=== PATIENT | male | born 1935 | race Caucasian/White ===

== ENCOUNTER → 2016-02-27 | Outpatient (CLI) | payer OTHER, MEDICARE ==
[~2016-02-27] MED LIST: ANT25 PO; AZEL0.056; CETI10TA84 PO; CHOL1TAB12 PO; COEN1CAP17 PO; FLUT50SP22; LORA-741 PO; LVQ750 PO; OMEG-26 PO; PRD20 PO; SAWCAP2 PO; SCOP1DIS14 TD; SIMV10TA2 PO; TURM500C2 PO; VITACAP36 PO
--- NOTE | 2016-02-27 13:31 | DIAGNOSTIC IMAGING REPORT ---
CT SCAN OF THE PARANASAL SINUSES CLINICAL HISTORY: Chronic sinusitis. COMPARISON STUDY: CT of the brain dated 11/21/2014. TECHNIQUE: High-resolution CT scan of the paranasal sinuses is performed. Images are reviewed in the axial, sagittal, and coronal planes. IV contrast was not administered for this examination. The examination is performed utilizing the fusion protocol. CT DOSE: 727.62 mGy.cm FINDINGS: Maxillary antra: Mild mucosal thickening is present on the left. There is moderate mucosal thickening on the right with hyperdense secretions. Air-fluid levels are seen bilaterally. Anterior ethmoid sinuses: Moderate mucosal thickening on the right. Trace mucosal thickening on the left. Posterior ethmoid sinuses: Clear. Sphenoid sinuses: Trace mucosal thickening is seen bilaterally. Frontal sinuses: Trace mucosal thickening is seen on the right. Clear in the left. Ostiomeatal complexes: The ostomy complex is show significant bilateral narrowing secondary to mucosal thickening. Bilateral Jorgito cells are observed. Frontoethmoidal and sphenoethmoidal recesses: The sphenoethmoidal recesses are patent bilaterally noting significant narrowing secondary to mucosal thickening. The frontoethmoidal recesses are clear. Carotid arteries: The carotid arteries are protuberant but covered and without septal attachments. Ethmoid roofs: There is slightly asymmetric elevation of the left ethmoid roof as compared to the right. Nasal turbinates: Normal in appearance. Nasal septum: There is moderate rightward deviation of the bony nasal septum with a small spur. Optic nerves: Covered. Orbits: The bony orbits are intact. Orbital contents are normal in appearance noting bilateral ocular lens implants. Calvarium: The skeletal structures are osteopenic. The imaged calvarium is normal in appearance. Spondylosis is partially imaged in the upper cervical spine. Mastoid air cells: Well pneumatized. Brain parenchyma: Partially visualized brain parenchyma is within normal limits. IMPRESSION: Predominantly maxillary sinus disease as above. See discussion. Electronically signed by: Ron Jesus M.D. 02/27/2016 1:29 PM Dictated Date/Time: 02/27/2016 1:25 PM
== END | disposition home or self-care (01) ==
LOC: C.CTS 13:13
PROVIDERS: ATTEND Surgery
DX: J32.9 Chronic sinusitis, unspecified (principal)

== ENCOUNTER → 2016-04-07 | Outpatient (CLI) | payer OTHER, MEDICARE ==
[2016-04-07 10:32] LABS: CHOLESTEROL/HDL RATIO 2.4
== END | disposition home or self-care (01) ==
LOC: C.LAB1850 08:27
PROVIDERS: ATTEND Internal Medicine Cardiovascular Disease
DX: E78.00 Pure hypercholesterolemia, unspecified (principal); R73.9 Hyperglycemia, unspecified

== ENCOUNTER → 2016-05-21 | Outpatient (CLI) | payer OTHER, MEDICARE ==
[~2016-05-21] MED LIST changes: +SCOP1.5D2 TD; -SCOP1DIS14 TD
--- NOTE | 2016-05-21 12:24 | DIAGNOSTIC IMAGING REPORT ---
TWO VIEW CHEST CLINICAL HISTORY: Dyspnea on exertion. FINDINGS: PA and lateral chest radiographs are compared to study dated 08/22/2015 and correlated with chest CT dated 01/27/2016. The heart is mildly enlarged and there is atherosclerotic calcification of the thoracic aorta. The pulmonary vasculature is noncongested. Chronic interstitial thickening and mild emphysema are similar to previous. There is bibasilar atelectasis. No airspace consolidation or pleural effusion is identified. There is no pneumothorax. The skeletal structures are osteopenic. Degenerative change is noted throughout the thoracic spine. IMPRESSION: Cardiac enlargement and mild emphysema. No acute cardiopulmonary abnormality is seen.. Electronically signed by: Ron Jesus M.D. 05/21/2016 12:23 PM Dictated Date/Time: 05/21/2016 12:22 PM
[2016-05-21 13:11] LABS: BASO % 0.7 %; BASO ABS # 0.04 K/uL (0-0.2); COMPLETE YES; EOS % 5.4 %; HEMATOCRIT 32.1 % (42-52); IG% 0.2 %; LYMPH ABS # 1.33 K/uL (1.2-3.4); MEAN CELL VOLUME 88.4 fL (80-100); MEAN CORPUSCULAR HEMOGLOBIN 30.3 pg (25-34); MEAN CORPUSCULAR HGB CONC 34.3 g/dl (32-36); MONO % 10.2 %; NEUT % 60.5 %; PLATELET COUNT 188 K/uL (130-400); RED BLOOD COUNT 3.63 M/uL (4.7-6.1); WHITE BLOOD COUNT 5.79 K/uL (4.8-10.8)
[2016-05-21 13:22] LABS: ALT/SGPT 26 U/L (12-78); BLOOD UREA NITROGEN 24 mg/dl (7-18); BUN/CREATININE RATIO 30.8 (10-20); CALCIUM 8.9 mg/dl (8.5-10.1); CARBON DIOXIDE 25 mmol/L (21-32); CHLORIDE 104 mmol/L (98-107); CREATININE 0.78 mg/dl (0.60-1.40); GLUCOSE 105 mg/dl (70-99); POTASSIUM 4.1 mmol/L (3.5-5.1); SODIUM 137 mmol/L (136-145)
[2016-05-21 13:29] LABS: ESTIMATED AVERAGE GLUCOSE 117 mg/dl; HA1C FLAG Normal (Normal)
[2016-05-21 13:31] LABS: ALKALINE PHOSPHATASE 53 U/L (45-117); AST/SGOT 17 U/L (15-37); FERRITIN 50.9 ng/ml (8.0-388.0); TOTAL IRON BINDING CAPACITY 281 mcg/dl (250-450)
== END | disposition home or self-care (01) ==
LOC: C.LAB1850 11:35
PROVIDERS: ATTEND Internal Medicine
DX: R06.02 Shortness of breath (principal); D64.9 Anemia, unspecified; E55.9 Vitamin D deficiency, unspecified; R53.83 Other fatigue; R73.9 Hyperglycemia, unspecified; I51.7 Cardiomegaly

== ENCOUNTER 2016-05-30 10:39 | Emergency (ER) | payer OTHER, MEDICARE ==
[~2016-05-30] VITALS: Ht 182.9 cm; Wt 99.3 kg
[~2016-05-30 10:39] MED LIST changes: -ANT25 PO; -AZEL0.056; -CETI10TA84 PO; -CHOL1TAB12 PO; -COEN1CAP17 PO; -FLUT50SP22; -LORA-741 PO; -LVQ750 PO; -OMEG-26 PO; -PRD20 PO; -SAWCAP2 PO; -SCOP1.5D2 TD; -TURM500C2 PO; -VITACAP36 PO
[2016-05-30 10:45] VITALS: TEMP 37; Ht 182.9 cm; Wt 99.3 kg
[2016-05-30 11:12] VITALS: O2SAT 98
[2016-05-30] MEDS ORDERED: FLUT50SP22 (11:18)
[2016-05-30] MEDS ORDERED: PRD20 PO (11:18)
[2016-05-30] MEDS ORDERED: OMEG-26 PO (11:18)
[2016-05-30] MEDS ORDERED: TURM500C2 PO (11:18)
[2016-05-30] MEDS ORDERED: CHOL1TAB12 PO (11:18)
[2016-05-30] MEDS ORDERED: AZEL0.056 (11:18)
[2016-05-30] MEDS ORDERED: CETI10TA84 PO (11:18)
[2016-05-30] MEDS ORDERED: LORA-741 PO (11:18)
[2016-05-30] MEDS ORDERED: VITACAP36 PO (11:18)
[2016-05-30] MEDS ORDERED: COEN1CAP17 PO (11:18)
[2016-05-30] MEDS ORDERED: SCOP1.5D2 TD (11:18)
[2016-05-30] MEDS ORDERED: ANT25 PO (11:18)
[2016-05-30] MEDS ORDERED: SAWCAP2 PO (11:18)
[2016-05-30 11:52] LABS: BASO % 0.3 %; BASO ABS # 0.01 K/uL (0-0.2); COMPLETE YES; HEMATOCRIT 32.4 % (42-52); IG% 0.3 %; LYMPH % 15.8 %; MEAN CORPUSCULAR HGB CONC 35.2 g/dl (32-36); MEAN PLATELET VOLUME 10.8 fL (7.4-10.4); MONO % 7.4 %; NEUT % 76.2 %; PLATELET COUNT 199 K/uL (130-400); RED BLOOD COUNT 3.68 M/uL (4.7-6.1); WHITE BLOOD COUNT 3.79 K/uL (4.8-10.8)
[2016-05-30 11:59] LABS: BUN/CREATININE RATIO 21.8 (10-20); CALCIUM 8.8 mg/dl (8.5-10.1); CREATININE 0.9 mg/dl (0.60-1.40); POTASSIUM 4.3 mmol/L (3.5-5.1)
[2016-05-30 12:02] LABS: PROTHROMBIN TIME (PATIENT) 10.7 SECONDS (9.0-12.0)
--- NOTE | 2016-05-30 12:15 | DIAGNOSTIC IMAGING REPORT ---
CT OF THE HEAD WITHOUT CONTRAST CLINICAL HISTORY: Left arm numbness. COMPARISON STUDY: Head CT November 21, 2014. CT DOSE: 614.27 mGy.cm TECHNIQUE: Helical axial images of the head were obtained without IV contrast. Automated exposure control was utilized for the study. FINDINGS: No acute intracranial hemorrhage, midline shift or mass effect is present. Ventricular system is stable. Basilar cisterns are patent. There are no extra-axial collections. There are no findings to suggest acute dural sinus thrombosis or acute territorial infarct. A suspected mucous retention cyst within the right maxillary sinus is partially imaged on this exam. There are no significant calvarial abnormalities. IMPRESSION: No acute intracranial findings. Electronically signed by: Juan José Moreno M.D. 05/30/2016 12:13 PM Dictated Date/Time: 05/30/2016 12:07 PM
--- NOTE | 2016-05-30 12:16 | DIAGNOSTIC IMAGING REPORT ---
CHEST 2 VIEWS ROUTINE CLINICAL HISTORY: Shortness of breath. COMPARISON STUDY: Chest radiograph May 21, 2016. FINDINGS: There is no pneumothorax or pleural effusion. Cardiomediastinal silhouette is stable. There is no evidence of pulmonary edema. No consolidation is identified. Mild lower lung interstitial thickening, greater on the left, is unchanged. There is left basilar atelectasis. There is no consolidation to suggest pneumonia. The appearance of the chest is unchanged. Postsurgical findings within the right lung apex are noted. IMPRESSION: No acute cardiopulmonary findings. No change in appearance of the chest. Electronically signed by: Juan José Moreno M.D. 05/30/2016 12:14 PM Dictated Date/Time: 05/30/2016 12:13 PM
--- NOTE | 2016-05-30 13:43 | EMERGENCY ROOM VISIT NOTE ---
History First contact with patient: 11:19 Chief Complaint: CARDIAC ASSESSMENT Stated Complaint: ARM NUMBNESS, CHEST PAIN, HIGH BLOOD PRESSURE Nursing Triage Summary: HTN. NUMBNESS/TINGLING. History of Present Illness The patient is a 80 year old male who presents to the Emergency Room with complaints of left arm numbness. The patient states this morning he had some red patches on the palm of his left hand. He has a history of angioedema and is told to take prednisone if he has any allergic type reaction. The patient took 40 mg of prednisone. He states that the patches went away but then he got numbness in his hand which radiated up his entire left arm and then into the left side of his chest. The patient denies any chest pain but states he got very anxious and felt a little short of breath and therefore he took 0.5 mg of Ativan with relief. The patient also states that he took thousand milligrams of aspirin this morning. The patient denies any recent URI symptoms, any urinary symptoms. The patient denies any nausea or vomiting. The patient currently is only complaining of some slight numbness in his left arm. The patient states that he had similar symptoms in the left arm yesterday but they went away. The patient is currently under the care of Dr. Damon who referred him to Dr. Madrid for shortness of breath. The patient has sleep apnea but cannot tolerate the BiPAP. The patient also states that since the beginning of April the patient has had high blood pressure. He has been seen by Dr. Damon for the hypertension. He has not been placed on any medications. The patient states that he has been followed by Dr. Boston for the past 22 years. He is currently scheduled for a stress test June 21. He is under the assumption that Dr. Damon inform Dr. Boston of the patient's hypertension. The patient denies any other symptoms of headache, dizziness, visual changes or any weakness in his arms or legs. The patient does admit to high cholesterol. Past Medical/Surgical History Medical Problems: (1) AORTIC VALVE DISORDER (2) DIVERTICULOSIS COLON (W/O MENT OF HEMORRHAGE) (3) HYPERLIPIDEMIA NEC/NOS (4) Inguinal hernia Family History Heart disease Social History Smoking Status: Former Smoker Alcohol Use: occasionally Drug Use: none Marital Status: Housing Status: lives with family Occupation Status: retired Current/Historical Medications Scheduled Cetirizine (Zyrtec), 10 MG PO DAILY Cholecalciferol (Vitamin D3), 3,000 UNITS PO DAILY Coenzyme Q10 (Ubidecarenone) (Co Q 10), 100 MG PO DAILY Jay 3 Fatty Rlsje-Xodzoa-Bws ([facility]), 2,000 UNITS PO BID Saw Holland-Phytosterols (Prostate Sr), 1 TAB PO BID Simvastatin (Zocor), 10 MG PO QPM Turmeric (Curcuma Longa) (Curcumin 95), 500 MG PO DAILY Vitamin E (E-200), 200 UNITS PO DAILY Scheduled PRN Lorazepam (Ativan), 0.5 MG PO for . Meclizine HCl (Meclizine HCl), 25 MG PO for Dizziness or Vertigo Prednisone (Prednisone), 40 MG PO for ANGIOEDEMA Scopolamine (Transderm-Scop), 3 MG TD for . Miscellaneous Medications Azelastine HCl (Azelastine HCl) Fluticasone Propionate (Nasal) ([facility] Fluticasone Propriona) Allergies Coded Allergies: NO KNOWN DRUG ALLERGIES (Unverified Allergy, Unknown, NONE PER PT, 05/30/16) Unobtainable (Verified Allergy, Unknown, ANGIOEDEMA-HAS HAD 6 EPISODES THIS YR-TO BE DETERMINED, 05/30/16) Physical Exam Vital Signs Date Time Temp Pulse Resp B/P Pulse Ox O2 Delivery O2 Flow Rate FiO2 05/30/16 12:14 75 18 140/85 97 Room Air 05/30/16 11:13 80 05/30/16 11:12 98 Room Air 05/30/16 10:45 37.0 96 18 180/103 93 Room Air Physical Exam GENERAL: 80-year-old white male appears in no acute distress. MENTAL Status: Alert and oriented 3. EYES: PERRLA. EOMs intact. NECK: Supple, no lymphadenopathy noted. No carotid bruits noted. LUNGS: Clear auscultation without wheezes rales or rhonchi. CARDIAC: Regular rate and rhythm without murmur. Pulses is full and equal throughout. ABDOMEN: Positive bowel sounds all 4 quadrants. Soft, nontender to palpation without organomegaly or masses. NEURO:Cranial nerves two through 12 intact. Cerebellar function intact with [id number]. Fine motor intact with alternating finger motions. LOWER EXTREMITIES: Right lower extremity 1+ pitting edema. No erythema or edema noted. A trace of pitting edema on the left lower extremity. LEFT WRIST: No erythema or edema noted. Negative Tinel's negative Phalen's. Full range of motion. Chief Analytics Officer strength is 5 out of 5 as compared to the right. Medical Decision & Procedures ER Provider Diagnostic Interpretation: CHEST 2 VIEWS ROUTINE CLINICAL HISTORY: Shortness of breath. COMPARISON STUDY: Chest radiograph May 21, 2016. FINDINGS: There is no pneumothorax or pleural effusion. Cardiomediastinal silhouette is stable. There is no evidence of pulmonary edema. No consolidation is identified. Mild lower lung interstitial thickening, greater on the left, is unchanged. There is left basilar atelectasis. There is no consolidation to suggest pneumonia. The appearance of the chest is unchanged. Postsurgical findings within the right lung apex are noted. IMPRESSION: No acute cardiopulmonary findings. No change in appearance of the chest. Electronically signed by: Juan José Moreno M.D. 05/30/2016 12:14 PM Dictated Date/Time: 05/30/2016 12:[address] OF THE HEAD WITHOUT CONTRAST CLINICAL HISTORY: Left arm numbness. COMPARISON STUDY: Head CT November 21, 2014. CT DOSE: 614.27 mGy.cm TECHNIQUE: Helical axial images of the head were obtained without IV contrast. Automated exposure control was utilized for the study. FINDINGS: No acute intracranial hemorrhage, midline shift or mass effect is present. Ventricular system is stable. Basilar cisterns are patent. There are no extra-axial collections. There are no findings to suggest acute dural sinus thrombosis or acute territorial infarct. A suspected mucous retention cyst within the right maxillary sinus is partially imaged on this exam. There are no significant calvarial abnormalities. IMPRESSION: No acute intracranial findings. Electronically signed by: Juan José Moreno M.D. 05/30/2016 12:13 PM Laboratory Results 05/30/16 11:05 Red Blood Count 3.68, Mean Corpuscular Volume 88.0, Mean Corpuscular Hemoglobin 31.0, Mean Corpuscular Hemoglobin Concent 35.2, Mean Platelet Volume 10.8, Neutrophils (%) (Auto) 76.2, Lymphocytes (%) (Auto) 15.8, Monocytes (%) (Auto) 7.4, Eosinophils (%) (Auto) 0.0, Basophils (%) (Auto) 0.3, Neutrophils # (Auto) 2.89, Lymphocytes # (Auto) 0.60, Monocytes # (Auto) 0.28, Eosinophils # (Auto) 0.00, Basophils # (Auto) 0.01 05/30/16 11:05 Test 05/30/16 11:05 05/30/16 11:47 05/30/16 12:59 White Blood Count 3.79 K/uL (4.8-10.8) Red Blood Count 3.68 M/uL (4.7-6.1) Hemoglobin 11.4 g/dL (14.0-18.0) Hematocrit 32.4 % (42-52) Mean Corpuscular Volume 88.0 fL (80-100) Mean Corpuscular Hemoglobin 31.0 pg (25-34) Mean Corpuscular Hemoglobin Concent 35.2 g/dl (32-36) Platelet Count 199 K/uL (130-400) Mean Platelet Volume 10.8 fL (7.4-10.4) Neutrophils (%) (Auto) 76.2 % Lymphocytes (%) (Auto) 15.8 % Monocytes (%) (Auto) 7.4 % Eosinophils (%) (Auto) 0.0 % Basophils (%) (Auto) 0.3 % Neutrophils # (Auto) 2.89 K/uL (1.4-6.5) Lymphocytes # (Auto) 0.60 K/uL (1.2-3.4) Monocytes # (Auto) 0.28 K/uL (0.11-0.59) Eosinophils # (Auto) 0.00 K/uL (0-0.5) Basophils # (Auto) 0.01 K/uL (0-0.2) RDW Standard Deviation 42.0 fL (36.4-46.3) RDW Coefficient of Variation 12.8 % (11.5-14.5) Immature Granulocyte % (Auto) 0.3 % Immature Granulocyte # (Auto) 0.01 K/uL (0.00-0.02) Prothrombin Time 10.7 SECONDS (9.0-12.0) Prothromb Time International Ratio 1.0 (0.9-1.1) Activated Partial Thromboplast Time 25.6 SECONDS (21.0-31.0) Partial Thromboplastin Ratio 1.0 Anion Gap 10.0 mmol/L (3-11) Est Creatinine Clear Calc Drug Dose 82.6 ml/min Estimated GFR () 94.5 Estimated GFR (Non- 81.5 BUN/Creatinine Ratio 21.8 (10-20) Calcium Level 8.8 mg/dl (8.5-10.1) Total Bilirubin 0.3 mg/dl (0.2-1) Direct Bilirubin 0.1 mg/dl (0-0.2) Aspartate Amino Transf (AST/SGOT) 18 U/L (15-37) Alanine Aminotransferase (ALT/SGPT) 28 U/L (12-78) Alkaline Phosphatase 58 U/L (45-117) Total Creatine Kinase 103 U/L (39-308) Creatine Kinase MB 2.1 ng/ml (0.5-3.6) Creatine Kinase MB Ratio 2.0 (0-3.0) Total Protein 8.2 gm/dl (6.4-8.2) Albumin 3.8 gm/dl (3.4-5.0) Lipase 211 U/L (73-393) WJ-Ldb-Q-Type Natriuretic Peptide 223 pg/ml (0-1800) Bedside Troponin I 0.000 ng/ml (0-0.045) ECG Indication: other (arm numbness) Rhythm: sinus rhythm Findings: 1st degree AV block, RBBB, no acute ischemic change ED Course The patient was evaluated. The patient was placed in a monitor and continuous pulse ox. EKG was ordered and interpreted by myself without any acute changes. Chest x-ray was ordered and interpreted by the radiologist and myself as above with no change from prior x-ray of May 21.. IV access was obtained. CBC and differential, renal profile, LFTs and lipase levels were ordered. Coags were ordered. CK-MB, [id number] troponin and BNP was ordered. Head CT was ordered and interpreted by the radiologist as above any acute findings. The patient's labs are reviewed. White count was slightly low. Coags were normal. Metabolic profile was unremarkable. Troponin was 0. The patient was reevaluated. The patient's blood pressure on admission was elevated but on recheck was 140/85 .The patient was informed of all findings. A second troponin was ordered and was negative. The patient was informed of the findings. Dr. Josue independently evaluated the patient and agree with treatment plan. The patient was discharged home in stable condition. Medical Decision Differential diagnosis include carpal tunnel, stroke, TIA, acute IL, peripheral neuropathy Impression Primary Impression: Left arm numbness Additional Impressions: Shortness of breath Elevated blood pressure reading Departure Information Dispostion Home / Self-Care Condition GOOD Referrals Robert Damon M.D. (PCP) Forms IMPORTANT VISIT INFORMATION Patient Instructions My [facility] Master[employer] 3D Additional Instructions Follow-up with Dr. Damon in 2 days for reevaluation. Limit physical activity until rechecked in 2 days. If you have any severe chest pain, shortness of breath, extremity weakness return to ER immediately. Problem Qualifiers
[2016-05-30 13:52] VITALS: BP 168/100; PULSE 86; O2SAT 96
== END 2016-05-30 13:53 | disposition home or self-care (01) ==
LOC: C.EDB 10:41 → C.EDC 13:53
DX: R20.0 Anesthesia of skin (principal); R06.02 Shortness of breath; R03.0 Elevated blood-pressure reading, without diagnosis of hypertension; G47.30 Sleep apnea, unspecified; E78.5 Hyperlipidemia, unspecified; Z87.891 Personal history of nicotine dependence; Z79.899 Other long term (current) drug therapy

== ENCOUNTER 2016-09-05 13:00 | Observation (INO) | payer OTHER, MEDICARE ==
[~2016-09-05] VITALS: Ht 182.9 cm; Wt 95.0 kg
[~2016-09-05 13:00] MED LIST changes: +ANT25 PO; +AZEL0.056; +CETI10TA84 PO; +CHOL1TAB12 PO; +COEN1CAP17 PO; +FLUT50SP22; +LORA-741 PO; +OMEG-26 PO; +PRD20 PO; +SAWCAP2 PO; +SCOP1DIS14 TD; +TURM500C2 PO; +VITACAP36 PO
--- NOTE | 2016-09-05 13:31 | DIAGNOSTIC IMAGING REPORT ---
CHEST ONE VIEW PORTABLE CLINICAL HISTORY: 6 dyspnea COMPARISON STUDY: 05/30/2016 FINDINGS: Small right perihilar infiltrate. Minimal infiltrative change right base. Left lung is generally clear. Diaphragms are smooth. IMPRESSION: Small parenchymal infiltrate right midlung and right base. The above report was generated using voice recognition software. It may contain grammatical, syntax or spelling errors. Electronically signed by: Les Schmid M.D. 09/05/2016 1:30 PM Dictated Date/Time: 09/05/2016 1:29 PM
[2016-09-05 13:55] LABS: BASO % 0.3 %; BASO ABS # 0.02 K/uL (0-0.2); COMPLETE YES; EOS % 2.1 %; HEMATOCRIT 32.5 % (42-52); IG% 0.1 %; LYMPH ABS # 1.03 K/uL (1.2-3.4); MEAN CELL VOLUME 91.8 fL (80-100); MEAN CORPUSCULAR HEMOGLOBIN 31.1 pg (25-34); MEAN CORPUSCULAR HGB CONC 33.8 g/dl (32-36); MEAN PLATELET VOLUME 11.3 fL (7.4-10.4); NEUT % 71.5 %; PLATELET COUNT 167 K/uL (130-400); RED BLOOD COUNT 3.54 M/uL (4.7-6.1); WHITE BLOOD COUNT 7.93 K/uL (4.8-10.8)
[2016-09-05 14:13] LABS: BUN/CREATININE RATIO 19.9 (10-20); CALCIUM 8.5 mg/dl (8.5-10.1); CREATININE 1.1 mg/dl (0.60-1.40)
[2016-09-05] MEDS ORDERED: CEFTRIAXONE SOD INJ 1 GM ADDVIAL IV STA (14:15)
[2016-09-05 14:16] LABS: ALB/GLOB RATIO 0.7 (0.9-2)
[2016-09-05 15:09] LABS: LYME DISEASE AB IGG NEG (NEG); LYME DISEASE AB IGM NEG (NEG)
[2016-09-05] MEDS ORDERED: MAGNESIUM HYDROXIDE SUSP 30 ML UDC PO PRN (15:15)
[2016-09-05] MEDS ORDERED: MECLIZINE HCL 25 MG TAB PO PRN (15:15)
[2016-09-05] MEDS ORDERED: POLYETHYLENE (MIRALAX) 17 GM PACK PO PRN (15:15)
[2016-09-05] MEDS ORDERED: ALUMINUM/MAGNESIUM/SIMETH (MAALOX MAX) 30 ML UDC PO PRN (15:15)
[2016-09-05] MEDS ORDERED: ONDANSETRON INJ 2 MG/ML 2 ML VIAL IV PRN (15:15)
[2016-09-05] MEDS ORDERED: SODIUM CHLORIDE 0.9% 1000ML 1,000 ML IV SCH (15:15)
[2016-09-05] MEDS ORDERED: ALBUT/IPRATROP 3MG/0.5MG NEB 3 ML VIAL INH PRN (15:15)
[2016-09-05] MEDS ORDERED: LORAZEPAM 0.5 MG TAB PO PRN (15:15)
[2016-09-05 15:21] VITALS: O2SAT 95; Ht 182.9 cm; Wt 95.0 kg
[2016-09-05] MEDS ORDERED: IV FLUIDS COMPLETED PRN (15:30)
[2016-09-05] MEDS ORDERED: LEVAQUIN 750MG / 150ML D5W ONE (15:41)
--- NOTE | 2016-09-05 15:41 | History and Physical ---
History & Physical Date & Time of Service: Sep 05, 2016 at 15:23 Chief Complaint: Headaches For 5 Days,Fever,Body Aches Primary Care Physician: Robert Damon M.D. History of Present Illness Source: patient, family, clinic records, hospital records Patient is a pleasant 80 y/o male, with PMHx of hyperlipidemia, insomnia, and BPPV, who presented to the ED because of persistent fevers x7 days. Patient also admits to associated headaches, body aches, fatigue, and chills. He denies cough or SOB. He denies h/o pneumonia, recent hospitalization, or other recent illness. He denies any sick contact. Patient denies h/o TIA/CVA, DVT/PE. He denies recent long travels or pleuritic chest pain. Denies recent tick bite or rashes. He has been eating and drinking OK. Patient denies any sweats, lightheadedness, dizziness, vision changes, CP, palpitations, edema, SOB, wheezing, cough, abdominal pain, nausea, vomiting, diarrhea, urinary symptoms, melena, numbness/tingling, weakness, anxiety/depression, active bleeding, or new skin discoloration/changes. Past Medical/Surgical History Medical Problems: Aortic valve stenosis Hyperlipidemia Insomnia BPPV Family History Heart disease Social History Smoking Status: Former Smoker Drug Use: none Marital Status: Housing status: lives with family Occupational Status: retired Immunizations History of Tetanus Vaccine?: Yes History of Pneumococcal: RECEIVED UPON ADMISSION TO PCU History of Hepatitis B Vaccine: No Multi-Drug Resistant Organisms History of MDRO: No Allergies Coded Allergies: NO KNOWN DRUG ALLERGIES (Unverified Allergy, Unknown, NONE PER PT, 09/05/16 ) Unobtainable (Verified Allergy, Unknown, ANGIOEDEMA-HAS HAD 6 EPISODES THIS YR-TO BE DETERMINED, 09/05/16) Home Medications Scheduled Cetirizine (Zyrtec), 10 MG PO DAILY Cholecalciferol (Vitamin D3), 3,000 UNITS PO DAILY Coenzyme Q10 (Ubidecarenone) (Co Q 10), 100 MG PO DAILY Jansen 3 Fatty Eonkd-Vrdprp-Qvx ([facility]), 2,000 UNITS PO BID Saw [place]ight[place]-Phytosterols (Prostate Sr), 1 TAB PO BID Simvastatin (Zocor), 10 MG PO QPM Turmeric (Curcuma Longa) (Curcumin 95), 500 MG PO DAILY Vitamin E (E-200), 200 UNITS PO DAILY Scheduled PRN Lorazepam (Ativan), 0.5 MG PO for . Meclizine HCl (Meclizine HCl), 25 MG PO for Dizziness or Vertigo Prednisone (Prednisone), 40 MG PO for ANGIOEDEMA Scopolamine (Transderm-Scop), 3 MG TD for . Miscellaneous Medications Fluticasone Propionate (Nasal) ([facility] Fluticasone Propriona) Physical Exam Vital Signs Date Time Temp Pulse Resp B/P (MAP) Pulse Ox O2 Delivery O2 Flow Rate FiO2 09/05/16 14:45 87 20 140/78 95 Nasal Cannula 2.0 09/05/16 14:13 88 Room Air 09/05/16 13:37 98 09/05/16 13:15 93 Room Air 09/05/16 13:01 38.1 101 20 120/74 93 Room Air General Appearance: no apparent distress, + pertinent finding (O2 2L NC ) Head: normocephalic, atraumatic ENT: hearing grossly normal Neck: supple Respiratory/Chest: lungs clear, no respiratory distress, no accessory muscle use Cardiovascular: regular rate, rhythm Abdomen/GI: normal bowel sounds, non tender, soft Back: normal inspection Extremities/Musculoskelatal: no calf tenderness, no pedal edema Neurologic/Psych: alert, normal mood/affect, oriented x 3 Skin: normal color, warm/dry, no rash Diagnostics Laboratory Results Results Past 24 Hours Test 09/05/16 13:25 09/05/16 13:38 09/05/16 13:40 Range/Units White Blood Count 7.93 4.8-10.8 K/uL Red Blood Count 3.54 4.7-6.1 M/uL Hemoglobin 11.0 14.0-18.0 g/dL Hematocrit 32.5 42-52 % Mean Corpuscular Volume 91.8 80-100 fL Mean Corpuscular Hemoglobin 31.1 25-34 pg Mean Corpuscular Hemoglobin Concent 33.8 32-36 g/dl Platelet Count 167 130-400 K/uL Mean Platelet Volume 11.3 7.4-10.4 fL Neutrophils (%) (Auto) 71.5 % Lymphocytes (%) (Auto) 13.0 % Monocytes (%) (Auto) 13.0 % Eosinophils (%) (Auto) 2.1 % Basophils (%) (Auto) 0.3 % Neutrophils # (Auto) 5.67 1.4-6.5 K/uL Lymphocytes # (Auto) 1.03 1.2-3.4 K/uL Monocytes # (Auto) 1.03 0.11-0.59 K/uL Eosinophils # (Auto) 0.17 0-0.5 K/uL Basophils # (Auto) 0.02 0-0.2 K/uL RDW Standard Deviation 44.8 36.4-46.3 fL RDW Coefficient of Variation 13.2 11.5-14.5 % Immature Granulocyte % (Auto) 0.1 % Immature Granulocyte # (Auto) 0.01 0.00-0.02 K/uL Sodium Level 137 136-145 mmol/L Potassium Level 4.0 3.5-5.1 mmol/L Chloride Level 101 98-107 mmol/L Carbon Dioxide Level 28 21-32 mmol/L Anion Gap 8.0 3-11 mmol/L Blood Urea Nitrogen 22 7-18 mg/dl Creatinine 1.10 0.60-1.40 mg/dl Est Creatinine Clear Calc Drug Dose 66.2 ml/min Estimated GFR () 74.1 Estimated GFR (Non- 64.0 BUN/Creatinine Ratio 19.9 10-20 Random Glucose 98 70-99 mg/dl Calcium Level 8.5 8.5-10.1 mg/dl Total Bilirubin 0.4 0.2-1 mg/dl Aspartate Amino Transf (AST/SGOT) 17 15-37 U/L Alanine Aminotransferase (ALT/SGPT) 24 12-78 U/L Alkaline Phosphatase 56 45-117 U/L Total Protein 8.0 6.4-8.2 gm/dl Albumin 3.4 3.4-5.0 gm/dl Globulin 4.6 2.5-4.0 gm/dl Albumin/Globulin Ratio 0.7 0.9-2 Lyme Disease IgG Antibody NEG NEG Lyme Disease IgM Antibody NEG NEG Bedside Lactic Acid Venous 1.04 0.90-1.70 mmol/L Bedside Troponin I < 0.030 0-0.045 ng/ml Microbiology Results 09/05/16 Blood Culture, Received Pending 09/05/16 Blood Culture, Received Pending Diagnostic Radiology CHEST ONE VIEW PORTABLE CLINICAL HISTORY: 6 dyspnea COMPARISON STUDY: 05/30/2016 FINDINGS: Small right perihilar infiltrate. Minimal infiltrative change right base. Left lung is generally clear. Diaphragms are smooth. IMPRESSION: Small parenchymal infiltrate right midlung and right base. The above report was generated using voice recognition software. It may contain grammatical, syntax or spelling errors. Electronically signed by: Les Schmid M.D. 09/05/2016 1:30 PM Dictated Date/Time: 09/05/2016 1:29 PM The status of this report is Signed. Draft = Not yet reviewed or approved by Radiologist. Signed = Reviewed and approved by Radiologist. Impression Assessment and Plan Patient is a pleasant 80 y/o male, with PMHx of hyperlipidemia, insomnia, and BPPV, who presented to the ED because of persistent fevers x7 days. Patient also admits to associated headaches, body aches, fatigue, and chills. Pneumonia w/ infiltrates right midlung/base on CXR: - Admit to med/surg - O2 protocol, wean as tolerated- does NOT wear O2 supplement at home - IV Rocephin x1 dose in ED; start IV Levaquin at admission (09/05) - DuoNebs PRN - BCx and sputum cultures pending - Check UA - Lyme screen negative - Tylenol PRN fever/pain Chronic anemia, baseline hgb 11.0- STABLE Hyperlipidemia: Continue Zocor 10 mg HS BPPV: Continue Meclizine 25 mg TID PRN dizziness Insomnia: Ativan 0.5 mg HS PRN Aortic stenosis- follows w/ Dr. Boston GI Prophylaxis: Maalox PRN, IV Zofran PRN, Colace and/or Milk of Mag PRN DVT Prophylaxis: Lovenox, TEDs/SCDs Code Status: LEVEL I, FULL Dispo: From home, lives w/ - no discharge needs anticipated Resident Physician Supervision Note: I was present with Clara LAST during the history and exam. I discussed the case with the PA and agree with the findings and plan as documented in the note. Any exceptions or clarifications are listed here: Relatively healthy 80 y/o M Hx HPL - developed fever and weakness over past 2 days - denies cough/SOB, however, 02 sat was low on arrival and CXR is consistent with PNM OE AAO x 3 S1,2 R CTAB NT, ND No CCE P: Abx - PRN Duonebs Cont statin Tx Can likely be D/Cd if sat improves as he has few comorbidities and good functional status Documented By: Chintan March Level of Care Med/Surg Resuscitation Status FULL RESUSCITATION VTE Prophylaxis VTE Risk Assessment Done? Y/N: Yes Risk Level: Moderate Given or contraindicated: Enoxaparin (Lovenox)SQ, T.E.D. Stockings, SCD's
[2016-09-05] MEDS ORDERED: LEVOFLOXACIN CONSULT ACTIVE PRN (15:45)
[2016-09-05] MEDS ORDERED: LEVOFLOXACIN / D5W 750 MG in PREMIXED IN D5W 150 ML IV ONE (15:45)
[2016-09-05 16:45] VITALS: BP 136/84; PULSE 90; TEMP 37.7; O2SAT 93
[2016-09-05 17:06] LABS: PROTHROMBIN TIME (PATIENT) 10.9 SECONDS (9.0-12.0)
--- NOTE | 2016-09-05 17:14 | EMERGENCY ROOM VISIT NOTE ---
History Report prepared by Miguel: Lang Go Under the Supervision of: Dr. Tamir Constantino M.D. First contact with patient: 14:03 Chief Complaint: FEVER Stated Complaint: HEADACHES FOR 5 DAYS,FEVER,BODY ACHES History of Present Illness The patient is a 80 year old male who presents to the Emergency Room with complaints of a persistent fever for the past week. He currently rates his discomfort as a 7/10 in severity. The patient states that for the past week he has had a fever and then four days ago he developed body aches. He additionally associates chills and a headache. The patient denies any shortness of breath. He denies feeling short of breath prior to being put on supplemental nasal cannula oxygen in the emergency department. The patient denies any known tick bites but states that [place] areas, so there is a possibility. He denies any cough, chest pain, vomiting, or swelling or pain in his lower extremities. Source of History: patient Onset: past week Position: other (global) Symptom Intensity: 7/10 Quality: other (fever) Timing: other (persistent) Associated Symptoms: + headache, No neck pain, No chest pain, No SOB, No vomiting Note: Associated Symptoms: body aches Review of Systems See HPI for pertinent positives & negatives. A total of 10 systems reviewed and were otherwise negative. Past Medical & Surgical Medical Problems: (1) AORTIC VALVE DISORDER (2) DIVERTICULOSIS COLON (W/O MENT OF HEMORRHAGE) (3) HYPERLIPIDEMIA NEC/NOS (4) Inguinal hernia (5) Pneumonia Family History Heart disease Social History Smoking Status: Former Smoker Alcohol Use: occasionally Drug Use: none Marital Status: Housing Status: lives with family Occupation Status: retired Current/Historical Medications Scheduled Cetirizine (Zyrtec), 10 MG PO DAILY Cholecalciferol (Vitamin D3), 3,000 UNITS PO DAILY Coenzyme Q10 (Ubidecarenone) (Co Q 10), 100 MG PO DAILY [place] 3 Fatty Jihry-Medrra-Lqg ([facility]), 2,000 UNITS PO BID Saw Kelay[place]-Phytosterols (Prostate Sr), 1 TAB PO BID Simvastatin (Zocor), 10 MG PO QPM Turmeric (Curcuma Longa) (Curcumin 95), 500 MG PO DAILY Vitamin E (E-200), 200 UNITS PO DAILY Scheduled PRN Lorazepam (Ativan), 0.5 MG PO for . Meclizine HCl (Meclizine HCl), 25 MG PO for Dizziness or Vertigo Prednisone (Prednisone), 40 MG PO for ANGIOEDEMA Scopolamine (Transderm-Scop), 3 MG TD for . Miscellaneous Medications Fluticasone Propionate (Nasal) ([facility] Fluticasone Propriona) Allergies Coded Allergies: NO KNOWN DRUG ALLERGIES (Unverified Allergy, Unknown, NONE PER PT, 09/05/16 ) Unobtainable (Verified Allergy, Unknown, ANGIOEDEMA-HAS HAD 6 EPISODES THIS YR-TO BE DETERMINED, 09/05/16) Physical Exam Vital Signs Date Time Temp Pulse Resp B/P (MAP) Pulse Ox O2 Delivery O2 Flow Rate FiO2 09/05/16 15:21 95 Nasal Cannula 2.0 09/05/16 14:45 87 20 140/78 95 Nasal Cannula 2.0 09/05/16 14:13 88 Room Air 09/05/16 13:37 98 09/05/16 13:15 93 Room Air 09/05/16 13:01 38.1 101 20 120/74 93 Room Air Physical Exam Constitutional: Vital signs reviewed. Pulse ox 88 on room air. Eyes: Pupils are equal round reactive to light. Conjunctiva are noninjected. ENT: Pharynx is clear without erythema or exudate. Mucous membranes are moist. Neck supple without meningeal signs. Respiratory: Crackles at the right base. Breath sounds are equal bilaterally. Cardiovascular: Regular rate and rhythm. No rubs or gallops. GI: Soft, nondistended and nontender. Bowel sounds are present. Musculoskeletal: No peripheral edema. No lower extremity tenderness. Integumentary: No cyanosis. Neurological: The patient is awake and alert. No focal deficits. Psychiatric: Normal affect. Medical Decision & Procedures ER Provider Diagnostic Interpretation: X-ray results as stated below per interpretation by me and the radiologist: CHEST ONE VIEW PORTABLE CLINICAL HISTORY: 6 dyspnea COMPARISON STUDY: 05/30/2016 FINDINGS: Small right perihilar infiltrate. Minimal infiltrative change right base. Left lung is generally clear. Diaphragms are smooth. IMPRESSION: Small parenchymal infiltrate right midlung and right base. The above report was generated using voice recognition software. It may contain grammatical, syntax or spelling errors. Electronically signed by: Les Schmid M.D. 09/05/2016 1:30 PM Dictated Date/Time: 09/05/2016 1:29 PM Laboratory Results 09/05/16 13:25 Red Blood Count 3.54, Mean Corpuscular Volume 91.8, Mean Corpuscular Hemoglobin 31.1, Mean Corpuscular Hemoglobin Concent 33.8, Mean Platelet Volume 11.3, Neutrophils (%) (Auto) 71.5, Lymphocytes (%) (Auto) 13.0, Monocytes (%) (Auto) 13.0, Eosinophils (%) (Auto) 2.1, Basophils (%) (Auto) 0.3, Neutrophils # (Auto ) 5.67, Lymphocytes # (Auto) 1.03, Monocytes # (Auto) 1.03, Eosinophils # (Auto ) 0.17, Basophils # (Auto) 0.02 09/05/16 13:25 Test 09/05/16 13:25 09/05/16 13:38 09/05/16 13:40 White Blood Count 7.93 K/uL (4.8-10.8) Red Blood Count 3.54 M/uL (4.7-6.1) Hemoglobin 11.0 g/dL (14.0-18.0) Hematocrit 32.5 % (42-52) Mean Corpuscular Volume 91.8 fL (80-100) Mean Corpuscular Hemoglobin 31.1 pg (25-34) Mean Corpuscular Hemoglobin Concent 33.8 g/dl (32-36) Platelet Count 167 K/uL (130-400) Mean Platelet Volume 11.3 fL (7.4-10.4) Neutrophils (%) (Auto) 71.5 % Lymphocytes (%) (Auto) 13.0 % Monocytes (%) (Auto) 13.0 % Eosinophils (%) (Auto) 2.1 % Basophils (%) (Auto) 0.3 % Neutrophils # (Auto) 5.67 K/uL (1.4-6.5) Lymphocytes # (Auto) 1.03 K/uL (1.2-3.4) Monocytes # (Auto) 1.03 K/uL (0.11-0.59) Eosinophils # (Auto) 0.17 K/uL (0-0.5) Basophils # (Auto) 0.02 K/uL (0-0.2) RDW Standard Deviation 44.8 fL (36.4-46.3) RDW Coefficient of Variation 13.2 % (11.5-14.5) Immature Granulocyte % (Auto) 0.1 % Immature Granulocyte # (Auto) 0.01 K/uL (0.00-0.02) Prothrombin Time 10.9 SECONDS (9.0-12.0) Prothromb Time International Ratio 1.0 (0.9-1.1) Anion Gap 8.0 mmol/L (3-11) Est Creatinine Clear Calc Drug Dose 66.2 ml/min Estimated GFR () 74.1 Estimated GFR (Non- 64.0 BUN/Creatinine Ratio 19.9 (10-20) Calcium Level 8.5 mg/dl (8.5-10.1) Total Bilirubin 0.4 mg/dl (0.2-1) Aspartate Amino Transf (AST/SGOT) 17 U/L (15-37) Alanine Aminotransferase (ALT/SGPT) 24 U/L (12-78) Alkaline Phosphatase 56 U/L (45-117) Total Protein 8.0 gm/dl (6.4-8.2) Albumin 3.4 gm/dl (3.4-5.0) Globulin 4.6 gm/dl (2.5-4.0) Albumin/Globulin Ratio 0.7 (0.9-2) Lyme Disease IgG Antibody NEG (NEG) Lyme Disease IgM Antibody NEG (NEG) Bedside Lactic Acid Venous 1.04 mmol/L (0.90-1.70) Bedside Troponin I < 0.030 ng/ml (0-0.045) Laboratory results as reviewed by me. Medications Administered Medications (Trade) Dose Ordered Sig/Phyllis Route Start Time Stop Time Status Last Admin Dose Admin Ceftriaxone Sodium (Rocephin Inj) 1 gm NOW STAT IV 09/05/16 14:15 09/05/16 14:16 DC 09/05/16 14:31 1 GM ED Course 1405: The patient was evaluated in room B4B. A complete history and physical exam was performed. I discussed the exam findings with him and I discussed the treatment plan. He verbalized complete understanding and agreement. He is going to be evaluated for further treatment. 1415: Ordered Rocephin Inj 1 gm IV. 1449: I discussed the patients case with LYNDON Lopez. He is going to evaluate the patient for further treatment. Medical Decision This is a 80-year-old male who presents with fever. Differential diagnosis includes sepsis, SIRS, pneumonia, UTI, Lyme disease, viral illness. I did perform a limited focused review of portions of the patient's old chart on the electronic medical record. The patient has had no recent pertinent visits to this hospital. Medication Reconciliation: I attest that I have personally reviewed the patient' s current medication list. Blood Pressure Screening: Patient was found to have normal blood pressure on screening and does not require follow-up. I did evaluate the patient as noted above. IV access was established. I did personally review the patient's chest x-ray as described above. The patient has a right sided pneumonia. I did order and review the patient's blood work as noted in the electronic medical record. While the patient was in the emergency Department his O2 saturations dropped to the high 80s. He was placed on oxygen by the nurse. I did take him off the oxygen to see if he desaturated again. His O2 saturation went down to 88 on room air and so he is placed back on oxygen. Given his pneumonia and hypoxia he will require hospitalization. I did treat him with ceftriaxone IV. I did discuss case with the hospitalist and lining caser. Consults Time Called: [phone] Consulting Physician: LYNDON Lopez Returned Call: [phone] I discussed the patients case with LYNDON Lopez. He is going to evaluate the patient for further treatment. Impression Primary Impression: Pneumonia involving right lung Additional Impression: Hypoxia Scribe Attestation The scribe's documentation has been prepared under my direct and personally reviewed by me in its entirety. I confirm that the note above accurately reflects all work, treatment, procedures, and medical decision making performed by me. Departure Information Dispostion Being Evaluated By Hospitalist Referrals Robert Damon M.D. (PCP) Problem Qualifiers Primary Impression: Pneumonia involving right lung Pneumonia type: due to unspecified organism Lung location: unspecified part of lung Qualified Codes: J18.9 - Pneumonia, unspecified organism
[2016-09-05] MEDS: ACETAMINOPHEN 325 MG TAB PO PRN ×2 (18:01→22:05)
[2016-09-05 20:00] VITALS: O2SAT 92
[2016-09-05 20:48] LABS: URINE APPEARANCE CLEAR (CLEAR); URINE BILIRUBIN NEG (NEG); URINE COLOR YELLOW; URINE EPITHELIAL CELL AUTO 0-5 /lpf (0-5); URINE NITRITE NEG (NEG); URINE PH 6.5 (4.5-7.5); URINE SPECIFIC GRAVITY 1.013 (1.000-1.030); UROBILINOGEN NEG (NEG); ZZUR CULT IF INDIC CLEAN CATCH NO
[2016-09-05 20:49] LABS: MANUAL MICROSCOPIC REQUIRED? NO; REVIEW REQ? NO
[2016-09-05] MEDS ORDERED: ENOXAPARIN 40 MG/0.4 ML SYR SQ SCH (21:00)
[2016-09-05] MEDS ORDERED: SIMVASTATIN 10 MG TAB PO SCH (21:00)
[2016-09-05 23:43] VITALS: BP 136/84; PULSE 90; TEMP 37.7; O2SAT 93
[2016-09-06] VITALS: O2SAT 97
[2016-09-06 06:49] LABS: HEMATOCRIT 31.1 % (42-52); MEAN CELL VOLUME 90.4 fL (80-100); MEAN CORPUSCULAR HEMOGLOBIN 30.2 pg (25-34); MEAN CORPUSCULAR HGB CONC 33.4 g/dl (32-36); MEAN PLATELET VOLUME 10.5 fL (7.4-10.4); PLATELET COUNT 156 K/uL (130-400); RED BLOOD COUNT 3.44 M/uL (4.7-6.1); WHITE BLOOD COUNT 5.56 K/uL (4.8-10.8)
[2016-09-06 07:14] LABS: BUN/CREATININE RATIO 20.9 (10-20); CALCIUM 8.2 mg/dl (8.5-10.1); CREATININE 0.78 mg/dl (0.60-1.40); POTASSIUM 3.9 mmol/L (3.5-5.1)
[2016-09-06 07:41] VITALS: BP 135/69; PULSE 92; TEMP 36.9; O2SAT 100
[2016-09-06] MEDS ORDERED: FLUTICASONE PROPIONATE NA SPR 16 GM BTL SCH (09:00)
[2016-09-06] MEDS ORDERED: CETIRIZINE HCL 10 MG TAB PO SCH (09:00)
[2016-09-06] MEDS ORDERED: LVQ750 PO (12:42)
--- NOTE | 2016-09-06 12:43 | Discharge Instructions ---
Discharge Instructions Date of Service Sep 06, 2016. Admission Reason for Admission: Pneumonia Discharge Discharge Diagnosis / Problem: Pneumonia Discharge Goals Goal(s): Improve function Activity Recommendations Activity Limitations: resume your previous activity . Current Hospital Diet Patient's current hospital diet: AHA Diet (Heart Healthy) Discharge Diet Recommended Diet: Regular Diet Pending Studies Studies pending at discharge: no Medical Emergencies . Who to Call and When: Medical Emergencies: If at any time you feel your situation is an emergency, please call 911 immediately. . Non-Emergent Contact Non-Emergency issues call your: Primary Care Provider . . "Provider Documentation" section prepared by Bridger Carmichael. . VTE Core Measure Inpt VTE Proph given/why not?: Enoxaparin (Lovenox)Crescencio CARVALHO, SCD's
[2016-09-06 14:17] VITALS: BP 135/69; PULSE 92; TEMP 36.9; O2SAT 100
[2016-09-06] MEDS ORDERED: LEVOFLOXACIN / D5W 750 MG in PREMIXED IN D5W 150 ML IV SCH (16:00)
--- NOTE | 2016-09-23 00:59 | DISCHARGE SUMMARY ---
Please see dictated H and P for full details. The patient is a 81-year-old with history of hyperlipidemia and insomnia, who presented with persistent fevers for 7 days, associated headaches, body aches, fatigue and chills. He also has a history of aortic valve stenosis. He was discovered to have a normal white count of 7.9 and a small parenchymal infiltrate in the right mid lung and right base and was brought in for IV antibiotics, started on Rocephin. He received 1 dose in the Emergency Room and then was started on Levaquin. On hospital day #2, the patient's symptoms had improved and he was deemed stable for discharge. He was on Levaquin 750 daily for 6 days, Zyrtec 10 mg daily, vitamin D 3 3000 units daily, coenzyme 10 100 mg daily, fluticasone 50 mcg spray, Ativan 0.5 mg p.r.n., meclizine 25 mg p.r.n. for dizziness, omega-3 fatty acids 1 capsule 2000 units twice a day, prednisone 40 mg p.r.n. angioedema, saw palmetto 1 capsule b.i.d., scopolamine 3 mg transdermal p.r.n., simvastatin 10 mg q.p.m., turmeric 500 mg daily, vitamin E 200 mg daily. He was discharged home with self care. He was 97% on room air. Recommended to follow up with his regular doctor in 1 week.
== END 2016-09-06 14:30 | disposition home or self-care (01) ==
LOC: C.EDB 13:01 → C.MS2W 15:22 → ENRESERV 16:10
PROVIDERS: ADMIT Internal Medicine; ATTEND Internal Medicine
DX: J18.9 Pneumonia, unspecified organism (principal); E78.5 Hyperlipidemia, unspecified; G47.00 Insomnia, unspecified; H81.10 Benign paroxysmal vertigo, unspecified ear; Z82.49 Family history of ischemic heart disease and other diseases of the circulatory system; Z87.891 Personal history of nicotine dependence; I35.0 Nonrheumatic aortic (valve) stenosis; Z87.01 Personal history of pneumonia (recurrent)

== ENCOUNTER → 2016-09-28 | Outpatient (CLI) | payer OTHER, MEDICARE ==
[~2016-09-28] MED LIST changes: -AZEL0.056; +LVQ750 PO
[2016-09-28 10:04] LABS: BASO % 0.7 %; BASO ABS # 0.03 K/uL (0-0.2); COMPLETE YES; EOS % 7.9 %; HEMATOCRIT 32.8 % (42-52); LYMPH % 26.5 %; LYMPH ABS # 1.21 K/uL (1.2-3.4); MEAN CELL VOLUME 91.6 fL (80-100); MEAN CORPUSCULAR HEMOGLOBIN 30.2 pg (25-34); MEAN CORPUSCULAR HGB CONC 32.9 g/dl (32-36); MONO % 9.8 %; NEUT % 55.1 %; PLATELET COUNT 159 K/uL (130-400); RED BLOOD COUNT 3.58 M/uL (4.7-6.1); WHITE BLOOD COUNT 4.57 K/uL (4.8-10.8)
[2016-09-28 10:46] LABS: ALT/SGPT 31 U/L (12-78); AST/SGOT 24 U/L (15-37); BLOOD UREA NITROGEN 25 mg/dl (7-18); BUN/CREATININE RATIO 35.5 (10-20); CALCIUM 8.9 mg/dl (8.5-10.1); CARBON DIOXIDE 28 mmol/L (21-32); CHLORIDE 107 mmol/L (98-107); CREATININE 0.71 mg/dl (0.60-1.40); GLUCOSE 104 mg/dl (70-99); POTASSIUM 4.2 mmol/L (3.5-5.1); SODIUM 139 mmol/L (136-145)
[2016-09-28 11:00] LABS: CHOLESTEROL 159 mg/dl (0-200); CHOLESTEROL/HDL RATIO 2.6; HDL CHOLESTEROL 62 mg/dl; LDL CHOLESTEROL CALCULATED 79 mg/dl; TOTAL IRON BINDING CAPACITY 280 mcg/dl (250-450); TRIGLYCERIDES 92 mg/dl (0-150); VERY LOW DENSITY LIPOPROT CALC 18 mg/dl
== END | disposition home or self-care (01) ==
LOC: C.LAB1850 08:57
PROVIDERS: ATTEND Internal Medicine
DX: E78.00 Pure hypercholesterolemia, unspecified (principal); E55.9 Vitamin D deficiency, unspecified; D64.9 Anemia, unspecified; I10 Essential (primary) hypertension

== ENCOUNTER → 2016-11-02 | Outpatient (CLI) | payer OTHER, MEDICARE ==
[2016-11-02 09:37] LABS: BASO % 0.6 %; BASO ABS # 0.03 K/uL (0-0.2); COMPLETE YES; EOS % 8.2 %; IG% 0.2 %; LYMPH % 27.2 %; LYMPH ABS # 1.42 K/uL (1.2-3.4); MEAN CELL VOLUME 90.4 fL (80-100); MEAN CORPUSCULAR HEMOGLOBIN 30.2 pg (25-34); MEAN CORPUSCULAR HGB CONC 33.4 g/dl (32-36); MEAN PLATELET VOLUME 10.7 fL (7.4-10.4); MONO % 7.5 %; NEUT % 56.3 %; PLATELET COUNT 165 K/uL (130-400); RED BLOOD COUNT 3.54 M/uL (4.7-6.1); WHITE BLOOD COUNT 5.22 K/uL (4.8-10.8)
== END | disposition home or self-care (01) ==
LOC: C.LAB1850 08:21
PROVIDERS: ATTEND Internal Medicine
DX: D64.9 Anemia, unspecified (principal)

== ENCOUNTER → 2017-02-19 | Outpatient (CLI) | payer OTHER, MEDICARE ==
[~2017-02-19] MED LIST changes: +SCOP1.5D2 TD; -SCOP1DIS14 TD
[2017-03-03 10:14] LABS: FECAL OCCULT BLOOD #1 NEGATIVE (NEGATIVE); FECAL OCCULT BLOOD #2 NEGATIVE (NEGATIVE); FECAL OCCULT BLOOD #3 NEGATIVE (NEGATIVE)
== END | disposition home or self-care (01) ==
LOC: C.LABSPEC 09:54
PROVIDERS: ATTEND Internal Medicine
DX: D64.9 Anemia, unspecified (principal)

== ENCOUNTER → 2017-03-01 | Outpatient (CLI) | payer OTHER, MEDICARE ==
[2017-03-01 09:35] LABS: HEMATOCRIT 31.9 % (42-52); HEMOGLOBIN 11.1 g/dL (14.0-18.0); MEAN CELL VOLUME 90.6 fL (80-100); MEAN CORPUSCULAR HEMOGLOBIN 31.5 pg (25-34); MEAN CORPUSCULAR HGB CONC 34.8 g/dl (32-36); PLATELET COUNT 185 K/uL (130-400); RED CELL DISTRIBUTION WIDTH CV 13.5 % (11.5-14.5); RED CELL DISTRIBUTION WIDTH SD 44.3 fL (36.4-46.3); WHITE BLOOD COUNT 4.65 K/uL (4.8-10.8)
[2017-03-01 10:03] LABS: HEMOGLOBIN A1C 5.8 % (4.5-5.6)
[2017-03-01 10:15] LABS: BLOOD UREA NITROGEN 20 mg/dl (7-18); CALCIUM 8.7 mg/dl (8.5-10.1); CARBON DIOXIDE 29 mmol/L (21-32); CREATININE 0.78 mg/dl (0.60-1.40); GLUCOSE 94 mg/dl (70-99); POTASSIUM 3.7 mmol/L (3.5-5.1); SODIUM 136 mmol/L (136-145)
== END | disposition home or self-care (01) ==
LOC: C.LAB1850 08:27
PROVIDERS: ATTEND Internal Medicine
DX: D64.9 Anemia, unspecified (principal); R73.9 Hyperglycemia, unspecified

== ENCOUNTER → 2017-04-05 | Outpatient (CLI) | payer OTHER, MEDICARE ==
[2017-04-05 10:16] LABS: ALT/SGPT 27 U/L (12-78); AST/SGOT 21 U/L (15-37); BLOOD UREA NITROGEN 25 mg/dl (7-18); CALCIUM 8.3 mg/dl (8.5-10.1); CARBON DIOXIDE 30 mmol/L (21-32); CREATININE 0.84 mg/dl (0.60-1.40); GLUCOSE 96 mg/dl (70-99); POTASSIUM 3.8 mmol/L (3.5-5.1); SODIUM 139 mmol/L (136-145)
[2017-04-05 10:19] LABS: CHOLESTEROL 141 mg/dl (0-200); LDL CHOLESTEROL CALCULATED 65 mg/dl
== END | disposition home or self-care (01) ==
LOC: C.LAB1850 08:39
PROVIDERS: ATTEND Internal Medicine Cardiovascular Disease
DX: E78.00 Pure hypercholesterolemia, unspecified (principal)

== ENCOUNTER → 2017-10-11 | Outpatient (CLI) | payer OTHER, MEDICARE ==
[~2017-10-11] MED LIST changes: -LVQ750 PO; +MELO-83 PO
--- NOTE | 2017-10-14 09:39 | POLYSOMNOGRAPH REPORT ---
CLINICAL DATA: Iqljzl-worj-cjf male with a BMI of 28.86 referred for reevaluation of sleep apnea. He had a sleep study done in 2012, which showed severe sleep apnea with an AHI of 53.4. 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 He has returned for reevaluation of his sleep apnea. On the evening of 10/11/2017, a home sleep apnea test was performed using a Ashley type 3 monitor. RECORDING RESULTS: Total recording time was 10 hours. Patient's monitoring time and estimated sleep time was 7.5 hours. RESPIRATORY DATA: Severe sleep apnea was documented. The DULCE MARIA was 60.5. There were 273 obstructive, 13 mixed, and 2 central apneic episodes. There were 164 hypopneic episodes. The longest respiratory event was 77 seconds. OXIMETRY DATA: Severe hypoxemia was seen. Oxygen froilan was 64%. Mean saturation was 87%. Time below 89% was 283 minutes. HEART RATE DATA: Heart rates ranged from 70 to 55 beats per minute. SNORING DATA: Snoring was recorded throughout the night. IMPRESSION: Very severe sleep apnea/hypopnea with severe nocturnal hypoxemia. The patient has demonstrated that he has complex sleep apnea in the past. RECOMMENDATIONS: The patient may benefit from an ASV titration. BRIANNAD
== END | disposition home or self-care (01) ==
LOC: C.NEUR 11:57
PROVIDERS: ATTEND Internal Medicine Pulmonary Disease
DX: G47.39 Other sleep apnea (principal)

== ENCOUNTER 2018-12-06 11:26 | Inpatient (IN) ==
[2018-12-06] MEDS ORDERED: SODIUM CHLORIDE 0.9% 500 ML IV SCH (12:15)
[2018-12-06 12:24] LABS: Mean Corpuscular Hgb Conc 33.9 g/dL (32-36)
[2018-12-06] MEDS ORDERED: fentaNYL citrate 100 MCG/2 ML VIAL IV STA (12:25)
[2018-12-06 12:31] LABS: Alanine Aminotransferase 38 U/L (12-78); Albumin Level 2.6 gm/dl (3.4-5.0); Aspartate Aminotransferase 27 U/L (15-37); BUN Creatinine Ratio 43.1 (10-20); Blood Urea Nitrogen 50 mg/dl (7-18); Calcium 8.4 mg/dl (8.5-10.1); Carbon Dioxide 26 mmol/L (21-32); Chloride 108 mmol/L (98-107); Est GFR (African American) 67.4; Est GFR (Non-African American) 58.1; Glucose 114 mg/dl (70-99); INR 1.1 (0.9-1.1); Lipase 328 U/L (73-393); Magnesium 2.2 mg/dl (1.8-2.4); Partial Thromboplastin Ratio 0.8; Partial Thromboplastin Time 22.8 Seconds (21.0-31.0); Potassium 3.9 mmol/L (3.5-5.1); Prothrombin Time 11.4 Seconds (9.0-12.0); Sodium 138 mmol/L (136-145)
[2018-12-06 12:36] LABS: Albumin Globulin Ratio 0.5 (0.9-2); Alkaline Phosphatase 96 U/L (45-117); Bilirubin,Total 0.3 mg/dl (0.2-1); Globulin 5.1 gm/dl (2.5-4.0); Total Protein 7.7 gm/dl (6.4-8.2); Troponin I 0.027 ng/ml (0-0.045)
[2018-12-06 12:45] LABS: Hematocrit (blood only) 30.5 % (42-52); Hemoglobin 10.5 g/dL (14.0-18.0); Mean Corpuscular Hemoglobin 31.1 pg (25-34); Mean Corpuscular Volume 90.2 fL (80-100); RDW Coefficient of Variation 14.6 % (11.5-14.5); RDW Standard Deviation 47.8 fL (36.4-46.3); Red Blood Count 3.38 M/uL (4.7-6.1); White Blood Count 3.42 K/uL (4.8-10.8)
[2018-12-06 12:50] LABS: Eosinophils # (auto) 0.01 K/uL (0-0.5); Eosinophils % (auto) 0.3 %; Immature Granulocytes # (auto) 0.02 K/uL (0.00-0.02); Immature Granulocytes % (auto) 0.6 %; Lymphocytes # (auto) 0.12 K/uL (1.2-3.4); Lymphocytes % (auto) 3.5 %; Monocytes # (auto) 0.24 K/uL (0.11-0.59); Neutrophils # (auto) 3.03 K/uL (1.4-6.5); Neutrophils % (auto) 88.6 %; Platelet Count 35 K/uL (130-400); Platelet Estimate SIGNIFIC DECREASED (Normal)
--- NOTE | 2018-12-06 12:54 | XRay Report ---
XR chest 1V portable HISTORY: 83 years-old Male Dyspnea acute shortness of breath COMPARISON: Chest radiograph 08/06/2018, chest CT 01/20/2018. TECHNIQUE: Portable AP view of the chest FINDINGS: Cardiac silhouette is enlarged, unchanged. Tortuosity of the descending thoracic aorta. Hyperinflatio n with diaphragmatic flattening. Chronic interstitial coarsening without pneumothorax or large pleura l effusion. Unchanged linear bibasilar opacities. There is a questioned acute nondisplaced fracture o f the posterior left fifth rib. Degenerative changes of the shoulders and spine. IMPRESSION: 1. Cardiomegaly. 2. Linear bibasilar opacities suggest atelectasis. 3. Questioned acute nondisplaced fracture of the posterior lateral left fifth rib. Correlate clinical ly. The above report was generated using voice recognition software. It may contain grammatical, syntax o r spelling errors. Electronically signed by: Eddie Denis M.D. 12/06/2018 12:53 PM
[2018-12-06] MEDS ORDERED: OPTIRAY 320 125ml IV PRN (13:07)
--- NOTE | 2018-12-06 13:29 | CT Scan Report ---
CT thoracic spine wo con CT DOSE: 871.63 mGy.cm CLINICAL HISTORY: Severe back pain. History of multiple myeloma. TECHNIQUE: Helical images were acquired in the transverse plane. Sagittal and coronal reformatted zachary ges were acquired. A dose lowering technique was utilized adhering to the principles of ALARA. COMPARISON STUDY: MRI the thoracic spine dated 10/19/2018 FINDINGS: There are dependent pulmonary airspace opacities, likely atelectatic. The bones are osteopenic. There is interval progression of the pathologic T5 compression deformity wi th near total loss in height giving a vertebral plana appearance there is lytic disease involving the left posterior elements at this level. Epidural disease is suspected. MRI would be more accurate for evaluation. There are stable T8 and T9 compression fractures. The T9 compression fracture is patholo gic with evidence of bony lysis. There is probable myelomatous involvement involving the anterior asp ect of the T11 vertebral body. There is stable superior endplate T12 and L1 compression fractures. IMPRESSION: 1. Osteopenia and multiple thoracic compression deformities. 2. The T5 and T9 compression fractures are clearly pathologic with evidence of bony lysis. 3. There as been significant progression of the T5 compression fracture which now has a vertebral heather na appearance 4. An MRI would be necessary in follow-up if assessment of epidural disease is desired. Electronically signed by: Deven Dawson M.D. 12/06/2018 1:28 PM
--- NOTE | 2018-12-06 13:44 | CT Scan Report ---
ABDOMEN AND PELVIS CT WITH IV CONTRAST HISTORY: Acute upper abdominal pain with distention and shortness of breath history multiple myeloma. upper abd pain, distension, sob TECHNIQUE: Multiaxial CT images of the abdomen and pelvis were performed following the IV administrat ion of 119 cc of Optiray 320, A dose lowering technique was utilized adhering to the principles of A BETO. COMPARISON STUDY: CT thoracic spine and CT chest studies of same day, MRI thoracic spine 10/19/2018. FINDINGS: Dependent subsegmental bibasilar consolidation favors atelectasis. No pneumatosis or pneumoperitoneum . Emboli are noted within segmental and subsegmental pulmonary arterial branches of the right lower l obe. Cardiomegaly. Coronary arterial calcifications. Trace pericardial effusion. The liver, spleen, p ancreas and adrenal glands are unremarkable. Contracted gallbladder. No biliary ductal dilation. Mild nonspecific bilateral perinephric stranding. Exophytic 1.3 cm cyst of the inferior pole left kid evan. Intermediate attenuating lesions of the inferior pole right kidney measuring up to 2.2 cm are no [place] which are indeterminate on this single phase exam. 2 mm nonobstructing calculus of the inferior p ole left kidney. No ureteral calculi or obstructive uropathy. Mild wall thickening of the bladder. Pr ostamegaly. Aorta and IVC are unremarkable. There is no adenopathy. No bowel obstruction. Mild colonic diverticulosis without acute diverticulitis. There is equivocal wa ll thickening of the ascending colon on image 257 series 7 with mild adjacent pericolonic stranding. Appendix not diagnostically visualized. Mild generalized body wall edema. Degenerative changes of the hips, pelvis and spine. Scattered lucent bone lesions are noted throughout the pelvis, ribs and vert ebral bodies. Subacute appearing healing nondisplaced lateral rib fractures are noted bilaterally. Ag e-indeterminate compression deformity is without retropulsion noted at T11, T12, L1, L3 and L5. IMPRESSION: 1. Equivocal wall thickening of the ascending colon with mild pericolonic stranding. Correlate clinic ally to exclude a nonspecific colitis. 2. No bowel obstruction or pneumoperitoneum. 3. Pulmonary emboli of the right lower lobe. 4. Multiple scattered lytic bone lesions compatible with patient's clinical history of multiple myelo ma. 5. There are several subacute healing nondisplaced bilateral rib fractures. 6. Multiple age-indeterminate compression deformities as above without retropulsion. Electronically signed by: Eddie Denis M.D. 12/06/2018 1:42 PM
--- NOTE | 2018-12-06 13:51 | CT Scan Report ---
CT ANGIOGRAPHY OF THE CHEST, PULMONARY EMBOLUS PROTOCOL CLINICAL HISTORY: Dyspnea, cp, sob, Multiple myeloma COMPARISON STUDY: Chest CT January 20, 2018. Chest radiograph performed earlier today. TECHNIQUE: Following IV administration of 119 mL of Optiray-320, helical axial images of the chest we re obtained utilizing the pulmonary embolus protocol. Maximal intensity projections and sagittal and coronal reformats were viewed on an independent 3D workstation. IV contrast was administered withou t complication. Automated exposure control was utilized for the study. A dose lowering technique wa s utilized adhering to the principles of ALARA. FINDINGS: Please note that the CT of the thoracic spine will be reported separately. Note is made of a segmental pulmonary embolus within the anterior segment of the right upper lobe shown on axial zachary ge 131 of 250. There are probable segmental and subsegmental pulmonary emboli within the posterior ba silar segment right lower lobe. Addition, additional segmental emboli within the right middle lobe ar e noted. Lungs are suboptimally assessed given respiratory motion. There is no pneumothorax or pleura l effusion. There is no consolidation to suggest pneumonia. Note is made of an indeterminate 7 mm nod ular opacity within the right upper lobe on image 182 of 258. Bilateral rib fractures are noted. Thes e are likely pathologic. These fractures are of varying ages. Numerous thoracic spine pathologic frac tures are noted, including severe pathologic fracture of T5. Vertebral body height loss has increased since MRI of October 19, 2018. Otherwise, the fractures are similar in appearance to prior MRI. Centr al canal is suboptimally assessed by CT. There is no thoracic aortic dissection. IMPRESSION: 1. Multiple right-sided segmental and subsegmental pulmonary emboli. 2. Numerous pathologic rib and thoracic spine fractures, as described above. Thoracic spine better de picted on the CT of the thoracic spine. Please see that report for further description. 3. Indeterminate 7 mm nodular right upper lobe opacity. Although this could be infectious/inflammator y in etiology, a neoplasm could appear similar. A chest CT in 6 months is recommended. Electronically signed by: Juan José Moreno M.D. 12/06/2018 1:49 PM
[2018-12-06] MEDS ORDERED: Heparin BOLUS **ED Use Only IV STA (14:25)
[2018-12-06] MEDS: HEPARIN SODIUM/DEXTROSE 25,000 UNITS/500 ML BAG IV SCH (14:51)
[2018-12-06 15:36] LABS: Appearance Urine Clear (Clear); Bacteria Urine Automated Negative (Negative); Bilirubin Urine Negative (Negative); Blood Urine Trace (Negative); Color Urine Yellow; Glucose Urine UA Negative (Negative); Ketones Urine Negative (Negative); Leukocyte Esterase Urine Negative (Negative); Nitrite Urine Negative (Negative); Protein Urine Negative (Negative); RBC Urine Automated 0-4 /hpf (0-4); Specific Gravity Urine > 1.045 (1.000-1.030); Urobilinogen Urine Negative (Negative)
--- NOTE | 2018-12-06 15:49 | Emergency Department Note ---
Entered by Sanchez Rahman acting as a scribe for History of Present Illness General Chief complaint: Shortness of Breath/Dyspnea Stated complaint: SOB, ABDOMINAL PAIN, WEAKNESS Source: patient History of Present Illness Provider complaint: Shortness of breath Onset (ago): day(s) 1 Location: chest Pain Consistency: + intermittent and + other (Worsening) Maximum Pain Intensity: 7 Current Pain Intensity: 7 Associated symptoms: + loss of appetite and + other (Back pain, Rib pain, Diarrhea) The patient is an 83 year old male who presents to the Emergency Room with complaints of constant shortness of breath that has been an intermittent issue for some time but became acutely worse yesterday. The patient reports that he was diagnosed with multiple myelomas about 6 weeks ago and has gone through one radiation treatment 2 weeks ago. The patient is normally not on oxygen at baseline but upon arrival to the ED he was placed on supplemental oxygen. The patient also endorses worsening back pain and left rib pain that he rates a 7/10. The patient mentioned that he does have compression fractures in his t horacic spine. Per the patient's friend, he had two episodes of diarrhea yesterday and is intermittently losing his appetite, but he denies any nausea, vomiting or abdominal pain. The patient denies any fevers, cough, or new lower extremity swelling, as well as any recent falls. Home Medications Home Medications Medication Instructions Recorded Confirmed Type meclizine 25 mg tablet 25 mg PO DAILY PRN #30 tab 08/31/18 12/06/18 Rx epinephrine 0.3 mg/0.3 mL 0.3 mg IM Q15M PRN #2 ea 10/03/18 12/06/18 Rx injection, auto-injector fluticasone propionate 2 sprays INTNAS QAM PRN 10/28/18 12/06/18 History lorazepam 0.5 mg PO HS PRN 10/28/18 12/06/18 History saw palmetto 160 mg PO BID 10/28/18 12/06/18 History oxycodone 10 mg tablet 10 mg PO Q6H PRN tab 11/13/18 12/06/18 History metoprolol succinate ER 25 mg 12.5 mg PO QAM tab 11/15/18 12/06/18 History tablet,extended release 24 hr acyclovir 400 mg PO QAM 12/06/18 12/06/18 History dexamethasone 20 mg PO UD 12/06/18 12/06/18 History fentanyl 50 mcg TRANSDERMAL Q72H 12/06/18 12/06/18 History Allergies Allergy/AdvReac Type Severity Reaction Status Date / Time adhesive tape Allergy Mild Rash Verified 12/06/18 13:37 No Known Drug Allergies Allergy Unknown NONE PER PT Verified 12/06/18 13:37 Past Med/Surg History Medical History Vertigo (Chronic) Hypertension (Chronic) History of vertebral compression fracture (Inactive) Multiple myeloma (Inactive) Surgical History History of dental surgery S/P cataract surgery S/P inguinal hernia repair Family History Father , Passed age 64 of [place] Myocardial infarction Mother , Passed age 89 of blood clot after hip replacement No problems noted. Grandfather (Maternal) , Passed age 34 of head and neck cancer No problems noted. Grandmother (Maternal) , Passed age of 72 stomach cancer No problems noted. Brother , Passed age 69 of likely cancer No problems noted. 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 and A total of 10 systems reviewed and were otherwise negative Physical Exam Vital Signs Vital Signs - 24 hr 12/06/18 11:37 12/06/18 11:48 12/06/18 12:06 Temperature 36.5 C Temperature Source Oral Sepsis Recent Fever Within 48 Hours No Sepsis New/Unexplained Change in Mental Status No Sepsis Action Taken by Nursing No Action Required Oxygen Flow Rate - Titration Pulse Oximetry Post Tiitration Pulse Rate 78 80 Respiratory Rate 20 23 Respiratory Effort / Characteristics Non-Labored Spontaneous Respiratory Depth Normal Blood Pressure 146/84 H 151/94 H Blood Pressure Mean 104 113 Pulse Oximetry 94 97 98 Oxygen Delivery Method Room Air Room Air Nasal Cannula Oxygen Flow Rate 2 12/06/18 12:14 12/06/18 12:15 12/06/18 12:30 Temperature Temperature Source Sepsis Recent Fever Within 48 Hours Sepsis New/Unexplained Change in Mental Status Sepsis Action Taken by Nursing Oxygen Flow Rate - Titration 2 Pulse Oximetry Post Tiitration 98 Pulse Rate 77 Respiratory Rate 17 Respiratory Effort / Characteristics Respiratory Depth Blood Pressure 147/83 H Blood Pressure Mean 104 Pulse Oximetry 88 L 94 Oxygen Delivery Method Nasal Cannula Room Air Nasal Cannula Oxygen Flow Rate 2 0 2 12/06/18 13:16 12/06/18 13:29 12/06/18 13:30 Temperature Temperature Source Sepsis Recent Fever Within 48 Hours Sepsis New/Unexplained Change in Mental Status Sepsis Action Taken by Nursing Oxygen Flow Rate - Titration Pulse Oximetry Post Tiitration Pulse Rate 77 73 73 Respiratory Rate 24 13 17 Respiratory Effort / Characteristics Respiratory Depth Blood Pressure 167/95 H 172/91 H Blood Pressure Mean 119 118 Pulse Oximetry 97 96 Oxygen Delivery Method Nasal Cannula Nasal Cannula Oxygen Flow Rate 2 2 GENERAL: Awake, alert, faigued and chronically ill appearing HENT: Normocephalic, atraumatic. EYES: Normal conjunctiva. Sclera non-icteric. NECK: Supple. No nuchal rigidity. RESPIRATORY: Clear to auscultation with diminished bases. Normal respiratory effort. CARDIAC: Normal rate. Normal rhythm. Extremities warm and well perfused. GI: Soft, non-distended. Slight LUQ tenderness to palpation. No rebound or guarding. No masses. RECTAL: Deferred. MUSCULOSKELETAL: Atraumatic. Mid upper back tenderness. Left lower chest wall tenderness. LOWER EXTREMITIES: Calves are equal size bilaterally and non-tender. No edema NEURO: Normal sensorium. No sensory or motor deficits noted. No facial droop. SKIN: Warm and dry. No jaundice noted. Course 1208: Past medical records reviewed. The patient was evaluated in room C09, and a complete history and physical examination were performed. 1358: I reevaluated the patient and updated him on results. I also discussed the treatment plan with the patient and he agreed. 1409: I spoke to Dr. Hernandez - [facility] Hospitalist about the patient's case. He is going to accept the patient for further evaluation. Consultations Consultation #1: I spoke to Dr. Hernandez - [facility] Hospitalist about the patient's case. He is going to accept the patient for further evaluation. Time: 14:09 Administered Medications Heparin Sodium/Dextrose (Heparin Sodium/Dextrose) 25,000 units in 500 mls @ 26 mls/hr IV .[id number] [facility]; Protocol Stop: 01/05/19 14:14 Last Admin: 12/06/18 14:51 Dose: 1,300 units/hr, 26 mls/hr Documented by: [id number] Cosigned by: [id number] Ioversol (Optiray 320 125ml) 119 ml IV ONCE PRN PRN Reason: Interaction Checking Stop: 12/10/18 13:06 Last Admin: 12/06/18 13:07 Dose: 119 ml Documented by: [id number] Discontinued Medications Fentanyl Citrate (Fentanyl Citrate) 50 mcg IV NOW STA Stop: 12/06/18 12:26 Last Admin: 12/06/18 12:32 Dose: 50 mcg Documented by: [id number] Heparin Sodium (Porcine) (Heparin Iv Bolus) 6,000 units IV NOW STA Stop: 12/06/18 14:26 Last Admin: 12/06/18 14:50 Dose: 6,000 units Documented by: [id number] Cosigned by: [id number] Heparin Sodium/Dextrose () 1 ea IV NOW STA; Protocol Stop: 12/06/18 14:09 Last Admin: 12/06/18 15:38 Dose: Not Given Documented by: [id number] Sodium Chloride (Nss) 500 mls @ 999 mls/hr IV .Q31M [facility] Stop: 12/06/18 12:45 Last Infusion: 12/06/18 13:14 Dose: 0 mls/hr Documented by: [id number] Admin: 12/06/18 12:21 Dose: 999 mls/hr Documented by: [id number] Medical Decision Making Differential Diagnosis Differential diagnoses includes but is not limited to pneumonia, bronchitis, COPD/Asthma exacerbation, pneumothorax, pulmonary embolism, congestive heart failure, acute coronary syndrome, amognst others. Medical Records Attestation: I reviewed the patient's medical records. Home Medications Current Medication List: was personally reviewed by me Laboratory Data Attestation: I reviewed the patient's lab results. Result diagrams: 12/06/18 11:54 12/06/18 11:54 Lab Results 12/06/18 12/06/18 12/06/18 Range/Units 11:54 11:54 11:54 WBC 3.42 L (4.8-10.8) K/uL RBC 3.38 L (4.7-6.1) M/uL Hgb 10.5 L (14.0-18.0) g/dL Hct 30.5 L (42-52) % MCV 90.2 (80-100) fL MCH 31.1 (25-34) pg MCHC 33.9 (32-36) g/dL RDW Std Deviation 47.8 H (36.4-46.3) fL RDW Coeff of Zackery 14.6 H (11.5-14.5) % Plt Count 35 L (130-400) K/uL Immature Gran % (Auto) 0.6 % Neut % (Auto) 88.6 % Lymph % (Auto) 3.5 % Mclennan % (Auto) 7.0 % Eos % (Auto) 0.3 % Baso % (Auto) 0.0 % Immature Gran # (Auto) 0.02 (0.00-0.02) K/uL Neut # (Auto) 3.03 (1.4-6.5) K/uL Lymph # (Auto) 0.12 L (1.2-3.4) K/uL Mclennan # (Auto) 0.24 (0.11-0.59) K/uL Eos # (Auto) 0.01 (0-0.5) K/uL Baso # (Auto) 0.00 (0-0.2) K/uL Platelet Estimate SIGNIFIC DECREASED (Normal) PT 11.4 (9.0-12.0) Seconds INR 1.1 (0.9-1.1) APTT 22.8 (21.0-31.0) Seconds PTT Ratio 0.8 Sodium 138 (136-145) mmol/L Potassium 3.9 (3.5-5.1) mmol/L Chloride 108 H (98-107) mmol/L Carbon Dioxide 26 (21-32) mmol/L Anion Gap 4.0 (3-11) BUN 50 H (7-18) mg/dl Creatinine 1.17 (0.6-1.4) mg/dl Est Cr Clr Drug Dosing Not Reportable Est GFR ( Amer) 67.4 Est GFR (Non-Af Amer) 58.1 BUN/Creatinine Ratio 43.1 H (10-20) Glucose 114 H (70-99) mg/dl Calcium 8.4 L (8.5-10.1) mg/dl Magnesium 2.2 (1.8-2.4) mg/dl Total Bilirubin 0.3 (0.2-1) mg/dl AST 27 (15-37) U/L ALT 38 (12-78) U/L Alkaline Phosphatase 96 (45-117) U/L Troponin I 0.027 (0-0.045) ng/ml Total Protein 7.7 (6.4-8.2) gm/dl Albumin 2.6 L (3.4-5.0) gm/dl Globulin 5.1 H (2.5-4.0) gm/dl Albumin/Globulin Ratio 0.5 L (0.9-2) Lipase 328 (73-393) U/L Procalcitonin (0-0.5) ng/ml Urine Color Urine Appearance (Clear) Urine pH (4.5-7.5) Ur Specific [place] (1.000-1.030) Urine Protein (Negative) Urine Glucose (UA) (Negative) Urine Ketones (Negative) Urine Blood (Negative) Urine Nitrite (Negative) Urine Bilirubin (Negative) Urine Urobilinogen (Negative) Ur Leukocyte Esterase (Negative) Urine WBC (Auto) (0-5) /hpf Urine RBC (Auto) (0-4) /hpf U Hyaline Cast (Auto) (0-5) /lpf U Epithel Cells (Auto) (0-5) /lpf Urine Bacteria (Auto) (Negative) 12/06/18 12/06/18 Range/Units 11:54 14:45 WBC (4.8-10.8) K/uL RBC (4.7-6.1) M/uL Hgb (14.0-18.0) g/dL Hct (42-52) % MCV (80-100) fL MCH (25-34) pg MCHC (32-36) g/dL RDW Std Deviation (36.4-46.3) fL RDW Coeff of Zackery (11.5-14.5) % Plt Count (130-400) K/uL Immature Gran % (Auto) % Neut % (Auto) % Lymph % (Auto) % Mclennan % (Auto) % Eos % (Auto) % Baso % (Auto) % Immature Gran # (Auto) (0.00-0.02) K/uL Neut # (Auto) (1.4-6.5) K/uL Lymph # (Auto) (1.2-3.4) K/uL Mclennan # (Auto) (0.11-0.59) K/uL Eos # (Auto) (0-0.5) K/uL Baso # (Auto) (0-0.2) K/uL Platelet Estimate (Normal) PT (9.0-12.0) Seconds INR (0.9-1.1) APTT (21.0-31.0) Seconds PTT Ratio Sodium (136-145) mmol/L Potassium (3.5-5.1) mmol/L Chloride (98-107) mmol/L Carbon Dioxide (21-32) mmol/L Anion Gap (3-11) BUN (7-18) mg/dl Creatinine (0.6-1.4) mg/dl Est Cr Clr Drug Dosing Est GFR ( Amer) Est GFR (Non-Af Amer) BUN/Creatinine Ratio (10-20) Glucose (70-99) mg/dl Calcium (8.5-10.1) mg/dl Magnesium (1.8-2.4) mg/dl Total Bilirubin (0.2-1) mg/dl AST (15-37) U/L ALT (12-78) U/L Alkaline Phosphatase (45-117) U/L Troponin I (0-0.045) ng/ml Total Protein (6.4-8.2) gm/dl Albumin (3.4-5.0) gm/dl Globulin (2.5-4.0) gm/dl Albumin/Globulin Ratio (0.9-2) Lipase (73-393) U/L Procalcitonin 0.06 (0-0.5) ng/ml Urine Color Yellow Urine Appearance Clear (Clear) Urine pH 5.0 (4.5-7.5) Ur Specific [place] > 1.045 H (1.000-1.030) Urine Protein Negative (Negative) Urine Glucose (UA) Negative (Negative) Urine Ketones Negative (Negative) Urine Blood Trace H (Negative) Urine Nitrite Negative (Negative) Urine Bilirubin Negative (Negative) Urine Urobilinogen Negative (Negative) Ur Leukocyte Esterase Negative (Negative) Urine WBC (Auto) 1-5 (0-5) /hpf Urine RBC (Auto) 0-4 (0-4) /hpf U Hyaline Cast (Auto) 1-5 (0-5) /lpf U Epithel Cells (Auto) 5-10 H (0-5) /lpf Urine Bacteria (Auto) Negative (Negative) Imaging Data Radiologist's Impression: Radiology results as stated below per my review and the radiologist's interpretation: XR chest 1V portable HISTORY: 83 years-old Male Dyspnea acute shortness of breath COMPARISON: Chest radiograph 08/06/2018, chest CT 01/20/2018. TECHNIQUE: Portable AP view of the chest FINDINGS: Cardiac silhouette is enlarged, unchanged. Tortuosity of the descending thoracic aorta. Hyperinflation with diaphragmatic flattening. Chronic interstitial coarsening without pneumothorax or large pleural effusion. Unchanged linear bib asilar opacities. There is a questioned acute nondisplaced fracture of the posterior left fifth rib. Degenerative changes of the shoulders and spine. IMPRESSION: 1. Cardiomegaly. 2. Linear bibasilar opacities suggest atelectasis. 3. Questioned acute nondisplaced fracture of the posterior lateral left fifth rib. Correlate clinically. The above report was generated using voice recognition software. It may contain grammatical, syntax or spelling errors. Electronically signed by: Eddie Denis M.D. 12/06/2018 12:[address] ANGIOGRAPHY OF THE CHEST, PULMONARY EMBOLUS PROTOCOL CLINICAL HISTORY: Dyspnea, cp, sob, Multiple myeloma COMPARISON STUDY: Chest CT January 20, 2018. Chest radiograph performed earlier today. TECHNIQUE: Following IV administration of 119 mL of Optiray-320, helical axial images of the chest were obtained utilizing the pulmonary embolus protocol. Maximal intensity projections and sagittal and coronal reformats were viewed on an independent 3D workstation. IV contrast was administered without complication. Automated exposure control was utilized for the study. A dose lowering technique was utilized adhering to the principles of ALARA. FINDINGS: Please note that the CT of the thoracic spine will be reported separately. Note is made of a segmental pulmonary embolus within the anterior segment of the right upper lobe shown on axial image 131 of 250. There are probable segmental and subsegmental pulmonary emboli within the posterior basilar segment right lower lobe. Addition, additional segmental emboli within the right middle lobe are noted. Lungs are suboptimally assessed given respiratory motion. There is no pneumothorax or pleural effusion. There is no consolidation to suggest pneumonia. Note is made of an indeterminate 7 mm nodular opacity within the right upper lobe on image 182 of 258. Bilateral rib fractures are noted. These are likely pathologic. These fractures are of varying ages. Numerous thoracic spine pathologic fractures are noted, including severe pathologic fracture of T5. Vertebral body height loss has increased since MRI of October 19, 2018. Otherwise, the fractures are similar in appearance to prior MRI. Central canal is suboptimally assessed by CT. There is no thoracic aortic dissection. IMPRESSION: 1. Multiple right-sided segmental and subsegmental pulmonary emboli. 2. Numerous pathologic rib and thoracic spine fractures, as described above. Thoracic spine better depicted on the CT of the thoracic spine. Please see that report for further description. 3. Indeterminate 7 mm nodular right upper lobe opacity. Although this could be infectious/inflammatory in etiology, a neoplasm could appear similar. A chest CT in 6 months is recommended. Electronically signed by: Juan José Moreno M.D. 12/06/2018 1:[address] thoracic spine wo con CT DOSE: 871.63 mGy.cm CLINICAL HISTORY: Severe back pain. History of multiple myeloma. TECHNIQUE: Helical images were acquired in the transverse plane. Sagittal and coronal reformatted images were acquired. A dose lowering technique was utilized adhering to the principles of ALARA. COMPARISON STUDY: MRI the thoracic spine dated 10/19/2018 FINDINGS: There are dependent pulmonary airspace opacities, likely atelectatic. The bones are osteopenic. There is interval progression of the pathologic T5 com pression deformity with near total loss in height giving a vertebral plana appearance there is lytic disease involving the left posterior elements at this level. Epidural disease is suspected. MRI would be more accurate for evaluation. There are stable T8 and T9 compression fractures. The T9 compression fracture is pathologic with evidence of bony lysis. There is probable myelomatous involvement involving the anterior aspect of the T11 vertebral body. There is stable superior endplate T12 and L1 compression fractures. IMPRESSION: 1. Osteopenia and multiple thoracic compression deformities. 2. The T5 and T9 compression fractures are clearly pathologic with evidence of bony lysis. 3. There as been significant progression of the T5 compression fracture which now has a vertebral plana appearance 4. An MRI would be necessary in follow-up if assessment of epidural disease is desired. Electronically signed by: Deven Dawson M.D. 12/06/2018 1:28 PM [address] AND PELVIS CT WITH IV CONTRAST HISTORY: Acute upper abdominal pain with distention and shortness of breath history multiple myeloma. upper abd pain, distension, sob TECHNIQUE: Multiaxial CT images of the abdomen and pelvis were performed following the IV administration of 119 cc of Optiray 320, A dose lowering technique was utilized adhering to the principles of ALARA. COMPARISON STUDY: CT thoracic spine and CT chest studies of same day, MRI thoracic spine 10/19/2018. FINDINGS: Dependent subsegmental bibasilar consolidation favors atelectasis. No pneumatosis or pneumoperitoneum. Emboli are noted within segmental and subsegmental pulmonary arterial branches of the right lower lobe. Cardiomegaly. Coronary arterial calcifications. Trace pericardial effusion. The liver, spleen, pancreas and adrenal glands are unremarkable. Contracted gallbladder. No biliary ductal dilation. Mild nonspecific bilateral perinephric stranding. Exophytic 1.3 cm cyst of the inferior pole left kidney. Intermediate attenuating lesions of the inferior pole right kidney measuring up to 2.2 cm are noted which are indeterminate on this single phase exam. 2 mm nonobstructing calculus of the inferior pole left ki dney. No ureteral calculi or obstructive uropathy. Mild wall thickening of the bladder. Prostamegaly. Aorta and IVC are unremarkable. There is no adenopathy. No bowel obstruction. Mild colonic diverticulosis without acute diverticulitis. There is equivocal wall thickening of the ascending colon on image 257 series 7 with mild adjacent pericolonic stranding. Appendix not diagnostically visualized. Mild generalized body wall edema. Degenerative changes of the hips, pelvis and spine. Scattered lucent bone lesions are noted throughout the pelvis, ribs and vertebral bodies. Subacute appearing healing nondisplaced lateral rib fractures are noted bilaterally. Age-indeterminate compression deformity is without retropulsion noted at T11, T12, L1, L3 and L5. IMPRESSION: 1. Equivocal wall thickening of the ascending colon with mild pericolonic stranding. Correlate clinically to exclude a nonspecific colitis. 2. No bowel obstruction or pneumoperitoneum. 3. Pulmonary emboli of the right lower lobe. 4. Multiple scattered lytic bone lesions compatible with patient's clinical history of multiple myeloma. 5. There are several subacute healing nondisplaced bilateral rib fractures. 6. Multiple age-indeterminate compression deformities as above without retropulsion. Electronically signed by: Eddie Denis M.D. 12/06/2018 1:42 PM ECG Data Attestation: I personally reviewed and interpreted this ECG as follows: Indication: SOB/dyspnea Rate (beats per minute): 75 Rhythm: sinus with SA Findings: + other (Intraventricular conduction delay); no ST elevation Blood Pressure Blood Pressure Findings: Elevated blood pressure Blood Pressure Disposition: Referred to patients primary care provider DUANE Dickson Patient is an 83-year-old gentleman with an unfortunate history of recently diagnosed multiple myeloma currently on radiation therapy presenting today complaining of worsening back pain and chest pain prickly wrapping around the left lower chest and left upper abdomen with shortness of breath overnight. Referred here by oncology. 94% on room air but placed on nasal oxygen for comfort. Given his cancer his history concern for possible underlying pulmonary embolism developing versus pneumonia versus worsening of his disease. CT imaging of the chest was completed given that he has had some distention and upper abdominal discomfort CT proceeded to the abdomen pelvis. CT of the thoracic spine completed. No trauma reported. EKG and troponin were completed a lower suspicion this is acute ACS. Doubt this is dissection. Not reporting significant infectious symptoms at this time. Given a small fluid bolus. A small amount of fentanyl was also ordered. Laboratory studies show no evidence of kidney dysfunction hepatitis or pancreatitis. Slight leukopenia and anemia. No bilirubin elevation. Chest x-ray questions possible rib fracture. CT of the chest was completed to exclude PE or occult pneumonia here. Laboratory studies with slight leukopenia with slight anemia. No evidence of renal dysfunction or elect light abnormality. A slightly detectable troponin is noted but lower than previous chronic levels. Lower suspicion again this is acute ACS. CT the abdomen pelvis was completed showing possible colitis with a right lower lobe pulmonary embolism. He has multiple scattered lytic lesions from his multiple myeloma and subacute bilateral rib fractures as well as thoracic spine compression fractures and lesions. No acute neurological deficits noted in LEs. Given the patient's medical issues and requirement for pain control with active diseases this I feel that admission for anticoagulation with heparin and further evaluation. They are in agreement. Stool studies ordered for questionable colitis in the abdomen pelvis CT. Patient has diarrhea yesterday. Hospitalist contacted. Impression & Plan Pulmonary embolism, Fracture of rib, Compression fx, thoracic spine, C ompression fx, lumbar spine, Colitis Critical Care Time Critical Care Time: Yes Total Critical Care Time: 40 I have personally spent greater than 40 minutes of critical care time in the direct management of this patient. This includes bedside care, interpretation of diagnostic studies, and testing, discussion with consultants, patient, and family members, and other required patient management activities. This 40 minutes is in excess of all separately billable procedures. Discharge Plan Visit Data Chief Complaint: Shortness of Breath/Dyspnea Stated Complaint: SOB, ABDOMINAL PAIN, WEAKNESS ED Provider: Art Paredes Discharge Problem: Pulmonary embolism, Fracture of rib, Compression fx, thoracic spine, Compr ession fx, lumbar spine, Colitis Patient Disposition: Being Evaluated by Hospitalist Forms Stand Alone Forms: [facility] Prescriptions Prescriptions: No Action oxycodone 10 mg tablet 10 mg PO Q6H PRN (Reason: pain) RF: 0 meclizine 25 mg tablet 25 mg PO DAILY PRN (Reason: Dizziness) Qty: 30 RF: 5 epinephrine 0.3 mg/0.3 mL auto-injector 0.3 mg IM Q15M PRN (Reason: anaphylaxis) Qty: 2 RF: 0 metoprolol succinate 25 mg tablet extended release 24 hr 12.5 mg PO QAM RF: 0 fentanyl 50 mcg/hr patch 72 hour 50 mcg transdermal Q72H RF: 0 acyclovir 400 mg tablet 400 mg PO QAM RF: 0 dexamethasone 4 mg tablet 20 mg PO UD RF: 0 lorazepam 0.5 mg tablet 0.5 mg PO HS PRN (Reason: anxiety) RF: 0 saw palmetto 160 mg capsule 160 mg PO BID RF: 0 fluticasone propionate 50 mcg/actuation spray,suspension 2 sprays INTNAS QAM PRN (Reason: seasonal) RF: 0 Referrals Referrals: ProRobert MD [Primary Care Provider] - Discharge Problem: Pulmonary embolism Qualifiers: Pulmonary embolism type: unspecified Chronicity: acute Acute cor pulmonale presence: unspecified Qualified Code(s): I26.99 - Other pulmonary embolism without acute cor pulmonale Fracture of rib Qualifiers: Encounter type: initial encounter Rib fracture type: single rib Fracture type: closed Laterality: left Qualified Code(s): S22.32XA - Fracture of one rib, left side, initial encounter for closed fracture Compression fx, thoracic spine Qualifiers: Encounter type: initial encounter Thoracic vertebra fracture level: unspecified thoracic vertebra Qualified Code(s): S22.000A - Wedge compression fracture of unspecified thoracic vertebra, initial encounter for closed fracture Compression fx, lumbar spine Qualifiers: Encounter type: initial encounter Lumbar vertebra fracture level: L1 Qualified Code(s): S32.010A - Wedge compression fracture of first lumbar vertebra, initial encounter for closed fracture The scribe's documentation has been prepared under my direction and personally reviewed by me in its entirety. I confirm that the note above accurately reflects all work, treatment, procedures, and medical decision making performed by me.
--- NOTE | 2018-12-06 15:56 | History & Physical Report ---
Date of Service December 06, 2018 Assessment & Plan (1) Pulmonary embolism: 82yoM with hx of recently diagnosed MM, DM, HLD and chronic vertigo presents with shortness of breath and chest pain. Found to have multiple right- sided segmental and subsegmental pulmonary emboli. Shortness of breath and chest pain: Found to have pulmonary embolism CTA chest: Multiple right-sided segmental and subsegmental pulmonary emboli Chest x-ray: Cardiomegaly and bibasilar opacities, atelectasis Troponin 0.027 (troponin previously ranged from 0.06 - 0.09) Pro Johnson 0.06 EK sinus with arrhythmia right bundle branch block QTC 444 Started on heparin gtt Supplemental O2 as needed Mild leukopenia White blood cell count 3.4 (was 4.6 on 12/01/2018 and normal prior to that) Recently started on chemo which could explain decrease Continue to monitor Thrombocytopenia Platelet count of 35 likely in the setting of chemotherapy versus multiple myeloma No concern for bleeding at this time Coags within normal limits Transfuse with 1 unit of platelets per Dr. Galan's patient on heparin drip Continue to monitor History of multiple myeloma Completed palliative radiation therapy for thoracic spine on 11/21/2018 On chemotherapy with Velcade, finished first round on 12/04/2018, next round on 12/15/2018 Received dexamethasone 20 mg 4 days on and 4 days off (next dose on 12/09/2018) On fentanyl patch and oxycodone as needed Heme-onc consulted Rib fractures and thoracic and lumbar compression fractures -history of multiple myeloma Chest x-ray: Acute nondisplaced fracture posterior lateral left fifth rib CTA chest: Nondisplaced healing bilateral rib fractures Thoracic spine CT: Osteopenia multiple thoracic compression deformities T5 and T9 appear pathologic, progression of T5 compression fracture Abdominal CT: compression deformity T11, T12, L1, L3 and L5 Colitis Likely in the setting of constipation and bowel regimen induced diarrhea CT abdomen: Wall thickening ascending colon with pericolonic fat stranding concerning for colitis LFT and lipase within normal limits C. difficile ordered No Diarrhea at this time Continue monitor Mild dehydration likely secondary to diarrhea and poor nutritional intake BUN/creatinine 43.1 Received normal saline 500 cc bolus On LR at 100 cc/h Anemia likely secondary to chronic illness versus chemotherapy Hemoglobin 10.5 (baseline 9-11 since March 2018) No concern for bleeding at this time Continue to monitor Code: Full Dispo: PCU telemetry DVT prop: Heparin gtt (2) Compression fx, thoracic spine: (3) Fracture of rib: (4) Compression fx, lumbar spine: (5) Colitis: (6) Vertigo: (7) HTN (hypertension): (8) HLD (hyperlipidemia): History of Present Illness Chief Complaint: Sob Primary Care Provider: Robert Damon MD 82yoM with hx of recently diagnosed MM, DM, HLD and chronic vertigo presents with shortness of breath and chest pain. He was found to be very short of br eath especially with minimal ambulation today by his friend and brought to the emergency room. He reports mild shortness of breath at this time while resting, pain along his rib cage, abdominal pain and chronic back pain. He also reports chronic constipation after being on opiates for pain relief. He has been on multiple bowel regimens which have induced explosive diarrhea. He was receiving Dulcolax suppository which induced diarrhea but it improved about 5 days ago. Then he was on Senokot which he stopped yesterday morning after the 3 doses as it resulted in 2 loose bowel movements. He has also used some glycerin suppositories but not recently. He was diagnosed with multiple myeloma about a month ago. He received palliative radiation for compression fractures in his thoracic spine, completed on 11/21/2018. He finished his first round of chemo on 12/04/2018. Next round is on 12/15/2018. He is on dexamethasone 20 mg 4 days on and 4 days off and fentanyl patch at this time. Denies any fever, chills, chest pain at this time, nausea, vomiting, diarrheanone today, hematochezia, melena, hematuria, dysuria Allergies Allergy/AdvReac Type Severity Reaction Status Date / Time adhesive tape Allergy Mild Rash Verified 12/06/18 13:37 No Known Drug Allergies Allergy Unknown NONE PER PT Verified 12/06/18 13:37 Home Medications Home Medications Medication Instructions Recorded Confirmed Type meclizine 25 mg tablet 25 mg PO DAILY PRN #30 tab 08/31/18 12/06/18 Rx epinephrine 0.3 mg/0.3 mL 0.3 mg IM Q15M PRN #2 ea 10/03/18 12/06/18 Rx injection, auto-injector fluticasone propionate 2 sprays INTNAS QAM PRN 09/07/19 10/16/19 History lorazepam 0.5 mg PO HS PRN 10/28/18 12/06/18 History saw palmetto 160 mg PO BID 10/28/18 12/06/18 History oxycodone 10 mg tablet 10 mg PO Q6H PRN tab 11/13/18 12/06/18 History metoprolol succinate ER 25 mg 12.5 mg PO QAM tab 11/15/18 12/06/18 History tablet,extended release 24 hr acyclovir 400 mg PO QAM 12/06/18 12/06/18 History dexamethasone 20 mg PO UD 12/06/18 12/06/18 History fentanyl 50 mcg TRANSDERMAL Q72H 12/06/18 12/06/18 History Past Med/Surg History Medical History Vertigo (Chronic) Hypertension (Chronic) History of vertebral compression fracture (Inactive) Multiple myeloma (Inactive) Surgical History History of dental surgery S/P cataract surgery S/P inguinal hernia repair Family History Father , Passed age 64 of [place] Myocardial infarction Mother , Passed age 89 of blood clot after hip replacement No problems noted. Grandfather (Maternal) , Passed age 34 of head and neck cancer No problems noted. Grandmother (Maternal) , Passed age of 72 stomach cancer No problems noted. Brother , Passed age 69 of likely cancer No problems noted. 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 Other Information That Helps Us Care for You: No Feels Safe at Home: Yes Safety Concerns: Feels Safe At This Time Smoking Status: Former smoker packs per day: 1.5 ; Second Hand Exposure: Yes ; Hx Alcohol Use: No Hx Substance Use: No Childhood Exposure to Second-Hand Smoke: Yes caffeine: No Seatbelt Use: always Review of Systems Review of Systems: As per HPI Physical Exam Physical Exam: General: In NAD, pleasant HEENT: somewhat dry mucous membranes Neuro: A&O x 4 Pulm: CTAB equal breath sounds bilaterally CV: RRR, 3/6 systolic murmur, cap refill 3 secs Abdomen:+BS, mild upper abdominal TTP in all quadrants, non-distended LE: 1+ LE edema, no calf TTP Results & Data Vital Signs (Past 12 Hours) Vital Signs Temp Pulse Resp BP Pulse Ox 12/06/18 15:30 77 12 163/97 H 90 12/06/18 15:00 83 12 155/91 H 92 12/06/18 14:30 78 15 157/92 H 88 L 12/06/18 14:00 78 22 183/110 H 96 12/06/18 13:30 73 17 172/91 H 96 12/06/18 13:29 73 13 167/95 H 97 12/06/18 13:16 77 24 12/06/18 12:30 77 17 147/83 H 94 12/06/18 12:15 88 L 12/06/18 12:06 80 23 151/94 H 98 12/06/18 11:48 97 12/06/18 11:37 36.5 C 78 20 146/84 H 94 Laboratory Results Abnormal lab results 12/06/18 12/06/18 12/06/18 Range/Units 11:54 11:54 14:45 WBC 3.42 L (4.8-10.8) K/uL RBC 3.38 L (4.7-6.1) M/uL Hgb 10.5 L (14.0-18.0) g/dL Hct 30.5 L (42-52) % RDW Std Deviation 47.8 H (36.4-46.3) fL RDW Coeff of Zackery 14.6 H (11.5-14.5) % Plt Count 35 L (130-400) K/uL Lymph # (Auto) 0.12 L (1.2-3.4) K/uL Chloride 108 H (98-107) mmol/L BUN 50 H (7-18) mg/dl BUN/Creatinine Ratio 43.1 H (10-20) Glucose 114 H (70-99) mg/dl Calcium 8.4 L (8.5-10.1) mg/dl Albumin 2.6 L (3.4-5.0) gm/dl Globulin 5.1 H (2.5-4.0) gm/dl Albumin/Globulin Ratio 0.5 L (0.9-2) Ur Specific [place] > 1.045 H (1.000-1.030) Urine Blood Trace H (Negative) U Epithel Cells (Auto) 5-10 H (0-5) /lpf Diagnostic Findings CT ANGIOGRAPHY OF THE CHEST, PULMONARY EMBOLUS PROTOCOL CLINICAL HISTORY: Dyspnea, cp, sob, Multiple myeloma COMPARISON STUDY: Chest CT January 20, 2018. Chest radiograph performed earlier today. TECHNIQUE: Following IV administration of 119 mL of Optiray-320, helical axial images of the chest were obtained utilizing the pulmonary embolus protocol. Maximal intensity projections and sagittal and coronal reformats were viewed on an independent 3D workstation. IV contrast was administered without complication. Automated exposure control was utilized for the study. A dose lowering technique was utilized adhering to the principles of ALARA. FINDINGS: Please note that the CT of the thoracic spine will be reported separately. Note is made of a segmental pulmonary embolus within the anterior segment of the right upper lobe shown on axial image 131 of 250. There are probable segmental and subsegmental pulmonary emboli within the posterior basilar segment right lower lobe. Addition, additional segmental emboli within the right middle lobe are noted. Lungs are suboptimally assessed given respiratory motion. There is no pneumothorax or pleural effusion. There is no consolidation to suggest pneumonia. Note is made of an indeterminate 7 mm nodular opacity within the right upper lobe on image 182 of 258. Bilateral rib fractures are noted. These are likely pathologic. These fractures are of varying ages. Numerous thoracic spine pathologic fractures are noted, including severe pathologic fracture of T5. Vertebral body height loss has increased since MRI of October 19, 2018. Otherwise, the fractures are similar in appearance to prior MRI. Central canal is suboptimally assessed by CT. There is no thoracic aortic dissection. IMPRESSION: 1. Multiple right-sided segmental and subsegmental pulmonary emboli. 2. Numerous pathologic rib and thoracic spine fractures, as described above. Thoracic spine better depicted on the CT of the thoracic spine. Please see that report for further description. 3. Indeterminate 7 mm nodular right upper lobe opacity. Although this could be infectious/inflammatory in etiology, a neoplasm could appear similar. A chest CT in 6 months is recommended. ABDOMEN AND PELVIS CT WITH IV CONTRAST HISTORY: Acute upper abdominal pain with distention and shortness of breath history multiple myeloma. upper abd pain, distension, sob TECHNIQUE: Multiaxial CT images of the abdomen and pelvis were performed following the IV administration of 119 cc of Optiray 320, A dose lowering technique was utilized adhering to the principles of ALARA. COMPARISON STUDY: CT thoracic spine and CT chest studies of same day, MRI thoracic spine 10/19/2018. FINDINGS: Dependent subsegmental bibasilar consolidation favors atelectasis. No pneumatosis or pneumoperitoneum. Emboli are noted within segmental and subsegmental pulmonary arterial branches of the right lower lobe. Cardiomegaly. Coronary arterial calcifications. Trace pericardial effusion. The liver, spleen, pancreas and adrenal glands are unremarkable. Contracted gallbladder. No biliary ductal dilation. Mild nonspecific bilateral perinephric stranding. Exophytic 1.3 cm cyst of the inferior pole left kidney. Intermediate attenuating lesions of the inferior pole right kidney measuring up to 2.2 cm are noted which are indeterminate on this single phase exam. 2 mm nonobstructing calculus of the inferior pole left kidney. No ureteral calculi or obstructive uropathy. Mild wall thickening of the bladder. Prostamegaly. Aorta and IVC are unremarkable. There is no adenopathy. No bowel obstruction. Mild colonic diverticulosis without acute diverticulitis. There is equivocal wall thickening of the ascending colon on image 257 series 7 with mild adjacent pericolonic stranding. Appendix not diagnostically visualized. Mild generalized body wall edema. Degenerative changes of the hips, pelvis and spine. Scattered lucent bone lesions are noted throughout the pelvis, ribs and vertebral bodies. Subacute appearing healing nondisplaced lateral rib fractures are noted bilaterally. Age-indeterminate compression deformity is without retropulsion noted at T11, T12, L1, L3 and L5. IMPRESSION: 1. Equivocal wall thickening of the ascending colon with mild pericolonic stranding. Correlate clinically to exclude a nonspecific colitis. 2. No bowel obstruction or pneumoperitoneum. 3. Pulmonary emboli of the right lower lobe. 4. Multiple scattered lytic bone lesions compatible with patient's clinical history of multiple myeloma. 5. There are several subacute healing nondisplaced bilateral rib fractures. 6. Multiple age-indeterminate compression deformities as above without retropulsion. CT thoracic spine wo con CT DOSE: 871.63 mGy.cm CLINICAL HISTORY: Severe back pain. History of multiple myeloma. TECHNIQUE: Helical images were acquired in the transverse plane. Sagittal and coronal reformatted images were acquired. A dose lowering technique was utilized adhering to the principles of ALARA. COMPARISON STUDY: MRI the thoracic spine dated 10/19/2018 FINDINGS: There are dependent pulmonary airspace opacities, likely atelectatic. The bones are osteopenic. There is interval progression of the pathologic T5 compression deformity with near total loss in height giving a vertebral plana appearance there is lytic disease involving the left posterior elements at this level. Epidural disease is suspected. MRI would be more accurate for evaluation. There are stable T8 and T9 compression fractures. The T9 compression fracture is pathologic with evidence of bony lysis. There is probable myelomatous involvement involving the anterior aspect of the T11 vertebral body. There is stable superior endplate T12 and L1 compression fractures. IMPRESSION: 1. Osteopenia and multiple thoracic compression deformities. 2. The T5 and T9 compression fractures are clearly pathologic with evidence of bony lysis. 3. There as been significant progression of the T5 compression fracture which now has a vertebral plana appearance 4. An MRI would be necessary in follow-up if assessment of epidural disease is desired. XR chest 1V portable HISTORY: 83 years-old Male Dyspnea acute shortness of breath COMPARISON: Chest radiograph 08/06/2018, chest CT 01/20/2018. TECHNIQUE: Portable AP view of the chest FINDINGS: Cardiac silhouette is enlarged, unchanged. Tortuosity of the descending thoracic aorta. Hyperinflation with diaphragmatic flattening. Chronic interstitial coarsening without pneumothorax or large pleural effusion. Unchanged linear bibasilar opacities. There is a questioned acute nondisplaced fracture of the posterior left fifth rib. Degenerative changes of the shoulders and spine. IMPRESSION: 1. Cardiomegaly. 2. Linear bibasilar opacities suggest atelectasis. 3. Questioned acute nondisplaced fracture of the posterior lateral left fifth rib. Correlate clinically. Medications Administered Current Inpatient Medications Heparin Sodium/Dextrose (Heparin Sodium/Dextrose) 25,000 units in 500 mls @ 26 mls/hr IV .[id number] [facility]; Protocol Stop: 01/05/19 14:14 Last Admin: 12/06/18 14:51 Dose: 1,300 units/hr, 26 mls/hr Documented by: Ioversol (Optiray 320 125ml) 119 ml IV ONCE PRN PRN Reason: Interaction Checking Stop: 12/10/18 13:06 Last Admin: 12/06/18 13:07 Dose: 119 ml Documented by: Code Status & VTE Plan Code Status Full VTE Prophylaxis Plan VTE Prophylaxis will be ordered: Yes Supervising Physician Co-Signing Physician Notes The patient was seen and examined by myself in the ER. Discussed case and plan with Dr Tse and I agree with history, exam, assessment and plan above with the following exception. Murmur appears to be diastolic loudest in RUSB which suspect is his tricuspid regurgitation on prior echocardiogram in Feb 2018. Possibly acutely worsened by current PE however no over right heart failure as no JVD or leg edema on exam, therefore will defer repeating the echocardiogram at this time. Noted Hx of diastolic dysfunction on same echo and will monitor for fluid overload since we are giving IV fluids. Reports his pain is usually well controlled EKG - RBBB and axis not significantly changed since last EKG in Feb 2018 suggesting no worsening right heart strain ROS - Reports chronic pain from multiple fractures although generally well controlled on current regimen. All other systems reviewed and otherwise negative other than HPI. Shortness of breath and chest pain clearly appear to be related to pulmonary embolism on exam. Lungs CTAB. Agree with treatment with IV heparin and PCU admission as higher risk of bleeding given thrombocytopenia. Care discussed by Dr Tse with Dr Galan and recommended platelet transfusion at this time given Plt 35 while starting on IV heparin. Formal consult placed for tomorrow to determine longer term treatment recommendations ?Lovenox. PG Care Time/CCT Total # of Minutes Spent Total Time Spent with Patient: Total time spent is greater than 50% in coordination of care (as documented) at patient's floor/unit and/or counseling patient: Resident Activity Tracking Resident Involvement: Resident Care Provided Care Provided: Adult Hospital Medicine (1) Fracture of rib Encounter type: initial encounter Fracture type: closed Laterality: left Rib fracture type: single rib Qualified Code(s): S22.32XA - Fracture of one rib, left side, initial encounter for closed fracture (2) Compression fx, lumbar spine Encounter type: initial encounter Lumbar vertebra fracture level: L1 Qualified Code(s): S32.010A - Wedge compression fracture of first lumbar vertebra, initial encounter for closed fracture (3) Compression fx, thoracic spine Encounter type: initial encounter Thoracic vertebra fracture level: unspecified thoracic vertebra Qualified Code(s): S22.000A - Wedge compression fracture of unspecified thoracic vertebra, initial encounter for closed fracture (4) Pulmonary embolism Acute cor pulmonale presence: unspecified Chronicity: acute Pulmonary embolism type: unspecified Qualified Code(s): I26.99 - Other pulmonary embolism without acute cor pulmonale
[2018-12-06] MEDS ORDERED: LORazepam 0.5 MG TAB PO PRN (16:58)
[2018-12-06] MEDS ORDERED: POLYETHYLENE (MIRALAX) 17 GM PACK PO PRN (16:58)
[2018-12-06] MEDS ORDERED: MECLIZINE HCL 25 MG TAB PO PRN (16:58)
[2018-12-06] MEDS ORDERED: ONDANSETRON INJ 2 MG/ML 2 ML VIAL IV PRN (16:58)
[2018-12-06] MEDS ORDERED: FLUTICASONE PROPIONATE NA SPR 16 GM BTL PRN (16:58)
[2018-12-06] MEDS ORDERED: EPINEPHRINE ADULT AUTO-INJECT 0.3 MG SYR IM PRN (16:58)
[2018-12-06] MEDS: LACTATED RINGER'S 1,000 ML IV SCH (17:29)
[2018-12-06] MEDS ORDERED: fentaNYL 50 MCG/HR TDSY TD SCH (17:30)
[2018-12-06] MEDS: OXYCODONE HCL IR 5 MG TAB (IMMEDIATE RELEASE) PO PRN (17:48)
[2018-12-06 21:26] LABS: Partial Thromboplastin Ratio 2.9
[2018-12-06 21:50] LABS: Partial Thromboplastin Time 79.9 Seconds (21.0-31.0)
[2018-12-07] MEDS: OXYCODONE HCL IR 5 MG TAB (IMMEDIATE RELEASE) PO PRN ×3 (03:42→23:22)
[2018-12-07] MEDS: LACTATED RINGER'S 1,000 ML IV SCH (03:45)
[2018-12-07 04:24] LABS: Hemoglobin 9.6 g/dL (14.0-18.0); Mean Corpuscular Hemoglobin 31.1 pg (25-34); Mean Corpuscular Hgb Conc 34.3 g/dL (32-36); Mean Corpuscular Volume 90.6 fL (80-100); RDW Coefficient of Variation 14.7 % (11.5-14.5); RDW Standard Deviation 47.9 fL (36.4-46.3); Red Blood Count 3.09 M/uL (4.7-6.1); White Blood Count 4.36 K/uL (4.8-10.8)
[2018-12-07 04:30] LABS: Mean Platelet Volume 10.6 fL (7.4-10.4); Platelet Count 46 K/uL (130-400)
[2018-12-07 04:44] LABS: BUN Creatinine Ratio 34.3 (10-20); Calcium 7.5 mg/dl (8.5-10.1); Creatinine Clr Calc Pharmacy 63.3 ml/min; Est GFR (African American) 87.8; Est GFR (Non-African American) 75.7; Potassium 3.6 mmol/L (3.5-5.1)
[2018-12-07 04:52] LABS: Echinocytes 1+; Eosinophils # (auto) 0.02 K/uL (0-0.5); Eosinophils % (auto) 0.5 %; Giant Platelets 1+; Immature Granulocytes # (auto) 0.01 K/uL (0.00-0.02); Immature Granulocytes % (auto) 0.2 %; Lymphocytes # (auto) 0.19 K/uL (1.2-3.4); Lymphocytes % (auto) 4.4 %; Monocytes % (auto) 4.6 %; Neutrophils # (auto) 3.94 K/uL (1.4-6.5); Neutrophils % (auto) 90.3 %
[2018-12-07 05:13] LABS: Partial Thromboplastin Time 81.2 Seconds (21.0-31.0)
[2018-12-07] MEDS: CHECK FENTANYL PATCH PLACEMENT SCH ×4 (08:26→23:22)
[2018-12-07] MEDS: ACYCLOVIR 400 MG TAB PO SCH (08:27)
[2018-12-07] MEDS: METOPROLOL SUCC 25MG EXT REL TAB PO SCH (08:27)
[2018-12-07] MEDS: HEPARIN SODIUM/DEXTROSE 25,000 UNITS/500 ML BAG IV SCH (15:10)
--- NOTE | 2018-12-07 15:29 | Oncology Consultation ---
Date of Consultation December 07, 2018 Assessment & Plan (1) Pulmonary embolism: He has a PE, which is not unexpected given his malignancy, recent high- dose steroid use, and relative immobility. He is on heparin now and should be transitioned to an agent to go home with. Warfarin is inferior to both Lovenox and Xarelto in patients with malignancy-associated VTEs. In light of his low platelets, I would prefer Lovenox, as it is more readily reversible if he does start bleeding. He will need to remain on anticoagulation indefinitely, given his incurable malignancy. He is due to restart Velcade next week and I will have my staff make arrangements for him to be seen on one of his treatment days this cycle for post-discharge follow up. Present on Admission?: Yes History of Present Illness Reason for Consultation: Pulmonary embolism Multiple myeloma Attending Physician: Nick Guillen MD History of Present Illness Mr. White is an 83 year old man with a history of hypertension, hyperlipidemia, and diabetes. He was diagnosed last month with IgG lambda multiple myeloma after presenting with multiple lytic vertebral lesions. He was started on steroids and underwent RT to a symptomatic vertebral lesion. He also started Velcade on 11/24 with a plan to add Revlimid with his second cycle, which is due to begin next week. He presented tot he ER yesterday complaining of dyspnea with minimal exertion and pain diffusely throughout his chest. A CT revealed scattered right- sided segmental and subsegmental PEs. He was not tachycardic but has been intermittently, mildly hypoxic. He was started on a heparin drip and was given a platelet transfusion because of a platelet count of 35K. He has not had any bleeding since starting the heparin. He also denies any swelling or tenderness in his calves. His pain is diffuse through his chest and back and imaging also revealed numerous pathologic fractures. He has also had some issues with constipation and bloating, particularly since starting narcotics for his bone pain. Allergies Allergy/AdvReac Type Severity Reaction Status Date / Time adhesive tape Allergy Mild Rash Verified 12/06/18 13:37 No Known Drug Allergies Allergy Unknown NONE PER PT Verified 12/06/18 13:37 Home Medications Home Medications Medication Instructions Recorded Confirmed Type meclizine 25 mg tablet 25 mg PO DAILY PRN #30 tab 08/31/18 12/06/18 Rx epinephrine 0.3 mg/0.3 mL 0.3 mg IM Q15M PRN #2 ea 10/03/18 12/06/18 Rx injection, auto-injector fluticasone propionate 2 sprays INTNAS QAM PRN 10/28/18 12/06/18 History lorazepam 0.5 mg PO HS PRN 10/28/18 12/06/18 History saw palmetto 160 mg PO BID 10/28/18 12/06/18 History oxycodone 10 mg tablet 10 mg PO Q6H PRN tab 11/13/18 12/06/18 History metoprolol succinate ER 25 mg 12.5 mg PO QAM tab 11/15/18 12/06/18 History tablet,extended release 24 hr acyclovir 400 mg PO QAM 12/06/18 12/06/18 History dexamethasone 20 mg PO UD 12/06/18 12/06/18 History fentanyl 50 mcg TRANSDERMAL Q72H 12/06/18 12/06/18 History Patient History Medical History Vertigo (Chronic) Hypertension (Chronic) History of vertebral compression fracture (Inactive) Multiple myeloma (Inactive) Surgical History History of dental surgery S/P cataract surgery S/P inguinal hernia repair Family History Father , Passed age 64 of [place] Myocardial infarction Mother , Passed age 89 of blood clot after hip replacement No problems noted. Grandfather (Maternal) , Passed age 34 of head and neck cancer No problems noted. Grandmother (Maternal) , Passed age of 72 stomach cancer No problems noted. Brother , Passed age 69 of likely cancer No problems noted. Other Has no children No pertinent family history Social History Preferred Language: Italian Communication Ability: Effective Visual Impairment: Limited Hearing Ability: Normal [employer] Ware[employer] Work[employer] Required: No Beliefs That Will Affect Care: None marital status: Current Living Situation: Spouse Current Living Situation Comment: current occupational status: retired current occupation: Retired [employer] [place] Feels Safe at Home: Yes Smoking Status: Former smoker packs per day: 1.5 ; Second Hand Exposure: Yes ; Hx Alcohol Use: No Hx Substance Use: No Childhood Exposure to Second-Hand Smoke: Yes caffeine: No Seatbelt Use: always Review of Systems Constitutional: + fatigue and + weakness (generalized) Ear, Nose, Mouth, Throat: no epistaxis and no bleeding gums Respiratory: + dyspnea; no hemoptysis Cardiovascular: + chest pain (atypical, diffuse and bilateral) Gastrointestinal: + bloating and + constipation; no abdominal pain Genitourinary: no hematuria Integumentary: no rash and no bleeding lesions Neurologic: no headache(s) Hematologic / Lymphatic: no easy bleeding and no night sweats Physical Exam Constitutional: + ill appearing; no acute distress Eyes: + anicteric sclerae ENMT: external ear and nose normal, oropharynx normal Respiratory: normal respiratory effort, lungs clear to auscultation Cardiovascular: Rate/Rhythm: regular rhythm and + tachycardic Heart Sounds: no murmur Extremities: no edema Gastrointestinal (Abdomen): Inspection/Auscultation: normal bowel sounds; abdomen not distended Percussion/Palpation: abdomen soft; abdomen nontender Skin: no rashes, warm and dry Psychiatric: A+Ox3, euthymic affect Lymphatic: no cervical or axillary lymphadenopathy Results & Data Vital Signs (Past 12 Hours) Vital Signs Temp Pulse Resp BP Pulse Ox 12/07/18 15:21 36.7 C 79 18 154/93 H 89 L 12/07/18 11:04 36.6 C 87 18 128/83 96 12/07/18 07:15 36.5 C 88 16 148/82 H 96 12/07/18 06:15 146/85 H 12/07/18 04:36 172/91 H 12/07/18 03:35 36.4 C L 83 20 169/102 H 97 Laboratory Results Laboratory Results - last 24 hr 12/06/18 12/06/18 12/06/18 17:08 17:30 20:58 WBC RBC Hgb Hct MCV MCH MCHC RDW Std Deviation RDW Coeff of Zackery Plt Count MPV Immature Gran % (Auto) Neut % (Auto) Lymph % (Auto) [place] % (Auto) Eos % (Auto) Baso % (Auto) Immature Gran # (Auto) Neut # (Auto) Lymph # (Auto) [place] # (Auto) Eos # (Auto) Baso # (Auto) Giant Platelets Echinocytes APTT 79.9 H* PTT Ratio 2.9 Sodium Potassium Chloride Carbon Dioxide Anion Gap BUN Creatinine Est Cr Clr Drug Dosing Est GFR ( Amer) Est GFR (Non-Af Amer) BUN/Creatinine Ratio Glucose POC Glucose 117 H Calcium 25-OH Vitamin D Total Blood Type A Positive 12/07/18 12/07/18 12/07/18 04:10 04:10 04:10 WBC 4.36 L RBC 3.09 L Hgb 9.6 L Hct 28.0 L MCV 90.6 MCH 31.1 MCHC 34.3 RDW Std Deviation 47.9 H RDW Coeff of Zackery 14.7 H Plt Count 46 L MPV 10.6 H Immature Gran % (Auto) 0.2 Neut % (Auto) 90.3 Lymph % (Auto) 4.4 [place] % (Auto) 4.6 Eos % (Auto) 0.5 Baso % (Auto) 0.0 Immature Gran # (Auto) 0.01 Neut # (Auto) 3.94 Lymph # (Auto) 0.19 L [place] # (Auto) 0.20 Eos # (Auto) 0.02 Baso # (Auto) 0.00 Giant Platelets 1+ Echinocytes 1+ APTT PTT Ratio Sodium 139 Potassium 3.6 Chloride 109 H Carbon Dioxide 25 Anion Gap 5.0 BUN 32 H Creatinine 0.94 Est Cr Clr Drug Dosing 63.3 Est GFR ( Amer) 87.8 Est GFR (Non-Af Amer) 75.7 BUN/Creatinine Ratio 34.3 H Glucose 90 POC Glucose Calcium 7.5 L 25-OH Vitamin D Total 41.1 Blood Type 12/07/18 12/07/18 04:10 12:00 WBC RBC Hgb Hct MCV MCH MCHC RDW Std Deviation RDW Coeff of Zackery Plt Count MPV Immature Gran % (Auto) Neut % (Auto) Lymph % (Auto) [place] % (Auto) Eos % (Auto) Baso % (Auto) Immature Gran # (Auto) Neut # (Auto) Lymph # (Auto) [place] # (Auto) Eos # (Auto) Baso # (Auto) Giant Platelets Echinocytes APTT 81.2 H* 53.0 H* PTT Ratio 3.0 2.0 Sodium Potassium Chloride Carbon Dioxide Anion Gap BUN Creatinine Est Cr Clr Drug Dosing Est GFR ( Amer) Est GFR (Non-Af Amer) BUN/Creatinine Ratio Glucose POC Glucose Calcium 25-OH Vitamin D Total Blood Type (1) Pulmonary embolism Acute cor pulmonale presence: unspecified Chronicity: acute Pulmonary embolism type: unspecified Qualified Code(s): I26.99 - Other pulmonary embolism without acute cor pulmonale
[2018-12-07] MEDS: ENOXAPARIN 80 MG/0.8 ML SYR SQ SCH (18:53)
--- NOTE | 2018-12-07 23:25 | Hospitalist Progress Note ---
Date of Service December 07, 2018 Assessment & Plan (1) Pulmonary embolism: Secondary to multiple myeloma. Discussed with oncology and plan to switch to IV heparin to lovenox for outpatient treatment and follow up with heme/onc clinic (2) Thrombocytopenia: No bleeding. S/P platelet transfusion yesterday due to need to start heparin for PE. Improved today to 46. (3) Compression fx, thoracic spine: Non displaced. Pain well controlled. Continue outpatient pain management with fentanyl patch and oxycodone. (4) Fracture of rib: pain management as above (5) Compression fx, lumbar spine: (6) Vertigo: Meclizine PRN. No acute exacerbation (7) HTN (hypertension): Continue metoprolol home medications (8) Colitis: Questionable read on CT. No signs/symptoms of this. Suspect some thickening with opiate-induced constipation (prior known diagnosis) and will monitor this as inpatient. (9) Discharge planning issues: PT/OT evals pending Subjective Patient feels mildly improved with shortness of breath today. Questioning whether he can be discharged. Family more concerned about him going home. Did well with IV heparin overnight without melena, epitaxis or external bleeding noted. Hgb stable. Continues to have some shortness of breath even at rest. Review of Systems Review of Systems: All systems reviewed & are unremarkable except as noted in HPI & below Physical Exam Constitutional: well developed and + ill appearing; no acute distress Eyes: + anicteric sclerae; normal pupil size ENMT: external ear and nose normal, oropharynx normal Respiratory: normal respiratory effort, lungs clear to auscultation no respiratory distress, no labored breathing, no retractions and does not use accessory muscles Cardiovascular: Rate/Rhythm: regular rate and regular rhythm Heart Sounds: no murmur Extremities: no edema Gastrointestinal (Abdomen): Inspection/Auscultation: normal bowel sounds; a bdomen not distended Percussion/Palpation: abdomen soft; abdomen nontender, no guarding and abdomen not rigid Musculoskeletal: no cyanosis or clubbing, extremities motor strength 5/5 Skin: no rashes, warm and dry Neurologic: moves all extremities and awake; no focal motor deficits and not confused Motor/Sensory: no pronator drift Psychiatric: A+Ox3, euthymic affect Lymphatic: no cervical or axillary lymphadenopathy Results & Data Vital Signs (Past 12 Hours) Vital Signs Temp Pulse Pulse Resp BP Pulse Ox 12/07/18 23:10 98.2 F 98 H 20 171/92 H 93 12/07/18 19:25 98.2 F 84 18 135/53 L 94 12/07/18 17:17 76 12/07/18 15:21 98.1 F 79 18 154/93 H 89 L PG Care Time/CCT Total # of Minutes Spent Total Time Spent with Patient: Total time spent is greater than 50% in coordination of care (as documented) at patient's floor/unit and/or counseling patient: (1) Fracture of rib Encounter type: initial encounter Fracture type: closed Laterality: left R ib fracture type: single rib Qualified Code(s): S22.32XA - Fracture of one rib, left side, initial encounter for closed fracture (2) Compression fx, lumbar spine Encounter type: initial encounter Lumbar vertebra fracture level: L1 Qualified Code(s): S32.010A - Wedge compression fracture of first lumbar vertebra, initial encounter for closed fracture (3) Compression fx, thoracic spine Encounter type: initial encounter Thoracic vertebra fracture level: unspecified thoracic vertebra Qualified Code(s): S22.000A - Wedge compression fracture of unspecified thoracic vertebra, initial encounter for closed fracture (4) Pulmonary embolism Acute cor pulmonale presence: unspecified Chronicity: acute Pulmonary embolism type: unspecified Qualified Code(s): I26.99 - Other pulmonary embolism without acute cor pulmonale
[2018-12-08 06:02] LABS: Hematocrit (blood only) 26.8 % (42-52); Hemoglobin 9.3 g/dL (14.0-18.0); Mean Corpuscular Hgb Conc 34.7 g/dL (32-36); Mean Corpuscular Volume 89.3 fL (80-100); RDW Coefficient of Variation 14.7 % (11.5-14.5); RDW Standard Deviation 47.6 fL (36.4-46.3); White Blood Count 4.19 K/uL (4.8-10.8)
[2018-12-08 06:32] LABS: Mean Platelet Volume 11.3 fL (7.4-10.4); Platelet Count 36 K/uL (130-400)
[2018-12-08 06:33] LABS: Echinocytes 1+; Eosinophils # (auto) 0.01 K/uL (0-0.5); Eosinophils % (auto) 0.2 %; Giant Platelets 1+; Immature Granulocytes # (auto) 0.02 K/uL (0.00-0.02); Immature Granulocytes % (auto) 0.5 %; Lymphocytes # (auto) 0.23 K/uL (1.2-3.4); Lymphocytes % (auto) 5.5 %; Monocytes # (auto) 0.18 K/uL (0.11-0.59); Monocytes % (auto) 4.3 %; Neutrophils # (auto) 3.75 K/uL (1.4-6.5); Neutrophils % (auto) 89.5 %
[2018-12-08 06:45] LABS: Calcium 7.8 mg/dl (8.5-10.1); Creatinine Clr Calc Pharmacy 69.2 ml/min; Est GFR (African American) 94.3; Est GFR (Non-African American) 81.3; Potassium 3.7 mmol/L (3.5-5.1)
[2018-12-08] MEDS: ENOXAPARIN 80 MG/0.8 ML SYR SQ SCH (07:40)
[2018-12-08] MEDS: METOPROLOL SUCC 25MG EXT REL TAB PO SCH (07:41)
[2018-12-08] MEDS: CHECK FENTANYL PATCH PLACEMENT SCH (07:41)
[2018-12-08] MEDS: ACYCLOVIR 400 MG TAB PO SCH (07:43)
[2018-12-08] MEDS: OXYCODONE HCL IR 5 MG TAB (IMMEDIATE RELEASE) PO PRN (08:12)
[2018-12-08] MEDS ORDERED: POLYETHYLENE (MIRALAX) 17 GM PACK PO ONE (09:45)
[2018-12-08] MEDS ORDERED: SENNA 8.6 MG TAB PO ONE (09:45)
[2018-12-08 10:57] VITALS: PULSE 85
[2018-12-08] MEDS ORDERED: ONDANSETRON 4 MG OD TAB PO STA (13:31)
[2018-12-08] MEDS ORDERED: OXYCODONE HCL IR 5 MG TAB (IMMEDIATE RELEASE) PO STA (13:33)
[2018-12-08] MEDS ORDERED: ONDANSETRON HOME PACK 4MG OD TAB PO ONE (13:45)
--- NOTE | 2018-12-08 13:59 | Discharge Summary ---
Date of Service December 08, 2018 Admission HPI Per Admitting Provider 82yoM with hx of recently diagnosed MM, DM, HLD and chronic vertigo presents with shortness of breath and chest pain. He was found to be very short of breath especially with minimal ambulation today by his friend and brought to the emergency room. He reports mild shortness of breath at this time while resting, pain along his rib cage, abdominal pain and chronic back pain. He also reports chronic constipation after being on opiates for pain relief. He has been on multiple bowel regimens which have induced explosive diarrhea. He was receiving Dulcolax suppository which induced diarrhea but it improved about 5 days ago. Then he was on Senokot which he stopped yesterday morning after the 3 doses as it resulted in 2 loose bowel movements. He has also used some glycerin suppositories but not recently. He was diagnosed with multiple myeloma about a month ago. He received palliative radiation for compression fractures in his thoracic spine, completed on 11/21/2018. He finished his first round of chemo on 12/04/2018. Next round is on 12/15/2018. He is on dexamethasone 20 mg 4 days on and 4 days off and fentanyl patch at this time. Denies any fever, chills, chest pain at this time, nausea, vomiting, diarrheanone today, hematochezia, melena, hematuria, dysuria Admission Exam Per Admitting Provider General: In NAD, pleasant HEENT: somewhat dry mucous membranes Neuro: A&O x 4 Pulm: CTAB equal breath sounds bilaterally CV: RRR, 3/6 systolic murmur, cap refill 3 secs Abdomen:+BS, mild upper abdominal TTP in all quadrants, non-distended LE: 1+ LE edema, no calf TTP Principal Diagnosis Pulmonary embolism due to multiple myeloma Opiate-induced constipation Pancytopenia secondary to chemotherapy Pathological rib and thoracic spine fractures Discharge Exam Constitutional well developed and + ill appearing; no acute distress Eyes + anicteric sclerae; normal pupil size ENMT external ear and nose normal, oropharynx normal Respiratory normal respiratory effort, lungs clear to auscultation no respiratory distress, no labored breathing, no retractions and does not use accessory muscles Cardiovascular Rate/Rhythm: regular rate and regular rhythm Heart Sounds: no murmur Extremities: no edema Gastrointestinal (Abdomen) Inspection/Auscultation: normal bowel sounds; abdomen not distended Percussion/Palpation: abdomen soft; abdomen nontender, no guarding and abdomen not rigid Musculoskeletal no cyanosis or clubbing, extremities motor strength 5/5 Skin no rashes, warm and dry Neurologic moves all extremities and awake; no focal motor deficits and not confused Motor/Sensory: no pronator drift Psychiatric A+Ox3, euthymic affect Lymphatic no cervical or axillary lymphadenopathy Discharge Data Allergies Allergy/AdvReac Type Severity Reaction Status Date / Time adhesive tape Allergy Mild Rash Verified 12/06/18 13:37 No Known Drug Allergies Allergy Unknown NONE PER PT Verified 12/06/18 13:37 Consultations 12/06/18 14:09 ED Decision to Admit Stat 12/06/18 16:58 Consult Oncology Routine Ordered Studies 12/06/18 12:14 CT abd pelvis IV con only Stat CT angio chest PE protocol Stat 12/06/18 12:15 CT thoracic spine wo con Stat Hospital Course (1) Pulmonary embolism: 83 year old male admission for shortness of breath. Diagnosed with multiple right sided pulmonary embolisms secondary to multiple myeloma. He had thrombocytopenia secondary to recent chemotherapy and was transfused 1 unit platelets. Discussed with oncology and he was transitioned to Lovenox injections. He continues to have thrombocytopenia on discharge but this should recover as due to recent chemotherapy. He was also diagnosed with numerous pathological rib and thoracic spine fractures. His pain was well controlled on his usual outpatient regimen. He requested to go home despite not having a bowel movement here. He has been having problems with opiate induced constipation however the family have gone through this with him before and were happy transporting him home. No bowel obstruction was seen on CT and he was passing flatus with no nausea or vomiting. He was evaluated by physical therapy and recommended discharging home with home health. (2) Compression fx, thoracic spine: (3) Fracture of rib: (4) Compression fx, lumbar spine: (5) Pancytopenia due to antineoplastic chemotherapy: (6) Discharge planning issues: Total Time Total Time Spent Total Time Spent (In Minutes): 40 Total Time Includes: Examination of the Patient, Discharge Planning and Medication Reconciliation Discharge Plan Discharge Items Patient Disposition: Home - Self-Care Reason For Visit: PE Discharge Diagnosis: Pulmonary embolism (blood clot on the arteries to your right lung) due to multiple myeloma Constipation Pancytopenia - low blood counts due to chemotherapy Pathological rib and thoracic spine fractures Condition on Discharge: Fair Activity: Resume your previous activity Non-emergency contact: Oncologist Call non-emergency contact if: you have any medication questions and your symptoms worsen Follow-up/Referrals: Pro,Robert Daniel MD [Primary Care Provider] - Wang Galan DO [Physician] - Diet: Regular Addtl Attending Provider Instructions: You were admitted with shortness of breath and diagnosed with a pulmonary embolism. This was treated with heparin IV overnight and switched to Lovenox as discussed with oncology the following day. Please follow up as previously planned. You are more at risk of bleeding on this medication. Please look for black stool which can be a sign for this and call your oncologist if this occurs or in an emergency (short of breath, chest pain or dizziness) please return to the ER. If any external bleeding place pressure on the wound straight away and if not stopping after 30 minutes or in any other emergency please return to the ER. Will repeat blood hemoglobin to assess for anemia on Tuesday. You were also diagnosed numerous pathologic rib and thoracic spine fractures. Vitamin D level normal. Recommend discussing further with you oncologist for potential treatments for this. Pending Studies at Discharge: No Stand-Alone Forms: My [facility] Medications and DC Order Prescriptions: New ondansetron 4 mg tablet,disintegrating 4 mg PO Q6H PRN (Reason: nausea and vomiting) Qty: 30 RF: 0 enoxaparin [Lovenox] 80 mg/0.8 mL syringe 80 mg SQ Q12H 30 Days Qty: 48 RF: 1 Continued oxycodone 10 mg tablet 10 mg PO Q6H PRN (Reason: pain) RF: 0 meclizine 25 mg tablet 25 mg PO DAILY PRN (Reason: Dizziness) Qty: 30 RF: 5 epinephrine 0.3 mg/0.3 mL auto-injector 0.3 mg IM Q15M PRN (Reason: anaphylaxis) Qty: 2 RF: 0 metoprolol succinate 25 mg tablet extended release 24 hr 12.5 mg PO QAM RF: 0 fentanyl 50 mcg/hr patch 72 hour 50 mcg transdermal Q72H RF: 0 acyclovir 400 mg tablet 400 mg PO QAM RF: 0 dexamethasone 4 mg tablet 20 mg PO UD RF: 0 lorazepam 0.5 mg tablet 0.5 mg PO HS PRN (Reason: anxiety) RF: 0 fluticasone propionate 50 mcg/actuation spray,suspension 2 sprays INTNAS QAM PRN (Reason: seasonal) RF: 0 Discontinued saw palmetto 160 mg capsule 160 mg PO BID RF: 0 No Action Oxygen Home Liters Per Minute .ROUTE .MEDSUPPLY Qty: 1 RF: 0 Oxygen Home Liters Per Minute .ROUTE .MEDSUPPLY Qty: 1 RF: 0 Discharge Orders: Discharge Order (Routine); Ordered 12/08/18 Ordered By: Nick Hanks/Other Patient Handouts: Embolism Pulmonary Dc Admission Data Admit Date/Time: 12/06/18 15:47 Attending Provider: Nick Guillen Admit Provider: Nick Guillen Primary Care Provider: Robert Damon Other Providers: Wang Galan V ; Domo Hernandez ; Dallas Bhandari Other Interventions: Discharge Summary Assessment (RN) Last Done: 12/08/18 14:48 DC Date/Time DO NOT enter until pt leaves facility: 12/08/18 15:43
[2018-12-08 15:34] VITALS: BP 128/85; TEMP 98.6; O2SAT 92
[2018-12-08] MEDS ORDERED: ENOXAPARIN 1 MG/KG SC SCH (21:00)
[2018-12-09] MEDS ORDERED: dexAMETHasone 4 MG TAB PO SCH (09:00)
[2018-12-17] MEDS ORDERED: dexAMETHasone 4 MG TAB PO SCH (09:00)
== END 2018-12-08 15:43 | disposition home or self-care (01) | DRG 840 ==
LOC: ED 11:26 → 2S 15:47

== ENCOUNTER 2018-12-21 19:06 | Inpatient (IN) ==
[2018-12-21 20:11] LABS: INR 1.1 (0.9-1.1); Partial Thromboplastin Ratio 0.9; Partial Thromboplastin Time 23.4 Seconds (21.0-31.0); Prothrombin Time 11.4 Seconds (9.0-12.0)
[2018-12-21 20:17] LABS: Alanine Aminotransferase 48 U/L (12-78); Albumin Level 2.6 gm/dl (3.4-5.0); Aspartate Aminotransferase 26 U/L (15-37); BUN Creatinine Ratio 29.6 (10-20); Blood Urea Nitrogen 30 mg/dl (7-18); Carbon Dioxide 25 mmol/L (21-32); Chloride 106 mmol/L (98-107); Est GFR (African American) 80.5; Est GFR (Non-African American) 69.4; Glucose 105 mg/dl (70-99); Lipase 201 U/L (73-393); Potassium 4.2 mmol/L (3.5-5.1); Sodium 137 mmol/L (136-145)
--- NOTE | 2018-12-21 20:18 | XRay Report ---
XR chest 1V portable HISTORY: 83 years-old Male Chest Pain acute atypical chest pain COMPARISON: Chest radiograph and CTA chest 12/06/2018 TECHNIQUE: Portable AP view of the chest FINDINGS: Lungs are hypoinflated. Cardiac silhouette is enlarged, unchanged. Blunting of the costophrenic angle s suggests atelectasis versus trace effusions. Linear bibasilar densities are redemonstrated. No pneu mothorax or overt pulmonary edema. Degenerative changes of the shoulders and spine. IMPRESSION: 1. Cardiomegaly without overt pulmonary edema. 2. Bibasilar opacities suggest probable atelectasis. The above report was generated using voice recognition software. It may contain grammatical, syntax o r spelling errors. Electronically signed by: Eddie Denis M.D. 12/21/2018 8:17 PM
[2018-12-21 20:24] LABS: Albumin Globulin Ratio 0.7 (0.9-2); Alkaline Phosphatase 94 U/L (45-117); Bilirubin,Total 0.3 mg/dl (0.2-1); Globulin 3.8 gm/dl (2.5-4.0); Total Protein 6.4 gm/dl (6.4-8.2)
[2018-12-21 21:00] LABS: Hematocrit (blood only) 28.1 % (42-52); Hemoglobin 9.3 g/dL (14.0-18.0); Mean Corpuscular Hemoglobin 30.5 pg (25-34); Mean Corpuscular Hgb Conc 33.1 g/dL (32-36); Mean Corpuscular Volume 92.1 fL (80-100); Mean Platelet Volume 12.3 fL (7.4-10.4); Platelet Count 87 K/uL (130-400); RDW Coefficient of Variation 15.7 % (11.5-14.5); RDW Standard Deviation 53.1 fL (36.4-46.3); Red Blood Count 3.05 M/uL (4.7-6.1); White Blood Count 4.78 K/uL (4.8-10.8)
[2018-12-21 21:01] LABS: Basophils # (auto) 0.01 K/uL (0-0.2); Basophils % (auto) 0.2 %; Echinocytes 1+; Eosinophils # (auto) 0.04 K/uL (0-0.5); Eosinophils % (auto) 0.8 %; Giant Platelets 1+; Immature Granulocytes # (auto) 0.09 K/uL (0.00-0.02); Immature Granulocytes % (auto) 1.9 %; Lymphocytes # (auto) 0.43 K/uL (1.2-3.4); Monocytes # (auto) 0.22 K/uL (0.11-0.59); Monocytes % (auto) 4.6 %; Neutrophils # (auto) 3.99 K/uL (1.4-6.5); Neutrophils % (auto) 83.5 %; Ovalocytes 1+; Platelet Estimate Decreased (Normal)
--- NOTE | 2018-12-21 22:21 | Ultrasound Report ---
BILATERAL LOWER EXTREMITY VENOUS DOPPLER HISTORY: Acute lower extremity pain and swelling pe, elevate of dvt COMPARISON STUDY: None available. FINDINGS: There is normal compressibility, flow, and augmentation within the bilateral lower extremit y deep venous systems. Subcutaneous edema of the calfs limits evaluation of the calf veins. IMPRESSION: No DVT within the right or left lower extremity. Electronically signed by: Eddie Denis M.D. 12/21/2018 10:20 PM
[2018-12-21] MEDS ORDERED: OPTIRAY 320 125ml IV PRN (22:35)
--- NOTE | 2018-12-21 22:48 | CT Scan Report ---
CT angio chest PE protocol CT DOSE: 1631.76 mGycm HISTORY: 83 years-old Male with PE. Acute shortness of breath. History of multiple myeloma. TECHNIQUE: Multiple CTA images of the chest were obtained after the intravenous administration of 119 ml Optiray 320. Coronal and sagittal MIPS were obtained from the axial data set and were submitted for review. All measurements were obtained according to NASCET criteria. A dose lowering technique w as utilized adhering to the principles of ALARA. COMPARISON: CTA of the chest 12/06/2018 FINDINGS: CTA: Heart is mildly enlarged. No pericardial effusion. Coronary arterial calcifications are noted. Calcif ications of the aortic annulus are also present. Calcified plaque the thoracic aorta without aneurysm or dissection. There is patency of the imaged great vessels. Pulmonary arterial tree is opacified to level the proximal subsegmental branches. There are no central pulmonary emboli. The previously note d segmental and subsegmental emboli of the right lung are not definitively seen. CT CHEST: Unremarkable thyroid. No new adenopathy. Trace bilateral pleural effusions. There is mild dependent b ibasilar consolidative and groundglass opacities suggestive of probable atelectasis. Mildly spiculate d irregular 8 mm solid pulmonary nodule of the right upper lobe appears more irregular than on compar urvashi. Central airways are patent. The process of the imaged upper abdomen. Scattered lytic bone lesio ns again noted along with multiple pathologic thoracic compression deformities and rib fractures. IMPRESSION: 1. Previously noted right-sided pulmonary emboli are not identified. No new pulmonary emboli identifi ed on today's study. 2. Cardiomegaly with trace pleural effusions and bibasilar opacities suggestive of probable atelectas is. 3. 8 mm solid nodule of the right upper lobe redemonstrated. Follow-up guidelines provided below. 4. No adenopathy. 5. Multiple lytic bone lesions are again seen compatible with patient's clinical history of multiple myeloma. Multiple pathologic thoracic spine compression deformities with healing pathologic rib fract ures redemonstrated. Please refer to below summary of Fleischner criteria recommendations for follow-up of incidental CT n odules (Viri Bowling, Guidelines for management of small pulmonary nodules detected on CT scans: A sta tement from the Fleischner Society, Radiology 237: [phone].) SOLID NODULES Solitary nodule size: 6-8 mm * Low risk patients: follow-up at 6-12 months, then consider further follow-up at 18-24 months * high risk patients: initial follow-up CT at 6-12 months and then at 18-24 months if no change Note: newly detected indeterminate nodule in persons 35 years of age or older. * Low risk patients: minimal or absent history of smoking and/or other known risk factors * high risk patients: history of smoking or of other known risk factors (e.g. first degree relative with lung cancer, or exposure to asbestos, radon, uranium) * if a nodule up to 8 mm is partly solid or is ground glass further follow-up is required after 24 m onths to exclude possible slow growing adenocarcinoma (CHERYL) The above report was generated using voice recognition software. It may contain grammatical, syntax o r spelling errors. Electronically signed by: Eddie Denis M.D. 12/21/2018 10:47 PM
--- NOTE | 2018-12-21 23:02 | CT Scan Report ---
CT abdomen pelvis veno w con HISTORY: 83 years-old Male eval for DVT, IVC clots acute upper abdominal pain with shortness of cira th and abdominal distention. Recently diagnosed with pulmonary emboli COMPARISON: CTA of the chest of same day, CT abdomen and pelvis 12/06/2018 TECHNIQUE: CT abdomen and pelvis venogram with delayed postcontrast imaging was obtained utilizing th e intravenous administration of 119 mL Optiray 320 IV contrast. A dose lowering technique was used co nsistent with the principals summer CLARK. FINDINGS: Dependent subsegmental bibasilar consolidation with trace pleural effusions. No pneumatosis or pneumo peritoneum. Emboli are noted within segmental and subsegmental pulmonary arterial branches of the rig ht lower lobe. Cardiomegaly. Coronary arterial calcifications. Trace pericardial effusion. The liver, spleen, pancreas and adrenal glands are unremarkable. Contracted gallbladder. No biliary ductal dila tion. Mild nonspecific bilateral perinephric stranding. Exophytic 1.3 cm cyst of the inferior pole le ft kidney. Intermediate attenuating lesions of the inferior pole right kidney measuring up to 2.2 cm are noted which are indeterminate on this single phase exam. 2 mm nonobstructing calculus of the infe rior pole left kidney. No ureteral calculi or obstructive uropathy. Mild wall thickening of the bladd er. Prostamegaly. Calcified plaque of the aorta without aneurysm. IVC is patent without thrombus. The bilateral iliac and imaged femoral veins also appear to be patent and within normal limits. Patent p ortal and hepatic veins. There is no adenopathy. No bowel obstruction. Mild colonic diverticulosis without acute diverticulitis. Moderate fecal retent ion with distention of the rectum. No bowel obstruction or bowel wall thickening identified. Noninfla med appendix. Small bowel lipoma of the anterior lower abdomen, 1.3 cm. Limited exam secondary to pos itioning of the patient's upper extremities. Mild generalized body wall edema. Degenerative changes o f the hips, pelvis and spine. Scattered lucent bone lesions are noted throughout the pelvis, ribs and vertebral bodies. Subacute appearing healing nondisplaced lateral rib fractures are noted bilaterall y. Age-indeterminate compression deformity is without retropulsion noted at T11, T12, L1, L3 and L5. IMPRESSION: 1. Moderate fecal retention without bowel obstruction or bowel wall thickening. 2. Trace pleural effusions with bibasilar opacities suggestive of probable atelectasis. 3. Multiple scattered lytic bone lesions redemonstrated compatible with patient's clinical history of multiple myeloma. Unchanged multiple compression deformities with multiple pathologic healing left-s ided rib fractures. 4. No IVC thrombus identified 5. Additional findings as above. The above report was generated using voice recognition software. It may contain grammatical, syntax o r spelling errors. Electronically signed by: Eddie Denis M.D. 12/21/2018 11:01 PM
[2018-12-22] MEDS ORDERED: ALBUMIN 25% 50 ML with FUROSEMIDE 40 MG IV ONE (00:23)
--- NOTE | 2018-12-22 00:37 | Emergency Department Note ---
Entered by Elva Lui acting as a scribe for History of Present Illness General Chief complaint: Shortness of Breath/Dyspnea Stated complaint: SOB, LOW O2, SWOLLEN LEGS- CHEMO PT Time Seen by Provider: 12/21/18 19:44 Source: patient and family History of Present Illness Onset (ago): day(s) (several) Location: chest Pain Consistency: + other (worsening) Maximum Pain Intensity: 0 Quality: + other (shortness of breath) Associated symptoms: + denies other symptoms (blood in stool) and + other (leg swelling); no chest pain, no cough, no fever/chills and no loss of appetite The patient is a 83 year old male who presents to the Emergency Room with complaints of worsening shortness of breath beginning several days ago. The patient's family member reports swelling in the patient's legs and a decrease in his pulse ox. The patient's family member denies chest pain, fever, cough, blood in stool, and changes in appetite. The patient's family member states the patient was in the hospital two weeks ago for a PE and was placed on Lovenox. She reports the patient was diagnosed with cancer 2 months ago and is currently on chemo. She states the patient's last chemo treatment was four days ago, and his next is tomorrow. She denies any history of kidney disease or heart failure. Home Medications Home Medications Medication Instructions Recorded Confirmed Type oxycodone 10 mg tablet 10 mg PO Q6H PRN tab 11/13/18 12/21/18 History metoprolol succinate ER 25 mg 12.5 mg PO QAM tab 11/15/18 12/21/18 History tablet,extended release 24 hr acyclovir 400 mg PO QAM 12/06/18 12/21/18 History dexamethasone 20 mg PO DIRECTED 12/06/18 12/21/18 History fentanyl 50 mcg TRANSDERMAL Q72H 12/06/18 12/21/18 History enoxaparin [Lovenox] 80 mg SQ Q12H 30 Days #48 ml 12/08/18 12/21/18 Rx clonazepam 1 mg PO BID PRN 12/21/18 12/21/18 History lenalidomide [Revlimid] 25 mg PO QAM 12/21/18 12/21/18 History meclizine 25 mg PO DAILY PRN 12/21/18 12/21/18 History ondansetron HCl 8 mg PO Q8H PRN 12/21/18 12/21/18 History sertraline 50 mg PO HS 12/21/18 12/21/18 History Allergies Allergy/AdvReac Type Severity Reaction Status Date / Time adhesive tape Allergy Mild Rash Verified 12/06/18 13:37 No Known Drug Allergies Allergy Unknown NONE PER PT Verified 12/06/18 13:37 Past Med/Surg History Medical History Vertigo (Chronic) Hypertension (Chronic) History of vertebral compression fracture (Inactive) Multiple myeloma (Inactive) Surgical History History of dental surgery S/P cataract surgery S/P inguinal hernia repair Family History Father , Passed age 64 of ID Myocardial infarction Mother , Passed age 89 of blood clot after hip replacement No problems noted. Grandfather (Maternal) , Passed age 34 of head and neck cancer No problems noted. Grandmother (Maternal) , Passed age of 72 stomach cancer No problems noted. Brother , Passed age 69 of likely cancer No problems noted. Other Has no children No pertinent family history Social History Preferred Language: Greek Communication Ability: Effective Visual Impairment: Limited Hearing Ability: Normal Prop And Effects Designer Required: No Beliefs That Will Affect Care: None marital status: Current Living Situation: Spouse Current Living Situation Comment: current occupational status: retired current occupation: Retired [employer] Feels Safe at Home: Yes Smoking Status: Former smoker packs per day: 1.5 ; Second Hand Exposure: Yes ; Hx Alcohol Use: No Hx Substance Use: No Childhood Exposure to Second-Hand Smoke: Yes caffeine: No Seatbelt Use: always Review of Systems See HPI for pertinent positives & negatives. and A total of 10 systems reviewed and were otherwise negative Physical Exam Vital Signs Vital Signs - 24 hr 12/21/18 19:24 12/21/18 19:42 12/21/18 19:53 Temperature 37.0 C Temperature Source Oral Sepsis Recent Fever Within 48 Hours No Sepsis New/Unexplained Change in Mental Status No Sepsis Action Taken by Nursing No Action Required Oxygen Flow Rate - Titration 2 Pulse Oximetry Post Tiitration 95 Pulse Rate 77 82 Pulse Rate from SpO2 Sensor 71 Respiratory Rate 26 H 24 Blood Pressure 112/64 123/79 Blood Pressure Mean 80 93 Pulse Oximetry 90 93 88 L Oxygen Delivery Method Room Air Nasal Cannula Room Air Oxygen Flow Rate 2 12/21/18 20:00 12/21/18 20:30 12/21/18 20:57 Temperature Temperature Source Sepsis Recent Fever Within 48 Hours Sepsis New/Unexplained Change in Mental Status Sepsis Action Taken by Nursing Oxygen Flow Rate - Titration Pulse Oximetry Post Tiitration Pulse Rate 71 76 69 Pulse Rate from SpO2 Sensor 64 63 66 Respiratory Rate 21 23 19 Blood Pressure 121/69 121/69 Blood Pressure Mean 86 86 Pulse Oximetry 94 94 93 Oxygen Delivery Method Room Air Oxygen Flow Rate 12/21/18 21:00 12/21/18 22:49 12/21/18 22:50 Temperature Temperature Source Sepsis Recent Fever Within 48 Hours Sepsis New/Unexplained Change in Mental Status Sepsis Action Taken by Nursing Oxygen Flow Rate - Titration Pulse Oximetry Post Tiitration Pulse Rate 73 Pulse Rate from SpO2 Sensor 72 83 81 Respiratory Rate 20 Blood Pressure 119/68 116/72 Blood Pressure Mean 85 86 Pulse Oximetry 93 83 L 91 Oxygen Delivery Method Nasal Cannula Oxygen Flow Rate 3 12/21/18 22:54 12/21/18 23:00 12/21/18 23:30 Temperature Temperature Source Sepsis Recent Fever Within 48 Hours Sepsis New/Unexplained Change in Mental Status Sepsis Action Taken by Nursing Oxygen Flow Rate - Titration 3 Pulse Oximetry Post Tiitration 91 Pulse Rate 73 Pulse Rate from SpO2 Sensor 73 74 Respiratory Rate 20 Blood Pressure 109/82 120/71 Blood Pressure Mean 91 87 Pulse Oximetry 88 L 90 92 Oxygen Delivery Method Nasal Cannula Nasal Cannula Nasal Cannula Oxygen Flow Rate 2 3 3 12/22/18 00:00 Temperature Temperature Source Sepsis Recent Fever Within 48 Hours Sepsis New/Unexplained Change in Mental Status Sepsis Action Taken by Nursing Oxygen Flow Rate - Titration Pulse Oximetry Post Tiitration Pulse Rate 75 Pulse Rate from SpO2 Sensor 68 Respiratory Rate 19 Blood Pressure 122/72 Blood Pressure Mean 88 Pulse Oximetry 93 Oxygen Delivery Method Nasal Cannula Oxygen Flow Rate 3 General: Non-ill appearing older male in no acute distress. HEENT: Normal cephalic atraumatic. Pupils are equal round and reactive to light. Extraocular movements are intact. Oropharynx is pink with moist mucous membranes. No swelling of the mouth lips or tongue. Neck: Supple with a midline trachea. No meningeal signs or stiffness, no JVD or bruits. No Stridor. Chest: Clear to auscultation bilaterally. No wheezes or rhonchi. No increased work of breathing. Heart: regular rate and rhythm. Abdomen: Soft nontender, nondistended without rebound guarding or rigidity. Extremities: Bilateral pitting lower edema. No cyanosis clubbing. No calf tenderness or asymmetry Spine/Back. Kyphosis of spine. Non tender to palpation. No CVA tenderness Skin: Good turgor without rashes. Neurologic exam: Cranial nerves two through 12 are intact. Motor and sensation are intact and symmetrical throughout. Course 1944: Past medical records reviewed. The patient was evaluated in room B05. A complete history and physical exam was performed. 2110: Upon reevaluation, I discussed findings and results with the patient. I ordered an US of both of the patient's legs. 2149: Upon reevaluation, the patient was in US. I discussed findings and results with the patient's family. 2299: Upon reevaluation, the patient is resting comfortably. I discussed findings and results with the patient and his family. 2320: Upon reevaluation, I discussed findings and results with the patient and his family . They verbalized agreement of the treatment plan. I spoke with Dr. Aguilera of the [facility] Hospitalist Service. The patient will be evaluated for further management and care. Administered Medications Furosemide 40 mg/ Albumin (Human) 54 mls @ 54 mls/hr IV ONE ONE Stop: 12/22/18 01:22 Last Admin: 12/22/18 00:46 Dose: 54 mls/hr Documented by: [id number] Ioversol (Optiray 320 125ml) 119 ml IV ONCE PRN PRN Reason: Interaction Checking Stop: 12/25/18 22:34 Last Admin: 12/21/18 22:36 Dose: 119 ml Documented by: [id number] Medical Decision Making Differential Diagnosis Differential diagnosis: CHF, PE, pneumothorax, hematologic, renal insufficiency, electrolyte and metabolic abnormality Medical Records Attestation: I reviewed the patient's medical records. Home Medications Current Medication List: was personally reviewed by me Laboratory Data Attestation: I reviewed the patient's lab results. Result diagrams: 12/21/18 19:48 12/21/18 19:48 Lab Results 12/21/18 12/21/18 12/21/18 Range/Units 19:48 19:48 19:48 WBC 4.78 L (4.8-10.8) K/uL RBC 3.05 L (4.7-6.1) M/uL Hgb 9.3 L (14.0-18.0) g/dL Hct 28.1 L (42-52) % MCV 92.1 (80-100) fL MCH 30.5 (25-34) pg MCHC 33.1 (32-36) g/dL RDW Std Deviation 53.1 H (36.4-46.3) fL RDW Coeff of Zackery 15.7 H (11.5-14.5) % Plt Count 87 L (130-400) K/uL MPV 12.3 H (7.4-10.4) fL Immature Gran % (Auto) 1.9 % Neut % (Auto) 83.5 % Lymph % (Auto) 9.0 % [place] % (Auto) 4.6 % Eos % (Auto) 0.8 % Baso % (Auto) 0.2 % Immature Gran # (Auto) 0.09 H (0.00-0.02) K/uL Neut # (Auto) 3.99 (1.4-6.5) K/uL Lymph # (Auto) 0.43 L (1.2-3.4) K/uL [place] # (Auto) 0.22 (0.11-0.59) K/uL Eos # (Auto) 0.04 (0-0.5) K/uL Baso # (Auto) 0.01 (0-0.2) K/uL Platelet Estimate Decreased L (Normal) Giant Platelets 1+ Ovalocytes 1+ Echinocytes 1+ PT 11.4 (9.0-12.0) Seconds INR 1.1 (0.9-1.1) APTT 23.4 (21.0-31.0) Seconds PTT Ratio 0.9 Sodium 137 (136-145) mmol/L Potassium 4.2 (3.5-5.1) mmol/L Chloride 106 (98-107) mmol/L Carbon Dioxide 25 (21-32) mmol/L Anion Gap 7.0 (3-11) BUN 30 H (7-18) mg/dl Creatinine 1.01 (0.6-1.4) mg/dl Est Cr Clr Drug Dosing Not Reportable Est GFR ( Amer) 80.5 Est GFR (Non-Af Amer) 69.4 BUN/Creatinine Ratio 29.6 H (10-20) Glucose 105 H (70-99) mg/dl Calcium 8.0 L (8.5-10.1) mg/dl Total Bilirubin 0.3 (0.2-1) mg/dl AST 26 (15-37) U/L ALT 48 (12-78) U/L Alkaline Phosphatase 94 (45-117) U/L Troponin I 0.030 (0-0.045) ng/ml Total Protein 6.4 (6.4-8.2) gm/dl Albumin 2.6 L (3.4-5.0) gm/dl Globulin 3.8 (2.5-4.0) gm/dl Albumin/Globulin Ratio 0.7 L (0.9-2) Lipase 201 (73-393) U/L Imaging Data Radiologist's Impression: Radiology results as stated below per my review and the radiologist's interpretation: XR chest 1V portable HISTORY: 83 years-old Male Chest Pain acute atypical chest pain COMPARISON: Chest radiograph and CTA chest 12/06/2018 TECHNIQUE: Portable AP view of the chest FINDINGS: Lungs are hypoinflated. Cardiac silhouette is enlarged, unchanged. Blunting of the costophrenic angles suggests atelectasis versus trace effusions. Linear bibasilar densities are redemonstrated. No pneumothorax or overt pulmonary edema. Degenerative changes of the shoulders and spine. IMPRESSION: 1. Cardiomegaly without overt pulmonary edema. 2. Bibasilar opacities suggest probable atelectasis. The above report was generated using voice recognition software. It may contain grammatical, syntax or spelling errors. Electronically signed by: Eddie Denis M.D. 12/21/2018 8:17 PM BILATERAL LOWER EXTREMITY VENOUS DOPPLER HISTORY: Acute lower extremity pain and swelling pe, elevate of dvt COMPARISON STUDY: None available. FINDINGS: There is normal compressibility, flow, and augmentation within the bilateral lower extremity deep venous systems. Subcutaneous edema of the calfs limits evaluation of the calf veins. IMPRESSION: No DVT within the right or left lower extremity. Electronically signed by: Eddie Denis M.D. 12/21/2018 10:[address] angio chest PE protocol CT DOSE: 1631.76 mGycm HISTORY: 83 years-old Male with PE. Acute shortness of breath. History of multiple myeloma. TECHNIQUE: Multiple CTA images of the chest were obtained after the intravenous administration of 119 ml Optiray 320. Coronal and sagittal MIPS were obtained from the axial data set and were submitted for review. All measurements were obtained according to NASCET criteria. A dose lowering technique was utilized adhering to the principles of ALARA. COMPARISON: CTA of the chest 12/06/2018 FINDINGS: CTA: Heart is mildly enlarged. No pericardial effusion. Coronary arterial calcifications are noted. Calcifications of the aortic annulus are also present. Calcified plaque the thoracic aorta without aneurysm or dissection. There is patency of the imaged great vessels. Pulmonary arterial tree is opacified to level the proximal subsegmental branches. There are no central pulmonary emboli. The previously noted segmental and subsegmental emboli of the right lung are not definitively seen. CT CHEST: Unremarkable thyroid. No new adenopathy. Trace bilateral pleural effusions. There is mild dependent bibasilar consolidative and groundglass opacities suggestive of probable atelectasis. Mildly spiculated irregular 8 mm solid pulmonary nodule of the right upper lobe appears more irregular than on comparison. Central airways are patent. The process of the imaged upper abdomen. Scattered lytic bone lesions again noted along with multiple pathologic thoracic compression deformities and rib fractures. IMPRESSION: 1. Previously noted right-sided pulmonary emboli are not identified. No new pulmonary emboli identified on today's study. 2. Cardiomegaly with trace pleural effusions and bibasilar opacities suggestive of probable atelectasis. 3. 8 mm solid nodule of the right upper lobe redemonstrated. Follow-up guide lines provided below. 4. No adenopathy. 5. Multiple lytic bone lesions are again seen compatible with patient's clinical history of multiple myeloma. Multiple pathologic thoracic spine compression def ormities with healing pathologic rib fractures redemonstrated. Please refer to below summary of Fleischner criteria recommendations for follow- up of incidental CT nodules (Viri Bowling, Guidelines for management of small pulmonary nodules detected on CT scans: A statement from the Fleischner Society , Radiology 237: [phone].) SOLID NODULES Solitary nodule size: 6-8 mm * Low risk patients: follow-up at 6-12 months, then consider further follow-up at 18-24 months * high risk patients: initial follow-up CT at 6-12 months and then at 18-24 months if no change Note: newly detected indeterminate nodule in persons 35 years of age or older. * Low risk patients: minimal or absent history of smoking and/or other known risk factors * high risk patients: history of smoking or of other known risk factors (e.g. first degree relative with lung cancer, or exposure to asbestos, radon, uranium) * if a nodule up to 8 mm is partly solid or is ground glass further follow-up is required after 24 months to exclude possible slow growing adenocarcinoma (CHERYL) The above report was generated using voice recognition software. It may contain grammatical, syntax or spelling errors. Electronically signed by: Eddie Denis M.D. 12/21/2018 10:[address] abdomen pelvis veno w con HISTORY: 83 years-old Male eval for DVT, IVC clots acute upper abdominal pain with shortness of breath and abdominal distention. Recently diagnosed with pulmonary emboli COMPARISON: CTA of the chest of same day, CT abdomen and pelvis 12/06/2018 TECHNIQUE: CT abdomen and pelvis venogram with delayed postcontrast imaging was obtained utilizing the intravenous administration of 119 mL Optiray 320 IV contrast. A dose lowering technique was used consistent with the principals of EDUARDO. FINDINGS: Dependent subsegmental bibasilar consolidation with trace pleural effusions. No pneumatosis or pneumoperitoneum. Emboli are noted within segmental and subsegmental pulmonary arterial branches of the right lower lobe. Cardiomegaly. Coronary arterial calcifications. Trace pericardial effusion. The liver, spleen, pancreas and adrenal glands are unremarkable. Contracted gallbladder. No biliary ductal dilation. Mild nonspecific bilateral perinephric stranding. Exophytic 1.3 cm cyst of the inferior pole left kidney. Intermediate attenuating lesions of the inferior pole right kidney measuring up to 2.2 cm are noted which are indeterminate on this single phase exam. 2 mm nonobstructing calculus of the inferior pole left kidney. No ureteral calculi or obstructive uropathy. Mild wall thickening of the bladder. Prostamegaly. Calcified plaque of the aorta without aneurysm. IVC is patent without thrombus. The bilateral iliac and imaged femoral veins also appear to be patent and within normal limits. Patent portal and hepatic veins. There is no adenopathy. No bowel obstruction. Mild colonic diverticulosis without acute diverticulitis. Moderate fecal retention with distention of the rectum. No bowel obstruction or bowel wall thickening identified. Noninflamed appendix. Small bowel lipoma of the anterior lower abdomen, 1.3 cm. Limited exam secondary to positioning of the patient's upper extremities. Mild generalized body wall edema. Degenerative changes of the hips, pelvis and spine. Scattered lucent bone lesions are noted throughout the pelvis, ribs and vertebral bodies. Subacute appearing healing nondisplaced lateral rib fractures are noted bilaterally. Age-indeterminate compression deformity is without retropulsion noted at T11, T12, L1, L3 and L5. IMPRESSION: 1. Moderate fecal retention without bowel obstruction or bowel wall thickening. 2. Trace pleural effusions with bibasilar opacities suggestive of probable atelectasis. 3. Multiple scattered lytic bone lesions redemonstrated compatible with patient's clinical history of multiple myeloma. Unchanged multiple compression deformities with multiple pathologic healing left-sided rib fractures. 4. No IVC thrombus identified 5. Additional findings as above. The above report was generated using voice recognition software. It may contain grammatical, syntax or spelling errors. Electronically signed by: Eddie Denis M.D. 12/21/2018 11:01 PM ECG Data Attestation: I personally reviewed and interpreted this ECG as follows: Indication: SOB/dyspnea Rate (beats per minute): 77 Rhythm: normal sinus ECG Intervals/blocks: Right Bundle branch block ECG Findings: PACs and Other (no ST elevation, no ST depression) Comparison ECG Date: from (12/06/2018) Change: no significant change Blood Pressure Blood Pressure Findings: Normal blood pressure MDM Narrative This patient comes in as described above. He has a complex medical history and is being treated with chemo for multiple myeloma. Additionally, he was recently hospitalized for pulmonary emboli and is on Lovenox. He also has low platelets. IV access was established and blood work was obtained. Chest x-ray was obtained as well as EKG. He has no acute findings on his chest x-ray. EKG does not suggest acute coronary syndrome or significant arrhythmia. I did a chest CT there is no evidence of PE and the PE findings from the previous CAT scan are now resolved. Additionally CAT scan the abdomen is unremarkable, there is no IVC clot. Lower extremities have no clot on ultrasound. He does not have any evidence of clot and therefore no evidence of any failure of Lovenox. I think that his symptoms are likely related to CHF his albumin is also low and could be nutritional although it seemed to come on quickly. He does not have a history of CHF. He has been symptomatic with this. I do think he needs to be admitted/observe for further treatment evaluation. I have consulted Dr. Kaur to see him in the ER for these measures. Impression & Plan Bilateral lower extremity edema, Multiple myeloma without remission, Anticoagulant long-term use, Shortness of breath Discharge Plan Visit Data Chief Complaint: Shortness of Breath/Dyspnea Stated Complaint: SOB, LOW O2, SWOLLEN LEGS- CHEMO PT ED Provider: Bridger Vasquez Discharge Problem: Bilateral lower extremity edema, Multiple myeloma without remission, Anticoagulant long-term use, Shortness of breath Patient Disposition: Being Evaluated by Hospitalist Discharge Instructions Interventions: ED Discharge Assessment Last Done: 12/22/18 00:42 The scribe's documentation has been prepared under my direction and personally reviewed by me in its entirety. I confirm that the note above accurately reflects all work, treatment, procedures, and medical decision making performed by me.
[2018-12-22] MEDS ORDERED: MECLIZINE HCL 25 MG TAB PO PRN (01:22)
--- NOTE | 2018-12-22 01:33 | History & Physical Report ---
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 Shortness of breath and acute lower extremity edema, question congestive heart failure CTA and lower extremity Doppler was negative for additional clot burden Patient is hypoalbuminemic, give Lasix and albumin Chest x-ray showed cardiomegaly, no significant vascular congestion Previous echo Feb 2018 showed type II diastolic dysfunction, EF 65 to 70%, sclerotic aortic valve without significant stenosis Repeat echo ordered Consider cardiology consultation Low-sodium diet, fluid restrict 1500 cc Multiple myeloma, pathologic rib and vertebral fractures Continue dexamethasone, Revlimid Continue pain control fentanyl patch, oxycodone as needed Patient instructed to bring home Revlimid day 7 Continue Zofran for nausea Recent admission for pulmonary embolism Repeat CTA, lower extremity Doppler was negative for additional clot burden Continue therapeutic Lovenox CODE STATUSfull DVT prophylaxistherapeutic Lovenox Dietlow-sodium, fluid restriction 1500 cc (2) Bilateral lower extremity edema: (3) Multiple myeloma without remission: (4) Anticoagulant long-term use: (5) HTN (hypertension): (6) Pulmonary embolism: (7) Fracture of rib: (8) Compression fx, thoracic spine: (9) Compression fx, lumbar spine: History of Present Illness Primary Care Provider: Robert Damon MD 83-year-old male with a past medical history of multiple myeloma with pathologic fractures, 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 Patient states that the symptoms have been progressive over the past 3 days. He says that shortness of breath is considerably worse with ambulation. He denies any chest pain, but reports feeling weak and fatigued. Reports being diagnosed with multiple myeloma approximately 2 months ago. He is currently on dexamethasone, Revlimid (day 09/03). He is currently on therapeutic dosing of Lovenox for PE. He does report a past medical history of a murmur and is seen Dr. Boston in the past. Patient had an echocardiogram Feb 2018 which showed type II diastolic dysfunction, EF 65 to 70%, sclerotic aortic valve without significant stenosis and mildly elevated right ventricular systolic pressure at 29 mmHg. Review of systems Constitutional; patient denies fevers, chills, night sweats HEENT; denies runny nose, sinus pressure, headache, sore throat CV; denies chest pain, palpitations Abdomen; denies abdominal pain, nausea/vomiting/diarrhea Allergies Allergy/AdvReac Type Severity Reaction Status Date / Time adhesive tape Allergy Mild Rash Verified 12/06/18 13:37 No Known Drug Allergies Allergy Unknown NONE PER PT Verified 12/06/18 13:37 Home Medications Home Medications Medication Instructions Recorded Confirmed Type oxycodone 10 mg tablet 10 mg PO Q6H PRN tab 11/13/18 12/21/18 History metoprolol succinate ER 25 mg 12.5 mg PO QAM tab 11/15/18 12/21/18 History tablet,extended release 24 hr acyclovir 400 mg PO QAM 12/06/18 12/21/18 History dexamethasone 20 mg PO DIRECTED 12/06/18 12/21/18 History fentanyl 50 mcg TRANSDERMAL Q72H 12/06/18 12/21/18 History enoxaparin [Lovenox] 80 mg SQ Q12H 30 Days #48 ml 12/08/18 12/21/18 Rx clonazepam 1 mg PO BID PRN 12/21/18 12/21/18 History lenalidomide [Revlimid] 25 mg PO QAM 12/21/18 12/21/18 History meclizine 25 mg PO DAILY PRN 12/21/18 12/21/18 History ondansetron HCl 8 mg PO Q8H PRN 12/21/18 12/21/18 History sertraline 50 mg PO HS 12/21/18 12/21/18 History Past Med/Surg History Medical History Mitral valve disorder Anemia Anticoagulant long-term use (Acute) Thrombocytopenia HLD (hyperlipidemia) HTN (hypertension) Pulmonary embolism (Acute) Vertigo (Chronic) Hypertension (Chronic) History of vertebral compression fracture (Inactive) Multiple myeloma (Inactive) Surgical History History of dental surgery S/P cataract surgery S/P inguinal hernia repair Family History Father , Passed age 64 of [place] Myocardial infarction Mother , Passed age 89 of blood clot after hip replacement No problems noted. Grandfather (Maternal) , Passed age 34 of head and neck cancer No problems noted. Grandmother (Maternal) , Passed age of 72 stomach cancer No problems noted. Brother , Passed age 69 of likely cancer No problems noted. 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 Beliefs That Will Affect Care: None marital status: Current Living Situation: Spouse Current Living Situation Comment: current occupational status: retired current occupation: Retired [employer] Other Information That Helps Us Care for You: No Feels Safe at Home: Yes Safety Concerns: Feels Safe At This Time Smoking Status: Former smoker packs per day: 1.5 ; Do You Dip or Chew Tobacco: No ; Second Hand Exposure: No ; Tobacco Cessation Education Requested by Patient: No Hx Alcohol Use: No Hx Substance Use: No Childhood Exposure to Second-Hand Smoke: Yes caffeine: No Seatbelt Use: always Review of Systems Review of Systems: All systems reviewed & are unremarkable except as noted in HPI & below Physical Exam Constitutional: WD/WN, vitals as above Eyes: PERRL, conjunctivae normal, anicteric sclerae ENMT: external ear and nose normal, oropharynx normal Neck: trachea midline, no thyromegaly Respiratory: normal respiratory effort, lungs clear to auscultation Cardiovascular: Rate/Rhythm: regular rate and regular rhythm Heart Sounds: + murmur (3 out of 6 systolic murmur) Extremities: + edema (Bilateral lower extremity) Gastrointestinal (Abdomen): normal bowel sounds, soft, nontender, no hepatosplenomegaly Musculoskeletal: no cyanosis or clubbing, extremities motor strength 5/5 Skin: no rashes, warm and dry Neurologic: PERRL, EOMI, accommodation nl, no face palsy, no dysarthria Psychiatric: A+Ox3, euthymic affect Results & Data Vital Signs (Past 12 Hours) Vital Signs Temp Pulse Resp BP Pulse Ox 12/22/18 00:31 75 17 122/54 L 92 12/22/18 00:00 75 19 122/72 93 12/21/18 23:30 73 20 120/71 92 12/21/18 23:00 109/82 90 12/21/18 22:54 88 L 12/21/18 22:50 116/72 91 12/21/18 22:49 83 L 12/21/18 21:00 73 20 119/68 93 12/21/18 20:57 69 19 121/69 93 12/21/18 20:30 76 23 121/69 94 12/21/18 20:00 71 21 94 12/21/18 19:53 88 L 12/21/18 19:42 82 24 123/79 93 12/21/18 19:24 37.0 C 77 26 H 112/64 90 Code Status & VTE Plan VTE Prophylaxis Plan VTE Prophylaxis will be ordered: Yes Supervising Physician Co-Signing Physician Notes Attending addendum: I have physically seen this patient, have supervised the medical residents activities, and agree with the H&P unless as otherwise noted. Assessment and Plan: Lower extremity edema/shortness of breath- EF 65 to 70% on 02/2018. Albumin 2.6. Give albumin 25 g IV and Lasix 40 mg IV x1 and assess response tonight. Follow-up echocardiogram, in addition to assess for pulmonary hypertension associated with recent PE. Question medication side effect Consult cardiology. Remainder orders notations as noted. PG Care Time/CCT Total # of Minutes Spent Total Time Spent with Patient: Total time spent is greater than 50% in coordination of care (as documented) at patient's floor/unit and/or counseling patient: Resident Activity Tracking Resident Involvement: Resident Care Provided Care Provided: Adult Hospital Medicine (1) Fracture of rib Encounter type: initial encounter Fracture type: closed Laterality: left Rib fracture type: single rib Qualified Code(s): S22.32XA - Fracture of one rib, left side, initial encounter for closed fracture (2) Compression fx, lumbar spine Encounter type: initial encounter Lumbar vertebra fracture level: L1 Quali fied Code(s): S32.010A - Wedge compression fracture of first lumbar vertebra, initial encounter for closed fracture (3) Compression fx, thoracic spine Encounter type: initial encounter Thoracic vertebra fracture level: unspecified thoracic vertebra Qualified Code(s): S22.000A - Wedge compression fracture of unspecified thoracic vertebra, initial encounter for closed fracture (4) Pulmonary embolism Acute cor pulmonale presence: unspecified Chronicity: acute Pulmonary embolism type: unspecified Qualified Code(s): I26.99 - Other pulmonary embolism without acute cor pulmonale
[2018-12-22] MEDS: OXYCODONE HCL IR 5 MG TAB (IMMEDIATE RELEASE) PO PRN ×2 (01:54→13:27)
[2018-12-22] MEDS: ENOXAPARIN 80 MG/0.8 ML SYR SQ SCH ×3 (01:54→21:04)
[2018-12-22] MEDS: CHECK FENTANYL PATCH PLACEMENT SCH ×3 (01:55→15:35)
[2018-12-22] MEDS: ONDANSETRON 8 MG TABLET PO PRN (01:56)
[2018-12-22] MEDS ORDERED: fentaNYL 50 MCG/HR TDSY TD SCH (02:00)
[2018-12-22 05:53] LABS: Hematocrit (blood only) 25.3 % (42-52); Hemoglobin 8.6 g/dL (14.0-18.0); Mean Corpuscular Hemoglobin 30.9 pg (25-34); RDW Coefficient of Variation 15.7 % (11.5-14.5); RDW Standard Deviation 52.2 fL (36.4-46.3); Red Blood Count 2.78 M/uL (4.7-6.1); White Blood Count 4.81 K/uL (4.8-10.8)
[2018-12-22 06:09] LABS: Mean Platelet Volume 11.9 fL (7.4-10.4); Platelet Count 77 K/uL (130-400)
[2018-12-22 06:27] LABS: Basophils # (auto) 0.01 K/uL (0-0.2); Basophils % (auto) 0.2 %; Eosinophils # (auto) 0.04 K/uL (0-0.5); Eosinophils % (auto) 0.8 %; Immature Granulocytes # (auto) 0.05 K/uL (0.00-0.02); Lymphocytes # (auto) 0.48 K/uL (1.2-3.4); Monocytes # (auto) 0.31 K/uL (0.11-0.59); Monocytes % (auto) 6.4 %; Neutrophils # (auto) 3.92 K/uL (1.4-6.5); Neutrophils % (auto) 81.6 %
[2018-12-22 06:39] LABS: BUN Creatinine Ratio 26.4 (10-20); Calcium 7.7 mg/dl (8.5-10.1); Creatinine Clr Calc Pharmacy 67.4 ml/min; Est GFR (African American) 92.5; Est GFR (Non-African American) 79.8; Potassium 3.5 mmol/L (3.5-5.1)
[2018-12-22] MEDS: METOPROLOL SUCC 25MG EXT REL TAB PO SCH (08:10)
[2018-12-22] MEDS: ACYCLOVIR 400 MG TAB PO SCH (08:10)
[2018-12-22] MEDS ORDERED: NON-FORMULARY MEDICATION (Lenalidomide [Revlimid] 25 MG) PO SCH (09:00)
[2018-12-22] MEDS: ACETAMINOPHEN 325 MG TAB PO PRN (11:58)
[2018-12-22] MEDS: POLYETHYLENE (MIRALAX) 17 GM PACK PO PRN (11:59)
--- NOTE | 2018-12-22 15:09 | History & Physical Bridge Note ---
Date of Service December 22, 2018 History & Physical Bridge Note Feeling much better today. No major complaints. His shortness of breath is much improved after diuresing 4.5L overnight with the Lasix given. - To be seen by cardiology - Will follow up with oncology regarding his multiple myeloma.
[2018-12-22] MEDS ORDERED: CALCIUM GLUCONATE 10% 1,000 MG in SODIUM CHLORIDE 0.9% 50 ML IV STA (15:13)
[2018-12-22] MEDS: LENALIDOMIDE PO SCH (15:35)
[2018-12-22] MEDS: clonazePAM 1 MG TAB PO PRN (17:15)
--- NOTE | 2018-12-22 20:04 | Cardiology Consultation ---
Date of Consultation December 22, 2018 Assessment & Plan (1) Acute diastolic CHF (congestive heart failure): (2) Bilateral lower extremity edema: (3) HTN (hypertension): (4) Mitral valve disorder: ASSESSMENT/PLAN: 1. Acute diastolic CHF: Presentation is consistent with CHF. He has diuresed significantly thus far according to records. He remains hypervolemic. If renal function and electrolytes are acceptable tomorrow, would recommend further IV diuretic. Consider Lasix 40 mg IV. Echo ordered. Low-sodium diet, less than 2000 mg daily. Daily weights. Strict I&Os. We discussed the importance of a low-sodium diet when discharged. Recommend enrollment within the Heart failure program. Ms Dillon (HF program) has been notified. 2. Bilateral lower extremity edema: Likely due to hypovolemia from CHF. He also has hypoalbuminemia and therefore may have some residual edema. 3. Hypertension: Blood pressure adequately controlled. 4. Mitral valve disorder: Systolic anterior motion of the mitral leaflet was noted on most recent echo in February of 2018. Repeating echo as above. 5. Disposition: Cardiology will continue to follow. Dr. Lopez will follow him over the weekend. Patient care has been discussed with him. Dr. Boston, his primary mail inserter, will resume his care on Tuesday if he remains hospitalized. Patient care discussed with Dr. Epstein of the primary hospitalist service. Thank you for allowing me to participate in the care of your patient. Please call for any other questions or concerns. Sincerely, Edson Van M.D. History of Present Illness Reason for Consultation: CHF Requesting Physician: Jovany Epstein MD Attending Physician: Jovany Epstein MD History of Present Illness Mr. White is a very pleasant 83-year-old gentleman with a history significant for multiple myeloma with pathologic fractures, pulmonary embolism, hypertension, and dyslipidemia. His primary mail inserter is Dr. Boston. He was admitted earlier today with lower extremity swelling. He states that he has had edema chronically for approximately 5 years for which he would wear support stockings. Over the past few days however he has had increasingly worsened lower extremity edema. He denies significant shortness of breath however he is currently on oxygen. He denies shortness of breath prior to presentation. He denies orthopnea, syncope, near-syncope, chest pain, palpitations. He denies bleeding such as melena, hematochezia, or hematuria. He does not consume large amounts of salt. He is still receiving chemotherapy but finished XRT in the past. While here, he has received intravenous Lasix and albumin. According to records, he has diuresed significantly. Review of systems: As above. Review of systems otherwise negative/unremarkable. Family history: Father from [place]. Social history: He quit smoking in approximately 1960. No alcohol. He is and lives at home with his . No children. He is originally from [facility]. He was unaccompanied. Allergies Allergy/AdvReac Type Severity Reaction Status Date / Time adhesive tape Allergy Mild Rash Verified 12/06/18 13:37 No Known Drug Allergies Allergy Unknown NONE PER PT Verified 12/06/18 13:37 Home Medications Home Medications Medication Instructions Recorded Confirmed Type oxycodone 10 mg tablet 10 mg PO Q6H PRN tab 11/13/18 12/21/18 History metoprolol succinate ER 25 mg 12.5 mg PO QAM tab 11/15/18 12/21/18 History tablet,extended release 24 hr acyclovir 400 mg PO QAM 12/06/18 12/21/18 History dexamethasone 20 mg PO DIRECTED 12/06/18 12/21/18 History fentanyl 50 mcg TRANSDERMAL Q72H 12/06/18 12/21/18 History enoxaparin [Lovenox] 80 mg SQ Q12H 30 Days #48 ml 12/08/18 12/21/18 Rx clonazepam 1 mg PO BID PRN 12/21/18 12/21/18 History lenalidomide [Revlimid] 25 mg PO QAM 12/21/18 12/21/18 History meclizine 25 mg PO DAILY PRN 12/21/18 12/21/18 History ondansetron HCl 8 mg PO Q8H PRN 12/21/18 12/21/18 History sertraline 50 mg PO HS 12/21/18 12/21/18 History Patient History Medical History Multiple myeloma without remission (Acute) Anticoagulant long-term use (Acute) Thrombocytopenia HLD (hyperlipidemia) HTN (hypertension) Pulmonary embolism (Acute) Vertigo (Chronic) Hypertension (Chronic) History of vertebral compression fracture (Inactive) Multiple myeloma (Inactive) Surgical History History of dental surgery S/P cataract surgery S/P inguinal hernia repair Family History Father , Passed age 64 of [place] Myocardial infarction Mother , Passed age 89 of blood clot after hip replacement No problems noted. Grandfather (Maternal) , Passed age 34 of head and neck cancer No problems noted. Grandmother (Maternal) , Passed age of 72 stomach cancer No problems noted. Brother , Passed age 69 of likely cancer No problems noted. 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: No Beliefs That Will Affect Care: None marital status: Current Living Situation: Spouse Current Living Situation Comment: current occupational status: retired current occupation: Retired [employer] Other Information That Helps Us Care for You: No Feels Safe at Home: Yes Safety Concerns: Feels Safe At This Time Smoking Status: Former smoker packs per day: 1.5 ; Do You Dip or Chew Tobacco: No ; Second Hand Exposure: No ; Tobacco Cessation Education Requested by Patient: No Hx Alcohol Use: No Hx Substance Use: No Childhood Exposure to Second-Hand Smoke: Yes caffeine: No Seatbelt Use: always Physical Exam Physical Exam: Gen.: No acute distress. Alert and oriented. HEENT: Anicteric sclera. Neck: Elevated JVD. Hepatic jugular reflux noted. Normal carotid upstrokes bilaterally. No carotid bruit noted. Cardiac: PMI was non palpable. No ventricular heave. Regular rate and rhythm. Normal S1-S2. 2/6 systolic ejection murmur best heard at the right upper sternal border. No rubs, or gallops. Pulmonary: Rales at the left base, otherwise clear bilaterally. Abdomen: Soft, nontender, nondistended, with normoactive bowel sounds. No bruits noted. Extremities: 2+ radial pulses bilaterally. 2+ posterior tibialis pulses bilaterally. 3+ bilateral lower extremity edema below the knees and 1+ above the knees. No cyanosis. Psychiatric: Affect appears appropriate. Results & Data Vital Signs (Past 12 Hours) Vital Signs Temp Pulse Pulse Resp BP Pulse Ox 12/22/18 19:30 36.6 C 69 18 105/35 L 95 12/22/18 17:02 70 12/22/18 15:23 36.6 C 70 20 113/63 93 12/22/18 11:50 36.6 C 80 18 91/67 L 92 Intake & Output 12/20/18 12/21/18 12/22/18 12/23/18 06:59 06:59 06:59 06:59 Intake Total 54 / 54 100 / 100 Output Total 4200 / 4200 650 / 650 Balance -4146 / -4146 -550 / -550 Weight 86 kg Laboratory Results Laboratory Results - last 24 hr 12/21/18 12/21/18 12/21/18 19:48 19:48 19:48 WBC 4.78 L RBC 3.05 L Hgb 9.3 L Hct 28.1 L MCV 92.1 MCH 30.5 MCHC 33.1 RDW Std Deviation 53.1 H RDW Coeff of Zackery 15.7 H Plt Count 87 L MPV 12.3 H Immature Gran % (Auto) 1.9 Neut % (Auto) 83.5 Lymph % (Auto) 9.0 [place] % (Auto) 4.6 Eos % (Auto) 0.8 Baso % (Auto) 0.2 Immature Gran # (Auto) 0.09 H Neut # (Auto) 3.99 Lymph # (Auto) 0.43 L [place] # (Auto) 0.22 Eos # (Auto) 0.04 Baso # (Auto) 0.01 Platelet Estimate Decreased L Giant Platelets 1+ Ovalocytes 1+ Echinocytes 1+ PT 11.4 INR 1.1 APTT 23.4 PTT Ratio 0.9 Sodium 137 Potassium 4.2 Chloride 106 Carbon Dioxide 25 Anion Gap 7.0 BUN 30 H Creatinine 1.01 Est Cr Clr Drug Dosing Not Reportable Est GFR ( Amer) 80.5 Est GFR (Non-Af Amer) 69.4 BUN/Creatinine Ratio 29.6 H Glucose 105 H Calcium 8.0 L Total Bilirubin 0.3 AST 26 ALT 48 Alkaline Phosphatase 94 Troponin I 0.030 NT-Pro-B Natriuret Pep Total Protein 6.4 Albumin 2.6 L Globulin 3.8 Albumin/Globulin Ratio 0.7 L Lipase 201 12/22/18 12/22/18 05:40 05:40 WBC 4.81 RBC 2.78 L Hgb 8.6 L Hct 25.3 L MCV 91.0 MCH 30.9 MCHC 34.0 RDW Std Deviation 52.2 H RDW Coeff of Zackery 15.7 H Plt Count 77 L MPV 11.9 H Immature Gran % (Auto) 1.0 Neut % (Auto) 81.6 Lymph % (Auto) 10.0 [place] % (Auto) 6.4 Eos % (Auto) 0.8 Baso % (Auto) 0.2 Immature Gran # (Auto) 0.05 H Neut # (Auto) 3.92 Lymph # (Auto) 0.48 L [place] # (Auto) 0.31 Eos # (Auto) 0.04 Baso # (Auto) 0.01 Platelet Estimate Giant Platelets Ovalocytes Echinocytes PT INR APTT PTT Ratio Sodium 136 Potassium 3.5 D Chloride 103 Carbon Dioxide 29 Anion Gap 4.0 BUN 24 H Creatinine 0.90 Est Cr Clr Drug Dosing 67.4 Est GFR ( Amer) 92.5 Est GFR (Non-Af Amer) 79.8 BUN/Creatinine Ratio 26.4 H Glucose 90 Calcium 7.7 L Total Bilirubin AST ALT Alkaline Phosphatase Troponin I NT-Pro-B Natriuret Pep 1916 H Total Protein Albumin Globulin Albumin/Globulin Ratio Lipase Diagnostic Findings Telemetry personally reviewed: Sinus rhythm. ECG personally reviewed: ECG 12/21/2018: Sinus rhythm with PACs. RBBB. Echo 03/02/2018: Normal LV size, wall motion, systolic function. EF 65-70%. Moderate to severe LVH. Sclerotic aortic valve. Mild systolic anterior motion of mitral leaflet with mild LVOT obstruction. Mild MR. Mild to moderate TR. RVSP 29. CTA chest 12/21/2018: Right-sided pulmonary emboli no longer noted. 8 mm solid nodule right upper lobe. Multiple lytic bone lesions. Multiple pathologic tho racic spine compression deformities with healing pathologic rib fractures. Medications Administered Current Inpatient Medications Acetaminophen (Tylenol) 650 mg PO Q4H PRN PRN Reason: Pain or Fever Stop: 01/21/19 01:21 Last Admin: 12/22/18 11:58 Dose: 650 mg Documented by: Acyclovir (Zovirax) [facility] [place] Stop: 01/01/19 08:59 Last Admin: 12/22/18 08:10 Dose: 400 mg Documented by: Clonazepam (Klonopin) 1 mg PO BID PRN PRN Reason: Anxiety Stop: 01/21/19 01:21 Last Admin: 12/22/18 17:15 Dose: 1 mg Documented by: Dexamethasone (Decadron) 20 mg PO DAILY [facility] Stop: 12/28/18 09:01 Dexamethasone (Decadron) 20 mg PO DAILY [facility] Stop: 01/05/19 09:01 Dexamethasone (Decadron) 20 mg PO DAILY [facility] Stop: 01/13/19 09:01 Enoxaparin Sodium (Lovenox) 80 mg SQ Q12 [facility] Stop: 01/21/19 01:21 Last Admin: 12/22/18 08:09 Dose: 80 mg Documented by: Fentanyl (Duragesic) 50 mcg TD Q72H [facility] Stop: 01/07/19 08:59 Ioversol (Optiray 320 125ml) 119 ml IV ONCE PRN PRN Reason: Interaction Checking Stop: 12/25/18 22:34 Last Admin: 12/21/18 22:36 Dose: 119 ml Documented by: Lenalidomide (Revlimid) 1 ea PO DAILY [facility] Stop: 01/21/19 15:59 Last Admin: 12/22/18 15:35 Dose: 1 ea Documented by: Meclizine HCl (Antivert) 25 mg PO DAILY PRN PRN Reason: Dizziness Or Vertigo Stop: 01/21/19 01:21 Metoprolol Succinate (Toprol Xl) 12.5 mg PO QAM [facility] Stop: 01/21/19 08:59 Last Admin: 12/22/18 08:10 Dose: 12.5 mg Documented by: Miscellaneous (Fentanyl Patch Check Placement) 1 ea N/A QS [facility] Stop: 01/21/19 01:59 Last Admin: 12/22/18 15:35 Dose: 1 ea Documented by: Miscellaneous (Fentanyl Patch Remove & Waste) 1 ea N/A Q3D@0900 [facility] Stop: 01/23/19 08:59 Ondansetron HCl (Zofran Tab) 8 mg PO Q8H PRN PRN Reason: Dizziness Or Vertigo Stop: 01/21/19 01:21 Last Admin: 12/22/18 01:56 Dose: 8 mg Documented by: Oxycodone HCl (Roxicodone Immediate Rel) 10 mg PO Q6H PRN PRN Reason: Pain Stop: 01/05/19 01:21 Last Admin: 12/22/18 13:27 Dose: 10 mg Documented by: Polyethylene Glycol (Miralax Powder Packet) 17 gm PO DAILY PRN PRN Reason: Constipation Stop: 01/21/19 01:21 Last Admin: 12/22/18 11:59 Dose: 17 gm Documented by: Sertraline HCl (Zoloft) 50 mg PO HS [facility] Stop: 01/21/19 20:59 PG Care Time/CCT Total # of Minutes Spent Total Time Spent with Patient: Total time spent is greater than 50% in coordination of care (as documented) at patient's floor/unit and/or counseling patient:
[2018-12-22] MEDS: SERTRALINE HCL 50 MG TABLET PO SCH (21:04)
[2018-12-23] MEDS: CHECK FENTANYL PATCH PLACEMENT SCH ×3 (01:52→16:55)
[2018-12-23] MEDS: OXYCODONE HCL IR 5 MG TAB (IMMEDIATE RELEASE) PO PRN ×2 (03:25→18:15)
[2018-12-23] MEDS: clonazePAM 1 MG TAB PO PRN (03:57)
[2018-12-23 07:56] LABS: Hematocrit (blood only) 25.8 % (42-52); Hemoglobin 8.6 g/dL (14.0-18.0); Mean Corpuscular Hemoglobin 30.8 pg (25-34); Mean Corpuscular Hgb Conc 33.3 g/dL (32-36); Mean Corpuscular Volume 92.5 fL (80-100); Mean Platelet Volume 12.4 fL (7.4-10.4); Platelet Count 65 K/uL (130-400); RDW Coefficient of Variation 15.7 % (11.5-14.5); Red Blood Count 2.79 M/uL (4.7-6.1); White Blood Count 4.44 K/uL (4.8-10.8)
[2018-12-23 08:13] LABS: BUN Creatinine Ratio 28.2 (10-20); Calcium 7.5 mg/dl (8.5-10.1); Creatinine Clr Calc Pharmacy 77.3 ml/min; Est GFR (African American) 98.1; Est GFR (Non-African American) 84.7; Magnesium 2.2 mg/dl (1.8-2.4); Potassium 3.6 mmol/L (3.5-5.1)
[2018-12-23 08:17] LABS: Phosphorus 2.8 mg/dl (2.5-4.9)
[2018-12-23] MEDS: ENOXAPARIN 80 MG/0.8 ML SYR SQ SCH ×2 (08:28→21:35)
[2018-12-23] MEDS: LENALIDOMIDE PO SCH (08:28)
[2018-12-23] MEDS: METOPROLOL SUCC 25MG EXT REL TAB PO SCH (08:29)
[2018-12-23] MEDS: ACYCLOVIR 400 MG TAB PO SCH (08:30)
[2018-12-23] MEDS ORDERED: FUROSEMIDE 40 MG/4 ML VIAL IV STA (08:57)
[2018-12-23] MEDS: POLYETHYLENE (MIRALAX) 17 GM PACK PO PRN (10:29)
--- NOTE | 2018-12-23 15:51 | Hospitalist Progress Note ---
Date of Service December 23, 2018 Assessment & Plan (1) Shortness of breath: Acute diastolic congestive heart failure. CTA and lower extremity Doppler was negative for additional clot burden. Echo shows EF 60-65%. Stable from prior. - Lasix 40mg IV given this morning Low-sodium diet, fluid restrict 1500 cc - Doing better today. Net negative fluid. Multiple myeloma, pathologic rib and vertebral fractures Continue dexamethasone, Revlimid Continue pain control fentanyl patch, oxycodone as needed Patient instructed to bring home Revlimid day 7 of 14 Continue Zofran for nausea Recent admission for pulmonary embolism Repeat CTA, lower extremity Doppler was negative for additional clot burden Continue therapeutic Lovenox I spent 45 minutes counseling the patient and discussing the current state, treatment course, and prognosis of his/her disease, including his heart failure, his kidneys, and his multiple myeloma. (2) Bilateral lower extremity edema: (3) Multiple myeloma without remission: (4) Anticoagulant long-term use: (5) HTN (hypertension): (6) Pulmonary embolism: (7) Fracture of rib: (8) Compression fx, thoracic spine: (9) Compression fx, lumbar spine: Subjective Breathing more comfortably, but also had a rough night with confusion. Reports no fevers/chills, chest pain, shortness of breath, abdominal pain, nausea, or vomiting. Physical Exam Constitutional: WD/WN, vitals as above Eyes: EOM intact bilaterally; no conjunctival abnormality ENMT: external ear and nose normal, oropharynx normal Neck: trachea midline, no thyromegaly normal visual inspection Respiratory: normal respiratory effort, lungs clear to auscultation no respiratory distress Cardiovascular: RRR, no murmur, no edema Gastrointestinal (Abdomen): Inspection/Auscultation: abdomen normal to inspection; abdomen not distended Musculoskeletal: no cyanosis or clubbing, extremities motor strength 5/5 Skin: no rashes, warm and dry Neurologic: moves all extremities and awake Psychiatric: Orientation: alert, oriented to person and cooperative Results & Data Vital Signs (Past 12 Hours) Vital Signs Temp Pulse Pulse Resp BP Pulse Ox Pulse Ox 12/23/18 14:43 71 12/23/18 11:33 36.6 C 12/23/18 10:21 66 18 104/49 L 95 12/23/18 10:10 64 12/23/18 07:54 90 12/23/18 07:45 37.0 C 66 17 100/58 L 89 L 12/23/18 04:01 36.7 C 60 20 110/60 90 PG Care Time/CCT Total # of Minutes Spent Total Time Spent with Patient: Total time spent is greater than 50% in coordination of care (as documented) at patient's floor/unit and/or counseling patient: (1) Pulmonary embolism Acute cor pulmonale presence: unspecified Chronicity: acute Pulmonary embolism type: unspecified Qualified Code(s): I26.99 - Other pulmonary embolism without acute cor pulmonale (2) Fracture of rib Encounter type: initial encounter Fracture type: closed Laterality: left Rib fracture type: single rib Qualified Code(s): S22.32XA - Fracture of one rib, left side, initial encounter for closed fracture (3) Compression fx, thoracic spine Encounter type: initial encounter Thoracic vertebra fracture level: unspecified thoracic vertebra Qualified Code(s): S22.000A - Wedge compression fracture of unspecified thoracic vertebra, initial encounter for closed fracture (4) Compression fx, lumbar spine Encounter type: initial encounter Lumbar vertebra fracture level: L1 Qualified Code(s): S32.010A - Wedge compression fracture of first lumbar vertebra, initial encounter for closed fracture
[2018-12-23] MEDS ORDERED: MAGNESIUM CITRATE 296 ML/BTL PO ONE (18:15)
[2018-12-23] MEDS ORDERED: clonazePAM 0.5 MG TAB PO SCH (21:00)
[2018-12-23] MEDS: LORazepam 0.5 MG TAB PO SCH (21:35)
[2018-12-23] MEDS: SERTRALINE HCL 50 MG TABLET PO SCH (21:36)
[2018-12-24] MEDS: CHECK FENTANYL PATCH PLACEMENT SCH ×4 (00:01→23:53)
[2018-12-24] MEDS: LORazepam 0.5 MG TAB PO PRN ×2 (04:06→23:48)
[2018-12-24 06:41] LABS: Calcium 7.6 mg/dl (8.5-10.1); Creatinine Clr Calc Pharmacy 71.3 ml/min; Est GFR (African American) 95.2; Est GFR (Non-African American) 82.1; Magnesium 2.1 mg/dl (1.8-2.4); Potassium 3.3 mmol/L (3.5-5.1)
[2018-12-24 06:42] LABS: Phosphorus 2.4 mg/dl (2.5-4.9)
[2018-12-24 06:48] LABS: Hematocrit (blood only) 27.1 % (42-52); Mean Corpuscular Hemoglobin 30.8 pg (25-34); Mean Corpuscular Hgb Conc 33.2 g/dL (32-36); Mean Corpuscular Volume 92.8 fL (80-100); Mean Platelet Volume 13.5 fL (7.4-10.4); Platelet Count 75 K/uL (130-400); Platelet Estimate Decreased (Normal); RDW Coefficient of Variation 15.5 % (11.5-14.5); RDW Standard Deviation 53.1 fL (36.4-46.3); Red Blood Count 2.92 M/uL (4.7-6.1)
[2018-12-24] MEDS ORDERED: POTASSIUM CHLORIDE 20 MEQ/15 ML UDC PO STA (07:24)
[2018-12-24] MEDS: POT PHOSPHATE MONOBASIC W/ SOD TAB PO SCH ×4 (08:13→21:11)
[2018-12-24] MEDS: ENOXAPARIN 80 MG/0.8 ML SYR SQ SCH ×2 (08:14→21:11)
[2018-12-24] MEDS: LENALIDOMIDE PO SCH (08:14)
[2018-12-24] MEDS: METOPROLOL SUCC 25MG EXT REL TAB PO SCH (08:15)
[2018-12-24] MEDS: ACYCLOVIR 400 MG TAB PO SCH (08:15)
[2018-12-24] MEDS ORDERED: fentaNYL 50 MCG/HR TDSY TD SCH (09:00)
--- NOTE | 2018-12-24 17:11 | Hospitalist Progress Note ---
Date of Service December 24, 2018 Assessment & Plan (1) Acute diastolic CHF (congestive heart failure): Acute diastolic congestive heart failure. CTA and lower extremity Doppler was negative for additional clot burden. Echo shows EF 60-65%. Stable from prior. - Lasix 40mg IV given on 12/23 Low-sodium diet, fluid restrict 1500 cc - Doing better today. Net negative fluid 6.5L over two days and down >3 kg. - Start furosemide 40 mg PO daily tomorrow. Baseline weight appears to be ~83.5kg. Can follow up with Kaylene Dillon in clinic as well as Dr. Boston. - Only possible issue is that he has a mild macular rash on his lower chest/upper abdomen. Non-itchy and not bothering him at all. Definitely considering this could be a medication reaction and furosemide is the only new medication in the hospital apart from some potassium phosphate. Monitor rash over the next day or so. If it worsens, may need to consider switching diuretic to Bumex. (2) Multiple myeloma without remission: Follows with Dr. Galan. Will restart his Velcade infusions after discharge. Continue dexamethasone, Revlimid Continue pain control fentanyl patch, oxycodone as needed Patient instructed to bring home Revlimid day 7 of 14 Continue Zofran for nausea (3) Pulmonary embolism: Repeat CTA, lower extremity Doppler was negative for additional clot burden Continue therapeutic Lovenox (4) HTN (hypertension): BP has been low-stable since admission at 95/60-120/70. - Continue beta-ayaan - Monitor with diuresis - Seems to run low the rest of the day with IV diuresis (5) Fracture of rib: Due to MM. - Continue pain management. (6) Compression fx, thoracic spine: As above (7) Compression fx, lumbar spine: As above. Dispo: Patient and family/friends are leaning toward SNF. Will think about it tonight and then consider referrals tomorrow. Subjective Is essentially close to baseline at this point. He is feeling well, no further shortness of breath. Reports no fevers/chills, chest pain, shortness of breath, abdominal pain, nausea, or vomiting. Physical Exam Constitutional: WD/WN, vitals as above Eyes: EOM intact bilaterally; no conjunctival abnormality ENMT: external ear and nose normal, oropharynx normal Neck: trachea midline, no thyromegaly normal visual inspection Respiratory: normal respiratory effort, lungs clear to auscultation no respiratory distress Cardiovascular: RRR, no murmur, no edema Gastrointestinal (Abdomen): Inspection/Auscultation: abdomen normal to inspection; abdomen not distended Musculoskeletal: no cyanosis or clubbing, extremities motor strength 5/5 Skin: no rashes, warm and dry Neurologic: moves all extremities and awake Psychiatric: Orientation: alert, oriented to person and cooperative Results & Data Vital Signs (Past 12 Hours) Vital Signs Temp Pulse Pulse Resp BP BP Pulse Ox 12/24/18 16:07 36.7 C 79 18 116/60 91 12/24/18 14:53 77 12/24/18 11:52 36.6 C 72 18 100/62 92 12/24/18 11:31 54 L 12/24/18 07:53 37 C 76 18 124/84 92 PG Care Time/CCT Total # of Minutes Spent Total Time Spent with Patient: Total time spent is greater than 50% in coordination of care (as documented) at patient's floor/unit and/or counseling patient: (1) Pulmonary embolism Acute cor pulmonale presence: unspecified Chronicity: acute Pulmonary embolism type: unspecified Qualified Code(s): I26.99 - Other pulmonary embolism without acute cor pulmonale (2) Fracture of rib Encounter type: initial encounter Fracture type: closed Laterality: left Rib fracture type: single rib Qualified Code(s): S22.32XA - Fracture of one rib, left side, initial encounter for closed fracture (3) Compression fx, thoracic spine Encounter type: initial encounter Thoracic vertebra fracture level: unspecified thoracic vertebra Qualified Code(s): S22.000A - Wedge compression fracture of unspecified thoracic vertebra, initial encounter for closed fracture (4) Compression fx, lumbar spine Encounter type: initial encounter Lumbar vertebra fracture level: L1 Qualified Code(s): S32.010A - Wedge compression fracture of first lumbar vertebra, initial encounter for closed fracture
[2018-12-24] MEDS: LORazepam 0.5 MG TAB PO SCH (21:11)
[2018-12-24] MEDS: SERTRALINE HCL 50 MG TABLET PO SCH (21:12)
[2018-12-25] MEDS: LORazepam 0.5 MG TAB PO PRN (04:06)
[2018-12-25 07:40] LABS: Hematocrit (blood only) 26.9 % (42-52); Hemoglobin 8.8 g/dL (14.0-18.0); Mean Corpuscular Hemoglobin 30.3 pg (25-34); Mean Corpuscular Hgb Conc 32.7 g/dL (32-36); Mean Corpuscular Volume 92.8 fL (80-100); Mean Platelet Volume 12.5 fL (7.4-10.4); Platelet Count 84 K/uL (130-400); RDW Coefficient of Variation 15.8 % (11.5-14.5); RDW Standard Deviation 53.6 fL (36.4-46.3); White Blood Count 6.96 K/uL (4.8-10.8)
[2018-12-25 08:13] LABS: BUN Creatinine Ratio 24.5 (10-20); Calcium 7.3 mg/dl (8.5-10.1); Creatinine Clr Calc Pharmacy 68.6 ml/min; Est GFR (African American) 93.8; Est GFR (Non-African American) 80.9; Magnesium 2.2 mg/dl (1.8-2.4); Phosphorus 2.9 mg/dl (2.5-4.9); Potassium 3.2 mmol/L (3.5-5.1)
[2018-12-25] MEDS: CHECK FENTANYL PATCH PLACEMENT SCH ×3 (08:27→23:13)
[2018-12-25] MEDS: dexAMETHasone 4 MG TAB PO SCH (08:27)
[2018-12-25] MEDS: ACYCLOVIR 400 MG TAB PO SCH (08:27)
[2018-12-25] MEDS: ENOXAPARIN 80 MG/0.8 ML SYR SQ SCH ×2 (08:29→20:17)
[2018-12-25] MEDS: METOPROLOL SUCC 25MG EXT REL TAB PO SCH (08:29)
[2018-12-25] MEDS ORDERED: FUROSEMIDE 40 MG TAB PO SCH (09:00)
[2018-12-25] MEDS ORDERED: POTASSIUM CHLORIDE 20 MEQ TABCR PO STA (09:08)
--- NOTE | 2018-12-25 09:25 | Cardiology Progress Note ---
Date of Service December 25, 2018 Assessment & Plan (1) Acute diastolic CHF (congestive heart failure): Ja is an 83 year old male with a history of Hypertension, Hypercholesterolemia, Moderate Concentric LVH, Aortic Valve Sclerosis, Mild MR, Sleep Apnea, and Multiple Myeloma with thoracic and lumbar vertebral fractures who had an acute exacerbation of Diastolic CHF and now appears to be euvolemic -- he has a negative fluid balance of 6.8 liters and his body weight is down 3.7 kg. His breathing has returned to baseline. Echocardiogram 12/23/2018 shows Moderate Concentric LVH with mild dynamic LVOT obstruction, aortic valve sclerosis without stenosis, mild MR, and normal RV size with normal RV systolic function. No significant change compared to February 2018 Echo. Recommend the following: -- Continue Toprol XL 12.5 mg daily. -- Continue Lasix 40 mg daily. -- Give supplemental KCl as ordered by hospitalist service. -- Monitor daily weights and I&O's. -- Monitor renal function and electrolytes. -- Maintain a low sodium heart healthy diet. Follow up in our Heart Failure Program following discharge. (2) HTN (hypertension): -- BP's appear to be controlled. -- Continue current regimen. Present on Admission?: Yes (3) HLD (hyperlipidemia): (4) Hypokalemia: -- Monitor daily labs. -- Supplemental KCl as ordered by hospitalist. Supervising Physician Co-Signing Physician Notes Robert Boston MD Subjective Ja is an 83 year old male with a history of Hypertension, Hypercholesterolemia, Moderate Concentric LVH, Aortic Valve Sclerosis, Mild MR, Sleep Apnea, and Multiple Myeloma with thoracic and lumbar vertebral fractures who is currently being seen in room 209. Patient states that his breathing has improved but he has not been up and moving around very much. He has a negative fluid balance of 6.8 liters and his body weight is down 3.7 kg. He denies any chest pain, heaviness, tightness, pressure, or discomfort. No orthopnea or pnd. No palpitations, syncope, or near syncope. He has been in a normal sinus rhythm with 1st degree AV block, and has sinus bradycardia overnight. His BP is adequate. Echocardiogram shows Moderate Concentric LVH with mild dynamic LVOT obstruction. Patient is hypokalemic and hypoalbuminemic. Patient was supposed to be discharged today, but is considering a Rehab stay -- getting frustrated that he is still in the hospital. His multiple myeloma is being treated by Dr. Nicole -- diagnosed with myeloma in October 2018. Physical Exam Physical Exam: GENERAL: Chronically ill appearing patient in no acute distress HEENT: Head is atraumatic, normocephalic. EOM's intact. Facies symmetric. No perioral cyanosis. NECK: No JVD. JVP does not appear elevated. Carotid upstrokes are + 2 bilaterally without obvious bruits. CHEST/LUNGS: Clear to auscultation throughout all lung leger. No obvious wheezes, rales, or crackles. CVS: S1 and S2 are regular with a grade 2/6 basal systolic murmur. No obvious diastolic murmurs, gallops, or rubs. PMI is nondisplaced. No lifts, heaves, or thrills. No abdominal aortic or renal bruits. ABDOMINAL EXAM: Bowel sounds are present. EXTREMITIES: No clubbing or cyanosis. No edema. Intact radial pulses bilaterally. NEUROLOGIC EXAM: Patient is awake, alert, and oriented. Pleasant and cooperative. Answers questions appropriately. Speech is clear. Gait pattern was not assessed. EKG 12/24/2018: -- NSR at 63 bpm, with 1st degree AVB, frequent PAC's, and a RBBB pattern. Results & Data Vital Signs (Past 12 Hours) Vital Signs Temp Pulse Pulse Resp BP Pulse Ox 12/25/18 08:06 36.6 C 57 L 22 130/61 92 12/25/18 04:17 36.9 C 78 22 124/67 90 12/24/18 23:52 36.7 C 77 20 141/68 H 90 12/24/18 22:58 69 Laboratory Results Laboratory Results - last 24 hr 12/25/18 12/25/18 06:39 06:39 WBC 6.96 RBC 2.90 L Hgb 8.8 L Hct 26.9 L MCV 92.8 MCH 30.3 MCHC 32.7 RDW Std Deviation 53.6 H RDW Coeff of Zackery 15.8 H Plt Count 84 L MPV 12.5 H Sodium 139 Potassium 3.2 L Chloride 103 Carbon Dioxide 33 H Anion Gap 3.0 BUN 21 H Creatinine 0.87 Est Cr Clr Drug Dosing 68.6 Est GFR ( Amer) 93.8 Est GFR (Non-Af Amer) 80.9 BUN/Creatinine Ratio 24.5 H Glucose 88 Calcium 7.3 L Phosphorus 2.9 Magnesium 2.2 Medications Administered Active Medications Generic Name Dose Route Start Last Admin Trade Name Freq PRN Reason Stop Dose Admin Acetaminophen 650 mg 12/22/18 01:22 12/22/18 11:58 Tylenol PO 01/21/19 01:21 650 mg Q4H PRN Administration Pain or Fever Acyclovir 400 mg 12/22/18 09:00 12/25/18 08:27 Zovirax PO 01/01/19 08:59 400 mg QAM ELIAS Administration Dexamethasone 20 mg 12/25/18 09:00 12/25/18 08:27 Decadron PO 12/28/18 09:01 20 mg DAILY ELIAS Administration Dexamethasone 20 mg 01/02/19 09:00 Decadron PO 01/05/19 09:01 DAILY ELIAS Dexamethasone 20 mg 01/10/19 09:00 Decadron PO 01/13/19 09:01 DAILY ELIAS Enoxaparin Sodium 80 mg 12/22/18 01:22 12/25/18 08:29 Lovenox SQ 01/21/19 01:21 80 mg Q12 ELIAS Administration Fentanyl 50 mcg 12/24/18 09:00 12/24/18 08:20 Duragesic TD 01/07/19 08:59 50 mcg Q72H ELIAS Administration Furosemide 40 mg 12/25/18 09:00 12/25/18 08:28 Lasix PO 01/24/19 08:59 40 mg QAM ELIAS Administration Ioversol 119 ml 12/21/18 22:35 12/21/18 22:36 Optiray 320 125ml IV 12/25/18 22:34 119 ml ONCE PRN Administration Interaction Checking Lenalidomide 1 ea 12/22/18 16:00 12/24/18 08:14 Revlimid PO 01/21/19 15:59 1 ea DAILY ELIAS Administration Lorazepam 0.5 mg 12/23/18 21:00 12/24/18 21:11 Ativan PO 01/22/19 20:59 0.5 mg HS ELIAS Administration Lorazepam 0.5 mg 12/23/18 17:31 12/25/18 04:06 Ativan PO 01/22/19 17:30 0.5 mg BID PRN Administration Anxiety Meclizine HCl 25 mg 12/22/18 01:22 Antivert PO 01/21/19 01:21 DAILY PRN Dizziness Or Vertigo Metoprolol Succinate 12.5 mg 12/22/18 09:00 12/25/18 08:29 Toprol Xl PO 01/21/19 08:59 12.5 mg QAM ELIAS Administration Miscellaneous 1 ea 12/22/18 02:00 12/25/18 08:27 Fentanyl Patch Check Placement N/A 01/21/19 01:59 1 ea QS ELIAS Administration Miscellaneous 1 ea 12/24/18 09:00 12/24/18 08:16 Fentanyl Patch Remove & Waste N/A 01/23/19 08:59 1 ea Q3D@0900 ELIAS Administration Ondansetron HCl 8 mg 12/22/18 01:22 12/22/18 01:56 Zofran Tab PO 01/21/19 01:21 8 mg Q8H PRN Administration Dizziness Or Vertigo Oxycodone HCl 10 mg 12/22/18 01:22 12/23/18 18:15 Roxicodone Immediate Rel PO 01/05/19 01:21 10 mg Q6H PRN Administration Pain Polyethylene Glycol 17 gm 12/22/18 01:22 12/23/18 10:29 Miralax Powder Packet PO 01/21/19 01:21 17 gm DAILY PRN Administration Constipation Sertraline HCl 50 mg 12/22/18 21:00 12/24/18 21:12 Zoloft PO 01/21/19 20:59 50 mg HS ELIAS Administration PG Care Time/CCT Total # of Minutes Spent Total Time Spent with Patient: Total time spent is greater than 50% in coordination of care (as documented) at patient's floor/unit and/or counseling patient:
[2018-12-25] MEDS: LENALIDOMIDE PO SCH (10:32)
[2018-12-25] MEDS ORDERED: SODIUM CHLORIDE 0.65% NA SOLN 45 ML (OCEAN) PRN (11:00)
[2018-12-25] MEDS ORDERED: fentaNYL 25 MCG/HR TDSY TD SCH (11:30)
[2018-12-25] MEDS: DOCUSATE SODIUM/SENNA 50/8.6MG TAB PO SCH ×2 (12:14→20:17)
[2018-12-25] MEDS: CETIRIZINE HCL 10 MG TABLET PO SCH (12:14)
[2018-12-25] MEDS: OXYMETAZOLINE 0.05% 30 ML BTL PRN (12:15)
--- NOTE | 2018-12-25 18:31 | Hospitalist Progress Note ---
Date of Service December 25, 2018 Assessment & Plan (1) Acute diastolic CHF (congestive heart failure): Presented with acute shortness of breath and lower extremity edema Acute on chronic diastolic congestive heart failure. CTA and lower extremity Doppler was negative for additional clot burden. Echo shows EF 60-65%. Stable from prior. - Lasix 40mg IV given on 12/22 and 12/23 with significant diuresis Started on p.o. furosemide 40 mg daily today but with erythematous macular rash- possible allergic reaction-convert to Bumex 1 mg p.o. every morning for tomorrow Continue low-sodium diet, fluid restrict 1500 cc, continue strict I's and O's He is now net negative fluid 6.8L and weight is down > 3.6 kg. -Baseline weight appears to be ~83.5kg. Can follow up with Kaylene Dillon in CHF clinic as well as Dr. Boston. -Replace potassium as needed -Appreciate cardiology consultation -Due to orthopnea, should remain with head of bed elevated greater than 30 degrees-May benefit from hospital bed at home (2) Multiple myeloma without remission: Follows with Dr. Galan. Will restart his Velcade infusions after discharge. Continue dexamethasone 20 mg daily x4-day cycle-started on 12/25, continue Revlimid Is status post radiation treatments to the spine for pathologic fractures-pain is improved now -Given excessive drowsiness, will discontinue standing order of lorazepam at bedtime and will decrease fentanyl patch to 25 mcg Continue pain control but decrease dose of fentanyl patch to 25 mcg, continue oxycodone as needed which he has not used in 2 days Continue Zofran for nausea -Continue acyclovir 400 mg once daily for prophylaxis (3) Pulmonary embolism: Repeat CTA, lower extremity Doppler was negative for additional clot burden Continue therapeutic Lovenox dosing indefinitely for PE in the setting of malignancy (4) HTN (hypertension): BP has been acceptable - Continue beta-ayaan - Monitor with diuresis however may go up now with starting dexamethasone today (5) Fracture of rib: Due to MM. - Continue pain management as above (6) Compression fx, thoracic spine: As above (7) Compression fx, lumbar spine: As above. (8) Anemia: Hemoglobin low but stable at 8.8, likely secondary to chemotherapy and multiple myeloma -Follow CBC (9) Hypokalemia: Replace with oral potassium -Follow BMP in the morning (10) Thrombocytopenia: Platelets low but improved from previous at 80 4K, likely secondary to chemotherapy for multiple myeloma -Follow CBC (11) Hypoxia: Has been on oxygen now at home but apparently insurance is not paying for as yet not had a two-step walking test Likely secondary to pulmonary embolism -Continue supplemental oxygen to keep pulse ox greater than 90% -will need two-step walking test prior to discharge to qualify for home oxygen (12) Dynamic left ventricular outflow obstruction: Noted on echocardiogram -Watch extremes of volume status (13) Pulmonary nodule: 8 mm nodule noted on CT scan here -Should be followed with repeat imaging as per guidelines (14) Rash: Has a history of idiopathic angioedema/urticaria for which he previously took Zyrtec for years He has not been on his Zyrtec for several weeks as per -Could be allergic reaction to Lasix -Switching to Bumex as above -Restart Zyrtec 10 mg once daily (15) Situational anxiety: Recently started on clonazepam and then switch to lorazepam here in the hospital -Also recently started on sertraline but was not taking this consistently at home but now has been getting it here in the hospital -With excessive drowsiness today -Discontinue lorazepam on a standing basis and continue as needed -Lower sertraline dose to 25 mg as also could be contributing to drowsiness -Follow (16) Nasal congestion: Interfering with ability to breathe through nose with nasal cannula -Start nasal saline -Start Afrin for no more than 5 days-stop date 12/30 (17) DVT prophylaxis: Lovenox Disposition-remain on PCU Patient is decided he would like to go home with home health rather than rehab Subjective Patient reports feeling very "sedated" today. He is also complaining of being very congested in the nose is requesting Afrin. The congestion of the nose is making it difficult for him to breathe at times. He is also having a rash all over his torso that is not very itchy. He reports a long history of idiopathic angioedema and was chronically on Zyrtec, however his reports she has not been giving him his Zyrtec in the last few weeks since he started treatment for his multiple myeloma. Patient and his do report that his leg swelling is much improved from previous. Telemetry with sinus arrhythmia, PACs, rates in the 50s to 70s Review of Systems Review of Systems: All systems reviewed & are unremarkable except as noted in HPI & below Physical Exam Constitutional: WD/WN, vitals as above (Was very drowsy during our interview and continued to fall asleep in the middle of conversation) Eyes: + anicteric sclerae ENMT: external ear and nose normal, oropharynx normal Neck: trachea midline, no thyromegaly Respiratory: normal respiratory effort, lungs clear to auscultation Cardiovascular: Rate/Rhythm: regular rate and regular rhythm Heart Sounds: + murmur (2/6 sys murmur at LLSB) Extremities: + edema (1+ pitting edema the ankles and feet bilaterally) Gastrointestinal (Abdomen): normal bowel sounds, soft, nontender, no hepatosplenomegaly Musculoskeletal: Extremities: extremities normal to inspection; no cyanosis and no clubbing Skin: + rash (Erythematous macular rash diffusely over torso anterior and posterior and some on proximal thighs and upper extremities) Neurologic: moves all extremities and awake; no focal motor deficits Psychiatric: A+Ox3, euthymic affect Results & Data Vital Signs (Past 12 Hours) Vital Signs Temp Pulse Pulse Resp BP Pulse Ox Pulse Ox 12/25/18 15:48 36.4 C L 64 18 125/68 94 12/25/18 15:43 67 12/25/18 15:38 92 12/25/18 11:09 37.0 C 83 20 126/69 92 12/25/18 09:50 64 12/25/18 08:06 36.6 C 57 L 22 130/61 92 Laboratory Results 12/25/18 12/25/18 Range/Units 06:39 06:39 WBC 6.96 (4.8-10.8) K/uL RBC 2.90 L (4.7-6.1) M/uL Hgb 8.8 L (14.0-18.0) g/dL Hct 26.9 L (42-52) % MCV 92.8 (80-100) fL MCH 30.3 (25-34) pg MCHC 32.7 (32-36) g/dL RDW Std Deviation 53.6 H (36.4-46.3) fL RDW Coeff of Zackery 15.8 H (11.5-14.5) % Plt Count 84 L (130-400) K/uL MPV 12.5 H (7.4-10.4) fL Sodium 139 (136-145) mmol/L Potassium 3.2 L (3.5-5.1) mmol/L Chloride 103 (98-107) mmol/L Carbon Dioxide 33 H (21-32) mmol/L Anion Gap 3.0 (3-11) BUN 21 H (7-18) mg/dl Creatinine 0.87 (0.6-1.4) mg/dl Est Cr Clr Drug Dosing 68.6 ml/min Est GFR ( Amer) 93.8 Est GFR (Non-Af Amer) 80.9 BUN/Creatinine Ratio 24.5 H (10-20) Glucose 88 (70-99) mg/dl Calcium 7.3 L (8.5-10.1) mg/dl Phosphorus 2.9 (2.5-4.9) mg/dl Magnesium 2.2 (1.8-2.4) mg/dl PG Care Time/CCT Total # of Minutes Spent Total Time Spent with Patient: Total time spent is greater than 50% in coordination of care (as documented) at patient's floor/unit and/or counseling patient: (1) Pulmonary embolism Acute cor pulmonale presence: unspecified Chronicity: acute Pulmonary embolism type: unspecified Qualified Code(s): I26.99 - Other pulmonary embolism without acute cor pulmonale (2) Fracture of rib Encounter type: initial encounter Fracture type: closed Laterality: left Rib fracture type: single rib Qualified Code(s): S22.32XA - Fracture of one rib, left side, initial encounter for closed fracture (3) Compression fx, thoracic spine Encounter type: initial encounter Thoracic vertebra fracture level: unspecified thoracic vertebra Qualified Code(s): S22.000A - Wedge compression fracture of unspecified thoracic vertebra, initial encounter for closed fracture (4) Compression fx, lumbar spine Encounter type: initial encounter Lumbar vertebra fracture level: L1 Qualified Code(s): S32.010A - Wedge compression fracture of first lumbar vertebra, initial encounter for closed fracture
[2018-12-25] MEDS: SERTRALINE HCL 50 MG TABLET PO SCH (20:17)
[2018-12-26] MEDS: OXYMETAZOLINE 0.05% 30 ML BTL PRN (05:28)
[2018-12-26 05:47] LABS: Hematocrit (blood only) 28.6 % (42-52); Hemoglobin 9.5 g/dL (14.0-18.0); Mean Corpuscular Hemoglobin 30.7 pg (25-34); Mean Corpuscular Hgb Conc 33.2 g/dL (32-36); Mean Corpuscular Volume 92.6 fL (80-100); Mean Platelet Volume 12.3 fL (7.4-10.4); Platelet Count 110 K/uL (130-400); RDW Coefficient of Variation 15.6 % (11.5-14.5); RDW Standard Deviation 53.3 fL (36.4-46.3); Red Blood Count 3.09 M/uL (4.7-6.1); White Blood Count 8.45 K/uL (4.8-10.8)
[2018-12-26 06:09] LABS: Basophils # (auto) 0.01 K/uL (0-0.2); Basophils % (auto) 0.1 %; Eosinophils # (auto) 0.08 K/uL (0-0.5); Eosinophils % (auto) 0.9 %; Immature Granulocytes # (auto) 0.07 K/uL (0.00-0.02); Immature Granulocytes % (auto) 0.8 %; Lymphocytes # (auto) 2.04 K/uL (1.2-3.4); Lymphocytes % (auto) 24.1 %; Monocytes # (auto) 0.39 K/uL (0.11-0.59); Monocytes % (auto) 4.6 %; Neutrophils # (auto) 5.86 K/uL (1.4-6.5); Neutrophils % (auto) 69.5 %; Ovalocytes 1+
[2018-12-26 06:30] LABS: BUN Creatinine Ratio 29.8 (10-20); Calcium 7.6 mg/dl (8.5-10.1); Creatinine Clr Calc Pharmacy 71.9 ml/min; Est GFR (African American) 95.6; Est GFR (Non-African American) 82.5; Magnesium 2.1 mg/dl (1.8-2.4)
[2018-12-26] MEDS: CHECK FENTANYL PATCH PLACEMENT SCH ×2 (07:54→15:41)
[2018-12-26] MEDS: LENALIDOMIDE PO SCH (07:55)
[2018-12-26] MEDS: DOCUSATE SODIUM/SENNA 50/8.6MG TAB PO SCH ×2 (07:55→21:11)
[2018-12-26] MEDS: CETIRIZINE HCL 10 MG TABLET PO SCH (07:55)
[2018-12-26] MEDS: ENOXAPARIN 80 MG/0.8 ML SYR SQ SCH ×2 (07:56→21:11)
[2018-12-26] MEDS: METOPROLOL SUCC 25MG EXT REL TAB PO SCH (07:56)
[2018-12-26] MEDS: dexAMETHasone 4 MG TAB PO SCH (07:56)
[2018-12-26] MEDS: ACYCLOVIR 400 MG TAB PO SCH (07:57)
[2018-12-26] MEDS ORDERED: POLYETHYLENE (MIRALAX) 17 GM PACK PO SCH (09:00)
[2018-12-26] MEDS ORDERED: BUMETANIDE 1 MG TAB PO SCH ×2 (09:00)
[2018-12-26] MEDS ORDERED: TAMSULOSIN HCL 0.4 MG CAP PO ONE (12:18)
--- NOTE | 2018-12-26 12:30 | Hospitalist Progress Note ---
Date of Service December 26, 2018 Assessment & Plan (1) Acute diastolic CHF (congestive heart failure): Presented with acute shortness of breath and lower extremity edema Acute on chronic diastolic congestive heart failure. CTA and lower extremity Doppler was negative for additional clot burden. Echo shows EF 60-65%. Stable from prior. - Lasix 40mg IV given on 12/22 and 12/23 with significant diuresis Started on p.o. furosemide 40 mg daily but with erythematous macular rash- possible allergic reaction-converted to Bumex 2 mg daily on 12/26 but rash seemed worse -Discontinue Bumex and start ethacrynic acid in case of sulfa moiety allergic reaction -Start ethacrynic acid 50 mg once daily and titrate up as needed Continue low-sodium diet, fluid restrict 1500 cc, continue strict I's and O's He is now net negative fluid 7 L and weight is down > 3 kg but slightly up from yesterday -Baseline weight appears to be ~83.5kg. Can follow up with Kaylene Dillon in CHF clinic as well as Dr. [place]. -Replace potassium as needed -Appreciate cardiology consultation -Due to orthopnea, should remain with head of bed elevated greater than 30 degrees-May benefit from hospital bed at home (2) Multiple myeloma without remission: Follows with Dr. Galan. Will restart his Velcade infusions after discharge. Continue dexamethasone 20 mg daily x4-day cycle-started on 12/25, continue Revlimid Is status post radiation treatments to the spine for pathologic fractures-pain is improved now -Given excessive drowsiness, have since discontinued standing order of lorazepam at bedtime and decreased fentanyl patch to 25 mcg-pain remains controlled and he is much less drowsy Continue Zofran for nausea -Continue acyclovir 400 mg once daily for prophylaxis (3) Pulmonary embolism: Repeat CTA, lower extremity Doppler was negative for additional clot burden Continue therapeutic Lovenox dosing indefinitely for PE in the setting of malignancy (4) HTN (hypertension): BP has been acceptable to low normal - Continue beta-ayaan - Monitor with diuresis however may go up now with starting dexamethasone (5) Fracture of rib: Due to MM. - Continue pain management as above (6) Compression fx, thoracic spine: As above (7) Compression fx, lumbar spine: As above. (8) Anemia: Hemoglobin low but improving at 9.5 likely secondary to chemotherapy and multiple myeloma -Follow CBC (9) Hypokalemia: Replaced with oral potassium solved -Follow BMP in the morning in the setting of diuresis (10) Thrombocytopenia: Platelets low but improved from previous at 110 K, likely secondary to chemotherapy for multiple myeloma -Follow CBC (11) Hypoxia: Has been on oxygen now at home but apparently insurance is not paying for as yet not had a two-step walking test Likely secondary to pulmonary embolism and CHF -Continue supplemental oxygen to keep pulse ox greater than 90% Performed a two-step walking test and needs 2 L of oxygen Prescription written and oxygen has been delivered to the room (12) Dynamic left ventricular outflow obstruction: Noted on echocardiogram -Watch extremes of volume status (13) Pulmonary nodule: 8 mm nodule noted on CT scan here -Should be followed with repeat imaging as per guidelines (14) Rash: Has a history of idiopathic angioedema/urticaria for which he previously took Zyrtec for years He has not been on his Zyrtec for several weeks as per Now with macular drug eruption appearing rash all over torso, proximal thighs and arms. No lesions in the mouth, no lip or tongue swelling, no wheezing or signs of respiratory distress -Could be allergic reaction to Lasix and/or Bumex -Switching to ethacrynic acid as above -Have since restarted Zyrtec 10 mg once daily -Continues with dexamethasone 20 mg daily as above for multiple myeloma which also help with allergic reaction (15) Situational anxiety: Recently started on clonazepam and then switch to lorazepam here in the hospital -Also recently started on sertraline but was not taking this consistently at home but now has been getting it here in the hospital -With excessive drowsiness here which is now much improved with discontinuing standing dose of lorazepam and clonazepam and decreasing fentanyl patch -Lower sertraline dose to 25 mg as also could be contributing to drowsiness -Follow (16) Nasal congestion: Interfering with ability to breathe through nose with nasal cannula-now improved with Afrin and nasal saline -Continue nasal saline -Continue Afrin for no more than 5 days-stop date 12/30 (17) CKD (chronic kidney disease) stage 2, 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 ml/min: Noted Creatinine stable 0.83 -Avoid nephrotoxins -Renally dose medications (18) Constipation: Has not had a bowel movement in 5 to 6 days, secondary to opioid use likely -Mag citrate bottle now -Increase MiraLAX to 4 times a day -Started senna/docusate -Monitor (19) Urinary retention: Had Diallo catheter placed upon admission apparently for monitoring I's and O's in setting of CHF and severe dyspnea -Had trial of void on 12/24 but failed and had Diallo catheter replaced on the morning of 12/25 -Consulted urology for further management -Started Flomax on 12/26 -We will need to keep Diallo catheter in an trial of void in the office with urology after discharge -Urinalysis and urine culture ordered by urology-urinalysis appears positive -We will start Rocephin 1 g daily for UTI and follow urine culture (20) DVT prophylaxis: Lovenox therapeutic dosing Disposition-remain on PCU Patient is decided he would like to go home with home health rather than rehab- he is severely deconditioned and still quite dyspneic with minimal exertion Feel his prognosis is still guarded Not ready for discharge to home at this time Subjective Feeling better today, less drowsy. Denies shortness of breath. Did his walking to step with respiratory therapy but did not walk for a farm and did require 2 L. Rash is darker on his body today. It is not itchy. His weight is up again a little bit from yesterday but his eyes and nose remain net -7.2 L Telemetry with normal sinus rhythm, PACs, rates in the 50s to 70s He went into the 150s with walking Review of Systems Review of Systems: All systems reviewed & are unremarkable except as noted in HPI & below Physical Exam Constitutional: WD/WN, vitals as above Eyes: + anicteric sclerae ENMT: external ear and nose normal, oropharynx normal (No lesions in the mouth) Neck: trachea midline, no thyromegaly Respiratory: normal respiratory effort; no labored breathing Auscultation: + diminished lung sounds (At bases bilaterally); no crackles and no wheezes Cardiovascular: Rate/Rhythm: regular rate and regular rhythm Heart Sounds: + murmur (2/6 sys murmur at LLSB) Extremities: + edema (1+ pitting edema the ankles and feet bilaterally) Gastrointestinal (Abdomen): normal bowel sounds, soft, nontender, no hepatosplenomegaly Musculoskeletal: Extremities: extremities normal to inspection; no cyanosis and no clubbing Skin: + rash (Erythematous macular rash diffusely over torso anterior and posterior and some on proximal thighs and upper extremities now appears petechial and dark red) Neurologic: moves all extremities and awake; no focal motor deficits Psychiatric: A+Ox3, euthymic affect Genitourinary: no testicular masses, no penis abnormality Diallo catheter in place draining clear yellow urine Results & Data Vital Signs (Past 12 Hours) Vital Signs Temp Pulse Pulse Pulse Pulse Pulse Pulse 12/26/18 11:05 36.7 C 72 12/26/18 09:55 61 12/26/18 09:27 60 94 H 87 81 12/26/18 07:38 37.0 C 76 12/26/18 03:35 36.7 C 71 Resp Resp Resp Resp Resp BP Pulse Ox 12/26/18 11:05 24 105/71 92 12/26/18 09:55 12/26/18 09:27 18 21 20 18 12/26/18 07:38 22 123/69 91 12/26/18 03:35 20 145/73 H 93 Pulse Ox Pulse Ox Pulse Ox Pulse Ox 12/26/18 11:05 12/26/18 09:55 12/26/18 09:27 92 95 93 87 L 12/26/18 07:38 12/26/18 03:35 Laboratory Results 12/26/18 Range/Units 17:02 Urine Color Dark Yellow Urine Appearance Cloudy A (Clear) Urine pH 5.0 (4.5-7.5) Ur Specific [place] 1.019 (1.000-1.030) Urine Protein Trace H (Negative) Urine Glucose (UA) Negative (Negative) Urine Ketones Negative (Negative) Urine Blood 1+ H (Negative) Urine Nitrite Positive A (Negative) Urine Bilirubin Negative (Negative) Urine Urobilinogen Negative (Negative) Ur Leukocyte Esterase 1+ H (Negative) Urine WBC (Auto) 10-30 H (0-5) /hpf Urine RBC (Auto) 0-4 (0-4) /hpf U Hyaline Cast (Auto) 10-30 H (0-5) /lpf U Epithel Cells (Auto) 0-5 (0-5) /lpf Urine Bacteria (Auto) 1+ H (Negative) PG Care Time/CCT Total # of Minutes Spent Total Time Spent with Patient: Total time spent is greater than 50% in coordination of care (as documented) at patient's floor/unit and/or counseling patient: (1) Fracture of rib Encounter type: initial encounter Fracture type: closed Laterality: left Rib fracture type: single rib Qualified Code(s): S22.32XA - Fracture of one rib, left side, initial encounter for closed fracture (2) Compression fx, lumbar spine Encounter type: initial encounter Lumbar vertebra fracture level: L1 Qualified Code(s): S32.010A - Wedge compression fracture of first lumbar vertebra, initial encounter for closed fracture (3) Compression fx, thoracic spine Encounter type: initial encounter Thoracic vertebra fracture level: unspecified thoracic vertebra Qualified Code(s): S22.000A - Wedge compression fracture of unspecified thoracic vertebra, initial encounter for closed fracture (4) Pulmonary embolism Acute cor pulmonale presence: unspecified Chronicity: acute Pulmonary embolism type: unspecified Qualified Code(s): I26.99 - Other pulmonary embolism without acute cor pulmonale
[2018-12-26] MEDS: POLYETHYLENE (MIRALAX) 17 GM PACK PO SCH ×2 (13:35→18:12)
--- NOTE | 2018-12-26 13:49 | Urology Consultation ---
Date of Consultation December 26, 2018 Assessment & Plan (1) Urinary retention: 83yo M with multiple myeloma, admitted with diastolic CHF, with urinary retention Urinary retention likely multifactorial including acute illness, BPH, opioid and diuretic use. Urine draining clear yellow, adequate amounts give diuresis. Continue tamsulosin. Will send UA and UC&S today for records. Will plan for TOV in office in 1-2 weeks unless patient plans to discharge to [facility] or rehab facility with capacity to perform passive TOV once he is back to usual state of health. Thank you for allowing us to participate in the acute care of Mr. White. Please reconsult us with additional questions, concerns or changes in patient status. History of Present Illness Reason for Consultation: Dr clarke Requesting Physician: Dr clarke Attending Physician: Cherelle Clarke MD History of Present Illness 83yo M with significant PMHx for multiple myeloma, admitted with SOB and diagnosed with acute diastolic CHF. We were consulted to assist in care of urinary retention. Pt was previously established with Dr. Vyas many years ago. Currently does not follow with Urologist, does not appear to be on any BPH medications at home. Limited HPI obtained due to pt's lethargy and very [place], no family at bedside. Pt does state he had no trouble urinating prior to admission. Discussed case with Dr Clarke, romano catheter was initially placed for I&Os. Romano d/c'd yesterday per order, and pt unfortunately unable to void spontaneously, straight cath'd for large volume. Romano subsequently replaced yesterday. Flomax has since been initiated. Pt is also on chronic opioids for multiple myeloma, which have been adjusted due to lethargy as well. On IV diuretics for treatment of CHF exacerbation. Romano draining clear yellow. Denies any suprapubic pain or bother from catheter. Pt had recent CT sheth on 12/06, obtained for upper abd pain, reveals no stones, no obs uropathy. UA, C&S not obtained during admission Cr WNL Allergies Allergy/AdvReac Type Severity Reaction Status Date / Time adhesive tape Allergy Mild Rash Verified 12/06/18 13:37 No Known Drug Allergies Allergy Unknown NONE PER PT Verified 12/06/18 13:37 Home Medications Home Medications Medication Instructions Recorded Confirmed Type oxycodone 10 mg tablet 10 mg PO Q6H PRN tab 11/13/18 12/21/18 History metoprolol succinate ER 25 mg 12.5 mg PO QAM tab 11/15/18 12/21/18 History tablet,extended release 24 hr acyclovir 400 mg PO QAM 12/06/18 12/21/18 History dexamethasone 20 mg PO DIRECTED 12/06/18 12/21/18 History fentanyl 50 mcg TRANSDERMAL Q72H 12/06/18 12/21/18 History enoxaparin [Lovenox] 80 mg SQ Q12H 30 Days #48 ml 12/08/18 12/21/18 Rx clonazepam 1 mg PO BID PRN 12/21/18 12/21/18 History lenalidomide [Revlimid] 25 mg PO QAM 12/21/18 12/21/18 History meclizine 25 mg PO DAILY PRN 12/21/18 12/21/18 History ondansetron HCl 8 mg PO Q8H PRN 12/21/18 12/21/18 History sertraline 50 mg PO HS 12/21/18 12/21/18 History lorazepam 0.5 mg PO BID PRN #10 tab 12/24/18 Rx sod phos di, mono-K phos mono 1 tab PO DAILY #30 tab 12/24/18 Rx [Phospha 250 Neutral] Patient History Medical History Mitral valve disorder Anemia Thrombocytopenia HLD (hyperlipidemia) HTN (hypertension) Pulmonary embolism (Acute) Vertigo (Chronic) Hypertension (Chronic) History of vertebral compression fracture (Inactive) Multiple myeloma (Inactive) Surgical History History of dental surgery S/P cataract surgery S/P inguinal hernia repair Family History Father , Passed age 64 of ID Myocardial infarction Mother , Passed age 89 of blood clot after hip replacement No problems noted. Grandfather (Maternal) , Passed age 34 of head and neck cancer No problems noted. Grandmother (Maternal) , Passed age of 72 stomach cancer No problems noted. Brother , Passed age 69 of likely cancer No problems noted. 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 Feels Safe at Home: Yes Smoking Status: Former smoker packs per day: 1.5 ; Second Hand Exposure: No ; Hx Alcohol Use: No Hx Substance Use: No Childhood Exposure to Second-Hand Smoke: Yes caffeine: No Seatbelt Use: always Review of Systems Review of Systems: Unobtainable due to reduced consciousness Physical Exam Constitutional: no acute distress and not ill appearing Eyes: no nystagmus ENMT: Ears: no hearing impairment Neck: trachea midline Respiratory: no respiratory distress and no cough Cardiovascular: Vessels: no JVD Chest (Breasts): Chest: normal inspection of chest Gastrointestinal (Abdomen): Inspection/Auscultation: abdomen not distended and no abdominal edema Percussion/Palpation: abdomen soft; abdomen nontender Musculoskeletal: Head/Neck/Chest: normocephalic and head atraumatic Skin: no rashes, warm and dry Neurologic: awake; not confused and not obtunded Psychiatric: Orientation: alert and oriented x 3 Eye Contact: good eye contact Affect: no depressed affect Genitourinary: bladder normal to inspection; no CVA tenderness romano draining clear yellow Lymphatic: no lymphadenopathy and no lymphedema Results & Data Vital Signs (Past 12 Hours) Vital Signs Temp Pulse Pulse Pulse Pulse Pulse Pulse 12/26/18 11:05 36.7 C 72 12/26/18 09:55 61 12/26/18 09:27 60 94 H 87 81 12/26/18 07:38 37.0 C 76 12/26/18 03:35 36.7 C 71 Resp Resp Resp Resp Resp BP Pulse Ox 12/26/18 11:05 24 105/71 92 12/26/18 09:55 12/26/18 09:27 18 21 20 18 12/26/18 07:38 22 123/69 91 12/26/18 03:35 20 145/73 H 93 Pulse Ox Pulse Ox Pulse Ox Pulse Ox 12/26/18 11:05 12/26/18 09:55 12/26/18 09:27 92 95 93 87 L 12/26/18 07:38 12/26/18 03:35 PG Care Time/CCT Total # of Minutes Spent Total Time Spent with Patient: Total time spent is greater than 50% in coordination of care (as documented) at patient's floor/unit and/or counseling patient:
[2018-12-26 17:29] LABS: Appearance Urine Cloudy (Clear); Bacteria Urine Automated 1+ (Negative); Bilirubin Urine Negative (Negative); Blood Urine 1+ (Negative); Color Urine Dark Yellow; Epithelial Cell Urine Auto 0-5 /lpf (0-5); Glucose Urine UA Negative (Negative); Ketones Urine Negative (Negative); Leukocyte Esterase Urine 1+ (Negative); Nitrite Urine Positive (Negative); Protein Urine Trace (Negative); RBC Urine Automated 0-4 /hpf (0-4); Specific Gravity Urine 1.019 (1.000-1.030); Urobilinogen Urine Negative (Negative)
[2018-12-26] MEDS: SERTRALINE HCL 50 MG TABLET PO SCH (21:11)
[2018-12-27] MEDS: CHECK FENTANYL PATCH PLACEMENT SCH ×5 (00:55→23:13)
[2018-12-27] MEDS ORDERED: LEVALBUTEROL HCL 0.63 MG/3 ML NEB NEB STA (01:16)
[2018-12-27] MEDS: POLYETHYLENE (MIRALAX) 17 GM PACK PO SCH ×3 (02:01→12:31)
[2018-12-27] MEDS ORDERED: cefTRIAXone SODIUM 2,000 MG in DEXTROSE 5% 50 ML IV SCH (07:00)
--- NOTE | 2018-12-27 07:12 | XRay Report ---
XR chest 1V portable CLINICAL HISTORY: 83 years-old Male presenting with sob. TECHNIQUE: Portable upright AP view of the chest was obtained. COMPARISON: 12/21/2018. FINDINGS: Atherosclerosis of the aortic arch. Cardiac silhouette enlarged. Heterogeneity of lung parenchyma mos t especially on the left. Low lung volumes with hypoventilatory changes. Left retrocardiac density in creased from prior. Bibasilar opacities have slightly decreased from prior. Pleural thickening or ple ural effusion on the left. Redemonstration of rib fractures, one of which appears more acute or subac [place] as on prior exam in the left upper region. External leads project over the upper abdomen to grati ng evaluation. IMPRESSION: 1. Increased left retrocardiac density could relate to left atrial enlargement, increased left pleur al effusion, left lower lobe consolidation. 2. Cardiomegaly. 3. Low lung volumes with hypoventilatory changes. Electronically signed by: Anil Anguiano M.D. 12/27/2018 7:11 AM
[2018-12-27 07:28] LABS: Basophils # (auto) 0.02 K/uL (0-0.2); Basophils % (auto) 0.2 %; Eosinophils # (auto) 0.21 K/uL (0-0.5); Eosinophils % (auto) 2.2 %; Hematocrit (blood only) 29.3 % (42-52); Hemoglobin 9.8 g/dL (14.0-18.0); Immature Granulocytes # (auto) 0.05 K/uL (0.00-0.02); Immature Granulocytes % (auto) 0.5 %; Lymphocytes # (auto) 1.14 K/uL (1.2-3.4); Mean Corpuscular Hemoglobin 30.5 pg (25-34); Mean Corpuscular Hgb Conc 33.4 g/dL (32-36); Mean Corpuscular Volume 91.3 fL (80-100); Mean Platelet Volume 12.3 fL (7.4-10.4); Monocytes % (auto) 4.2 %; Neutrophils # (auto) 7.65 K/uL (1.4-6.5); Neutrophils % (auto) 80.9 %; Platelet Count 129 K/uL (130-400); RDW Coefficient of Variation 15.6 % (11.5-14.5); RDW Standard Deviation 52.6 fL (36.4-46.3); Red Blood Count 3.21 M/uL (4.7-6.1); White Blood Count 9.47 K/uL (4.8-10.8)
[2018-12-27 07:54] LABS: Acanthocytes 1+
[2018-12-27 08:01] LABS: Albumin Globulin Ratio 0.7 (0.9-2); Albumin Level 2.5 gm/dl (3.4-5.0); BUN Creatinine Ratio 27.1 (10-20); Bilirubin,Total 0.6 mg/dl (0.2-1); Creatinine Clr Calc Pharmacy 56.7 ml/min; Est GFR (African American) 75.9; Est GFR (Non-African American) 65.5; Globulin 3.5 gm/dl (2.5-4.0); Potassium 3.4 mmol/L (3.5-5.1)
[2018-12-27] MEDS: ENOXAPARIN 80 MG/0.8 ML SYR SQ SCH ×2 (08:09→21:56)
[2018-12-27] MEDS: DOCUSATE SODIUM/SENNA 50/8.6MG TAB PO SCH ×2 (08:10→20:17)
[2018-12-27] MEDS: dexAMETHasone 4 MG TAB PO SCH (08:10)
[2018-12-27] MEDS: LENALIDOMIDE PO SCH (08:10)
[2018-12-27] MEDS: METOPROLOL SUCC 25MG EXT REL TAB PO SCH (08:11)
[2018-12-27] MEDS: ACETAMINOPHEN 325 MG TAB PO PRN (08:22)
[2018-12-27] MEDS ORDERED: ETHACRYNIC ACID 25 MG TAB PO SCH (09:00)
[2018-12-27] MEDS ORDERED: PIPERACILL/TAZOBAC CONSULT ACTIVE PRN (09:33)
--- NOTE | 2018-12-27 09:54 | Hospitalist Progress Note ---
Date of Service December 27, 2018 Assessment & Plan (1) Hypoxia: Has been on oxygen now at home but apparently insurance is not paying for as yet not had a two-step walking test Likely secondary to pulmonary embolism and CHF He was requiring 2 L of oxygen here with ambulation on 12/26 On the soap slabber hours of 12/27, he acutely decompensated with worsening hypoxia requiring 12 L via oxygen mask CT of chest and chest x-ray repeated and shows significant atelectasis at the bases Suspect atelectasis due to poor inspiratory effort due to pain from multiple thoracic compression fractures and rib fractures Echocardiogram limited repeated and showed no pericardial effusion No [place] as evidenced by no ischemic changes on ECG and troponin serially mildly elevated but stable Hemoglobin has not dropped He has been on therapeutic Lovenox dosing and do not suspect new or large PE, no evidence of right heart strain on echocardiogram -He does not appear significantly volume overloaded on chest x-ray and I do not think his hypoxia is from worsening heart failure, proBNP is mildly elevated fro m previous however -Transferred to the intensive care unit on 12/27 in case of need for intubation -Ordered CPAP but was not placed on as per nursing due to the fact that he was not in respiratory distress-I do believe that positive airway pressure would help to open up his lungs but so would incentive spirometry and increase mobilization-needs improved pain control -Improved pain control for compression fractures as below -Continue supplemental oxygen to keep pulse ox greater than 88-90% -Started Zosyn in case of pneumonia -Continuous pulse ox -Continue oral diuretics as before (2) Acute diastolic CHF (congestive heart failure): Presented with acute shortness of breath and lower extremity edema Acute on chronic diastolic congestive heart failure. CTA and lower extremity Doppler was negative for additional clot burden. Echo shows preserved EF 60-65%. Stable from prior. - Lasix 40mg IV given on 12/22 and 12/23 with significant diuresis Started on p.o. furosemide 40 mg daily but with erythematous macular rash- possible allergic reaction-converted to Bumex 2 mg daily on 12/26 but rash seemed worse -Discontinued Bumex and started ethacrynic acid in case of sulfa moiety allergic reaction -Continue ethacrynic acid 50 mg once daily and titrate up as needed Continue low-sodium diet, fluid restrict 1500 cc, continue strict I's and O's He is now net negative fluid 7 L and weight was down > 3 kg but now weight is back up slightly since converting oral diuretics -Baseline weight appears to be ~83.5kg. -Can follow up with Kaylene Dillon in CHF clinic as well as Dr. [place]. -Replace potassium as needed -Appreciate cardiology consultation -Due to orthopnea, should remain with head of bed elevated greater than 30 degrees-May benefit from hospital bed at home (3) Multiple myeloma without remission: Follows with Dr. Galan. Will restart his Velcade infusions after discharge. Continue dexamethasone 20 mg daily x4-day cycle-started on 12/25, -will now hold Revlimid in case causing allergic reaction with rash -Consult oncology tomorrow to get opinion on overall picture and treatment course Is status post radiation treatments to the spine for pathologic fractures-pain is improved now -Given excessive drowsiness, have since discontinued standing order of lorazepam at bedtime and decreased fentanyl patch to 25 mcg -His drowsiness did improve, however his pain is now much worse-will increase fentanyl to 37 mcg every 72 hours Continue Zofran for nausea -Continue acyclovir 400 mg once daily for prophylaxis (4) Pulmonary embolism: Repeat CTA, lower extremity Doppler was negative for additional clot burden Continue therapeutic Lovenox dosing indefinitely for PE in the setting of malignancy (5) HTN (hypertension): BP has been acceptable to low normal but then got lower today -Beta-ayaan can be continued with hold parameters-was not given today -Continue ethacrynic acid (6) Fracture of rib: Due to MM. - Continue pain management (7) Compression fx, thoracic spine: With worsening pain after decreasing fentanyl patch Is status post radiation treatment -Increase fentanyl patch to 37 mcg as above -Continue oxycodone as needed for breakthrough pain -Home Designer has added ketamine as needed for pain (8) Compression fx, lumbar spine: As above. (9) Anemia: Hemoglobin low but stable at 9.8-likely secondary to chemotherapy and multiple myeloma -Follow CBC (10) Hypokalemia: Mildly low in the setting of diuresis -Replace with potassium chloride p.o. -Follow BMP in the morning (11) Thrombocytopenia: Platelets low but improved from previous at 129K, likely secondary to chemotherapy for multiple myeloma -Follow CBC (12) Dynamic left ventricular outflow obstruction: Noted on echocardiogram -Watch extremes of volume status (13) Pulmonary nodule: 8 mm nodule noted on CT scan here -Should be followed with repeat imaging as per guidelines (14) Rash: Has a history of idiopathic angioedema/urticaria for which he previously took Zyrtec for years He has not been on his Zyrtec for several weeks as per Now with macular drug eruption appearing rash all over torso, proximal thighs and arms. No lesions in the mouth, no lip or tongue swelling, no wheezing but is hypoxic which I do not think is from anaphylaxis -Could be allergic reaction to Lasix and/or Bumex, could be allergic reaction to his chemotherapeutic drug -Changed to ethacrynic acid as above -Have since restarted Zyrtec 10 mg once daily -Continues with dexamethasone 20 mg daily as above for multiple myeloma which also help with allergic reaction, but also starting IV Solu-Medrol (15) Situational anxiety: Recently started on clonazepam and then switch to lorazepam here in the hospital -Also recently started on sertraline but was not taking this consistently at home but now has been getting it here in the hospital -With excessive drowsiness here which is now much improved with discontinuing standing dose of lorazepam and clonazepam and decreasing fentanyl patch -Continue sertraline 25 mg daily -Follow (16) Nasal congestion: Interfering with ability to breathe through nose with nasal cannula-now improved with Afrin and nasal saline -Continue nasal saline -DC Afrin (17) CKD (chronic kidney disease) stage 2, GFR 60-89 ml/min: Noted Creatinine stable 1.06 -Avoid nephrotoxins -Renally dose medications (18) Constipation: Had not had a bowel movement in 5 to 6 days, secondary to opioid use likely-now improved and having bowel movements after multiple laxatives -Continue MiraLAX as needed -Continue senna/docusate -Monitor (19) Urinary retention: Had Diallo catheter placed upon admission apparently for monitoring I's and O's in setting of CHF and severe dyspnea -Had trial of void on 12/24 but failed and had Diallo catheter replaced on the morning of 12/25 -Consulted urology for further management -Started Flomax on 12/26 -will need to keep Diallo catheter in an trial of void in the office with urology after discharge -Urinalysis and urine culture ordered by urology-urinalysis appears positive -started Rocephin 1 g daily for UTI and follow urine culture, however changed to Zosyn for pulmonary coverage for suspected gram-negative pneumonia as above (20) UTI (urinary tract infection): UA positive and urine culture with gram-negative rods -Treating with Zosyn as above -Follow urine culture No evidence of sepsis (21) DVT prophylaxis: Lovenox therapeutic dosing Disposition transitioned to ICU for worsening respiratory status Patient is now changed his CODE STATUS to DNR/DNI but is okay with BiPAP as needed Subjective Patient had significant development of hypoxia overnight and was placed on 12 L oxygen mask to keep his sats above 88%. Chest x-ray showed atelectasis most likely at the bases and a CT scan of the chest without contrast again confirmed significant atelectasis with air bronchograms at the bases. He denied chest pain or a sensation of shortness of breath. Denied abdominal pain or lightheadedness. He is however having significant back pain and was barely able to inspire at all on the incentive spirometer. I discussed his care with the digital computer systems analyst as well as the boot repairer caring for him. I went back again to see the patient later in the day and entered to the room at 1730 and left at 1750. I also spent time speaking with the critical care resident and nursing staff. I spent another 35 minutes with his care in addition to previous earlier in the day Review of Systems Review of Systems: All systems reviewed & are unremarkable except as noted in HPI & below Physical Exam Constitutional: + ill appearing; no acute distress Eyes: + anicteric sclerae Neck: trachea midline, no thyromegaly Respiratory: normal respiratory effort (With oxygen mask in place); no labored breathing Auscultation: + diminished lung sounds (At bases bilaterally) and + crackles (At bases bilaterally); no wheezes Cardiovascular: Rate/Rhythm: regular rhythm (With ectopy) and + tachycardic Heart Sounds: + murmur (2/6 sys murmur at LLSB) Extremities: + edema (1+ pitting edema the ankles and feet bilaterally) Gastrointestinal (Abdomen): normal bowel sounds, soft, nontender, no hepatosplenomegaly Musculoskeletal: Extremities: extremities normal to inspection; no cyanosis and no clubbing Skin: no rashes, warm and dry + rash (Erythematous macular rash diffusely over torso anterior and posterior and some on proximal thighs and upper extremities now appears petechial and dark red) Neurologic: moves all extremities and awake; no focal motor deficits Psychiatric: A+Ox3, euthymic affect Genitourinary: no testicular masses, no penis abnormality Results & Data Vital Signs (Past 12 Hours) Vital Signs Temp Pulse Pulse Pulse Resp BP BP 12/27/18 07:53 36.5 C 103 H 22 95/64 L 12/27/18 07:50 71 12/27/18 02:51 36.4 C L 98 H 20 105/60 12/27/18 01:36 84 16 12/27/18 00:45 87 16 92/49 L 12/26/18 23:37 37 C 72 18 106/85 12/26/18 23:30 66 Pulse Ox 12/27/18 07:53 86 L 12/27/18 07:50 12/27/18 02:51 90 12/27/18 01:36 94 12/27/18 00:45 90 12/26/18 23:37 90 12/26/18 23:30 Laboratory Results 12/27/18 12/27/18 12/27/18 Range/Units 15:58 15:55 15:55 WBC (4.8-10.8) K/uL RBC (4.7-6.1) M/uL Hgb (14.0-18.0) g/dL Hct (42-52) % MCV (80-100) fL MCH (25-34) pg MCHC (32-36) g/dL RDW Std Deviation (36.4-46.3) fL RDW Coeff of Zackery (11.5-14.5) % Plt Count (130-400) K/uL MPV (7.4-10.4) fL Immature Gran % (Auto) % Neut % (Auto) % Lymph % (Auto) % [place] % (Auto) % Eos % (Auto) % Baso % (Auto) % Immature Gran # (Auto) (0.00-0.02) K/uL Neut # (Auto) (1.4-6.5) K/uL Lymph # (Auto) (1.2-3.4) K/uL [place] # (Auto) (0.11-0.59) K/uL Eos # (Auto) (0-0.5) K/uL Baso # (Auto) (0-0.2) K/uL Acanthocytes (Spur) Peripher Smr Path Cons Sodium (136-145) mmol/L Potassium (3.5-5.1) mmol/L Chloride (98-107) mmol/L Carbon Dioxide (21-32) mmol/L Anion Gap (3-11) BUN (7-18) mg/dl Creatinine (0.6-1.4) mg/dl Est Cr Clr Drug Dosing ml/min Est GFR ( Amer) Est GFR (Non-Af Amer) BUN/Creatinine Ratio (10-20) Glucose (70-99) mg/dl POC Glucose 188 H (70-99) Lactate 1.8 (0.4-2.0) mmol/L Calcium (8.5-10.1) mg/dl Total Bilirubin (0.2-1) mg/dl AST (15-37) U/L ALT (12-78) U/L Alkaline Phosphatase (45-117) U/L Troponin I 0.057 H* (0-0.045) ng/ml NT-Pro-B Natriuret Pep Total Protein (6.4-8.2) gm/dl Albumin (3.4-5.0) gm/dl Globulin (2.5-4.0) gm/dl Albumin/Globulin Ratio (0.9-2) Nasal Screen MRSA (PCR) (Negative) 12/27/18 12/27/18 12/27/18 Range/Units 11:49 09:58 09:50 WBC (4.8-10.8) K/uL RBC (4.7-6.1) M/uL Hgb (14.0-18.0) g/dL Hct (42-52) % MCV (80-100) fL MCH (25-34) pg MCHC (32-36) g/dL RDW Std Deviation (36.4-46.3) fL RDW Coeff of Zackery (11.5-14.5) % Plt Count (130-400) K/uL MPV (7.4-10.4) fL Immature Gran % (Auto) % Neut % (Auto) % Lymph % (Auto) % [place] % (Auto) % Eos % (Auto) % Baso % (Auto) % Immature Gran # (Auto) (0.00-0.02) K/uL Neut # (Auto) (1.4-6.5) K/uL Lymph # (Auto) (1.2-3.4) K/uL [place] # (Auto) (0.11-0.59) K/uL Eos # (Auto) (0-0.5) K/uL Baso # (Auto) (0-0.2) K/uL Acanthocytes (Spur) Peripher Smr Path Cons Sodium (136-145) mmol/L Potassium (3.5-5.1) mmol/L Chloride (98-107) mmol/L Carbon Dioxide (21-32) mmol/L Anion Gap (3-11) BUN (7-18) mg/dl Creatinine (0.6-1.4) mg/dl Est Cr Clr Drug Dosing ml/min Est GFR ( Amer) Est GFR (Non-Af Amer) BUN/Creatinine Ratio (10-20) Glucose (70-99) mg/dl POC Glucose 217 H (70-99) Lactate (0.4-2.0) mmol/L Calcium (8.5-10.1) mg/dl Total Bilirubin (0.2-1) mg/dl AST (15-37) U/L ALT (12-78) U/L Alkaline Phosphatase (45-117) U/L Troponin I 0.063 H* (0-0.045) ng/ml NT-Pro-B Natriuret Pep 1849 H Total Protein (6.4-8.2) gm/dl Albumin (3.4-5.0) gm/dl Globulin (2.5-4.0) gm/dl Albumin/Globulin Ratio (0.9-2) Nasal Screen MRSA (PCR) (Negative) 12/27/18 12/27/18 12/27/18 Range/Units 09:50 09:50 06:59 WBC (4.8-10.8) K/uL RBC (4.7-6.1) M/uL Hgb (14.0-18.0) g/dL Hct (42-52) % MCV (80-100) fL MCH (25-34) pg MCHC (32-36) g/dL RDW Std Deviation (36.4-46.3) fL RDW Coeff of Zackery (11.5-14.5) % Plt Count (130-400) K/uL MPV (7.4-10.4) fL Immature Gran % (Auto) % Neut % (Auto) % Lymph % (Auto) % [place] % (Auto) % Eos % (Auto) % Baso % (Auto) % Immature Gran # (Auto) (0.00-0.02) K/uL Neut # (Auto) (1.4-6.5) K/uL Lymph # (Auto) (1.2-3.4) K/uL [place] # (Auto) (0.11-0.59) K/uL Eos # (Auto) (0-0.5) K/uL Baso # (Auto) (0-0.2) K/uL Acanthocytes (Spur) Peripher Smr Path Cons Sodium 136 (136-145) mmol/L Potassium 3.4 L (3.5-5.1) mmol/L Chloride 100 (98-107) mmol/L Carbon Dioxide 32 (21-32) mmol/L Anion Gap 4.0 (3-11) BUN 29 H (7-18) mg/dl Creatinine 1.06 (0.6-1.4) mg/dl Est Cr Clr Drug Dosing 56.7 ml/min Est GFR ( Amer) 75.9 Est GFR (Non-Af Amer) 65.5 BUN/Creatinine Ratio 27.1 H (10-20) Glucose 102 H (70-99) mg/dl POC Glucose (70-99) Lactate 3.8 H* (0.4-2.0) mmol/L Calcium 8.0 L (8.5-10.1) mg/dl Total Bilirubin 0.6 (0.2-1) mg/dl AST 20 (15-37) U/L ALT 42 (12-78) U/L Alkaline Phosphatase 89 (45-117) U/L Troponin I (0-0.045) ng/ml NT-Pro-B Natriuret Pep Cancelled Total Protein 6.0 L (6.4-8.2) gm/dl Albumin 2.5 L (3.4-5.0) gm/dl Globulin 3.5 (2.5-4.0) gm/dl Albumin/Globulin Ratio 0.7 L (0.9-2) Nasal Screen MRSA (PCR) (Negative) 12/27/18 12/26/18 Range/Units 06:59 11:00 WBC 9.47 (4.8-10.8) K/uL RBC 3.21 L (4.7-6.1) M/uL Hgb 9.8 L (14.0-18.0) g/dL Hct 29.3 L (42-52) % MCV 91.3 (80-100) fL MCH 30.5 (25-34) pg MCHC 33.4 (32-36) g/dL RDW Std Deviation 52.6 H (36.4-46.3) fL RDW Coeff of Zackery 15.6 H (11.5-14.5) % Plt Count 129 L (130-400) K/uL MPV 12.3 H (7.4-10.4) fL Immature Gran % (Auto) 0.5 % Neut % (Auto) 80.9 % Lymph % (Auto) 12.0 % [place] % (Auto) 4.2 % Eos % (Auto) 2.2 % Baso % (Auto) 0.2 % Immature Gran # (Auto) 0.05 H (0.00-0.02) K/uL Neut # (Auto) 7.65 H (1.4-6.5) K/uL Lymph # (Auto) 1.14 L (1.2-3.4) K/uL [place] # (Auto) 0.40 (0.11-0.59) K/uL Eos # (Auto) 0.21 (0-0.5) K/uL Baso # (Auto) 0.02 (0-0.2) K/uL Acanthocytes (Spur) 1+ Peripher Smr Path Cons Sodium (136-145) mmol/L Potassium (3.5-5.1) mmol/L Chloride (98-107) mmol/L Carbon Dioxide (21-32) mmol/L Anion Gap (3-11) BUN (7-18) mg/dl Creatinine (0.6-1.4) mg/dl Est Cr Clr Drug Dosing ml/min Est GFR ( Amer) Est GFR (Non-Af Amer) BUN/Creatinine Ratio (10-20) Glucose (70-99) mg/dl POC Glucose (70-99) Lactate (0.4-2.0) mmol/L Calcium (8.5-10.1) mg/dl Total Bilirubin (0.2-1) mg/dl AST (15-37) U/L ALT (12-78) U/L Alkaline Phosphatase (45-117) U/L Troponin I (0-0.045) ng/ml NT-Pro-B Natriuret Pep Total Protein (6.4-8.2) gm/dl Albumin (3.4-5.0) gm/dl Globulin (2.5-4.0) gm/dl Albumin/Globulin Ratio (0.9-2) Nasal Screen MRSA (PCR) Negative (Negative) Diagnostic Findings Chest x-ray image personally reviewed by me and agree with the following report: XR chest 1V portable CLINICAL HISTORY: 83 years-old Male presenting with sob. TECHNIQUE: Portable upright AP view of the chest was obtained. COMPARISON: 12/21/2018. FINDINGS: Atherosclerosis of the aortic arch. Cardiac silhouette enlarged. Heterogeneity of lung parenchyma most especially on the left. Low lung volumes with hypoventilatory changes. Left retrocardiac density increased from prior. Bibasilar opacities have slightly decreased from prior. Pleural thickening or pleural effusion on the left. Redemonstration of rib fractures, one of which appears more acute or subacute as on prior exam in the left upper region. External leads project over the upper abdomen to grating evaluation. IMPRESSION: 1. Increased left retrocardiac density could relate to left atrial enlargement, increased left pleural effusion, left lower lobe consolidation. 2. Cardiomegaly. 3. Low lung volumes with hypoventilatory changes. Chest CT without contrast images personally reviewed by me and agree with the freddy babin report: CT chest wo con CLINICAL HISTORY: Hypoxia COMPARISON STUDY: CT angiography the chest dated 12/21/2018 CT DOSE: 648.74 mGy.cm TECHNIQUE: CT of the thorax was performed from the thoracic inlet to the lung bases. Images are reviewed in the axial, sagittal, and coronal planes. IV contrast was not administered for this examination. A dose lowering technique was utilized adhering to the principles of ALARA. FINDINGS: Thyroid: Imaged portions of the thyroid gland are normal in appearance. Thoracic aorta: The thoracic aorta is normal in course and caliber, noting standard 3 vessel arch anatomy. Heart: The heart is mildly enlarged. There are mild coronary artery calcifications Lungs and pleural spaces: There is a trace left pleural effusion. There are bilateral dependent pulmonary airspace opacities with air bronchograms, atelectatic versus infectious/inflammatory. These are minimally progressive when compared the preceding study. There is a stable 6 mm right upper lobe pulmonary nodule Mediastinum: There is known to pathologic mediastinal lymphadenopathy Catherine: There is no evidence of pathologic hilar adenopathy given the limitations of a noncontrast study Axilla: There is no evidence of pathologic axillary lymphadenopathy Upper abdomen: Partially visualized upper abdominal viscera is within normal limits. Skeletal structures: There is a pathologic T9 compression fracture. Neoplastic extension to the epidural space cannot be excluded. Additional compression fractures are also evident, most pronounced the T8 and L1 levels. IMPRESSION: 1. Evidence of lytic bone disease consistent with the patient's known myeloma. Multiple pathologic fractures are visualized. 2. Slight progression in the bibasilar atelectasis/consolidation 3. Stable 6 mm right upper lobe pulmonary nodule ECG Additional Comments: ECG with right bundle branch block, normal sinus rhythm, PACs, no ischemic changes PG Care Time/CCT Total # of Minutes Spent Total Time Spent: 65 Total Time Spent with Patient: Total time spent is greater than 50% in coordination of care (as documented) at patient's floor/unit and/or counseling patient: Prolonged Care Time Prolonged Care Time: Yes Total Prolonged Care Time: 35 (1) Fracture of rib Encounter type: initial encounter Fracture type: closed Laterality: left Rib fracture type: single rib Qualified Code(s): S22.32XA - Fracture of one rib, left side, initial encounter for closed fracture (2) Compression fx, lumbar spine Encounter type: initial encounter Lumbar vertebra fracture level: L1 Qualified Code(s): S32.010A - Wedge compression fracture of first lumbar vertebra, initial encounter for closed fracture (3) Compression fx, thoracic spine Encounter type: initial encounter Thoracic vertebra fracture level: unspecified thoracic vertebra Qualified Code(s): S22.000A - Wedge compression fracture of unspecified thoracic vertebra, initial encounter for closed fracture (4) Pulmonary embolism Acute cor pulmonale presence: unspecified Chronicity: acute Pulmonary embolism type: unspecified Qualified Code(s): I26.99 - Other pulmonary embolism without acute cor pulmonale
[2018-12-27] MEDS: OXYCODONE HCL IR 5 MG TAB (IMMEDIATE RELEASE) PO PRN ×2 (10:09→21:53)
--- NOTE | 2018-12-27 10:16 | Critical Care Consultation ---
Date of Consultation December 27, 2018 Assessment & Plan (1) Admitted to intensive care unit: Reason Critically Ill: Ja White is a 83 y/o male with hx of Multiple myeloma, HTN, Chronic diastolic dysfunction with new onset oxygenation requirement with concerns for infection and new onset of possible drug rash vs. Dress syndrome. Neuro: alert and oriented x3 Continue with current Fentanyl 25mcg TD q72H teagan and Oxicodone 5mg PO q6H PRN for pain - he was having medications scaled back as concerns for respiratory depression in a patient with worsening respiratory status and pain from pathologic spinal/rib fractures related to his multiple myeloma. Discussed with patient and family about addition of Ketamine for pain control; discussed side effects. Patient reports he would like to be kept as comfortable as able as he is having severe pain preventing sleep from his pathologic fra ctures. Plan for Ketamine as follows - 10mg dose IV for pain that is 7 or greater; if no improvement after 15 minutes then okay to give another dose of 10mg IV 30 minutes after first was given. Max dose total 2. If no improvement in pain, then will consider Ketamine infusion. Palliative consulted for end of life goals conversation. Cardiac/Vascular: Past Medical Hx: HTN, chronic diastolic HF acute on chronic diastolic heart failure continue with Ethacrynic Acid 50mg PO qAM teagan Pulm: Hx of recent PE and CHR, with failed two step prior to ICU transfer requiring 2L of O2. Increasing oxygen requirement reason for critically ill and ICU transfer Currently on oxy mask; having poor respiratory effort secondary to rib pain and spinal pain from fractures If ketamine is used; ordered end tidal CO2. GI: Prophylaxis: Diet: fluid restriction 1500cc; heart healthy diet Baseline weight noted to be ~83.5kg Has received laxatives for previous constipation with success starting last night; changed Miralax to PRN constipation. Nutritional support will add Thiamine 100mg daily PO; Multivitamin daily; Vitamin C 500mg daily. Renal/Lytes: Fluid restriction of 1500cc as noted above Slight hypokalemic 3.4 this morning, will replace and trend. : No current romano as UTI; urology consulted prior to transfer to ICU Gram negative bacilli UTI - covering with Zosyn Endo: No hx of diabetes or Thyroid dz Will cover with insulin per protocol since on high dose steroids Heme: Current treatment for Multiple Myeloma; follows with Dr. Galan Will consult Oncology for input Discussed to hold/stop Chemotherapeutic agent Revlimid as critically ill and suspected drug related rash ID: Concerns for underlying pneumonia as poor respiratory status and poor respiratory effort setting up for risk for lung infection. Currently on Zosyn for pneumonia/lung coverage CT non contrast for evaluation for pneumonia as well as other respiratory pathology as increasing oxygen requirement Lines: Currently with peripheral Discussed risks/benefits for Central Venous IJ if needed as well as arterial line and blood transfusions which patient consented if needed DVT ppx: currently on therapeutic Lovenox for recent PE treatment Resuscitation Status: Discussed end of life goals of care and was recent Full Code; patient and spouse agreed to DNR/DNI (2) Shortness of breath: (3) Bilateral lower extremity edema: (4) Multiple myeloma without remission: (5) Anticoagulant long-term use: (6) HTN (hypertension): (7) Pulmonary embolism: (8) Fracture of rib: (9) Compression fx, thoracic spine: (10) Compression fx, lumbar spine: (11) Rash: (12) UTI (urinary tract infection): (13) Urinary retention: (14) Constipation: (15) CKD (chronic kidney disease) stage 2, GFR 60-89 ml/min: (16) DVT prophylaxis: (17) Mitral valve disorder: (18) Acute diastolic CHF (congestive heart failure): (19) Pancytopenia due to antineoplastic chemotherapy: (20) Thrombocytopenia: (21) Discharge planning issues: (22) HLD (hyperlipidemia): (23) Acute UTI: Supervising Physician Co-Signing Physician Notes Dr. Godfrey was resident physician during care of patient. I separately evaluated patient for schroeder portions of the history and the exam. I was present during the critical portion of medical decision making, and I discussed the case with the resident. I generally agree with the findings and plan. Concern for possible sepsis, drug reaction with eosinophilia and systemic side effects, pneumonia, urinary tract infection, acute hypoxic respiratory failure secondary to pain from malignant fractures and poor respiratory mechanics. Had extensive discussion with patient, power of papier mache' molder, patient's patient does not want heroic measures undertaken in event of cardiac arrest nor would he want intubation in event of respiratory insufficiency. Maximum therapy would be to have noninvasive ventilator. Patient reports significant anxiety related to pain, I am considering administration of ketamine to hopefully sensitizes opiate receptors and make him more responsive to narcotics while minimizing side effects. History of Present Illness Reason for Consultation: Worsening respiratory status with increase in oxygenation requirements Requesting Physician: Cherelle Tomlin MD Attending Physician: Cherelle Tomlin MD History of Present Illness Ja White is a 83 y/o male with hx of Multiple myeloma with pathologic fractures, aortic valve sclerosis without stenosis, HTN, Chronic diastolic dysfunction, CKD stage 2, and recent diagnosis of pulmonary embolism with new onset oxygenation requirement during hospitalization here with concerns for infection and new onset of possible drug rash vs. Dress syndrome, requiring transfer to ICU. He originially presented to [facility] on 12.22.18 about 5 days ago for dyspnea and acute bilateral lower extremity edema. He had recent diagnosis of PE about 2 weeks prior to this visit that was being treated with Lovenox. His Multiple myeloma was also diagnosed around that same time, about two weeks ago, and was started on Revlimid and Dexamethasone 20mg PO. He has also been dealing with pain from pathologic fractures to ribs and spine. His hospital course was complicated by urinary retention and also reported to have had romano catheter placed upon admission apparently for monitoring I's and O's in setting of CHF and severe dyspnea. He subsequently developed a UTI with positive culture for gram negative bacilli and was started on Rocephin 1gm. He has been dealing with constipation most likely opioid induced which has been treated with laxatives with resolution last night. He was having situational anxiety recently started on clonazepam and then switch to lorazepam here in the hospital. He developed a rash with concern for drug related rash possible sulfa drug reaction causing DRESS. He had worsening oxygen requirements and decision was made to transfer for ICU for closer monitoring and respiratory management incase of respiratory collapse. Allergies Allergy/AdvReac Type Severity Reaction Status Date / Time adhesive tape Allergy Mild Rash Verified 12/06/18 13:37 No Known Drug Allergies Allergy Unknown NONE PER PT Verified 12/06/18 13:37 Home Medications Home Medications Medication Instructions Recorded Confirmed Type oxycodone 10 mg tablet 10 mg PO Q6H PRN tab 11/13/18 12/21/18 History metoprolol succinate ER 25 mg 12.5 mg PO QAM tab 11/15/18 12/21/18 History tablet,extended release 24 hr acyclovir 400 mg PO QAM 12/06/18 12/21/18 History dexamethasone 20 mg PO DIRECTED 12/06/18 12/21/18 History fentanyl 50 mcg TRANSDERMAL Q72H 10/16/19 10/31/19 History enoxaparin [Lovenox] 80 mg SQ Q12H 30 Days #48 ml 12/08/18 12/21/18 Rx clonazepam 1 mg PO BID PRN 12/21/18 12/21/18 History lenalidomide [Revlimid] 25 mg PO QAM 12/21/18 12/21/18 History meclizine 25 mg PO DAILY PRN 12/21/18 12/21/18 History ondansetron HCl 8 mg PO Q8H PRN 12/21/18 12/21/18 History sertraline 50 mg PO HS 12/21/18 12/21/18 History lorazepam 0.5 mg PO BID PRN #10 tab 12/24/18 Rx sod phos di, mono-K phos mono 1 tab PO DAILY #30 tab 12/24/18 Rx [Phospha 250 Neutral] Patient History Medical History Mitral valve disorder Anemia Thrombocytopenia HLD (hyperlipidemia) HTN (hypertension) Pulmonary embolism (Acute) Vertigo (Chronic) Hypertension (Chronic) History of vertebral compression fracture (Inactive) Multiple myeloma (Inactive) Surgical History History of dental surgery S/P cataract surgery S/P inguinal hernia repair Family History Father , Passed age 64 of [place] Myocardial infarction Mother , Passed age 89 of blood clot after hip replacement No problems noted. Grandfather (Maternal) , Passed age 34 of head and neck cancer No problems noted. Grandmother (Maternal) , Passed age of 72 stomach cancer No problems noted. Brother , Passed age 69 of likely cancer No problems noted. 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 Feels Safe at Home: Yes Smoking Status: Former smoker packs per day: 1.5 ; Second Hand Exposure: No ; Hx Alcohol Use: No Hx Substance Use: No Childhood Exposure to Second-Hand Smoke: Yes caffeine: No Seatbelt Use: always Review of Systems Review of Systems: All systems reviewed & are unremarkable except as noted in HPI & below Constitutional: no fever and no chills Eyes: no diplopia and no eye pain Ear, Nose, Mouth, Throat: no ear pain and no epistaxis Respiratory: + dyspnea; no hemoptysis Cardiovascular: no radiating jaw, neck or arm pain and no palpitations Gastrointestinal: no vomiting and no hematemesis Genitourinary: no genital pain and no testicle pain Musculoskeletal: + back pain Integumentary: + rash Neurologic: no numbness and no headache(s) Psychiatric: + anxiety; no confusion Physical Exam Constitutional: + ill appearing and cooperative Eyes: + anicteric sclerae and EOM intact bilaterally Neck: normal visual inspection and trachea midline Respiratory: no respiratory distress Auscultation: + diminished lung sounds Cardiovascular: Rate/Rhythm: regular rate and regular rhythm Gastrointestinal (Abdomen): Percussion/Palpation: abdomen soft; abdomen nontender Musculoskeletal: Head/Neck/Chest: normocephalic and head atraumatic Skin: + rash Neurologic: moves all extremities and awake Psychiatric: Orientation: alert and oriented x 3 Results & Data Vital Signs (Past 12 Hours) Vital Signs Temp Pulse Pulse Pulse Resp BP BP 12/27/18 07:53 36.5 C 103 H 22 95/64 L 12/27/18 07:50 71 12/27/18 02:51 36.4 C L 98 H 20 105/60 12/27/18 01:36 84 16 12/27/18 00:45 87 16 92/49 L 12/26/18 23:37 37 C 72 18 106/85 12/26/18 23:30 66 Pulse Ox 12/27/18 07:53 86 L 12/27/18 07:50 12/27/18 02:51 90 12/27/18 01:36 94 12/27/18 00:45 90 12/26/18 23:37 90 12/26/18 23:30 PG Care Time/CCT Total # of Minutes Spent Total Time Spent with Patient: Total time spent is greater than 50% in coordination of care (as documented) at patient's floor/unit and/or counseling patient: Critical Care Time: Yes Total Critical Care Time: 55 Resident Activity Tracking Resident Involvement: Resident Care Provided Care Provided: Adult Hospital Medicine (ICU) (1) Fracture of rib Encounter type: initial encounter Fracture type: closed Laterality: left Rib fracture type: single rib Qualified Code(s): S22.32XA - Fracture of one rib, left side, initial encounter for closed fracture (2) Compression fx, lumbar spine Encounter type: initial encounter Lumbar vertebra fracture level: L1 Qualified Code(s): S32.010A - Wedge compression fracture of first lumbar vertebra, initial encounter for closed fracture (3) Compression fx, thoracic spine Encounter type: initial encounter Thoracic vertebra fracture level: unspecified thoracic vertebra Qualified Code(s): S22.000A - Wedge compression fracture of unspecified thoracic vertebra, initial encounter for closed fracture (4) Pulmonary embolism Acute cor pulmonale presence: unspecified Chronicity: acute Pulmonary embolism type: unspecified Qualified Code(s): I26.99 - Other pulmonary embolism without acute cor pulmonale
[2018-12-27] MEDS: CETIRIZINE HCL 10 MG TABLET PO SCH (10:29)
[2018-12-27] MEDS ORDERED: PIPERACILLIN/TAZOBACTAM 4.5 GM in DEXTROSE 5% 100 ML IV ONE (10:30)
[2018-12-27] MEDS: ACYCLOVIR 400 MG TAB PO SCH (10:30)
[2018-12-27 10:54] LABS: Troponin I 0.063 ng/ml (0-0.045)
[2018-12-27] MEDS: methylPREDNISolone 60 MG in SYRINGE 0 ML IV SCH ×2 (11:16→18:22)
--- NOTE | 2018-12-27 11:30 | Cardiology Progress Note ---
Date of Service December 27, 2018 Assessment & Plan (1) Acute diastolic CHF (congestive heart failure): The patient does not appear to be significantly hypervolemic at this time, however, his oxygen requirement has increased significantly. Diuretic therapy has been changed at the ethacrynic acid to avoid a possible sulfa type cutaneous reaction. Continue fluid restriction and low-salt diet. His daily weights appear stable. (2) HTN (hypertension): Adequate control on current medical regimen. (3) HLD (hyperlipidemia): Not currently on statin therapy. Subjective The patient is resting comfortably in bed without complaints of chest discomfort. Oxygen requirements have increased significantly. Physical Exam Physical Exam: In general this is an ill-appearing male in no acute distress. HEENT exam is negative. Neck is supple with full carotid upstrokes. No obvious bruits. Jugular is pressure is difficult to evaluate. Cardiovascular exam reveals a regular rhythm with a 2/6 basal systolic ejection murmur. No S3. Lungs are clear without rales, rhonchi, or wheezes. Abdomen is soft without bruits. Extremities reveal intact radial artery pulses bilaterally. There is no peripheral edema. Results & Data Vital Signs (Past 12 Hours) Vital Signs Temp Pulse Pulse Pulse Resp BP BP 12/27/18 11:02 83 18 82/54 L 12/27/18 07:53 36.5 C 103 H 22 12/27/18 07:50 71 12/27/18 02:51 36.4 C L 98 H 20 105/60 12/27/18 01:36 84 16 12/27/18 00:45 87 16 92/49 L 12/26/18 23:37 37 C 72 18 106/85 12/26/18 23:30 66 BP Pulse Ox 12/27/18 11:02 94 12/27/18 07:53 95/64 L 86 L 12/27/18 07:50 12/27/18 02:51 90 12/27/18 01:36 94 12/27/18 00:45 90 12/26/18 23:37 90 12/26/18 23:30 Diagnostic Findings EKG notes sinus rhythm with frequent PACs and incomplete right bundle-branch block. PG Care Time/CCT Total # of Minutes Spent Total Time Spent with Patient: Total time spent is greater than 50% in coordination of care (as documented) at patient's floor/unit and/or counseling patient:
[2018-12-27] MEDS ORDERED: POLYETHYLENE (MIRALAX) 17 GM PACK PO PRN (12:13)
[2018-12-27] MEDS ORDERED: KETAMINE HCL INJ 50 MG/ML 10 ML VIAL IV PRN (12:38)
[2018-12-27] MEDS ORDERED: KETAMINE HCL 10 MG in SODIUM CHLORIDE 0.9% 50 ML IV ONE (13:00)
--- NOTE | 2018-12-27 13:31 | CT Scan Report ---
CT chest wo con CLINICAL HISTORY: Hypoxia COMPARISON STUDY: CT angiography the chest dated 12/21/2018 CT DOSE: 648.74 mGy.cm TECHNIQUE: CT of the thorax was performed from the thoracic inlet to the lung bases. Images are revi ewed in the axial, sagittal, and coronal planes. IV contrast was not administered for this examinatio n. A dose lowering technique was utilized adhering to the principles of ALARA. FINDINGS: Thyroid: Imaged portions of the thyroid gland are normal in appearance. Thoracic aorta: The thoracic aorta is normal in course and caliber, noting standard 3 vessel arch [place]. Heart: The heart is mildly enlarged. There are mild coronary artery calcifications Lungs and pleural spaces: There is a trace left pleural effusion. There are bilateral dependent pulmo nary airspace opacities with air bronchograms, atelectatic versus infectious/inflammatory. These are minimally progressive when compared the preceding study. There is a stable 6 mm right upper lobe pulm onary nodule Mediastinum: There is known to pathologic mediastinal lymphadenopathy Catherine: There is no evidence of pathologic hilar adenopathy given the limitations of a noncontrast stud y Axilla: There is no evidence of pathologic axillary lymphadenopathy Upper abdomen: Partially visualized upper abdominal viscera is within normal limits. Skeletal structures: There is a pathologic T9 compression fracture. Neoplastic extension to the epidu ral space cannot be excluded. Additional compression fractures are also evident, most pronounced the T8 and L1 levels. IMPRESSION: 1. Evidence of lytic bone disease consistent with the patient's known myeloma. Multiple pathologic fr actures are visualized. 2. Slight progression in the bibasilar atelectasis/consolidation 3. Stable 6 mm right upper lobe pulmonary nodule Electronically signed by: Deven Dawson M.D. 12/27/2018 1:30 PM
[2018-12-27] MEDS ORDERED: ICU PROTOCOL FOR HYPERGLYCEMIA PRN (13:58)
[2018-12-27] MEDS ORDERED: GLUCOSE 40% GEL 15 GM TUBE PO PRN (14:32)
[2018-12-27] MEDS ORDERED: GLUCAGON FOR INJ 1 MG VIAL SQ PRN (14:32)
[2018-12-27] MEDS ORDERED: CARBOHYDRATES FOR HYPOGLYCEMIA PO PRN (14:32)
[2018-12-27] MEDS ORDERED: GLUCOSE 10 TABS/TUBE PO PRN (14:32)
[2018-12-27] MEDS ORDERED: DEXTROSE 50% 50 ML SYRINGE IV PRN (14:32)
[2018-12-27] MEDS: MULTIVITAMIN TAB PO SCH (14:42)
[2018-12-27] MEDS: PIPERACILLIN/TAZOBACTAM 4.5 GM in DEXTROSE 5% 100 ML IV SCH ×2 (14:42→21:59)
[2018-12-27] MEDS: ASCORBIC ACID 500 MG TAB PO SCH (14:42)
[2018-12-27] MEDS: THIAMINE HCL 100 MG TAB PO SCH (14:42)
[2018-12-27] MEDS ORDERED: POTASSIUM CHLORIDE PWD 20 MEQ PACK PO STA (14:52)
[2018-12-27] MEDS: INSULIN ASPART 100 UNITS/ML 3 ML PEN SC SCH ×2 (16:51→22:07)
[2018-12-27] MEDS: fentaNYL 25 MCG/HR TDSY TD SCH (18:21)
[2018-12-27] MEDS: fentaNYL 12 MCG/HR TDSY TD SCH (18:21)
[2018-12-27] MEDS ORDERED: TAMSULOSIN HCL 0.4 MG CAP PO SCH (21:00)
[2018-12-27] MEDS: SERTRALINE HCL 50 MG TABLET PO SCH (21:57)
[2018-12-28] MEDS: methylPREDNISolone 60 MG in SYRINGE 0 ML IV SCH (01:13)
[2018-12-28 04:18] LABS: Basophils # (auto) 0.01 K/uL (0-0.2); Basophils % (auto) 0.1 %; Eosinophils # (auto) 0.03 K/uL (0-0.5); Eosinophils % (auto) 0.4 %; Hematocrit (blood only) 28.2 % (42-52); Hemoglobin 9.4 g/dL (14.0-18.0); Immature Granulocytes # (auto) 0.04 K/uL (0.00-0.02); Immature Granulocytes % (auto) 0.5 %; Lymphocytes # (auto) 0.65 K/uL (1.2-3.4); Lymphocytes % (auto) 8.2 %; Mean Corpuscular Hemoglobin 30.7 pg (25-34); Mean Corpuscular Hgb Conc 33.3 g/dL (32-36); Mean Corpuscular Volume 92.2 fL (80-100); Mean Platelet Volume 12.1 fL (7.4-10.4); Monocytes # (auto) 0.45 K/uL (0.11-0.59); Monocytes % (auto) 5.7 %; Neutrophils # (auto) 6.77 K/uL (1.4-6.5); Neutrophils % (auto) 85.1 %; Platelet Count 133 K/uL (130-400); RDW Coefficient of Variation 15.7 % (11.5-14.5); Red Blood Count 3.06 M/uL (4.7-6.1); White Blood Count 7.95 K/uL (4.8-10.8)
[2018-12-28 04:35] LABS: BUN Creatinine Ratio 25.9 (10-20); Calcium 7.8 mg/dl (8.5-10.1); Creatinine Clr Calc Pharmacy 51.3 ml/min; Est GFR (African American) 67.4; Est GFR (Non-African American) 58.1; Magnesium 2.7 mg/dl (1.8-2.4); Phosphorus 3.4 mg/dl (2.5-4.9); Potassium 3.8 mmol/L (3.5-5.1)
[2018-12-28] MEDS: PIPERACILLIN/TAZOBACTAM 4.5 GM in DEXTROSE 5% 100 ML IV SCH ×3 (06:22→23:39)
--- NOTE | 2018-12-28 07:00 | Critical Care Progress Note ---
Date of Service December 28, 2018 Assessment & Plan (1) Admitted to intensive care unit: Reason Critically Ill: Ja White is a 83 y/o male with hx of Multiple myeloma, HTN, Chronic diastolic dysfunction with new onset oxygenation requirement with concerns for infection and new onset of possible drug rash vs. Dress syndrome. Neuro: alert and oriented x3 Continue with current Fentanyl 25mcg TD q72H teagan and Oxcodone 5mg PO q6H PRN for pain - he was having medications scaled back as concerns for respiratory depression in a patient with worsening respiratory status and pain from pathologic spinal/rib fractures related to his multiple myeloma. Discussed with patient and family about addition of Ketamine for pain control; discussed side effects. Patient reports he would like to be kept as comfortable as able as he is having severe pain preventing sleep from his pathologic fractures. Plan for Ketamine as follows - 10mg dose IV for pain that is 7 or greater; if no improvement after 15 minutes then okay to give another dose of 10mg IV 30 minutes after first was given. Max dose total 2. If no improvement in pain, then will consider Ketamine infusion. Palliative consulted for end of life goals conversation. Patient with significant anxiety related to steroid induced neuro/psychiatric adverse effects = Holding Dexamethasone CAM negative Started Cymbalta 30mg PO qAM for neuropathic pain pathway and also giving Serotonin reuptake inhibitor for anxiety; discontinued Sertraline. Cardiac/Vascular: Past Medical Hx: HTN, chronic diastolic HF acute on chronic diastolic heart failure Hold Ethacrynic Acid 50mg PO qAM teagan Dynamic Left ventricle outflow tract obstruction - watch extremes of fluid status; noted on echocardiogram Pulm: Hx of recent PE and CHR, with failed two step prior to ICU transfer requiring 2L of O2. Increasing oxygen requirement reason for critically ill and ICU transfer Currently on oxy mask; having poor respiratory effort secondary to rib pain and spinal pain from fractures If ketamine is used; ordered end tidal CO2. GI: Prophylaxis: Diet: fluid restriction 1500cc; heart healthy diet but okay to bring outside food in, brought in [employer] last night as patient has had poor appetite Will add Megase today Baseline weight noted to be ~83.5kg Has received laxatives for previous constipation with success starting last night; changed Miralax to PRN constipation. Nutritional support with Thiamine 100mg daily PO; Multivitamin daily; Vitamin C 500mg daily. Renal/Lytes: Fluid restriction of 1500cc as noted above Lytes WNL this AM : No current romano as UTI; urology consulted prior to transfer to ICU Gram negative bacilli UTI - covering with Zosyn Endo: No hx of diabetes or Thyroid dz Will cover with insulin per protocol since on high dose steroids Heme: Current treatment for Multiple Myeloma; follows with Dr. Galan Oncology saw patient this morning and recommend Spep and Immunofixation labs, order placed Discussed to hold/stop Chemotherapeutic agent Revlimid as critically ill and suspected drug related rash; also holding Dexamethasone/steroids ID: Concerns for underlying pneumonia as poor respiratory status and poor respiratory effort setting up for risk for lung infection. Currently on Zosyn for pneumonia/lung coverage CT non contrast for evaluation for pneumonia as well as other respiratory pathology as increasing oxygen requirement yesterday showed * Evidence of lytic bone disease consistent with the patient's known myeloma. Multiple pathologic fractures are visualized. * Slight progression in the bibasilar atelectasis/consolidation * Stable 6 mm right upper lobe pulmonary nodu Waiting for Urine Micro culture to result sensitivities for guided abx treatment Lines: Currently with peripheral Discussed risks/benefits for Central Venous IJ if needed as well as arterial line and blood transfusions which patient consented if needed DVT ppx: currently on therapeutic Lovenox for recent PE treatment Resuscitation Status: Discussed end of life goals of care and was recent Full Code; patient and spouse agreed to DNR/DNI (2) Shortness of breath: (3) Bilateral lower extremity edema: (4) Multiple myeloma without remission: (5) Anticoagulant long-term use: (6) HTN (hypertension): (7) Pulmonary embolism: (8) Fracture of rib: (9) Compression fx, thoracic spine: (10) Compression fx, lumbar spine: (11) Rash: (12) UTI (urinary tract infection): (13) Urinary retention: (14) Constipation: (15) CKD (chronic kidney disease) stage 2, GFR 60-89 ml/min: (16) DVT prophylaxis: (17) Mitral valve disorder: (18) Acute diastolic CHF (congestive heart failure): (19) Pancytopenia due to antineoplastic chemotherapy: (20) Thrombocytopenia: (21) Discharge planning issues: (22) HLD (hyperlipidemia): (23) Acute UTI: Supervising Physician Co-Signing Physician Notes Dr. Godfrey was resident physician during care of patient. I separately evaluated patient for schroeder portions of the history and the exam. I was present during the critical portion of medical decision making, and I discussed the case with the resident. I generally agree with the findings and plan. Procalcitonin not profoundly elevated, I believe he has a urinary tract infection we will continue with Zosyn and de-escalate antibiotics based off of culture results when they finalize. Patient is denying pain however will upon further questioning he has significant anxiety when he awakes regarding possibly having pain. We will give low-dose ketamine today to see if that improves his pain tolerance and we will also transition from Zoloft to Cymbalta for neuro pathic/depression issues which may be contributing to the pain syndrome. I am less concerned about dress and have subsequently stop the steroids which may be contributing to the anxiety in early underpinnings of steroid associated psychosis. We are continuing with therapeutic Lovenox. It is noted that the patient had a dynamic left ventricular outflow obstruction however there is no significant valvulopathy, it is unclear the significance of this with regards to his cardiac function. Patient remains critically ill. Subjective Mr. White was reported to have two panic attacks overnight by nursing staff that lasted approximately 30 minutes. He notes continued back pain and trouble with anxiety. He notes that pain keeps him from sleeping, but nursing reports that patient does fall asleep after given pain meds. He denies anterior chest pain, nausea, vomiting. He has been tolerating meals with poor appetite. Review of Systems Review of Systems: All systems reviewed & are unremarkable except as noted in HPI & below Respiratory: + dyspnea; no hemoptysis Musculoskeletal: + back pain Integumentary: + rash Psychiatric: + anxiety; no confusion Physical Exam Constitutional: + ill appearing and cooperative Eyes: + anicteric sclerae and EOM intact bilaterally Neck: normal visual inspection and trachea midline Respiratory: no respiratory distress Auscultation: + diminished lung sounds Cardiovascular: Rate/Rhythm: regular rate and regular rhythm Gastrointestinal (Abdomen): Percussion/Palpation: abdomen soft; abdomen nontender Musculoskeletal: Head/Neck/Chest: normocephalic and head atraumatic Skin: + rash Neurologic: moves all extremities and awake Psychiatric: Orientation: alert and oriented x 3 Results & Data Vital Signs (Past 12 Hours) Vital Signs Temp Pulse Resp BP Pulse Ox 12/28/18 06:00 84 12 126/66 89 L 12/28/18 05:00 66 17 117/64 95 12/28/18 04:00 36.7 C 69 18 130/73 96 12/28/18 03:00 89 26 H 104/69 89 L 12/28/18 02:00 70 15 104/55 L 94 12/28/18 01:00 79 24 120/58 L 93 12/28/18 00:03 36.4 C L 12/28/18 00:00 66 20 117/58 L 95 12/27/18 23:55 66 12/27/18 23:00 67 20 101/61 93 12/27/18 22:00 83 15 138/70 91 12/27/18 21:01 69 15 126/65 91 12/27/18 21:00 66 14 95 12/27/18 20:00 73 15 97/65 L 91 12/27/18 19:00 36.5 C 68 19 104/65 95 PG Care Time/CCT Total # of Minutes Spent Total Time Spent with Patient: Total time spent is greater than 50% in coordination of care (as documented) at patient's floor/unit and/or counseling patient: Critical Care Time: Yes Total Critical Care Time: 55 Resident Activity Tracking Resident Involvement: Resident Care Provided Care Provided: Adult Hospital Medicine (ICU) (1) Fracture of rib Encounter type: initial encounter Fracture type: closed Laterality: left Rib fracture type: single rib Qualified Code(s): S22.32XA - Fracture of one rib, left side, initial encounter for closed fracture (2) Compression fx, lumbar spine Encounter type: initial encounter Lumbar vertebra fracture level: L1 Qualified Code(s): S32.010A - Wedge compression fracture of first lumbar vertebra, initial encounter for closed fracture (3) Compression fx, thoracic spine Encounter type: initial encounter Thoracic vertebra fracture level: unspecified thoracic vertebra Qualified Code(s): S22.000A - Wedge compression fracture of unspecified thoracic vertebra, initial encounter for closed fracture (4) Pulmonary embolism Acute cor pulmonale presence: unspecified Chronicity: acute Pulmonary embolism type: unspecified Qualified Code(s): I26.99 - Other pulmonary embolism without acute cor pulmonale
[2018-12-28] MEDS: OXYCODONE HCL IR 5 MG TAB (IMMEDIATE RELEASE) PO PRN (07:41)
[2018-12-28] MEDS: CHECK FENTANYL PATCH PLACEMENT SCH ×6 (07:41→23:45)
[2018-12-28] MEDS: INSULIN ASPART 100 UNITS/ML 3 ML PEN SC SCH ×4 (08:06→22:07)
[2018-12-28] MEDS: DOCUSATE SODIUM/SENNA 50/8.6MG TAB PO SCH ×2 (10:06→22:13)
[2018-12-28] MEDS: DULOXETINE HCL 30 MG CAP PO SCH (10:08)
[2018-12-28] MEDS: ENOXAPARIN 80 MG/0.8 ML SYR SQ SCH ×2 (10:09→22:12)
[2018-12-28] MEDS: MULTIVITAMIN TAB PO SCH (10:09)
[2018-12-28] MEDS: ASCORBIC ACID 500 MG TAB PO SCH (10:09)
[2018-12-28] MEDS: THIAMINE HCL 100 MG TAB PO SCH (10:09)
[2018-12-28] MEDS: ACYCLOVIR 400 MG TAB PO SCH (10:13)
--- NOTE | 2018-12-28 10:13 | Consultation Report ---
DATE OF CONSULTATION: 12/28/2018 REASON FOR CONSULTATION: An 83-year-old gentleman with IgG lambda multiple myeloma. HISTORY OF PRESENT ILLNESS: Mr. White is a very pleasant, somewhat complex, 83-year-old gentleman who is well known to [facility], currently under my care for recently diagnosed IgG lambda multiple myeloma. Apparently, Mr. White was admitted on 12/22/2018 with symptoms progressing over the previous 3 days, specifically shortness of breath considerably worse on ambulation. He also reports intermittent panic attacks. The patient's clinical course has been complex noted in previous hospitalization in mid November because of hypoxia brought on by pulmonary embolism. He was effectively anticoagulated and continues Coumadin, I believe. Apparently during this hospitalization while on the medical floor, he developed a rash concerning for a possible sulfa drug reaction versus loop diuretic. His oxygen requirement also had worsened. Hence he was transferred to the ICU because of respiratory failure. At the bedside this morning, Ja continues to struggle with his oxygenation, but states his pain has been better managed. Mr. White had presented back in September of 2018 to his primary care physician complaining of subacute onset back pain. Imaging had revealed lytic lesions and a moderate disk space narrowing at L5 and S1, which were confirmed by MRI. I then initially saw Mr. White in October of 2018 and performed full myeloma panel including bone marrow biopsy and aspiration, which was performed in late October revealing 80% to 90% plasmacytosis. Mr. White appropriately was started on combination Revlimid, Velcade, and dexamethasone. He has also received palliative radiation therapy to the thoracic spine which unfortunately was minimally effective in controlling his pain. Between his panic /anxiety and pain issues, he has been very difficult to manage. His last dose of Velcade was administered in late November, 12/10/2018 to be precise. We will plan on updating his SPEP with immunofixation and quantitative immunoglobulins while in house. PAST MEDICAL HISTORY: Includes pulmonary embolism, hypertension, multiple myeloma, IgG lambda, urinary tract infection, chronic kidney disease, mitral valve disorder, acute diastolic CHF, pancytopenia attributable to treatment, hyperlipidemia. MEDICATIONS: Prior to admission include oxycodone 10 mg p.o. q. 6 hours p.r.n., metoprolol succinate 12.5 mg p.o. q.a.m., acyclovir 400 mg p.o. q.a.m., dexamethasone 20 mg, he was pulsing 4 days on and 4 days off, fentanyl 50 mcg transdermal q. 72 hours, Lovenox 80 mg subQ q. 12 hours, clonazepam 1 mg p.o. b.i.d., Revlimid 25 mg daily for 21 days every 28-day cycle, meclizine 25 mg p.o. daily p.r.n., Zofran 8 mg p.o. q. 8 hours p.r.n., sertraline 50 mg p.o. at bedtime, lorazepam 0.5 mg p.o. b.i.d. p.r.n. ALLERGIES: ADHESIVE TAPE. SOCIAL HISTORY: Lives with his . He is retired. He is a nonsmoker, nondrinker. FAMILY HISTORY: Father attributable to myocardial infarction. Mother from pulmonary embolism post hip replacement. Grandfather at age 34 from head and neck cancer. Grandmother on the mother's side passed from stomach cancer. Brother at age 69, thought to be from neoplastic disease. REVIEW OF SYSTEMS: As per HPI. General clinical decline, intractable skeletal pain, subacute onset hypoxia. No fevers, chills, or sweats. CONSTITUTIONAL: He denies headaches, lightheadedness or dizziness. HEENT: No acute visual or hearing deficits. No sinus symptoms, sore throat, or dysphagia. LYMPHATICS: No history of lymphoproliferative disease. CARDIAC: No current angina or palpitations. PULMONARY: Positive for shortness of breath and dyspnea on exertion. No cough or hemoptysis. GASTROINTESTINAL: Negative for abdominal pain, nausea, vomiting, diarrhea, or constipation. GENITOURINARY: No history of prostate disease. No hematuria, dysuria, urinary incontinence. PSYCHIATRIC: Positive for anxiety, positive for panic disorder. No history of schizophrenia. MUSCULOSKELETAL: Positive for diffuse skeletal pain. Previously received palliative radiation therapy to thoracic spine. HEMATOLOGIC: Positive for cytopenias attributable to treatment and primary hematologic disease. NEUROLOGIC: Negative for seizure, stroke, or migraine headache. PHYSICAL EXAMINATION: GENERAL: Pleasant 83-year-old gentleman in no acute distress. VITAL SIGNS: Temperature 37.2, pulse 76, respiratory rate 12, blood pressure 104/67. SKIN: Warm, dry, noncyanotic without petechiae, rash, or ecchymosis. HEENT: Head is atraumatic, normocephalic. Eyes, PERRLA, EOMI. Sclerae nonicteric. No conjunctival injection. Nares patent without rhinorrhea or discharge. Throat clear. Tongue midline. Mucous membranes are moist. No buccal lesions or ulcerations. NECK: Supple without JVD or thyromegaly. LYMPHATICS: No cervical or supraclavicular palpable nodes. HEART: A III/ holosystolic murmur heard in the left precordium. LUNGS: Distant breath sounds with crackles most predominant in the right posterior base. ABDOMEN: Soft, nontender, nondistended. EXTREMITIES: No clubbing, cyanosis. Maybe trace edema. MUSCULOSKELETAL: Strength is equal in all 4 quadrants. NEUROLOGICAL: He is awake, alert, and oriented x3. Cranial nerves are intact. No gross motor or sensory deficits are noted. LABORATORY DATA: WBC count 7950, hemoglobin 9.4, platelet count 133,000. Sodium 137, potassium 3.8, chloride 100, carbon dioxide 32, creatinine 1.17, BUN 30. Troponin mildly elevated at 0.053. Magnesium slightly elevated at 2.7. IMPRESSION: 1. Acute hypoxia/respiratory failure. 2. Recent diagnosis of pulmonary embolism. 3. IgG lambda multiple myeloma. 4. Intractable skeletal pain. 5. Suspected panic disorder. PLAN: Mr. White is a very pleasant but very complex 83-year-old gentleman recently diagnosed with IgG lambda multiple myeloma. Unfortunately, his course has been complicated by intractable back pain. Received palliative radiation therapy, which was minimally effective. He continues to have bouts of confusion and agitation on opioids and benzodiazepines. It has been very difficult to keep him on treatment. His last Velcade was administered on 12/18/2018. We will plan to update his SPEP with immunofixation and quantitative immunoglobulins to see where we are in regards to his plasma cell dyscrasia. According to the critical care team, however, his echocardiogram suggests he has an [id number] diastolic heart failure and has been maximally diuresed. He continues anticoagulation for a previously diagnosed pulmonary embolism. Obviously, this gentleman has true pathology. I think at this point it might be helpful for him to engage with a mental health professional to look into his anxieties as certainly his mental status has created road blocks keeping him consistent with the prescribed therapy. Pain management has also proved to be difficult. With increasing doses of opioids, he develops confusion and agitation. I am open to any suggestions moving forward regarding pain management. Once I have reviewed the updated myeloma panel, we will make a determination on how to move forward with therapy. We will continue to follow along with you during his hospital stay until discharge. Thank you very much for allowing me to participate in Mr. White's care. FLOWER
--- NOTE | 2018-12-28 11:26 | Palliative Care Consultation ---
Date of Consultation December 28, 2018 Assessment & Plan (1) Goals of care, counseling/discussion: -83 year old male patient with PMH pulmonary embolism, hypertension, multiple myeloma, IgG lambda, urinary tract infection, chronic kidney disease, mitral valve disorder, acute diastolic CHF, pancytopenia attributable to treatment, hyperlipidemia, and others, presented to the hospital with c/o SOB and bilateral lower extremity edema. Patient was diagnosed with multiple myeloma after presenting in September with back pain. He was found to have lytic lesions in spine and ultimately diagnosed with MM. He was started in dexamethasone, Velcade, and Revlimid. He then presented to the hospital recently with new PEs and was on Lovenox at home. Upon admission this time, CXR showed cardiomegaly but no vascular congestion. CTA and LE doppler showed no additional clot burden. Patient was started on IV Lasix 40mg on 12/22 and 12/23. It was then switched to PO when patient was noted to have new macular rash that could be drug related. Lasix was only new pill, so he was switched to 1mg Bumex. The rash worsened so he was started on ethacrynic acid. Patient diuresed 3.6kg and 6.8L. Patient has had several echocardiograms during admission which have showed normal EF with significant aortic valve sclerosis without significant stenosis, mild mitral regurg, and an element of left ventricular outflow obstruction. After being diuresed, patient was doing fairly well and was planning to be discharged soon. Yesterday on 12/27, patient suddenly became hypoxic and was having respiratory distress. CT of the chest and CXR showed significant atelectasis at the lung bases, possible pneumonia. There was concern of sepsis as patient was also hypotensive. Patient was sent to the ICU in case he needed intubation and/or pressors. They were able to stave off intubation and vasoactive medications. Procalcitonin is negative, sepsis unlikely at this point. Of note, patient has struggled immensely with anxiety, panic attacks and uncontrolled pain throughout this process since diagnosis of MM. In fact, his psychologic issues have greatly impacted his health, ability to adhere to treatment, and now ultimately his prognosis. Patient underwent palliative XRT to the spinal lesions with little to no relief. Upon admission, he was on fentanyl 50mcg, but it was cut to 25mcg during his stay due to increased lethargy. Patient's pain was then uncontrolled, so he now is at 37mcg/hr. Has oxycodone 5mg PRN breakthrough pain as well. Patient is also on sertraline for his depression. He has not been getting out of bed, taking deep breaths, eating/drinking well-- since admission especially. His albumin is 2.5. It seems as though his major acute issue at this time is atelectasis of the lungs due to immobility, pain medication, lethargy, and a combination of all his health issues. Upon arrival to ICU, patient and family discussed his condition with the program dir. He was made a DNR/DNI. Today, his VS are stable. He is requiring 8L oxymask. BP was marginal this morning, but no pressors needed. Palliative care is consulted to provide supportive care and assistance with medical decision making. -Met with patient, his Dari, friend/POA/neighbor Marti (who is also a nurse practitioner), and another male friend. Patient and gave permission to speak in front of the others. -Patient states, "It's not so much pain, but more anxiety," when asked how his back is today. He states he had a terrible night riddled with anxiety and pain mixed. He took a dose of oxycodone 5mg last evening after 2300 and again this morning at 0741. He is on fentanyl 37mcg/hr. -Will start Cymbalta 30mg, stop the sertraline. Cymbalta helpful for any neuropathic pain and may also help with mood stability/anxiety. Trying to avoid more benzos. -Long discussion with patient and family about all of patient's current acute medical issues as well as the multiple myeloma. Family asked about prognosis and I did state his prognosis is poor at this point. They stated they are not surprised and they want providers to be honest with them. -Outside of the room, friend Marti states that patient told her, "I just want to sleep through all of this," and she believes that is exactly what he is d benedict. Marti has been a wonderful support to the patient and family. She has been an oncology [employer] in the past and is quite knowledgeable obviously. She is instrumental in discussing goals of care with the patient and family, and I recommend involving her in conversations. -Patient and family do want to continue treatment at this time. They are aware that a more palliative approach is an option as well. The goal would be for patient to get back home, but under what circumstances or with what goal, I am uncertain at this point. Will obviously depend on hospital course. -Discussed the importance of using incentive spirometry, increasing mobility to expand lungs, getting out of bed, eating well, etc. Patient and family understand. -Dr. Bradshaw has ordered ketamine for today to hopefully reset any [id number] and improve symptoms. Hopefully patient will get some rest so we can reassess his readiness to get up and moving as able tomorrow. -Palliative care will continue to follow along during hospitalization. (2) Hypoxia: (3) Generalized weakness: (4) CKD (chronic kidney disease) stage 2, GFR 60-89 ml/min: (5) Acute diastolic CHF (congestive heart failure): (6) Dynamic left ventricular outflow obstruction: (7) Multiple myeloma: History of Present Illness Attending Physician: Cherelle Tomlin MD History of Present Illness This 83 year old male patient with PMH pulmonary embolism, hypertension, multiple myeloma, IgG lambda, urinary tract infection, chronic kidney disease, mitral valve disorder, acute diastolic CHF, pancytopenia attributable to treatment, hyperlipidemia, and others, presented to the hospital with c/o SOB and bilateral lower extremity edema. Patient was diagnosed with multiple myeloma after presenting in September with back pain. He was found to have lytic lesions in spine and ultimately diagnosed with MM. He was started in dexamethasone, Velcade, and Revlimid. He then presented to the hospital recently with new PEs and was on Lovenox at home. Upon admission this time, CXR showed cardiomegaly but no vascular congestion. CTA and LE doppler showed no additional clot burden. Patient was started on IV Lasix 40mg on 12/22 and 12/23. It was then switched to PO when patient was noted to have new macular rash that could be drug related. Lasix was only new pill, so he was switched to 1mg Bumex. The rash worsened so he was started on ethacrynic acid. Patient diuresed 3.6kg and 6.8L. Patient has had several echocardiograms during admission which have showed normal EF with significant aortic valve sclerosis without significant stenosis, mild mitral regurg, and an element of left ventricular outflow obstruction. After being diuresed, patient was doing fairly well and was planning to be discharged soon. Yesterday on 12/27, patient suddenly became hypoxic and was having respiratory distress. CT of the chest and CXR showed significant atelectasis at the lung bases, possible pneumonia. There was concern of sepsis as patient was also hypotensive. Patient was sent to the ICU in case he needed intubation and/or pressors. They were able to stave off intubation and vasoactive medications. Procalcitonin is negative, sepsis unlikely at this point. Of note, patient has struggled immensely with anxiety, panic attacks and uncontrolled pain throughout this process since diagnosis of MM. In fact, his psychologic issues have greatly impacted his health, ability to adhere to treatment, and now ultimately his prognosis. Patient underwent palliative XRT to the spinal lesions with little to no relief. Upon admission, he was on fentanyl 50mcg, but it was cut to 25mcg during his stay due to increased lethargy. Patient's pain was then uncontrolled, so he now is at 37mcg/hr. Has oxycodone 5mg PRN breakthrough pain as well. Patient is also on sertraline for his depression. He has not been getting out of bed, taking deep breaths, eating/drinking well-- since admission especially. His albumin is 2.5. It seems as though his major acute issue at this time is atelectasis of the lungs due to immobility, pain medication, lethargy, and a combination of all his health issues. Upon arrival to ICU, patient and family discussed his condition with the program dir. He was made a DNR/DNI. Today, his VS are stable. He is requiring 8L oxymask. BP was marginal this morning, but no pressors needed. Palliative care is consulted to provide supportive care and assistance with medical decision making. Thank you kindly for this consult. Palliative care team will follow as needed. Allergies Allergy/AdvReac Type Severity Reaction Status Date / Time adhesive tape Allergy Mild Rash Verified 12/06/18 13:37 No Known Drug Allergies Allergy Unknown NONE PER PT Verified 12/06/18 13:37 Home Medications Home Medications Medication Instructions Recorded Confirmed Type oxycodone 10 mg tablet 10 mg PO Q6H PRN tab 11/13/18 12/21/18 History metoprolol succinate ER 25 mg 12.5 mg PO QAM tab 11/15/18 12/21/18 History tablet,extended release 24 hr acyclovir 400 mg PO QAM 12/06/18 12/21/18 History dexamethasone 20 mg PO DIRECTED 12/06/18 12/21/18 History fentanyl 50 mcg TRANSDERMAL Q72H 12/06/18 12/21/18 History enoxaparin [Lovenox] 80 mg SQ Q12H 30 Days #48 ml 12/08/18 12/21/18 Rx clonazepam 1 mg PO BID PRN 12/21/18 12/21/18 History lenalidomide [Revlimid] 25 mg PO QAM 12/21/18 12/21/18 History meclizine 25 mg PO DAILY PRN 12/21/18 12/21/18 History ondansetron HCl 8 mg PO Q8H PRN 12/21/18 12/21/18 History sertraline 50 mg PO HS 12/21/18 12/21/18 History lorazepam 0.5 mg PO BID PRN #10 tab 12/24/18 Rx sod phos di, mono-K phos mono 1 tab PO DAILY #30 tab 12/24/18 Rx [Phospha 250 Neutral] Patient History Medical History Mitral valve disorder Anemia Thrombocytopenia HLD (hyperlipidemia) HTN (hypertension) Pulmonary embolism (Acute) Vertigo (Chronic) Hypertension (Chronic) History of vertebral compression fracture (Inactive) Multiple myeloma (Inactive) Surgical History History of dental surgery S/P cataract surgery S/P inguinal hernia repair Family History Father , Passed age 64 of [place] Myocardial infarction Mother , Passed age 89 of blood clot after hip replacement No problems noted. Grandfather (Maternal) , Passed age 34 of head and neck cancer No problems noted. Grandmother (Maternal) , Passed age of 72 stomach cancer No problems noted. Brother , Passed age 69 of likely cancer No problems noted. 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 Feels Safe at Home: Yes Smoking Status: Former smoker packs per day: 1.5 ; Second Hand Exposure: No ; Hx Alcohol Use: No Hx Substance Use: No Childhood Exposure to Second-Hand Smoke: Yes caffeine: No Seatbelt Use: always Review of Systems Review of Systems: Const: + severe generalized weakness Resp: + SOB with exertion, no cough Cardio: No chest pain, no edema GI: No abdominal pain, N/V MS: + back pain 08/30, but also stated, "It's not so much pain as it is anxiety" Neuro: No confusion Psych: + anxiety, + depression Physical Exam Constitutional: + ill appearing; no acute distress Neck: normal visual inspection Respiratory: + abnormal respiratory effort (poor effort, shallow breathing) Auscultation: + diminished lung sounds Cardiovascular: Rate/Rhythm: regular rate and regular rhythm (some missed beats/prlonged R-R) Heart Sounds: + murmur (significant murmur with thrill heart best over aortic and pulmonic areas) Gastrointestinal (Abdomen): Inspection/Auscultation: abdomen normal to inspection and normal bowel sounds Percussion/Palpation: abdomen soft; abdomen nontender Neurologic: moves all extremities and awake Psychiatric: Orientation: oriented x 3 Affect: + blunted affect Insight: good insight Results & Data Vital Signs (Past 12 Hours) Vital Signs Temp Pulse Resp BP Pulse Ox 12/28/18 08:00 37.2 C 76 12 104/67 91 12/28/18 07:00 87 13 102/71 91 12/28/18 06:00 84 12 126/66 89 L 12/28/18 05:00 66 17 117/64 95 12/28/18 04:00 36.7 C 69 18 130/73 96 12/28/18 03:00 89 26 H 104/69 89 L 12/28/18 02:00 70 15 104/55 L 94 12/28/18 01:00 79 24 120/58 L 93 12/28/18 00:03 36.4 C L 12/28/18 00:00 66 20 117/58 L 95 12/27/18 23:55 66 Time Spent Midlevel 100 minutes with >50% of time spent at bedside with patient, family, ICU staff discussing condition, plan of care, goals of care.
[2018-12-28] MEDS: KETAMINE HCL 10 MG in SODIUM CHLORIDE 0.9% 50 ML IV PRN ×2 (11:33→14:08)
[2018-12-28] MEDS: dexAMETHasone 4 MG TAB PO SCH (11:35)
[2018-12-28] MEDS: MEGESTROL ACETATE 800 MG/20 ML UDP PO SCH (14:08)
[2018-12-28] MEDS: CETIRIZINE HCL 10 MG TABLET PO SCH (14:09)
[2018-12-28] MEDS: METOPROLOL SUCC 25MG EXT REL TAB PO SCH (14:09)
[2018-12-28] MEDS ORDERED: KETAMINE HCL INJ 50 MG/ML 10 ML VIAL IV STA (18:41)
[2018-12-28] MEDS ORDERED: KETAMINE HCL 500 MG in SODIUM CHLORIDE 0.9% 490 ML IV SCH (19:00)
[2018-12-28] MEDS ORDERED: KETAMINE HCL 10 MG in SODIUM CHLORIDE 0.9% 50 ML IV ONE (19:30)
[2018-12-29 04:25] LABS: Hematocrit (blood only) 26.7 % (42-52); Hemoglobin 8.8 g/dL (14.0-18.0); Mean Corpuscular Hemoglobin 30.8 pg (25-34); Mean Corpuscular Volume 93.4 fL (80-100); Mean Platelet Volume 12.6 fL (7.4-10.4); Platelet Count 137 K/uL (130-400); RDW Coefficient of Variation 15.9 % (11.5-14.5); RDW Standard Deviation 54.1 fL (36.4-46.3); Red Blood Count 2.86 M/uL (4.7-6.1); White Blood Count 7.02 K/uL (4.8-10.8)
[2018-12-29 04:48] LABS: BUN Creatinine Ratio 26.9 (10-20); Calcium 7.5 mg/dl (8.5-10.1); Creatinine Clr Calc Pharmacy 58.2 ml/min; Est GFR (African American) 80.5; Est GFR (Non-African American) 69.4; Magnesium 2.6 mg/dl (1.8-2.4); Potassium 3.3 mmol/L (3.5-5.1)
[2018-12-29 04:52] LABS: Phosphorus 2.3 mg/dl (2.5-4.9)
[2018-12-29] MEDS ORDERED: POTASSIUM PHOS 3 MMOL/1 ML INFUSION IV STA (05:07)
[2018-12-29] MEDS ORDERED: POTASSIUM PHOSPHATE 30 MMOL in SODIUM CHLORIDE 0.9% 500 ML IV ONE (05:15)
--- NOTE | 2018-12-29 06:11 | Hospitalist Progress Note ---
Date of Service DOS is actually 12/28/18 December 29, 2018 Assessment & Plan (1) Hypoxia: Was on oxygen prior to admission since the last hospital admission for PE Likely secondary to pulmonary embolism and CHF as well as atelectasis He was requiring 2 L of oxygen here with ambulation on 12/26 On the psychologist experimental hours of 12/27, he acutely decompensated with worsening hypoxia requiring 12 L via oxygen mask CT of chest and chest x-ray repeated and shows significant atelectasis at the bases Suspect atelectasis due to poor inspiratory effort due to pain from multiple thoracic compression fractures and rib fractures Echocardiogram limited repeated and showed no pericardial effusion No IA as evidenced by no ischemic changes on ECG and troponin serially mildly elevated but stable Hemoglobin has not dropped He has been on therapeutic Lovenox dosing and do not suspect new or large PE, no evidence of right heart strain on echocardiogram -He does not appear significantly volume overloaded on chest x-ray and I do not think his hypoxia is from worsening heart failure, proBNP is mildly elevated from previous however -Transferred to the intensive care unit on 12/27 in case of need for intubation -Ordered CPAP but was not placed on as per nursing due to the fact that he was not in respiratory distress-I do believe that positive airway pressure would help to open up his lungs but so would incentive spirometry and increase mobilization-needs improved pain control-working on that now with ketamine drip -He is now weaned down to 6 L by Oxymizer mask but is still minimally moving out of bed -Improved pain control for compression fractures as below -Continue supplemental oxygen to keep pulse ox greater than 88-90% -Started Zosyn in case of gram-negative pneumonia -Continuous pulse ox -Continue oral diuretics as before (2) Acute diastolic CHF (congestive heart failure): Presented with acute shortness of breath and lower extremity edema Acute on chronic diastolic congestive heart failure. CTA and lower extremity Doppler was negative for additional clot burden. Echo shows preserved EF 60-65%. Stable from prior. - Lasix 40mg IV given on 12/22 and 12/23 with significant diuresis Started on p.o. furosemide 40 mg daily but with erythematous macular rash- possible allergic reaction-converted to Bumex 2 mg daily on 12/26 but rash seemed worse -Discontinued Bumex and started ethacrynic acid in case of sulfa moiety allergic reaction -Continue ethacrynic acid 50 mg once daily and titrate up as needed-lower blood pressures may prevent this He is now net negative fluid 8.3 L and weight is down 7 kg Continue low-sodium diet, fluid restrict 1500 cc, continue strict I's and O's -Can follow up with Kaylene Dillon in CHF clinic as well as Dr. Boston. -Replace potassium as needed -Appreciate cardiology consultation -Due to orthopnea, should remain with head of bed elevated greater than 30 degrees-May benefit from hospital bed at home (3) Multiple myeloma without remission: Follows with Dr. Galan. Will restart his Velcade infusions after discharge. Received dexamethasone 20 mg daily x4-day cycle-started on 12/25 -will now hold Revlimid in case causing allergic reaction with rash, plus he finished 13 of his 14-day course -Consult oncology appreciated on opinion on overall picture and treatment course-repeat SPEP and immunoglobulins pending Is status post radiation treatments to the spine for pathologic fractures-pain is improved now somewhat -Given excessive drowsiness, decreased fentanyl patch to 25 mcg -His drowsiness did improve, however his pain became much worse-now increased fentanyl to 37 mcg every 72 hours -Lead Teacher started him on ketamine to help improve pain Continue Zofran for nausea -Continue acyclovir 400 mg once daily for prophylaxis (4) Pulmonary embolism: Repeat CTA, lower extremity Doppler was negative for additional clot burden Continue therapeutic Lovenox dosing indefinitely for PE in the setting of malignancy (5) HTN (hypertension): BP has been quite low at times -Beta-ayaan can be continued with hold parameters-was given later in the day today after blood pressure improved -Continue ethacrynic acid (6) Fracture of rib: Due to MM. - Continue pain management (7) Compression fx, thoracic spine: With worsening pain after decreasing fentanyl patch Is status post radiation treatment -Increased fentanyl patch to 37 mcg as above -Continue oxycodone as needed for breakthrough pain -Lead Teacher has added ketamine as needed for pain (8) Compression fx, lumbar spine: As above. (9) Anemia: Hemoglobin low but stable at 9.4-likely secondary to chemotherapy and multiple myeloma -Follow CBC (10) Hypokalemia: Replaced and improved -Follow BMP (11) Thrombocytopenia: Platelets low but improved from previous at 133K, likely secondary to chemotherapy for multiple myeloma -Follow CBC (12) Dynamic left ventricular outflow obstruction: Noted on echocardiogram -Watch extremes of volume status (13) Pulmonary nodule: 8 mm nodule noted on CT scan here -Should be followed with repeat imaging as per guidelines (14) Rash: Has a history of idiopathic angioedema/urticaria for which he previously took Zyrtec for years He has not been on his Zyrtec for several weeks as per Now with macular drug eruption appearing rash all over torso, proximal thighs and arms. No lesions in the mouth, no lip or tongue swelling, no wheezing but is hypoxic which I do not think is from anaphylaxis Does not seem to be improved today despite holding Lasix/Bumex and could have been from his chemotherapeutic drug Revlimid -Changed his diuretic to ethacrynic acid as above in case of sulfa moiety reaction -Have since restarted Zyrtec 10 mg once daily -Received dexamethasone 20 mg daily x4 days as above for multiple myeloma which also help with allergic reaction, and also received 2 days of IV Lvlx-Tlnadw-weozezcvrjtp now for increased anxiety/possible psychosis -We will continue to follow rash and hope for improvement (15) Situational anxiety: Recently started on clonazepam and then switch to lorazepam here in the hospital -Also recently started on sertraline but was not taking this consistently at home but now has been getting it here in the hospital -With excessive drowsiness here with benzodiazepines and opioids -Palliative care suggested changing sertraline to Cymbalta-started today at 30 mg daily -Follow (16) Nasal congestion: Interfering with ability to breathe through nose with nasal cannula-now improved with Afrin and nasal saline -Continue nasal saline -DC Afrin (17) CKD (chronic kidney disease) stage 2, GFR 60-89 ml/min: Noted Creatinine stable 1.17 -Avoid nephrotoxins -Renally dose medications (18) Constipation: Had not had a bowel movement in 5 to 6 days, secondary to opioid use likely-now improved and having bowel movements after multiple laxatives -Continue MiraLAX as needed -Continue senna/docusate -Monitor (19) Urinary retention: Had Diallo catheter placed upon admission apparently for monitoring I's and O's in setting of CHF and severe dyspnea -Had trial of void on 12/24 but failed and had Diallo catheter replaced on the morning of 12/25 -Consulted urology for further management -Started Flomax on 12/26 -will need to keep Diallo catheter in an trial of void in the office with urology after discharge -Urinalysis and urine culture ordered by urology-urinalysis appears positive as below -started Rocephin 1 g daily for UTI and follow urine culture, however changed to Zosyn for pulmonary coverage for suspected gram-negative pneumonia as above (20) UTI (urinary tract infection): UA positive and urine culture with gram-negative rods after having Diallo catheter in place -Treating with Zosyn as above -Follow urine [id number]-[id number] rods growing No evidence of sepsis (21) DVT prophylaxis: Lovenox therapeutic dosing Disposition-continued stay in the ICU Patient is now changed his CODE STATUS to DNR/DNI but is okay with BiPAP as needed Subjective Patient drowsy and did not say much throughout her interview. He recently started on a ketamine drip. He was hypotensive at times today and remains hypoxic. He is minimally active and has not been out of bed. Pain seems better controlled as per Review of Systems Review of Systems: All systems reviewed & are unremarkable except as noted in HPI & below Physical Exam Constitutional: + ill appearing; no acute distress Eyes: + anicteric sclerae Neck: trachea midline, no thyromegaly Respiratory: normal respiratory effort (With oxygen mask in place); no labored breathing Auscultation: + diminished lung sounds (At bases bilaterally) and + crackles (At bases bilaterally); no wheezes Cardiovascular: Rate/Rhythm: regular rate and regular rhythm (With ectopy) Heart Sounds: + murmur (2/6 sys murmur at LLSB) Extremities: + edema (1+ pitting edema the ankles and feet bilaterally) Gastrointestinal (Abdomen): normal bowel sounds, soft, nontender, no hep atosplenomegaly Musculoskeletal: Extremities: extremities normal to inspection; no cyanosis and no clubbing Skin: + rash (Deeply erythematous macular rash diffusely over torso anterior and posterior and some on proximal thighs and upper extremities remains, is blanching) Neurologic: moves all extremities; no focal motor deficits, + not awake (Very drowsy when I saw him) and not confused Results & Data Vital Signs (Past 12 Hours) Vital Signs Temp Pulse Resp BP Pulse Ox Pulse Ox 12/29/18 04:00 65 105/55 L 93 12/29/18 03:00 60 119/54 L 92 12/29/18 02:30 60 103/54 L 92 12/29/18 02:00 63 109/51 L 90 12/29/18 01:30 70 104/58 L 92 12/29/18 01:00 63 122/58 L 93 12/29/18 00:27 64 12/29/18 00:00 37 C 66 92 12/28/18 23:00 60 110/59 L 92 12/28/18 21:00 60 108/57 L 95 12/28/18 20:00 70 14 99/59 L 96 97 12/28/18 19:58 67 15 102/54 L 97 12/28/18 19:04 78 100/47 L 94 12/28/18 19:00 76 70/50 L 93 Laboratory Results Labs reviewed Urine culture with gram-negative rods Blood cultures no growth to date PG Care Time/CCT Total # of Minutes Spent Total Time Spent with Patient: Total time spent is greater than 50% in coordination of care (as documented) at patient's floor/unit and/or counseling patient: (1) Pulmonary embolism Acute cor pulmonale presence: unspecified Chronicity: acute Pulmonary embolism type: unspecified Qualified Code(s): I26.99 - Other pulmonary embolism without acute cor pulmonale (2) Fracture of rib Encounter type: initial encounter Fracture type: closed Laterality: left R ib fracture type: single rib Qualified Code(s): S22.32XA - Fracture of one rib, left side, initial encounter for closed fracture (3) Compression fx, thoracic spine Encounter type: initial encounter Thoracic vertebra fracture level: unspecified thoracic vertebra Qualified Code(s): S22.000A - Wedge compression fracture of unspecified thoracic vertebra, initial encounter for closed fracture (4) Compression fx, lumbar spine Encounter type: initial encounter Lumbar vertebra fracture level: L1 Qualified Code(s): S32.010A - Wedge compression fracture of first lumbar verteb ra, initial encounter for closed fracture
[2018-12-29] MEDS: PIPERACILLIN/TAZOBACTAM 4.5 GM in DEXTROSE 5% 100 ML IV SCH (06:36)
--- NOTE | 2018-12-29 07:23 | Critical Care Progress Note ---
Date of Service December 29, 2018 Assessment & Plan (1) Admitted to intensive care unit: Reason Critically Ill: Ja White is a 83 y/o male with hx of Multiple myeloma, HTN, Chronic diastolic dysfunction with new onset oxygenation requirement with concerns for infection and new onset of possible drug rash vs. Dress syndrome. Neuro: alert and oriented x3 Continue with current Fentanyl 25mcg TD q72H elias and Oxcodone 5mg PO q6H PRN for pain - he was having medications scaled back as concerns for respiratory depression in a patient with worsening respiratory status and pain from pathologic spinal/rib fractures related to his multiple myeloma. Focusing on comfort discontinued Ketamine Palliative consulted for end of life goals conversation. Patient with significant anxiety related to steroid induced neuro/psychiatric adverse effects = Holding Dexamethasone CAM negative Yesterday started Cymbalta 30mg PO qAM for neuropathic pain pathway and also giving Serotonin reuptake inhibitor for anxiety; discontinued Sertraline. Pain management consult placed today Palliative care following Cardiac/Vascular: Past Medical Hx: HTN, chronic diastolic HF acute on chronic diastolic heart failure Hold Ethacrynic Acid 50mg PO qAM elias Dynamic Left ventricle outflow tract obstruction - watch extremes of fluid status; noted on echocardiogram Pulm: Hx of recent PE and CHR, with failed two step prior to ICU transfer requiring 2L of O2. Increasing oxygen requirement reason for critically ill and ICU transfer Currently on oxy mask; having poor respiratory effort secondary to rib pain and spinal pain from fractures Out of bed for lunch starting today; Incentive Spirometry ordered. Repeat CXR ordered today GI: Prophylaxis: Diet: fluid restriction 1500cc; heart healthy diet but okay to bring outside food in, brought in [facility] last night as patient has had poor appetite Continue with Megase Baseline weight noted to be ~83.5kg Has received laxatives for previous constipation with success; changed Miralax to PRN constipation. Nutritional support with Thiamine 100mg daily PO; Multivitamin daily; Vitamin C 500mg daily. Prealbumin ordered today Renal/Lytes: Fluid restriction of 1500cc as noted above Lytes follow, replete as indicated : No current romano as UTI; urology consulted prior to transfer to ICU Gram negative bacilli ID'd as Morganella UTI - previously covering with Zosyn; will switch to Rocephin based on sensitivities and also providing Lung coverage Endo: No hx of diabetes or Thyroid dz Will cover with insulin per protocol since on high dose steroids Heme: Current treatment for Multiple Myeloma; follows with Dr. Galan Oncology saw patient this morning and yesterday recommended Spep and Immunofixation labs Discussed to hold/stop Chemotherapeutic agent Revlimid as critically ill and suspected drug related rash; also holding Dexamethasone/steroids ID: Concerns for underlying pneumonia as poor respiratory status and poor respiratory effort setting up for risk for lung infection. Stop Zosyn for pneumonia/lung coverage; Gram negative bacilli ID'd as Morganella UTI - previously covering with Zosyn; will switch to Rocephin based on sensitivities and also providing Lung coverage CT non contrast for evaluation for pneumonia as well as other respiratory pathology performed yesterday * Evidence of lytic bone disease consistent with the patient's known myeloma. Multiple pathologic fractures are visualized. * Slight progression in the bibasilar atelectasis/consolidation * Stable 6 mm right upper lobe pulmonary nodule Repeat CXR today Lines: Currently with peripheral Discussed risks/benefits for Central Venous IJ if needed as well as arterial line and blood transfusions which patient consented if needed DVT ppx: currently on therapeutic Lovenox for recent PE treatment Resuscitation Status: Discussed end of life goals of care and was recent Full Code; patient and spouse agreed to DNR/DNI; no changes today (2) Shortness of breath: (3) Bilateral lower extremity edema: (4) Multiple myeloma without remission: (5) Anticoagulant long-term use: (6) HTN (hypertension): (7) Pulmonary embolism: (8) Fracture of rib: (9) Compression fx, thoracic spine: (10) Compression fx, lumbar spine: (11) Rash: (12) UTI (urinary tract infection): (13) Urinary retention: (14) Constipation: (15) CKD (chronic kidney disease) stage 2, GFR 60-89 ml/min: (16) DVT prophylaxis: (17) Mitral valve disorder: (18) Acute diastolic CHF (congestive heart failure): (19) Pancytopenia due to antineoplastic chemotherapy: (20) Thrombocytopenia: (21) Discharge planning issues: (22) HLD (hyperlipidemia): (23) Acute UTI: Supervising Physician Co-Signing Physician Notes Dr. Godfrey was resident physician during care of patient. I separately evaluated patient for schroeder portions of the history and the exam. I was present during the critical portion of medical decision making, and I discussed the case with the resident. I generally agree with the findings and plan. Extensive discussion with patient and family, goals are to return home we will continue antibiotics. I discussed with Dr. Nicole he is agreeable with this plan. Family does not want to use the term hospice as they do not want the patient to give up hope however he is not a candidate for continued chemotherapy due to multiple comorbidities as well as active infection which would be worsened by chemotherapy. We are unable to facilitate discharge home and placement of at home caregivers so discharge will likely occur Tuesday. Patient is stable for downgrade out of the ICU. Subjective Mr. White did well overnight without acute reported events. His anxiety was reported to be well controlled without reported panic attacks. He continues to prefer to lay in bed without wanting to sit in bedside chair. Spouse unable to come in here today. Family friend noted that patient would like to seek hospice, go home, not continue aggressive treatments. Physical Exam Constitutional: + ill appearing and cooperative Eyes: + anicteric sclerae and EOM intact bilaterally Neck: normal visual inspection and trachea midline Respiratory: no respiratory distress Auscultation: + diminished lung sounds Cardiovascular: Rate/Rhythm: regular rate and regular rhythm Gastrointestinal (Abdomen): Percussion/Palpation: abdomen soft; abdomen nontender Musculoskeletal: Head/Neck/Chest: normocephalic and head atraumatic Skin: + rash Neurologic: moves all extremities and awake Psychiatric: Orientation: alert and oriented x 3 Results & Data Vital Signs (Past 12 Hours) Vital Signs Temp Pulse Resp BP Pulse Ox Pulse Ox 12/29/18 06:30 36.6 C 64 115/61 95 12/29/18 06:00 68 121/62 93 12/29/18 05:30 62 96/68 L 90 12/29/18 05:00 67 108/58 L 95 12/29/18 04:00 36.7 C 65 105/55 L 93 12/29/18 03:00 60 119/54 L 92 12/29/18 02:30 60 103/54 L 92 12/29/18 02:00 63 109/51 L 90 12/29/18 01:30 70 104/58 L 92 12/29/18 01:00 63 122/58 L 93 12/29/18 00:27 64 12/29/18 00:00 37 C 66 92 12/28/18 23:00 60 110/59 L 92 12/28/18 21:00 60 108/57 L 95 12/28/18 20:00 70 14 99/59 L 96 97 12/28/18 19:58 67 15 102/54 L 97 Laboratory Results Laboratory Results - last 24 hr 12/28/18 12/28/18 12/28/18 11:34 16:41 22:06 WBC RBC Hgb Hct MCV MCH MCHC RDW Std Deviation RDW Coeff of Zackery Plt Count MPV Sodium Potassium Chloride Carbon Dioxide Anion Gap BUN Creatinine Est Cr Clr Drug Dosing Est GFR ( Amer) Est GFR (Non-Af Amer) BUN/Creatinine Ratio Glucose POC Glucose 138 H 146 H 113 H Calcium Phosphorus Magnesium Total Protein (PEP) Albumin (PEP) Prealbumin Ivmrv-2-Nytwadrup Pdmbo-8-Tyqtsenoj Ueus-2-Lrrvndgr Utnf-4-Swefzzrp Gamma Globulins Monoclonal Peak 3 Ser Monoclonl Protein Ser Monoclonal Prot 2 PEP Interpretation Serum Immunofixation 12/29/18 12/29/18 12/29/18 04:02 04:02 04:02 WBC 7.02 RBC 2.86 L Hgb 8.8 L Hct 26.7 L MCV 93.4 MCH 30.8 MCHC 33.0 RDW Std Deviation 54.1 H RDW Coeff of Zackery 15.9 H Plt Count 137 MPV 12.6 H Sodium 139 Potassium 3.3 L Chloride 103 Carbon Dioxide 31 Anion Gap 5.0 BUN 27 H Creatinine 1.01 Est Cr Clr Drug Dosing 58.2 Est GFR ( Amer) 80.5 Est GFR (Non-Af Amer) 69.4 BUN/Creatinine Ratio 26.9 H Glucose 102 H POC Glucose Calcium 7.5 L Phosphorus 2.3 L D Magnesium 2.6 H Total Protein (PEP) Pending Albumin (PEP) Pending Prealbumin Rwfpg-1-Efoqcsohk Pending Wbqvg-8-Pnqtkavfz Pending Fukv-9-Wflfzojd Pending Cmby-4-Tibgqoqj Pending Gamma Globulins Pending Monoclonal Peak 3 Pending Ser Monoclonl Protein Pending Ser Monoclonal Prot 2 Pending PEP Interpretation Pending Serum Immunofixation Pending 12/29/18 12/29/18 04:02 07:35 WBC RBC Hgb Hct MCV MCH MCHC RDW Std Deviation RDW Coeff of Zackery Plt Count MPV Sodium Potassium Chloride Carbon Dioxide Anion Gap BUN Creatinine Est Cr Clr Drug Dosing Est GFR ( Amer) Est GFR (Non-Af Amer) BUN/Creatinine Ratio Glucose POC Glucose 98 Calcium Phosphorus Magnesium Total Protein (PEP) Albumin (PEP) Prealbumin Pending Bpgki-6-Wxxgqbfvd Tckrz-3-Zwwiwudcj Dwgz-6-Mdfoqeqa Zfew-3-Adpehywc Gamma Globulins Monoclonal Peak 3 Ser Monoclonl Protein Ser Monoclonal Prot 2 PEP Interpretation Serum Immunofixation Medications Administered Acetaminophen (Tylenol) 650 mg PO Q4H PRN PRN Reason: Pain or Fever Stop: 01/21/19 01:21 Last Admin: 12/27/18 08:22 Dose: 650 mg Documented by: [id number] Admin: 12/22/18 11:58 Dose: 650 mg Documented by: [id number] Acyclovir (Zovirax) 400 mg PO [facility] Stop: 01/01/19 08:59 Last Admin: 12/29/18 10:08 Dose: 400 mg Documented by: [id number] Admin: 12/28/18 10:13 Dose: 400 mg Documented by: [id number] Admin: 12/27/18 10:30 Dose: 400 mg Documented by: [id number] Admin: 12/26/18 07:57 Dose: 400 mg Documented by: [id number] Admin: 12/25/18 08:27 Dose: 400 mg Documented by: [id number] Admin: 12/24/18 08:15 Dose: 400 mg Documented by: [id number] Admin: 12/23/18 08:30 Dose: 400 mg Documented by: [id number] Admin: 12/22/18 08:10 Dose: 400 mg Documented by: [id number] Ascorbic Acid (Vitamin C) 500 mg PO [facility] Stop: 01/26/19 12:29 Last Admin: 12/29/18 10:06 Dose: 500 mg Documented by: [id number] Admin: 12/28/18 10:09 Dose: 500 mg Documented by: [id number] Admin: 12/27/18 14:42 Dose: 500 mg Documented by: [id number] Cetirizine HCl (Zyrtec) 10 mg PO [facility] Stop: 01/24/19 10:59 Last Admin: 12/29/18 09:42 Dose: 10 mg Documented by: [id number] Admin: 12/28/18 14:09 Dose: 10 mg Documented by: [id number] Admin: 12/27/18 10:29 Dose: 10 mg Documented by: [id number] Admin: 12/26/18 07:55 Dose: 10 mg Documented by: [id number] Admin: 12/25/18 12:14 Dose: 10 mg Documented by: [id number] Duloxetine HCl (Cymbalta) 30 mg PO QAM ELIAS Stop: 01/27/19 09:59 Last Admin: 12/29/18 09:42 Dose: 30 mg Documented by: [id number] Admin: 12/28/18 10:08 Dose: 30 mg Documented by: [id number] Enoxaparin Sodium (Lovenox) 80 mg SQ Q12 ELIAS Stop: 01/21/19 01:21 Last Admin: 12/29/18 09:42 Dose: 80 mg Documented by: [id number] Admin: 12/28/18 22:12 Dose: 80 mg Documented by: [id number] Admin: 12/28/18 10:09 Dose: 80 mg Documented by: [id number] Admin: 12/27/18 21:56 Dose: 80 mg Documented by: [id number] Admin: 12/27/18 08:09 Dose: 80 mg Documented by: [id number] Admin: 12/26/18 21:11 Dose: 80 mg Documented by: [id number] Admin: 12/26/18 07:56 Dose: 80 mg Documented by: [id number] Admin: 12/25/18 20:17 Dose: 80 mg Documented by: [id number] Admin: 12/25/18 08:29 Dose: 80 mg Documented by: [id number] Admin: 12/24/18 21:11 Dose: 80 mg Documented by: [id number] Admin: 12/24/18 08:14 Dose: 80 mg Documented by: [id number] Admin: 12/23/18 21:35 Dose: 80 mg Documented by: [id number] Admin: 12/23/18 08:28 Dose: 80 mg Documented by: [id number] Admin: 12/22/18 21:04 Dose: 80 mg Documented by: [id number] Admin: 12/22/18 08:09 Dose: 80 mg Documented by: [id number] Admin: 12/22/18 01:54 Dose: 80 mg Documented by: [id number] Ethacrynic Acid (Edecrin) 50 mg PO QAM [facility]IAS Stop: 01/26/19 08:59 Last Admin: 12/27/18 08:10 Dose: 50 mg Documented by: [id number] Fentanyl (Duragesic) 25 mcg TD Q3D ELIAS Stop: 01/10/19 17:59 Last Admin: 12/27/18 18:21 Dose: 25 mcg Documented by: [id number] Fentanyl (Duragesic) 12 mcg TD Q3D ELIAS Stop: 01/10/19 17:59 Last Admin: 12/27/18 18:21 Dose: 12 mcg Documented by: [id number] Insulin Aspart (Novolog Flexpen) 0 units SC ACHS ELIAS Stop: 01/26/19 16:29 Last Admin: 12/29/18 07:58 Dose: Not Given Documented by: [id number] Cosigned by: [id number] Admin: 12/28/18 22:07 Dose: Not Given Documented by: [id number] Cosigned by: [id number] Admin: 12/28/18 16:51 Dose: Not Given Documented by: [id number] Cosigned by: [id number] Admin: 12/28/18 11:36 Dose: Not Given Documented by: [id number] Cosigned by: [id number] Admin: 12/28/18 08:06 Dose: Not Given Documented by: [id number] Cosigned by: [id number] Admin: 12/27/18 22:07 Dose: Not Given Documented by: [id number] Cosigned by: [id number] Admin: 12/27/18 16:51 Dose: 3 units Documented by: [id number] Cosigned by: [id number] Lorazepam (Ativan) 0.5 mg PO BID PRN PRN Reason: Anxiety Stop: 01/22/19 17:30 Last Admin: 12/25/18 04:06 Dose: 0.5 mg Documented by: [id number] Admin: 12/24/18 23:48 Dose: 0.5 mg Documented by: [id number] Admin: 12/24/18 04:06 Dose: 0.5 mg Documented by: [id number] Megestrol Acetate (Megace) 800 mg PO DAILY [facility] Stop: 01/27/19 09:59 Last Admin: 12/29/18 09:42 Dose: 800 mg Documented by: [id number] Admin: 12/28/18 14:08 Dose: 800 mg Documented by: [id number] Metoprolol Succinate (Toprol Xl) 12.5 mg PO QAM [facility] Stop: 01/21/19 08:59 Last Admin: 12/29/18 10:06 Dose: 12.5 mg Documented by: [id number] Admin: 12/28/18 14:09 Dose: 12.5 mg Documented by: [id number] Admin: 12/27/18 08:11 Dose: Not Given Documented by: [id number] Admin: 12/26/18 07:56 Dose: 12.5 mg Documented by: [id number] Admin: 12/25/18 08:29 Dose: 12.5 mg Documented by: [id number] Admin: 12/24/18 08:15 Dose: 12.5 mg Documented by: [id number] Admin: 12/23/18 08:29 Dose: 12.5 mg Documented by: [id number] Admin: 12/22/18 08:10 Dose: 12.5 mg Documented by: [id number] Miscellaneous (Fentanyl Patch Check Placement) 1 ea N/A QS [facility] Stop: 01/27/19 00:00 Last Admin: 12/29/18 07:58 Dose: 1 ea Documented by: [id number] Admin: 12/28/18 23:44 Dose: 1 ea Documented by: [id number] Admin: 12/28/18 16:51 Dose: 1 ea Documented by: [id number] Admin: 12/28/18 07:41 Dose: 1 ea Documented by: [id number] Admin: 12/27/18 23:13 Dose: 1 ea Documented by: [id number] Miscellaneous (Fentanyl Patch Remove & Waste) 1 ea N/A Q3D [facility] Stop: 01/26/19 17:59 Last Admin: 12/27/18 18:22 Dose: 1 ea Documented by: [id number] Cosigned by: [id number] Miscellaneous (Fentanyl Patch Check Placement) 1 ea N/A QS [facility] Stop: 01/27/19 00:00 Last Admin: 12/29/18 07:59 Dose: 1 ea Documented by: [id number] Admin: 12/28/18 23:45 Dose: 1 ea Documented by: [id number] Admin: 12/28/18 16:51 Dose: 1 ea Documented by: [id number] Admin: 12/28/18 07:42 Dose: 1 ea Documented by: [id number] Admin: 12/27/18 23:13 Dose: 1 ea Documented by: [id number] Miscellaneous (Fentanyl Patch Remove & Waste) 1 ea N/A Q3D [facility] Stop: 01/26/19 18:14 Last Admin: 12/27/18 18:22 Dose: Not Given Documented by: [id number] Multivitamins (Multivitamin Tab) 1 tab PO QAM ELIAS Stop: 01/26/19 12:29 Last Admin: 12/29/18 09:42 Dose: 1 tab Documented by: [id number] Admin: 12/28/18 10:09 Dose: 1 tab Documented by: [id number] Admin: 12/27/18 14:42 Dose: 1 tab Documented by: [id number] Ondansetron HCl (Zofran Tab) 8 mg PO Q8H PRN PRN Reason: Dizziness Or Vertigo Stop: 01/21/19 01:21 Last Admin: 12/22/18 01:56 Dose: 8 mg Documented by: [id number] Oxycodone HCl (Roxicodone Immediate Rel) 5 mg PO Q6H PRN PRN Reason: Pain Stop: 01/05/19 01:21 Last Admin: 12/28/18 07:41 Dose: 5 mg Documented by: [id number] Admin: 12/27/18 21:53 Dose: 5 mg Documented by: [id number] Admin: 12/27/18 10:09 Dose: 5 mg Documented by: [id number] Senna/Docusate Sodium (Senokot S) 1 tab PO BID ELIAS Stop: 01/24/19 11:14 Last Admin: 12/29/18 10:09 Dose: 1 tab Documented by: [id number] Admin: 12/28/18 22:13 Dose: Not Given Documented by: [id number] Admin: 12/28/18 10:06 Dose: Not Given Documented by: [id number] Admin: 12/27/18 20:17 Dose: Not Given Documented by: [id number] Admin: 12/27/18 08:10 Dose: 1 tab Documented by: [id number] Admin: 12/26/18 21:11 Dose: 1 tab Documented by: [id number] Admin: 12/26/18 07:55 Dose: 1 tab Documented by: [id number] Admin: 12/25/18 20:17 Dose: 1 tab Documented by: [id number] Admin: 12/25/18 12:14 Dose: 1 tab Documented by: [id number] Thiamine HCl (Vitamin B-1) 100 mg PO QAM [facility]IAS Stop: 01/26/19 12:29 Last Admin: 12/29/18 10:06 Dose: 100 mg Documented by: [id number] Admin: 12/28/18 10:09 Dose: 100 mg Documented by: [id number] Admin: 12/27/18 14:42 Dose: 100 mg Documented by: [id number] PG Care Time/CCT Total # of Minutes Spent Total Time Spent with Patient: Total time spent is greater than 50% in coordination of care (as documented) at patient's floor/unit and/or counseling patient: Resident Activity Tracking Resident Involvement: Resident Care Provided Care Provided: Adult Hospital Medicine (ICU) (1) Fracture of rib Encounter type: initial encounter Fracture type: closed Laterality: left Rib fracture type: single rib Qualified Code(s): S22.32XA - Fracture of one rib, left side, initial encounter for closed fracture (2) Compression fx, lumbar spine Encounter type: initial encounter Lumbar vertebra fracture level: L1 Qualified Code(s): S32.010A - Wedge compression fracture of first lumbar vertebra, initial encounter for closed fracture (3) Compression fx, thoracic spine Encounter type: initial encounter Thoracic vertebra fracture level: unspecified thoracic vertebra Qualified Code(s): S22.000A - Wedge compression fracture of unspecified thoracic vertebra, initial encounter for closed fracture (4) Pulmonary embolism Acute cor pulmonale presence: unspecified Chronicity: acute Pulmonary embolism type: unspecified Qualified Code(s): I26.99 - Other pulmonary embolism without acute cor pulmonale
[2018-12-29] MEDS: CHECK FENTANYL PATCH PLACEMENT SCH ×4 (07:58→16:00)
[2018-12-29] MEDS: INSULIN ASPART 100 UNITS/ML 3 ML PEN SC SCH ×3 (07:58→16:30)
--- NOTE | 2018-12-29 09:20 | Palliative Care Progress Note ---
Date of Service December 29, 2018 Assessment & Plan (1) Goals of care, counseling/discussion: -I initially met in the hallway with Dr. Bradshaw, friend/POA Marti (a pediatric oncology [employer] DES[employer] DEVELOPER), her , and another close family friend Girish. -Dr. Bradshaw provided extensive medical conversation regarding the patients prognosis and inability to provide full comfort relief. Hehas severe protein malnutrition and has not tolerated benzodiazepines, or narcotics well. Regarding prognosis, which was discussed a few times during the encounter, if his oral intake remains as poor as it is, likely he has weeks to a month of life remaining. -From a pain management standpoint, Roxanol 5 mg po Q1 PRN was ordered by the hospitalist, will evaluate use. -Marti stated that she has talked with the patients , Dari regarding Hospice and she was going to going to get Dari to bring her to the hospital so we could discuss further. Later on in the afternoon, I met with Marti, Dari, and Rosalind from case management to discuss hospice. -Patient's has several specific requests when considering hospice at home. Her main concern is the consistency in the nursing staff to keep her comfortable with having folks come into the home and also to try and avoid not using the word "hospice" as much as possible. -In speaking with the patient, he just "wants to go home" and is "done with the hospital". He said "Pull the plug" -I did express concerns regarding the patient requiring additional care with Hospice, the patients will work on coordinating overnight private care duty hours, case management provided her with a list. -Case management discussed hospice agency options and they decided upon [facility] and they have a goal of discharge on Monday 01/01, after [facility] comes to the hospital to meet with the patient and family at 1000. -A POLST form would be helpful prior to discharge, which was not completed today. -PPS: 30% (2) Hypoxia: (3) Generalized weakness: (4) CKD (chronic kidney disease) stage 2, GFR 60-89 ml/min: (5) Acute diastolic CHF (congestive heart failure): (6) Dynamic left ventricular outflow obstruction: (7) Multiple myeloma: Subjective -The patient had a relatively 'ok' night without major anxiety/panic issues. -Patient did end up sitting in the bedside chair for a little bit in the afternoon. Nursing staff had to basically pick him up and place him in the [facility]. -Patient did actively do incentive spirometer -Patient pain was controlled with Ketamine, discontinued today as plan to transition to home with hospice and additional private care services. -Patient had POA and friend Marti at the bedside with her and another friend, Girish. -See A/P for further details. Review of Systems Review of Systems: Const: + severe generalized weakness Resp: + SOB with exertion, no cough Cardio: No chest pain, no edema GI: No abdominal pain, N/V MS: + back pain 05/31 Neuro: No confusion Psych: + anxiety, + depression Physical Exam Constitutional: + ill appearing and + frail appearing Respiratory: + labored breathing (with increased activity. On 6 Liters oxymask ) Auscultation: + diminished lung sounds Cardiovascular: RRR, no murmur, no edema Gastrointestinal (Abdomen): normal bowel sounds, soft, nontender, no hepatosplenomegaly Skin: no rashes, warm and dry Psychiatric: Insight: good insight Judgement: + limited judgement Results & Data Vital Signs (Past 12 Hours) Vital Signs Temp Pulse BP Pulse Ox 12/29/18 08:31 71 95 12/29/18 08:30 69 112/71 96 12/29/18 08:01 74 95 12/29/18 08:00 37.3 C 70 129/67 94 12/29/18 07:30 71 118/67 93 12/29/18 07:00 82 127/71 91 12/29/18 06:30 36.6 C 64 115/61 95 12/29/18 06:00 68 121/62 93 12/29/18 05:30 62 96/68 L 90 12/29/18 05:00 67 108/58 L 95 12/29/18 04:00 36.7 C 65 105/55 L 93 12/29/18 03:00 60 119/54 L 92 12/29/18 02:30 60 103/54 L 92 12/29/18 02:00 63 109/51 L 90 12/29/18 01:30 70 104/58 L 92 12/29/18 01:00 63 122/58 L 93 12/29/18 00:27 64 12/29/18 00:00 37 C 66 92 12/28/18 23:00 60 110/59 L 92 Supervising Physician Co-Signing Physician Notes Chart reviewed, pt seen and examined. Collaborated with JUSTIN Barcenas Met with pt, , pt's POA and her in the room, as well as on two occasions outside the room , on the unit , along with attending Dr Bradshaw. PE: pt awake and alert, will close eyes to rest at times. HEENT: EOMI, hearing WNL Resp: unlabored at rest, now on O2 via NC CV: irreg Abd: soft, NT Discussed POC at length, plan is to return home with Hospice care - cont hope that pt can improve enough to receive a dose of chemo - has at home. is realistic , but hopeful. Will cont to follow and assist and POA with medical decision making. PG Care Time/CCT Total # of Minutes Spent Total Time Spent with Patient: Total time spent is greater than 50% in coordination of care (as documented) at patient's floor/unit and/or counseling patient: 65 Prolonged Care Time Prolonged Care Time: Yes Total Prolonged Care Time: 40 Time Spent Midlevel Total time spent 65 minutes with > 50% of that time spent assessin the patient, discussing goals of care and coordinating with IDT Attending Total time spent 45 min in addition to the 65 min spent by JUSTIN for a total of 110 min with greater than 50% of the time spent at bedside and on the unit discussing goals of care and hospice care at home Critical Care Time Prolonged Care Time Prolonged Care Time: Yes Total Prolonged Care Time: 40
[2018-12-29] MEDS: ENOXAPARIN 80 MG/0.8 ML SYR SQ SCH ×2 (09:42→21:03)
[2018-12-29] MEDS: CETIRIZINE HCL 10 MG TABLET PO SCH (09:42)
[2018-12-29] MEDS: DULOXETINE HCL 30 MG CAP PO SCH (09:42)
[2018-12-29] MEDS: MULTIVITAMIN TAB PO SCH (09:42)
[2018-12-29] MEDS: MEGESTROL ACETATE 800 MG/20 ML UDP PO SCH (09:42)
[2018-12-29] MEDS: THIAMINE HCL 100 MG TAB PO SCH (10:06)
[2018-12-29] MEDS: ASCORBIC ACID 500 MG TAB PO SCH (10:06)
[2018-12-29] MEDS: METOPROLOL SUCC 25MG EXT REL TAB PO SCH (10:06)
[2018-12-29] MEDS: ACYCLOVIR 400 MG TAB PO SCH (10:08)
[2018-12-29] MEDS: DOCUSATE SODIUM/SENNA 50/8.6MG TAB PO SCH ×2 (10:09→21:03)
--- NOTE | 2018-12-29 10:37 | XRay Report ---
XR chest 1V portable CLINICAL HISTORY: Re-evalulation of effusion pleural effusion COMPARISON STUDY: 12/27/2018 FINDINGS: Small left pleural effusion slightly increased in volume. Right lung remains clear. Moderate stable cardiomegaly. IMPRESSION: Unchanged left basilar pleural effusion and/or left basilar atelectasis. The above report was generated using voice recognition software. It may contain grammatical, syntax or spelling errors. Electronically signed by: Les Schmid M.D. 12/29/2018 10:35 AM
[2018-12-29] MEDS: OXYCODONE HCL IR 5 MG TAB (IMMEDIATE RELEASE) PO PRN (10:56)
[2018-12-29] MEDS: LORazepam 0.5 MG TAB PO PRN (13:59)
[2018-12-29] MEDS: cefTRIAXone SODIUM 2,000 MG in DEXTROSE 5% 50 ML IV SCH (14:01)
--- NOTE | 2018-12-29 18:39 | Hospitalist Progress Note ---
Date of Service December 29, 2018 Assessment & Plan (1) Hypoxia: Was on oxygen prior to admission since the last hospital admission for PE Likely secondary to pulmonary embolism and CHF as well as atelectasis He was requiring 2 L of oxygen here with ambulation on 12/26 On the artist's representative hours of 12/27, he acutely decompensated with worsening hypoxia requiring 12 L via oxygen mask CT of chest and chest x-ray repeated and shows significant atelectasis at the bases Suspect atelectasis due to poor inspiratory effort due to pain from multiple thoracic compression fractures and rib fractures Echocardiogram limited repeated and showed no pericardial effusion No MA as evidenced by no ischemic changes on ECG and troponin serially mildly elevated but stable Hemoglobin has not dropped He has been on therapeutic Lovenox dosing and do not suspect new or large PE, no evidence of right heart strain on echocardiogram -He does not appear significantly volume overloaded on chest x-ray and I do not think his hypoxia is from worsening heart failure, proBNP is mildly elevated from previous however -Transferred to the intensive care unit on 12/27 in case of need for intubation -Ordered CPAP but was never placed as not needed -He is now weaned down to 4LNC and transferred out of ICU to medical floor with goal of comfort -continue pain control for compression fractures as below -Continue supplemental oxygen to keep pulse ox greater than 88-90% -Started Zosyn in case of gram-negative pneumonia--> converted to ceftriaxone again today -Continue oral diuretics (2) Acute diastolic CHF (congestive heart failure): Presented with acute shortness of breath and lower extremity edema Acute on chronic diastolic congestive heart failure. CTA and lower extremity Doppler was negative for additional clot burden. Echo shows preserved EF 60-65%. Stable from prior. - Lasix 40mg IV given on 12/22 and 12/23 with significant diuresis Started on p.o. furosemide 40 mg daily but with erythematous macular rash- possible allergic reaction-converted to Bumex 2 mg daily on 12/26 but rash seemed worse -Discontinued Bumex and started ethacrynic acid in case of sulfa moiety allergic reaction -Continue ethacrynic acid 50 mg once daily and titrate up as needed-lower blood pressures may prevent this He is now net negative fluid 8.3 L and weight is down 7 kg Peripheral edema much improved Continue low-sodium diet -no need to f/u in CHF clinic or Cardio if not desired after return home with Hospice -Replace potassium as needed -Appreciate cardiology consultation (3) Multiple myeloma without remission: Follows with Dr. Galan. Will restart his Velcade infusions after discharge. Received dexamethasone 20 mg daily x4-day cycle-started on 12/25 -will now hold Revlimid in case causing allergic reaction with rash, plus he finished 13 of his 14-day course -Consult oncology appreciated on opinion on overall picture and treatment course-repeat SPEP and immunoglobulins pending Is status post radiation treatments to the spine for pathologic fractures-pain is improved now -Given excessive drowsiness, decreased fentanyl patch to 25 mcg on 12/25 -His drowsiness did improve, however his pain became much worse-now increased fentanyl to 37 mcg every 72 hours -Public Works Inspector started him on ketamine to help improve pain which did help--> now off ketamine and out of ICU Continue Zofran for nausea -Continue acyclovir 400 mg once daily for prophylaxis (4) Pulmonary embolism: Repeat CTA, lower extremity Doppler was negative for additional clot burden Continue therapeutic Lovenox dosing indefinitely for PE in the setting of malignancy (5) HTN (hypertension): BP has been quite low at times -Beta-ayaan can be continued with hold parameters -Continue ethacrynic acid (6) Fracture of rib: Due to MM. - Continue pain management (7) Compression fx, thoracic spine: Is status post radiation treatment Pain now improved with ketamine -continue fentanyl patch to 37 mcg as above -change to Roxanol 5mg po q1h prn breakthrough pain (8) Compression fx, lumbar spine: As above. (9) Anemia: Hemoglobin low but stable at 9.4-likely secondary to chemotherapy and multiple myeloma -Follow CBC (10) Hypokalemia: Replaced and improved -Follow BMP (11) Thrombocytopenia: Platelets low but improved from previous at 137K, likely secondary to chemotherapy for multiple myeloma -Follow CBC (12) Dynamic left ventricular outflow obstruction: Noted on echocardiogram -Watch extremes of volume status (13) Pulmonary nodule: 8 mm nodule noted on CT scan here -Should be followed with repeat imaging as per guidelines (14) Rash: Has a history of idiopathic angioedema/urticaria for which he previously took Zyrtec for years He has not been on his Zyrtec for several weeks as per Now with macular drug eruption appearing rash all over torso, proximal thighs and arms. No lesions in the mouth, no lip or tongue swelling, no wheezing but is hypoxic which I do not think is from anaphylaxis Does have some improvement today since holding Lasix/Bumex and could have been from his chemotherapeutic drug Revlimid -Changed his diuretic to ethacrynic acid as above in case of sulfa moiety reaction -Have since restarted Zyrtec 10 mg once daily -Received dexamethasone 20 mg daily x4 days as above for multiple myeloma which also help with allergic reaction, and also received 2 days of IV Jfrk-Lrxmyp-isylbxeenrmq now for increased anxiety/possible psychosis -We will continue to follow rash and hope for improvement (15) Situational anxiety: Recently started on clonazepam as outpt and then switched to lorazepam here in the hospital -Also recently started on sertraline but was not taking this consistently at home but now has been getting it here in the hospital -With excessive drowsiness here with benzodiazepines and opioids -Palliative care suggested changing sertraline to Cymbalta-started at 30 mg daily -Follow (16) Nasal congestion: Interfering with ability to breathe through nose with nasal cannula-now improved with Afrin and nasal saline -Continue nasal saline -DCd Afrin (17) CKD (chronic kidney disease) stage 2, GFR 60-89 ml/min: Noted Creatinine stable 1.01 -Avoid nephrotoxins -Renally dose medications (18) Constipation: Had not had a bowel movement in 5 to 6 days, secondary to opioid use likely-now improved and having bowel movements after multiple laxatives -Continue MiraLAX as needed -Continue senna/docusate -Monitor (19) Urinary retention: Had Diallo catheter placed upon admission apparently for monitoring I's and O's in setting of CHF and severe dyspnea -Had trial of void on 12/24 but failed and had Diallo catheter replaced on the morning of 12/25 -Consulted urology for further management -Started Flomax on 12/26 -pt wishes to have another trial of void tomorrow-dc Diallo in AM -Urinalysis and urine culture ordered by urology-urinalysis appears positive as below -continue abx for UTI (20) UTI (urinary tract infection): UA positive and urine culture with Morganella after having Diallo catheter in place No evidence of sepsis -narrow back down to Rocephin and finish out 7 day course (21) DVT prophylaxis: Lovenox therapeutic dosing Disposition-transfer out of ICU to medical floor with continued abx, usual meds, with goal of comfort as focus Patient is now changed his CODE STATUS to DNR/DNI but is okay with BiPAP as needed Subjective Overall feeling much better today. No SOB, pain in back down to a 2-3/10. No nausea, no chest pain. Has decided on going home with Hospice on Tuesday after arrangements made. Would like to have Diallo removed and trial voiding again Discussed his care with Oncology, Public Works Inspector, and Palliative Care Review of Systems Review of Systems: All systems reviewed & are unremarkable except as noted in HPI & below Physical Exam Constitutional: WD/WN, vitals as above no acute distress Eyes: + anicteric sclerae ENMT: external ear and nose normal, oropharynx normal (No lesions in the mouth) Neck: trachea midline, no thyromegaly Respiratory: normal respiratory effort (With NC in place); no labored breathing Auscultation: + diminished lung sounds (At bases bilaterally) and + crackles (At bases bilaterally); no wheezes Cardiovascular: Rate/Rhythm: regular rate and regular rhythm (With ectopy) Heart Sounds: + murmur (2/6 sys murmur at LLSB) Extremities: no edema Gastrointestinal (Abdomen): normal bowel sounds, soft, nontender, no hepatosplenomegaly Musculoskeletal: Extremities: extremities normal to inspection; no cyanosis and no clubbing Skin: no rashes, warm and dry + rash (Deeply erythematous macular rash dif fusely over torso anterior and posterior and some on proximal thighs and upper extremities remains, is blanching) Neurologic: moves all extremities; no focal motor deficits, + not awake (Very drowsy when I saw him) and not confused Psychiatric: A+Ox3, euthymic affect Results & Data Vital Signs (Past 12 Hours) Vital Signs Temp Pulse Resp BP Pulse Ox 12/29/18 15:00 75 20 94/64 L 93 12/29/18 14:01 108 H 106/62 92 12/29/18 13:00 75 120/69 93 12/29/18 12:00 83 94/56 L 94 12/29/18 11:20 84 99/65 L 94 12/29/18 11:00 80 109/62 93 12/29/18 10:14 74 114/65 92 12/29/18 10:00 74 102/56 L 95 12/29/18 09:01 87 141/71 H 95 12/29/18 08:31 71 95 12/29/18 08:30 69 112/71 96 12/29/18 08:01 74 95 12/29/18 08:00 37.3 C 70 129/67 94 12/29/18 07:30 71 118/67 93 12/29/18 07:00 82 127/71 91 Laboratory Results 12/29/18 12/29/18 12/29/18 Range/Units 16:34 12:30 11:25 WBC (4.8-10.8) K/uL RBC (4.7-6.1) M/uL Hgb (14.0-18.0) g/dL Hct (42-52) % MCV (80-100) fL MCH (25-34) pg MCHC (32-36) g/dL RDW Std Deviation (36.4-46.3) fL RDW Coeff of Zackery (11.5-14.5) % Plt Count (130-400) K/uL MPV (7.4-10.4) fL Sodium (136-145) mmol/L Potassium (3.5-5.1) mmol/L Chloride (98-107) mmol/L Carbon Dioxide (21-32) mmol/L Anion Gap (3-11) BUN (7-18) mg/dl Creatinine (0.6-1.4) mg/dl Est Cr Clr Drug Dosing ml/min Est GFR ( Amer) Est GFR (Non-Af Amer) BUN/Creatinine Ratio (10-20) Glucose (70-99) mg/dl POC Glucose 92 95 (70-99) Calcium (8.5-10.1) mg/dl Phosphorus (2.5-4.9) mg/dl Magnesium (1.8-2.4) mg/dl Total Protein (PEP) Albumin (PEP) Prealbumin (20-40) mg/dl Oyvwq-9-Sziwvdvgt Vgtcc-4-Pqpjzryte Dhlt-3-Wlxhzete Tgzw-7-Oggawqgk Gamma Globulins Monoclonal Peak 3 Ser Monoclonl Protein Ser Monoclonal Prot 2 PEP Interpretation Urine Total Volume Pending Ur Creatinine mg/dL Pending Ur Total Protein Conc Pending Ur Total Protein 24 Hr Pending Protein/Creat Ratio 24h Pending Urine Albumin (%) Pending U Jpcjf-2-Grlsmasv (%) Pending U Iwegv-2-Huayznwl (%) Pending U Beta Globulin (%) Pending U Gamma Globulin (%) Pending Urine PEP Interpret Pending Serum Immunofixation Urine Immunofixation Pending 12/29/18 12/29/18 12/29/18 Range/Units 07:35 04:02 04:02 WBC (4.8-10.8) K/uL RBC (4.7-6.1) M/uL Hgb (14.0-18.0) g/dL Hct (42-52) % MCV (80-100) fL MCH (25-34) pg MCHC (32-36) g/dL RDW Std Deviation (36.4-46.3) fL RDW Coeff of Zackery (11.5-14.5) % Plt Count (130-400) K/uL MPV (7.4-10.4) fL Sodium 139 (136-145) mmol/L Potassium 3.3 L (3.5-5.1) mmol/L Chloride 103 (98-107) mmol/L Carbon Dioxide 31 (21-32) mmol/L Anion Gap 5.0 (3-11) BUN 27 H (7-18) mg/dl Creatinine 1.01 (0.6-1.4) mg/dl Est Cr Clr Drug Dosing 58.2 ml/min Est GFR ( Amer) 80.5 Est GFR (Non-Af Amer) 69.4 BUN/Creatinine Ratio 26.9 H (10-20) Glucose 102 H (70-99) mg/dl POC Glucose 98 (70-99) Calcium 7.5 L (8.5-10.1) mg/dl Phosphorus 2.3 L D (2.5-4.9) mg/dl Magnesium 2.6 H (1.8-2.4) mg/dl Total Protein (PEP) Albumin (PEP) Prealbumin 14.0 L (20-40) mg/dl Fbqne-4-Cvcvekqfl Byicd-2-Xzfbgioxo Waxn-2-Zvktptkw Rwkf-2-Lvwmiljm Gamma Globulins Monoclonal Peak 3 Ser Monoclonl Protein Ser Monoclonal Prot 2 PEP Interpretation Urine Total Volume Ur Creatinine mg/dL Ur Total Protein Conc Ur Total Protein 24 Hr Protein/Creat Ratio 24h Urine Albumin (%) U Ovuir-1-Phycqfum (%) U Wxugo-8-Pktnmrtq (%) U Beta Globulin (%) U Gamma Globulin (%) Urine PEP Interpret Serum Immunofixation Urine Immunofixation 12/29/18 12/29/18 Range/Units 04:02 04:02 WBC 7.02 (4.8-10.8) K/uL RBC 2.86 L (4.7-6.1) M/uL Hgb 8.8 L (14.0-18.0) g/dL Hct 26.7 L (42-52) % MCV 93.4 (80-100) fL MCH 30.8 (25-34) pg MCHC 33.0 (32-36) g/dL RDW Std Deviation 54.1 H (36.4-46.3) fL RDW Coeff of Zackery 15.9 H (11.5-14.5) % Plt Count 137 (130-400) K/uL MPV 12.6 H (7.4-10.4) fL Sodium (136-145) mmol/L Potassium (3.5-5.1) mmol/L Chloride (98-107) mmol/L Carbon Dioxide (21-32) mmol/L Anion Gap (3-11) BUN (7-18) mg/dl Creatinine (0.6-1.4) mg/dl Est Cr Clr Drug Dosing ml/min Est GFR ( Amer) Est GFR (Non-Af Amer) BUN/Creatinine Ratio (10-20) Glucose (70-99) mg/dl POC Glucose (70-99) Calcium (8.5-10.1) mg/dl Phosphorus (2.5-4.9) mg/dl Magnesium (1.8-2.4) mg/dl Total Protein (PEP) Pending Albumin (PEP) Pending Prealbumin (20-40) mg/dl Vxvzm-9-Jgcetwzmo Pending Gtrfb-5-Mgsrjkjkj Pending Ybgn-9-Jubitqaj Pending Jiry-0-Qzxiguii Pending Gamma Globulins Pending Monoclonal Peak 3 Pending Ser Monoclonl Protein Pending Ser Monoclonal Prot 2 Pending PEP Interpretation Pending Urine Total Volume Ur Creatinine mg/dL Ur Total Protein Conc Ur Total Protein 24 Hr Protein/Creat Ratio 24h Urine Albumin (%) U Lbumk-5-Yajkcfus (%) U Oxwyi-0-Sddkvwtb (%) U Beta Globulin (%) U Gamma Globulin (%) Urine PEP Interpret Serum Immunofixation Pending Urine Immunofixation PG Care Time/CCT Total # of Minutes Spent Total Time Spent with Patient: Total time spent is greater than 50% in coordination of care (as documented) at patient's floor/unit and/or counseling patient: (1) Fracture of rib Encounter type: initial encounter Fracture type: closed Laterality: left Rib fracture type: single rib Qualified Code(s): S22.32XA - Fracture of one rib, left side, initial encounter for closed fracture (2) Compression fx, lumbar spine Encounter type: initial encounter Lumbar vertebra fracture level: L1 Qualified Code(s): S32.010A - Wedge compression fracture of first lumbar vertebra, initial encounter for closed fracture (3) Compression fx, thoracic spine Encounter type: initial encounter Thoracic vertebra fracture level: unspecified thoracic vertebra Qualified Code(s): S22.000A - Wedge compression fracture of unspecified thoracic vertebra, initial encounter for closed fracture (4) Pulmonary embolism Acute cor pulmonale presence: unspecified Chronicity: acute Pulmonary embolism type: unspecified Qualified Code(s): I26.99 - Other pulmonary embolism without acute cor pulmonale
[2018-12-30] MEDS: CHECK FENTANYL PATCH PLACEMENT SCH ×6 (00:16→14:48)
[2018-12-30 06:12] LABS: Basophils # (auto) 0.05 K/uL (0-0.2); Basophils % (auto) 0.6 %; Eosinophils # (auto) 0.38 K/uL (0-0.5); Eosinophils % (auto) 4.7 %; Hematocrit (blood only) 28.3 % (42-52); Hemoglobin 9.3 g/dL (14.0-18.0); Immature Granulocytes # (auto) 0.04 K/uL (0.00-0.02); Immature Granulocytes % (auto) 0.5 %; Lymphocytes # (auto) 1.61 K/uL (1.2-3.4); Lymphocytes % (auto) 19.9 %; Mean Corpuscular Hemoglobin 30.3 pg (25-34); Mean Corpuscular Hgb Conc 32.9 g/dL (32-36); Mean Corpuscular Volume 92.2 fL (80-100); Monocytes # (auto) 0.37 K/uL (0.11-0.59); Monocytes % (auto) 4.6 %; Neutrophils # (auto) 5.63 K/uL (1.4-6.5); Neutrophils % (auto) 69.7 %; Platelet Count 146 K/uL (130-400); RDW Coefficient of Variation 15.5 % (11.5-14.5); RDW Standard Deviation 52.1 fL (36.4-46.3); Red Blood Count 3.07 M/uL (4.7-6.1); White Blood Count 8.08 K/uL (4.8-10.8)
[2018-12-30 06:46] LABS: BUN Creatinine Ratio 23.7 (10-20); Calcium 7.7 mg/dl (8.5-10.1); Creatinine Clr Calc Pharmacy 64.6 ml/min; Est GFR (African American) 87.8; Est GFR (Non-African American) 75.7; Magnesium 2.5 mg/dl (1.8-2.4); Potassium 3.5 mmol/L (3.5-5.1)
[2018-12-30] MEDS: ACETAMINOPHEN 325 MG TAB PO PRN (08:01)
[2018-12-30] MEDS: ENOXAPARIN 80 MG/0.8 ML SYR SQ SCH ×2 (08:03→20:48)
[2018-12-30] MEDS: DULOXETINE HCL 30 MG CAP PO SCH (08:03)
[2018-12-30] MEDS: METOPROLOL SUCC 25MG EXT REL TAB PO SCH (08:04)
[2018-12-30] MEDS: MEGESTROL ACETATE 800 MG/20 ML UDP PO SCH (08:04)
[2018-12-30] MEDS: MULTIVITAMIN TAB PO SCH (08:04)
[2018-12-30] MEDS: THIAMINE HCL 100 MG TAB PO SCH (08:05)
[2018-12-30] MEDS: CETIRIZINE HCL 10 MG TABLET PO SCH (08:05)
[2018-12-30] MEDS: ASCORBIC ACID 500 MG TAB PO SCH (08:05)
[2018-12-30] MEDS: ACYCLOVIR 400 MG TAB PO SCH (08:06)
[2018-12-30] MEDS: DOCUSATE SODIUM/SENNA 50/8.6MG TAB PO SCH ×2 (08:10→20:47)
[2018-12-30] MEDS: LORazepam 0.5 MG TAB PO PRN ×2 (08:25→18:19)
[2018-12-30] MEDS: cefTRIAXone SODIUM 2,000 MG in DEXTROSE 5% 50 ML IV SCH (14:47)
[2018-12-30] MEDS: fentaNYL 12 MCG/HR TDSY TD SCH (18:19)
[2018-12-30] MEDS: fentaNYL 25 MCG/HR TDSY TD SCH (18:19)
[2018-12-30] MEDS: MoRPHine SULFATE 5 MG/0.25 ML UDP PO PRN (19:15)
--- NOTE | 2018-12-30 22:35 | Hospitalist Progress Note ---
Date of Service December 30, 2018 Assessment & Plan (1) Hypoxia: Was on oxygen prior to admission since the last hospital admission for PE Likely secondary to pulmonary embolism and CHF as well as atelectasis He was requiring 2 L of oxygen here with ambulation on 12/26 On the early childhood education coordinator hours of 12/27, he acutely decompensated with worsening hypoxia requiring 12 L via oxygen mask CT of chest and chest x-ray repeated and shows significant atelectasis at the bases Suspect atelectasis due to poor inspiratory effort due to pain from multiple thoracic compression fractures and rib fractures Echocardiogram limited repeated and showed no pericardial effusion No ME as evidenced by no ischemic changes on ECG and troponin serially mildly elevated but stable Hemoglobin has not dropped He has been on therapeutic Lovenox dosing and do not suspect new or large PE, no evidence of right heart strain on echocardiogram -He does not appear significantly volume overloaded on chest x-ray and I do not think his hypoxia is from worsening heart failure, proBNP is mildly elevated from previous however -Transferred to the intensive care unit on 12/27 in case of need for intubation -Ordered CPAP but was never placed as not needed -He is now weaned down to 4LNC and transferred out of ICU to medical floor with goal of comfort -continue pain control for compression fractures as below -Continue supplemental oxygen to keep pulse ox greater than 88-90% -Started Zosyn in case of gram-negative pneumonia--> converted to ceftriaxone more for UTI now -oral diuretics on hold (2) Acute diastolic CHF (congestive heart failure): Presented with acute shortness of breath and lower extremity edema Acute on chronic diastolic congestive heart failure. CTA and lower extremity Doppler was negative for additional clot burden. Echo shows preserved EF 60-65%. Stable from prior. - Lasix 40mg IV given on 12/22 and 12/23 with significant diuresis Started on p.o. furosemide 40 mg daily but with erythematous macular rash- possible allergic reaction-converted to Bumex 2 mg daily on 12/26 but rash seemed worse -Discontinued Bumex and started ethacrynic acid in case of sulfa moiety allergic reaction -then on ethacrynic acid 50 mg once daily - on hold but will restart for tomorrow given increased weight He was previously net negative fluid 8.3 L and weight is down 7 kg--> now since being in ICU has increased weight significantly Continue low-sodium diet -no need to f/u in CHF clinic or Cardio if not desired after return home with Hospice -Replace potassium as needed -Appreciate cardiology consultation (3) Multiple myeloma without remission: Follows with Dr. Galan. Will restart his Velcade infusions after discharge. Received dexamethasone 20 mg daily x4-day cycle-started on 12/25 -will now hold Revlimid in case causing allergic reaction with rash, plus he finished 13 of his 14-day course -Consult oncology appreciated on opinion on overall picture and treatment course-repeat SPEP and immunoglobulins pending Is status post radiation treatments to the spine for pathologic fractures-pain is improved now -Given excessive drowsiness, decreased fentanyl patch to 25 mcg on 12/25 -His drowsiness did improve, however his pain became much worse-now increased fentanyl to 37 mcg every 72 hours -Pinball Machine Repairer started him on ketamine to help improve pain which did help--> now off ketamine and out of ICU Continue Zofran for nausea -Continue acyclovir 400 mg once daily for prophylaxis -added ROxanol prn breakthrough pain (4) Pulmonary embolism: Repeat CTA, lower extremity Doppler was negative for additional clot burden Continue therapeutic Lovenox dosing indefinitely for PE in the setting of malignancy (5) HTN (hypertension): BP has been quite low at times -Beta-ayaan can be continued with hold parameters -Continue ethacrynic acid (6) Fracture of rib: Due to MM. - Continue pain management (7) Compression fx, thoracic spine: Is status post radiation treatment Pain now improved with ketamine infusion in ICU -continue fentanyl patch to 37 mcg as above -added Roxanol 5mg po q1h prn breakthrough pain (8) Compression fx, lumbar spine: As above. (9) Anemia: Hemoglobin low but stable at 9.3-likely secondary to chemotherapy and multiple myeloma (10) Hypokalemia: Replaced and improved -Follow BMP (11) Thrombocytopenia: Platelets low but improved from previous at 146K, likely secondary to chemotherapy for multiple myeloma (12) Dynamic left ventricular outflow obstruction: Noted on echocardiogram -Watch extremes of volume status (13) Pulmonary nodule: 8 mm nodule noted on CT scan here -Should be followed with repeat imaging as per guidelines (14) Rash: Has a history of idiopathic angioedema/urticaria for which he previously took Zyrtec for years He has not been on his Zyrtec for several weeks as per Now with macular drug eruption appearing rash all over torso, proximal thighs and arms. No lesions in the mouth, no lip or tongue swelling, no wheezing but is hypoxic which I do not think is from anaphylaxis Does have some improvement today since holding Lasix/Bumex and could have been from his chemotherapeutic drug Revlimid -Changed his diuretic to ethacrynic acid as above in case of sulfa moiety reaction -Have since restarted Zyrtec 10 mg once daily -Received dexamethasone 20 mg daily x4 days as above for multiple myeloma which also help with allergic reaction, and also received 2 days of IV Blci-Ueyswh-[id number] now for increased anxiety/possible psychosis -Rash now finally improving (15) Situational anxiety: Recently started on clonazepam as outpt and then switched to lorazepam here in the hospital -Also recently started on sertraline prior to admission -With excessive drowsiness here with benzodiazepines and opioids -Palliative care suggested changing sertraline to Cymbalta-started at 30 mg daily -Follow (16) Nasal congestion: Interfering with ability to breathe through nose with nasal cannula-now improved with Afrin and nasal saline -Continue nasal saline -DCd Afrin (17) CKD (chronic kidney disease) stage 2, GFR 60-89 ml/min: Noted Creatinine stable at 0.9 -Avoid nephrotoxins -Renally dose medications (18) Constipation: Opioid-induced, now improving -Continue MiraLAX as needed -Continue senna/docusate -Monitor (19) Urinary retention: Had Trejo catheter placed upon admission apparently for monitoring I's and O's in setting of CHF and severe dyspnea -Had trial of void on 12/24 but failed and had Trejo catheter replaced on the morning of 12/25 -Consulted urology for further management -Started Flomax on 12/26 -pt wished to have another trial of void -trial on 12/30 but failed and Trejo replaced yet again -continue Trejo indefinitely and going home with Hospice -Urinalysis and urine culture ordered by urology-urinalysis appears positive as below -continue abx for UTI (20) UTI (urinary tract infection): UA positive and urine culture with Morganella after having Trejo catheter in place No evidence of sepsis -narrowed back down to Rocephin and finish out 7 day course--> needs 2 more days (21) DVT prophylaxis: Lovenox therapeutic dosing Disposition-continued stay on medical floor with continued abx, usual meds, with goal of comfort as focus, plan for Hospice on Tuesday at home Patient is now changed his CODE STATUS to DNR/DNI but is okay with BiPAP as needed Subjective Pt says pain in his back is a 3/10. He has not yet voided all day since having Trejo removed. He had incontinence to loose stool today. No SOB, no CP, remains on 4LNC He has not been OOB at all and doesn't really want to Review of Systems Review of Systems: All systems reviewed & are unremarkable except as noted in HPI & below Physical Exam Constitutional: WD/WN, vitals as above no acute distress Eyes: + anicteric sclerae Neck: trachea midline, no thyromegaly Respiratory: normal respiratory effort (With NC in place); no labored breathing Auscultation: + diminished lung sounds (At bases bilaterally) and + crackles (At bases bilaterally); no wheezes Cardiovascular: Rate/Rhythm: regular rate and regular rhythm (With ectopy) Heart Sounds: + murmur (2/6 sys murmur at LLSB) Extremities: no edema Gastrointestinal (Abdomen): normal bowel sounds, soft, nontender, no hepatosplenomegaly Musculoskeletal: Extremities: extremities normal to inspection; no cyanosis and no clubbing Skin: + rash (erythematous macular rash diffusely torso anterior proximal thighs and legs) rash improved from previous, less erythematous Neurologic: moves all extremities and awake (but somewhat drowsy); no focal motor deficits and not confused Results & Data Vital Signs (Past 12 Hours) Vital Signs Temp Pulse Resp BP Pulse Ox 12/30/18 15:15 36.7 C 58 L 16 146/77 H 93 Laboratory Results Labs reviewed PG Care Time/CCT Total # of Minutes Spent Total Time Spent with Patient: Total time spent is greater than 50% in coordination of care (as documented) at patient's floor/unit and/or counseling patient: (1) Fracture of rib Encounter type: initial encounter Fracture type: closed Laterality: left Rib fracture type: single rib Qualified Code(s): S22.32XA - Fracture of one rib, left side, initial encounter for closed fracture (2) Compression fx, lumbar spine Encounter type: initial encounter Lumbar vertebra fracture level: L1 Qualified Code(s): S32.010A - Wedge compression fracture of first lumbar vertebra, initial encounter for closed fracture (3) Compression fx, thoracic spine Encounter type: initial encounter Thoracic vertebra fracture level: unspecified thoracic vertebra Qualified Code(s): S22.000A - Wedge compression fracture of unspecified thoracic vertebra, initial encounter for closed fracture (4) Pulmonary embolism Acute cor pulmonale presence: unspecified Chronicity: acute Pulmonary embolism type: unspecified Qualified Code(s): I26.99 - Other pulmonary embolism without acute cor pulmonale
[2018-12-31] MEDS: CHECK FENTANYL PATCH PLACEMENT SCH ×8 (01:18→23:47)
[2018-12-31] MEDS: MoRPHine SULFATE 5 MG/0.25 ML UDP PO PRN ×2 (04:46→10:00)
[2018-12-31] MEDS: DULOXETINE HCL 30 MG CAP PO SCH (08:40)
[2018-12-31] MEDS: ETHACRYNIC ACID 25 MG TAB PO SCH (08:41)
[2018-12-31] MEDS: ENOXAPARIN 80 MG/0.8 ML SYR SQ SCH ×2 (08:41→20:58)
[2018-12-31] MEDS: MEGESTROL ACETATE 800 MG/20 ML UDP PO SCH (08:42)
[2018-12-31] MEDS: MULTIVITAMIN TAB PO SCH (08:43)
[2018-12-31] MEDS: METOPROLOL SUCC 25MG EXT REL TAB PO SCH (08:44)
[2018-12-31] MEDS: THIAMINE HCL 100 MG TAB PO SCH (08:44)
[2018-12-31] MEDS: ASCORBIC ACID 500 MG TAB PO SCH (08:44)
[2018-12-31] MEDS: DOCUSATE SODIUM/SENNA 50/8.6MG TAB PO SCH ×2 (08:44→20:57)
[2018-12-31] MEDS: CETIRIZINE HCL 10 MG TABLET PO SCH (08:45)
[2018-12-31] MEDS: ACYCLOVIR 400 MG TAB PO SCH (08:45)
[2018-12-31] MEDS: ACETAMINOPHEN 325 MG TAB PO PRN (08:52)
[2018-12-31 09:02] LABS: BUN Creatinine Ratio 27.7 (10-20); Calcium 7.8 mg/dl (8.5-10.1); Creatinine Clr Calc Pharmacy 83.5 ml/min; Est GFR (African American) 100.3; Est GFR (Non-African American) 86.5; Potassium 3.7 mmol/L (3.5-5.1)
[2018-12-31] MEDS: LORazepam 0.5 MG TAB PO PRN (13:39)
--- NOTE | 2018-12-31 13:41 | Hospitalist Progress Note ---
Date of Service December 31, 2018 Assessment & Plan (1) Hypoxia: Was on oxygen prior to admission since the last hospital admission for PE Likely secondary to pulmonary embolism and CHF as well as atelectasis He was requiring 2 L of oxygen here with ambulation on 12/26 On the armored vehicle officer hours of 12/27, he acutely decompensated with worsening hypoxia requiring 12 L via oxygen mask CT of chest and chest x-ray repeated and shows significant atelectasis at the bases Suspect atelectasis due to poor inspiratory effort due to pain from multiple thoracic compression fractures and rib fractures Echocardiogram limited repeated and showed no pericardial effusion No KS as evidenced by no ischemic changes on ECG and troponin serially mildly elevated but stable Hemoglobin has not dropped He has been on therapeutic Lovenox dosing and do not suspect new or large PE, no evidence of right heart strain on echocardiogram -He does not appear significantly volume overloaded on chest x-ray and I do not think his hypoxia is from worsening heart failure, proBNP is mildly elevated from previous however -Transferred to the intensive care unit on 12/27 in case of need for intubation -Ordered CPAP but was never placed as not needed -He is now weaned down to 4LNC and transferred out of ICU to medical floor with goal of comfort -continue pain control for compression fractures as below-improved -Continue supplemental oxygen to keep pulse ox greater than 88-90%-home O2 to be provided by Hospice -Started Zosyn in case of gram-negative pneumonia--> converted to ceftriaxone more for UTI now as below -continue oral diuretic (2) Acute diastolic CHF (congestive heart failure): Presented with acute shortness of breath and lower extremity edema Acute on chronic diastolic congestive heart failure. CTA and lower extremity Doppler was negative for additional clot burden. Echo shows preserved EF 60-65%. Stable from prior. - Lasix 40mg IV given on 12/22 and 12/23 with significant diuresis Started on p.o. furosemide 40 mg daily but with erythematous macular rash- possible allergic reaction-converted to Bumex 2 mg daily on 12/26 but rash seemed worse -Discontinued Bumex and started ethacrynic acid in case of sulfa moiety allergic reaction -his diuretic was hold x 2 days in the ICU and now weight back up -restarted ethacrynic acid 50 mg once daily on 12/31 and has great UOP now Continue low-sodium diet -no need to f/u in CHF clinic or Cardio if not desired after return home with Hospice -Replace potassium as needed -Appreciate cardiology consultation (3) Multiple myeloma without remission: Follows with Dr. Galan. Will restart his Velcade infusions after discharge. Received dexamethasone 20 mg daily x4-day cycle while here -will now hold Revlimid in case causing allergic reaction with rash, plus he finished 13 of his 14-day course -Consult oncology appreciated on opinion on overall picture and treatment course-repeat SPEP and immunoglobulins pending -plan now for home with Hospice Is status post radiation treatments to the spine for pathologic fractures-pain is improved now -was too drowsy on Fentanyl 50mcg--> now on fentanyl 37 mcg every 72 hours with Roxanol 5mg po for breakthrough and pain well controlled -Bindery Machine Tender started him on ketamine to help improve pain which did help--> now off ketamine and out of ICU Continue Zofran for nausea -Continue acyclovir 400 mg once daily for prophylaxis (4) Pulmonary embolism: Repeat CTA, lower extremity Doppler was negative for additional clot burden Continue therapeutic Lovenox dosing indefinitely for PE in the setting of malignancy--> pt and wish for him to remain on Lovenox on Hospice (5) HTN (hypertension): BP has been quite low at times, now improved to high -Beta-ayaan can be continued with hold parameters -Continue ethacrynic acid (6) Fracture of rib: Due to MM. - Continue pain management (7) Compression fx, thoracic spine: Is status post radiation treatment Pain now improved with ketamine infusion in ICU -continue fentanyl patch to 37 mcg as above -added Roxanol 5mg po q1h prn breakthrough pain -will need Rxs upon dc for Hospice (8) Compression fx, lumbar spine: As above. (9) Anemia: Hemoglobin low but stable at 9.3-likely secondary to chemotherapy and multiple myeloma (10) Hypokalemia: Replaced and improved -no further labs (11) Thrombocytopenia: Platelets low but improved from previous at 146K, likely secondary to chemotherapy for multiple myeloma -no further lab draws (12) Dynamic left ventricular outflow obstruction: Noted on echocardiogram -Watch extremes of volume status (13) Pulmonary nodule: 8 mm nodule noted on CT scan here -Should be followed with repeat imaging as per guidelines if desired but going home on Hospice (14) Rash: Has a history of idiopathic angioedema/urticaria for which he previously took Zyrtec for years He has not been on his Zyrtec for several weeks as per Developed a very significant macular drug eruption appearing rash all over torso, proximal thighs and arms. No lesions in the mouth, no lip or tongue swelling, no wheezing but is hypoxic which I do not think is from anaphylaxis Now much improved with giving steroids, Zyrtec, and discontinuing Lasix/Bumex and his chemotherapeutic drug Revlimid -Changed his diuretic to ethacrynic acid as above in case of sulfa moiety reaction -continue Zyrtec 10 mg once daily (15) Situational anxiety: Recently started on clonazepam as outpt and then switched to lorazepam here in the hospital -Also recently started on sertraline prior to admission -With excessive drowsiness here with benzodiazepines and opioids -Palliative care suggested changing sertraline to Cymbalta-started at 30 mg daily -Follow -will need Rx for lorazepam upon discharge for Hospice (16) Nasal congestion: Interfering with ability to breathe through nose with nasal cannula-now improved with Afrin and nasal saline -Continue nasal saline -DCd Afrin (17) CKD (chronic kidney disease) stage 2, GFR 60-89 ml/min: Noted Creatinine stable at 0.9 -Avoid nephrotoxins -Renally dose medications (18) Constipation: Opioid-induced, now improving -Continue MiraLAX as needed -Continue senna/docusate -Monitor (19) Urinary retention: Had Trejo catheter placed upon admission apparently for monitoring I's and O's in setting of CHF and severe dyspnea -Had trial of void on 12/24 but failed and had Trejo catheter replaced on the morning of 12/25 -Consulted urology for further management -Started Flomax on 12/26 -pt wished to have another trial of void -trial on 12/30 but failed and Trejo replaced yet again -continue Trejo indefinitely and going home with Hospice -Urinalysis and urine culture ordered by urology-urinalysis appears positive as below -continue abx for UTI (20) UTI (urinary tract infection): UA positive and urine culture with Morganella after having Trejo catheter in place No evidence of sepsis -narrowed back down to Rocephin and finish out 7 day course--> needs 1 more day on Tuesday and then stop (21) DVT prophylaxis: Lovenox therapeutic dosing Disposition-continued stay on medical floor with continued abx, usual meds, with goal of comfort as focus, plan for Hospice on Tuesday at home CODE STATUS-DNR/DNI Subjective Pt states "I just feel exhausted through every part of my body." He does not want to try to get out of bed at all to a chair. He reports feeling very anxious. Pain in back is controlled. He states that the Roxanol makes him feel good. Had Trejo replaced last night. No nausea, no abd pain. No SOB Review of Systems Review of Systems: All systems reviewed & are unremarkable except as noted in HPI & below Physical Exam Constitutional: WD/WN, vitals as above no acute distress Eyes: + anicteric sclerae ENMT: external ear and nose normal, oropharynx normal (No lesions in the mouth) Neck: trachea midline, no thyromegaly Respiratory: normal respiratory effort (With NC in place); no labored breathing Auscultation: + diminished lung sounds (At bases bilaterally) and + crackles (At bases bilaterally); no wheezes Cardiovascular: Rate/Rhythm: regular rate and regular rhythm (With ectopy) Heart Sounds: + murmur (2/6 sys murmur at LLSB) Extremities: + edema (pitting edema feet and ankles bilat) Gastrointestinal (Abdomen): normal bowel sounds, soft, nontender, no hepatosplenomegaly Musculoskeletal: Extremities: extremities normal to inspection; no cyanosis and no clubbing Skin: + rash (previous diffuse rash now almost completely resolved on torso and extremiti) Neurologic: moves all extremities and awake (but somewhat drowsy); no focal motor deficits and not confused Genitourinary: Trejo with clear yellow urine Results & Data Vital Signs (Past 12 Hours) Vital Signs Temp Pulse Resp BP Pulse Ox 12/31/18 07:15 36.8 C 64 18 156/67 H 96 Laboratory Results 12/31/18 Range/Units 07:59 Sodium 140 (136-145) mmol/L Potassium 3.7 (3.5-5.1) mmol/L Chloride 107 (98-107) mmol/L Carbon Dioxide 28 (21-32) mmol/L Anion Gap 6.0 (3-11) BUN 21 H (7-18) mg/dl Creatinine 0.74 (0.6-1.4) mg/dl Est Cr Clr Drug Dosing 83.5 ml/min Est GFR ( Amer) 100.3 Est GFR (Non-Af Amer) 86.5 BUN/Creatinine Ratio 27.7 H (10-20) Glucose 86 (70-99) mg/dl Calcium 7.8 L (8.5-10.1) mg/dl PG Care Time/CCT Total # of Minutes Spent Total Time Spent with Patient: Total time spent is greater than 50% in coordination of care (as documented) at patient's floor/unit and/or counseling patient: (1) Pulmonary embolism Acute cor pulmonale presence: unspecified Chronicity: acute Pulmonary embol ism type: unspecified Qualified Code(s): I26.99 - Other pulmonary embolism without acute cor pulmonale (2) Fracture of rib Encounter type: initial encounter Fracture type: closed Laterality: left Rib fracture type: single rib Qualified Code(s): S22.32XA - Fracture of one rib, left side, initial encounter for closed fracture (3) Compression fx, thoracic spine Encounter type: initial encounter Thoracic vertebra fracture level: unspecified thoracic vertebra Qualified Code(s): S22.000A - Wedge compression fracture of unspecified thoracic vertebra, initial encounter for closed fracture (4) Compression fx, lumbar spine Encounter type: initial encounter Lumbar vertebra fracture level: L1 Qualified Code(s): S32.010A - Wedge compression fracture of first lumbar vertebra, initial encounter for closed fracture
[2018-12-31] MEDS: cefTRIAXone SODIUM 2,000 MG in DEXTROSE 5% 50 ML IV SCH ×2 (13:57→14:37)
[2018-12-31] MEDS: CEFDINIR 300 MG CAP PO SCH ×2 (15:26→20:57)
[2019-01-01] MEDS: LORazepam 0.5 MG TAB PO PRN ×2 (03:19→18:56)
[2019-01-01] MEDS: CEFDINIR 300 MG CAP PO SCH ×2 (07:44→22:10)
[2019-01-01] MEDS: DULOXETINE HCL 30 MG CAP PO SCH (07:45)
[2019-01-01] MEDS: METOPROLOL SUCC 25MG EXT REL TAB PO SCH (07:45)
[2019-01-01] MEDS: DOCUSATE SODIUM/SENNA 50/8.6MG TAB PO SCH ×2 (07:45→22:15)
[2019-01-01] MEDS: CETIRIZINE HCL 10 MG TABLET PO SCH (07:46)
[2019-01-01] MEDS: ETHACRYNIC ACID 25 MG TAB PO SCH (07:46)
[2019-01-01] MEDS: CHECK FENTANYL PATCH PLACEMENT SCH ×6 (07:47→23:45)
[2019-01-01] MEDS: MEGESTROL ACETATE 800 MG/20 ML UDP PO SCH (07:47)
[2019-01-01] MEDS: ENOXAPARIN 80 MG/0.8 ML SYR SQ SCH ×2 (07:48→22:10)
[2019-01-01] MEDS: MoRPHine SULFATE 5 MG/0.25 ML UDP PO PRN ×4 (07:52→22:40)
[2019-01-01] MEDS: THIAMINE HCL 100 MG TAB PO SCH (07:57)
[2019-01-01] MEDS: ASCORBIC ACID 500 MG TAB PO SCH (07:58)
[2019-01-01] MEDS: MULTIVITAMIN TAB PO SCH (07:58)
--- NOTE | 2019-01-01 12:47 | Palliative Care Progress Note ---
Date of Service January 01, 2019 Assessment & Plan (1) Goals of care, counseling/discussion: -Patient sitting in his bed in no apparent distress. -No acute concerns, but wants to go home and is becoming irritated. -Marti (GIOVANNY), and the patients , Dari, met with [facility] hospice r kwame in the waiting area. -Plan for equipment delivery today and hopeful discharge later this afternoon between [id number]. - has started to have some anxiety with transitioning home, which was validated and also lessened after discussion with hospice. -Pt has utilized 3 doses of Roxanol over the past 24 hours. Hospitalist is writing discharge prescriptions for comfort meds. This was also discussed with the patients . -Patients was not interested in completing a POLST form at this time. Provided one to her for review and could be completed later on with Hospice. -PPS: 30% -Palliative Care will sign off, please let us know if you have any further needs. (2) Hypoxia: (3) Generalized weakness: (4) CKD (chronic kidney disease) stage 2, GFR 60-89 ml/min: (5) Acute diastolic CHF (congestive heart failure): (6) Dynamic left ventricular outflow obstruction: (7) Multiple myeloma: Subjective -The patient had a relatively 'ok' weekend, but wonders why he had to stay here all weekend instead of being transferred home. night without major anxiety/panic issues. -Poor effort regarding movement all weekend. -Patient did actively do incentive spirometer -Patient had POA and friend Marti, and his at the bedside, who then went to speak with Hospice directly in the waiting area. -See A/P for further details. Review of Systems Review of Systems: Const: + severe generalized weakness Resp: + SOB with exertion, no cough Cardio: No chest pain, no edema GI: No abdominal pain, N/V MS: + back pain 4/10 Neuro: No confusion Psych: + anxiety, + depression Physical Exam Constitutional: + ill appearing and + frail appearing Respiratory: + labored breathing (with increased activity. On 6 Liters oxymask ) Auscultation: + diminished lung sounds Cardiovascular: RRR, no murmur, no edema Gastrointestinal (Abdomen): normal bowel sounds, soft, nontender, no hepatosplenomegaly Skin: no rashes, warm and dry Psychiatric: Insight: good insight Judgement: + limited judgement Results & Data Vital Signs (Past 12 Hours) Vital Signs Temp Pulse Resp BP Pulse Ox 01/01/19 07:24 36.5 C 92 H 24 102/68 91 Supervising Physician Co-Signing Physician Notes Chart reviewed from over the weekend. Collaborated with JUSTIN Barcenas Patient seen and examined in his room along with his and his friend /POA PE: Patient awake and alert, no acute distress HEENT: EOMI, mild [place] Respirations: Unlabored CV: Regular rate Agree with above note, assessment and plan as per JUSTIN Barcenas-plan is for discharge home with [facility] hospice. PG Care Time/CCT Total # of Minutes Spent Total Time Spent with Patient: Total time spent is greater than 50% in coordination of care (as documented) at patient's floor/unit and/or counseling patient: 35 Time Spent Midlevel Total time spent 35 minutes with > 50% of that time assessing the patient, discussing goals of care and discharge planning.
--- NOTE | 2019-01-01 22:05 | Hospitalist Progress Note ---
Date of Service January 01, 2019 Assessment & Plan (1) Hypoxia: - Has been on O2 prior to admission for PE - probably multifactorial between PE/CHF/atelectasis - On 12/27 - acute decompensation with worsening hypoxia and requiring 12 L oxy mask - question worsening atelectasis from poor inspiratory effort due to pain from multiple thoracic compression fractures/rib fractures -- Echo without pericardial effusion; No evidence of acute MN/ischemic changes on ECG and only mild troponin elevation; given therapeutic Lovenox PE was unlikely -- Required transfer to ICU and was weaned down to 4 L without invasive respiratory management - Continue supplemental O2 with sat goal of 88-90% - home O2 to be provided by Hospice - Continue Ethacrynic acid 50 mg daily (2) Acute diastolic CHF (congestive heart failure): - CTA and LE doppler negative for additional clot burden; Echo with EF 60- 65% - Due to macular papular rash with Lasix and Bumex he was converted to Ethacrynic acid and tolerating - concern for possible sulfa moiety allergic reaction - Continue Ethacrynic acid 50 mg daily - With ultimate goal of hospice no further need for CHF F/U (3) Multiple myeloma without remission: - Follows with Dr. 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 - Oncology is following - plan is for home with hospice and further questions can be directed to Oncologist if needed (4) Pulmonary embolism: - Repeat CTA/Doppler - negative for additional clot burden - Continue therapeutic Lovenox BID indefinitely - patient and family wish to continue this while on hospice Present on Admission?: Yes (5) HTN (hypertension): - STABLE - low normal - Continue Metoprolol and Ethacrynic acid Present on Admission?: Yes (6) Anemia: - STABLE - Likely due to chemotherapy and MM Present on Admission?: Yes (7) Thrombocytopenia: - STABLE - Likely due to chemotherapy as well - no further lab draws Present on Admission?: Yes (8) Dynamic left ventricular outflow obstruction: - Noted on Echo - monitor for extremes in volume status Present on Admission?: Yes (9) Pulmonary nodule: - 8 mm nodule - no further monitoring if continues on hospice (10) Rash: - H/O idiopathic angioedema/urticaria which he normally takes Zyrtec for; developed a significant rash while admitted that was thought to maybe be caused by Lasix/Bumex and possibly ongoing issues from Revlimid - No further issues since changing to Ethacrynic acid so possible sulfa moiety reaction - Continue Zyrtec daily (11) Situational anxiety: - Recently started on Clonazepam but seems to have less sedation on Lorazepam and Rx sent for D/C - Was recently started on sertraline prior to admission but considerations for changing to Cymbalta was made and will continue this (12) Nasal congestion: - Interfering with ability to breath through nose - now improved with Afrin/nasal saline - can continue saline (13) CKD (chronic kidney disease) stage 2, GFR 60-89 ml/min: - STABLE; avoid nephrotoxins (14) Constipation: - Opioid-induced - improving - Continue Senna/Docusate; Miralax PRN (15) Urinary retention: - Continues with Diallo due to two failed TOV - plan to continue Diallo indefinitely at this time - Will complete treatment for UTI - Cefdinir this evening on 01/01 (16) UTI (urinary tract infection): - Will complete course on 01/01 with Cefdinir (17) DVT prophylaxis: - Therapeutic Lovenox Disposition: Due to no transport will remain in-hospital and hoping for D/C in AM; Goal is comfort - familly requests avoid word hospice when discussing with patient due to the term emotionally upsets him Subjective Pt minimally conversant today. States he hasn't slept well and is hoping the pain medication will help as it does make him sleepy. He states the Roxanol seems to help his breathing and his pain. Unfortunately transportation was not available today. Planning on transporation tomorrow. and family friend updated at bedside. Medications sent to pharmacy. Hospice should be able to have the medications delivered by noon tomorrow. Review of Systems Constitutional: + fatigue and + weakness Respiratory: no dyspnea Cardiovascular: no chest pain and no lightheadedness Gastrointestinal: no abdominal pain, no nausea, no vomiting, no constipation and no diarrhea/loose stools Genitourinary: no dysuria Physical Exam Constitutional: + frail appearing; no acute distress Eyes: + anicteric sclerae; no conjunctival abnormality Neck: trachea midline, no thyromegaly Respiratory: normal respiratory effort; no respiratory distress and no labored breathing Auscultation: + diminished lung sounds; no wheezes Cardiovascular: Rate/Rhythm: regular rate and regular rhythm Heart Sounds: + murmur Gastrointestinal (Abdomen): Inspection/Auscultation: normal bowel sounds; abdomen not distended Percussion/Palpation: abdomen soft; abdomen nontender Musculoskeletal: Head/Neck/Chest: normocephalic and head atraumatic Extremities: extremities normal to inspection; no cyanosis and no clubbing Skin: no rashes, warm and dry Neurologic: moves all extremities and awake (but drowsy but answers questions appropriately); no focal motor deficits and not confused Psychiatric: Orientation: alert and cooperative Affect: + flat affect Results & Data Vital Signs (Past 12 Hours) Vital Signs Temp Pulse Resp BP Pulse Ox 01/01/19 15:00 36.8 C 79 18 111/67 97 PG Care Time/CCT Total # of Minutes Spent Total Time Spent with Patient: Total time spent is greater than 50% in coordination of care (as documented) at patient's floor/unit and/or counseling patient: (1) Pulmonary embolism Acute cor pulmonale presence: unspecified Chronicity: acute Pulmonary embol ism type: unspecified Qualified Code(s): I26.99 - Other pulmonary embolism without acute cor pulmonale
[2019-01-02] MEDS: MoRPHine SULFATE 5 MG/0.25 ML UDP PO PRN ×5 (02:30→12:01)
[2019-01-02] MEDS: DOCUSATE SODIUM/SENNA 50/8.6MG TAB PO SCH (08:11)
[2019-01-02] MEDS ORDERED: LOPERAMIDE HCL 2 MG CAP PO PRN (08:12)
[2019-01-02] MEDS ORDERED: dexAMETHasone 4 MG TAB PO SCH (09:00)
[2019-01-02] MEDS: ETHACRYNIC ACID 25 MG TAB PO SCH ×2 (09:01→09:06)
[2019-01-02] MEDS: ENOXAPARIN 80 MG/0.8 ML SYR SQ SCH (09:01)
[2019-01-02] MEDS: DULOXETINE HCL 30 MG CAP PO SCH (09:01)
[2019-01-02] MEDS: ASCORBIC ACID 500 MG TAB PO SCH ×2 (09:02→09:07)
[2019-01-02] MEDS: THIAMINE HCL 100 MG TAB PO SCH ×2 (09:02→09:07)
[2019-01-02] MEDS: MEGESTROL ACETATE 800 MG/20 ML UDP PO SCH ×2 (09:02→09:13)
[2019-01-02] MEDS: MULTIVITAMIN TAB PO SCH (09:02)
[2019-01-02] MEDS: CETIRIZINE HCL 10 MG TABLET PO SCH ×2 (09:03→09:05)
[2019-01-02] MEDS: LORazepam 0.5 MG TAB PO PRN (09:08)
[2019-01-02] MEDS: CHECK FENTANYL PATCH PLACEMENT SCH ×2 (09:09)
[2019-01-02] MEDS: METOPROLOL SUCC 25MG EXT REL TAB PO SCH (09:12)
[2019-01-02 09:29] LABS: Albumin 2.4 G/DL (3.8-4.8); Alpha 1 Globulin 0.3 G/DL (0.2-0.3); Alpha 2 Globulin 0.6 G/DL (0.5-0.9); Beta-1-Globulin 0.3 G/DL (0.4-0.6); Beta-2-Globulin 0.1 G/DL (0.2-0.5); Gamma Globulin 1.1 G/DL (0.8-1.7); Monoclonal Protein Band 1 0.7 G/DL (NOT DETECTED); Monoclonal Protein Band 2 DNR G/DL (NOT DETECTED); Monoclonal Protein Band 3 DNR G/DL (NOT DETECTED); Total Protein 4.9 G/DL (6.2-8.3)
[2019-01-02] MEDS ORDERED: MECLIZINE HCL 25 MG TAB PO STA (09:57)
[2019-01-02] MEDS: ONDANSETRON 8 MG TABLET PO PRN (10:56)
[2019-01-02] MEDS: fentaNYL 25 MCG/HR TDSY TD SCH (10:58)
[2019-01-02] MEDS: fentaNYL 12 MCG/HR TDSY TD SCH (10:59)
--- NOTE | 2019-01-02 17:28 | Discharge Summary ---
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 Patient states that the symptoms have been progressive over the past 3 days. He says that shortness of breath is considerably worse with ambulation. He denies any chest pain, but reports feeling weak and fatigued. Reports being diagnosed with multiple myeloma approximately 2 months ago. He is currently on dexamethasone, Revlimid (day 09/03). He is currently on therapeutic dosing of Lovenox for PE. He does report a past medical history of a murmur and is seen Dr. Boston in the past. Patient had an echocardiogram Feb 2018 which showed type II diastolic dysfunction, EF 65 to 70%, sclerotic aortic valve without significant stenosis and mildly elevated right ventricular systolic pressure at 29 mmHg. Review of systems Constitutional; patient denies fevers, chills, night sweats HEENT; denies runny nose, sinus pressure, headache, sore throat CV; denies chest pain, palpitations Abdomen; denies abdominal pain, nausea/vomiting/diarrhea Principal Diagnosis Multiple Myeloma; Diastolic Heart Failure Discharge Exam Constitutional + frail appearing; no acute distress Eyes + anicteric sclerae; no conjunctival abnormality Neck trachea midline, no thyromegaly Respiratory normal respiratory effort; no respiratory distress and no labored breathing Auscultation: + diminished lung sounds; no wheezes Cardiovascular Rate/Rhythm: regular rate and regular rhythm Heart Sounds: + murmur Gastrointestinal (Abdomen) Inspection/Auscultation: normal bowel sounds; abdomen not distended Percussion/Palpation: abdomen soft; abdomen nontender Musculoskeletal Head/Neck/Chest: normocephalic and head atraumatic Extremities: extremities normal to inspection; no cyanosis and no clubbing Skin no rashes, warm and dry Neurologic moves all extremities and awake (but drowsy but answers questions appropriately); no focal motor deficits and not confused Psychiatric Orientation: alert and cooperative Affect: + flat affect Discharge Data Allergies Allergy/AdvReac Type Severity Reaction Status Date / Time adhesive tape Allergy Mild Rash Verified 12/06/18 13:37 No Known Drug Allergies Allergy Unknown NONE PER PT Verified 12/06/18 13:37 Consultations 12/21/18 21:19 ED Decision to Admit Stat 12/22/18 01:22 Consult Case Management - Discharge Planning Routine 12/22/18 10:57 Consult Cardiology Routine 12/26/18 12:18 Consult Urology Routine 12/27/18 10:56 Consult Bulldozer/Loader/Compactor/Scraper Routine 12/27/18 12:15 Consult Oncology Routine 12/27/18 12:17 Consult Palliative Care Routine Ordered Studies 12/21/18 21:17 US venous doppler LE BI Stat 12/21/18 21:44 CT abdomen pelvis veno w con Stat CT angio chest PE protocol Stat 12/27/18 11:49 CT chest wo con Urgent Hospital Course (1) Hypoxia: - Has been on O2 prior to admission for PE - probably multifactorial between PE/CHF/atelectasis - On 12/27 - acute decompensation with worsening hypoxia and requiring 12 L oxy mask - question worsening atelectasis from poor inspiratory effort due to pain from multiple thoracic compression fractures/rib fractures -- Echo without pericardial effusion; No evidence of acute PR/ischemic changes on ECG and only mild troponin elevation; given therapeutic Lovenox PE was unlikely -- Required transfer to ICU and was weaned down to 4 L without invasive respiratory management - Continue supplemental O2 with sat goal of 88-90% - home O2 to be provided by Hospice - Continue Ethacrynic acid 50 mg daily (2) Acute diastolic CHF (congestive heart failure): - CTA and LE doppler negative for additional clot burden; Echo with EF 60- 65% - Due to macular papular rash with Lasix and Bumex he was converted to Ethacrynic acid and tolerating - concern for possible sulfa moiety allergic reaction - Continue Ethacrynic acid 50 mg daily - With ultimate goal of hospice no further need for CHF F/U (3) Multiple myeloma without remission: - Follows with Dr. 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 - Oncology followed - plan is for home with hospice and further questions can be directed to Oncologist if needed (4) Pulmonary embolism: - Repeat CTA/Doppler - negative for additional clot burden - Continue therapeutic Lovenox BID indefinitely - patient and family wish to continue this while on hospice (5) HTN (hypertension): - STABLE - low normal - Continue Metoprolol and Ethacrynic acid (6) Anemia: - STABLE - Likely due to chemotherapy and MM (7) Thrombocytopenia: - STABLE - Likely due to chemotherapy as well - no further lab draws (8) Dynamic left ventricular outflow obstruction: - Noted on Echo - monitor for extremes in volume status (9) Pulmonary nodule: - 8 mm nodule - no further monitoring if continues on hospice (10) Rash: - H/O idiopathic angioedema/urticaria which he normally takes Zyrtec for; developed a significant rash while admitted that was thought to maybe be caused by Lasix/Bumex and possibly ongoing issues from Revlimid - No further issues since changing to Ethacrynic acid so possible sulfa moiety reaction - Continue Zyrtec daily (11) Situational anxiety: - Recently started on Clonazepam but seems to have less sedation on Lorazepam and Rx sent for D/C - Was recently started on sertraline prior to admission but considerations for changing to Cymbalta was made and will continue this (12) Nasal congestion: - Interfering with ability to breath through nose - now improved with Afrin/nasal saline - can continue saline (13) CKD (chronic kidney disease) stage 2, GFR 60-89 ml/min: - STABLE; avoid nephrotoxins (14) Constipation: - Opioid-induced - resolved - having some loose stool and advised to only use Senna if needed - Continue Senna/Docusate; Miralax PRN (15) Urinary retention: - Continues with Diallo due to two failed TOV - plan to continue Diallo indefinitely at this time - Will complete treatment for UTI - Cefdinir this evening on 01/01 (16) UTI (urinary tract infection): - Will complete course on 01/01 with Cefdinir (17) DVT prophylaxis: - Therapeutic Lovenox Disposition: Goal is comfort/hospice - family requests to avoid the word hospice when discussing with patient due to the term emotionally upsets him -- Was sleeping a lot on day of admission however will open eyes and participate in conversation with coherent speech however seems to be rather sensitive to opiates/benzos and preventing sedation may be difficult Total Time Total Time Spent Total Time Spent (In Minutes): Greater than 30 minutes Discharge Plan Discharge Items Patient Disposition: Home - Home Health Services Reason For Visit: SOB, LE EDEMA Discharge Diagnosis: Diastolic heart failure Activity: Resume your previous activity Non-emergency contact: Primary Care Provider Call non-emergency contact if: your symptoms worsen Follow-up/Referrals: Robert Boston MD [Physician] - (Please see Dr. Boston in 1-2 weeks.) Robert Damon MD [Primary Care Provider] - Kaylene Dillon PA-C [Physician Food And Nutrition Professor] - 01/01/19 2:00 pm (Congestive Heart Failure Program Appointment Information Early follow up is essential to managing your heart failure. An appointment has been scheduled for you with the [facility] Heart Failure Program within 7 days of discharge. Anticipate this visit to be 30-60 minutes long. Please expect a director of hospitality phone call from one of our nurses approximately 48 hours from discharge. They will also be placing an order for lab work to be completed 1-2 days prior to your heart failure follow up appointment. Please be sure to have this done so we can go over the results when you come in. Office Location The cardiology office building is located in front of the hospital at [address] [facility] [address]. Bring the following with you to your follow-up doctor appointments: Please bring your daily weight log any discharge paperwork all of your medication bottles with you to this visit. ) Diet: Heart Healthy and Low Sodium (2gm) Fluids: 2000ml (8 cups) Addtl Attending Provider Instructions: Low Oxygen Levels: - You were admitted to the hospital with concerns for low oxygen levels. You will need to continue your oxygen at home to help keep these levels higher. Our goal is to see your oxygen levels 88%-90% but if adjustments need made this can be done through the medical team that will be seeing you at home. If increasing the amount of oxygen makes you more comfortable that is fine and should be adjusted to promote your comfort. - Some of this could have been from having extra fluid in the body. Due to reactions/rash this could have been caused by the water pill used here. You were started on Ethacrynic acid 50 mg daily as an alternative to help with your fluid balance. Be mindful that this helps pull water off the body so can lead to dehydration and ultimately if it causes more issues then benefit then it can be removed and this can be discussed with the home services/provider team. - Due to some difficulties urinating the Diallo catheter has been placed and you will return home with it. Multiple Myeloma: - If you want to follow-up with Dr. Nicole you can. The Revlimid may have contributed to the rash you had which has been stopped here in the hospital which you did finish 13 of 14 days of that treatment. If you have any specific questions related to this condition please call the Oncologist's office. - Some changes were made to your pain regimen to help get this better controlled for you and try and prevent it from making you too sleepy. Sometimes this is hard as these medications are known to do that - You will continue a Fentanyl patch of 37 mcg and 12 mcg every 3 days and Roxanol (Morphine) 5 mg( 0.25 mL) as needed for breakthrough pain. Your home agency can make further adjustments to these medications to promote comfort. - A prescription for Lorazepam was sent early in the admission for you to take for feelings of anxiety with the hopes that this dose and type is better tolerated then previous medications. Talked with your pharmacy and this is still over there to be picked up. -- The Ativan and Roxanol when given together can actually increase the effectiveness of the medications. For now we are using 0.5 mg at one time and if this works that is great. If this is not enough to help with anxiety then a 1 mg dose can be used. Your home services group can help with these further adjustments as well. Just be mindful that this can cause sleepiness as well but ultimately want him to be comfortable. - Will also send a prescription for a medication to help keep your bowels moving while on pain medication. This is called Sennokot. You can also use Miralax as needed if ongoing issues. If you get loose stool/diarrhea you can stop the bowel medications but you can have them available incase constipation becomes an issues again. - Your sertraline (anti-depression medication) was changed to Duloxetine which a prescription was sent to your pharmacy to see if this helps better. Urinary Tract Infection: - You also had a urinary tract infection and have completed your treatment. A pill was sent to your pharmacy but since you stayed in the hospital yesterday you finished the treatment here so you do not need to pick that prescription up. History of Blood Clots/Clot in Lung: - You will continue your Lovenox as previously prescribed. This was sent over to the pharmacy. Home Medications: - Did send a prescription for the Zofran and Meclizine as well - Earlier in the admission a phosphorus supplement was sent as well. To help keep these levels good you can continue this supplement. However, if it is bothersome to take multiple medications this would be a low priority overall if you don't want to take them. Pending Studies at Discharge: No Stand-Alone Forms: My [facility] [employer], Smoking Cessation Medications and DC Order Prescriptions: New lorazepam 0.5 mg Tablet 0.5 mg PO BID PRN (Reason: anxiety) Qty: 10 RF: 0 Phospha 250 Neutral 250 mg Tablet 1 tab PO DAILY Qty: 30 RF: 0 duloxetine 30 mg Capsule,Delayed Release(Dr/Ec) 30 mg PO QAM 30 Days Qty: 30 RF: 0 sennosides-docusate sodium [Senokot-S] 8.6-50 mg Tablet 1 tab PO BID 30 Days Qty: 60 RF: 0 ethacrynic acid [Edecrin] 25 mg Tablet 50 mg PO QAM 30 Days Qty: 60 RF: 0 fentanyl 25 mcg/hr patch 72 hour 1 patch TD Q72H 15 Days Qty: 5 RF: 0 fentanyl 12 mcg/hr patch 72 hour 1 patch TD Q72H 15 Days Qty: 5 RF: 0 morphine concentrate 20 mg/mL syringe 5 mg SL Q1H PRN (Reason: pain) 5 Days Qty: 30 RF: 0 morphine concentrate 100 mg/5 mL (20 mg/mL) Solution 5 mg PO Q1H PRN (Reason: pain) 28 Days Qty: 120 RF: 0 ondansetron HCl 8 mg tablet 8 mg PO Q8H PRN (Reason: Dizziness Or Vertigo) 30 Days Qty: 90 RF: 0 meclizine 25 mg tablet 25 mg PO DAILY PRN (Reason: Dizziness Or Vertigo) 30 Days Qty: 30 RF: 0 enoxaparin [Lovenox] 80 mg/0.8 mL syringe 80 mg SQ Q12H 30 Days Qty: 48 RF: 1 Continued metoprolol succinate 25 mg tablet extended release 24 hr 12.5 mg PO QAM RF: 0 acyclovir 400 mg tablet 400 mg PO QAM RF: 0 Discontinued oxycodone 10 mg tablet 10 mg PO Q6H PRN (Reason: Pain) RF: 0 fentanyl 50 mcg/hr patch 72 hour 50 mcg transdermal Q72H RF: 0 dexamethasone 4 mg tablet 20 mg PO DIRECTED RF: 0 clonazepam 1 mg tablet 1 mg PO BID PRN (Reason: Anxiety) RF: 0 sertraline 50 mg tablet 50 mg PO HS RF: 0 Revlimid 25 mg capsule 25 mg PO QAM RF: 0 Discharge Orders: Discharge Order (Routine); Ordered 01/02/19 Ordered By: Mindy Stein Admission Data Admit Date/Time: 12/22/18 00:22 Attending Provider: Gio Garnett Admit Provider: Ottoniel Gutierrez Primary Care Provider: Robert Damon Other Providers: Jovany Epstein ; [facility] [facility] ; Flash Aguilera ; Josh Van ; Redd Hinkle ; Bridger Bradshaw ; Wang Galan V ; Kamryn Bella Other Interventions: Discharge Summary Assessment (RN) Last Done: 01/02/19 10:27 DC Date/Time DO NOT enter until pt leaves facility: 01/02/19 12:48 Supervising Physician Co-Signing Physician Notes Attending note: patient seen and examined with Mindy Stein PA-C. I agree with her discharge summary. I personally reviewed the labs and imaging findings. Patient anxious to leave hospital and go home. He says his pain and breathing are controlled. Has excellent family support, all questions answered. - Multiple myeloma, not in remission plan for home hospice care, will stop treatment at this time and focus on comfort excellent family support for full details refer to complete d/c summary
[2019-01-03 09:16] LABS: Creatinine Ur 113 MG/DL (20-320); Protein, Urine 24 Hour 910 MG/24HRS. (0-149); Total Protein, Urine 107 MG/DL; Urine Protein/Creatinine Ratio 947 (<OR=115)
[2019-01-03 11:42] VITALS: BP 100/65; PULSE 80; TEMP 98.3; O2SAT 90
[2019-01-05] MEDS ORDERED: LENALIDOMIDE PO SCH (09:00)
[2019-01-10] MEDS ORDERED: dexAMETHasone 4 MG TAB PO SCH (09:00)
== END 2019-01-02 12:48 | disposition hospice, home (50) | DRG 291 ==
LOC: ED 19:06 → 2E 12-22 00:22 → SUATTDRO 12-22 00:22 → 2E 12-22 00:42 → 1E 12-27 10:50 → 4W 12-29 17:16

== ENCOUNTER 2019-03-06 22:08 | Inpatient (IN) ==
[2019-03-06] MEDS ORDERED: VANCOMYCIN HCL IV STA (22:40)
[2019-03-06] MEDS ORDERED: CEFEPIME 2,000 MG/20 ML VIAL IV STA (22:40)
[2019-03-06] MEDS ORDERED: SODIUM CHLORIDE 0.9% IV STA (22:40)
[2019-03-06] MEDS ORDERED: SODIUM CHLORIDE 0.9% 1000ML 1,000 ML IV ONE ×2 (22:40→23:12)
[2019-03-06] MEDS ORDERED: VANCOMYCIN CONSULT ACTIVE PRN (22:40)
[2019-03-06 22:59] LABS: Hematocrit (blood only) 21.2 % (42-52); Mean Corpuscular Hemoglobin 29.2 pg (25-34); Mean Corpuscular Volume 88.3 fL (80-100); Mean Platelet Volume 9.6 fL (7.4-10.4); Platelet Count 357 K/uL (130-400); RDW Coefficient of Variation 17.5 % (11.5-14.5); RDW Standard Deviation 56.4 fL (36.4-46.3); White Blood Count 11.93 K/uL (4.8-10.8)
[2019-03-06 23:05] LABS: INR 1.4 (0.9-1.1); Partial Thromboplastin Ratio 1.3; Partial Thromboplastin Time 34.5 Seconds (21.0-31.0); Prothrombin Time 14.4 Seconds (9.0-12.0)
[2019-03-06 23:08] LABS: Albumin Level 1.8 gm/dl (3.4-5.0); Calcium 10.3 mg/dl (8.5-10.1); Chloride 98 mmol/L (98-107); Sodium 131 mmol/L (136-145)
[2019-03-06 23:11] LABS: Alanine Aminotransferase 20 U/L (12-78); Aspartate Aminotransferase 50 U/L (15-37); BUN Creatinine Ratio 19.3 (10-20); Blood Urea Nitrogen 24 mg/dl (7-18); Carbon Dioxide 27 mmol/L (21-32); Creatinine Clr Calc Pharmacy 49.2 ml/min; Est GFR (African American) 62.2; Est GFR (Non-African American) 53.7; Glucose 140 mg/dl (70-99)
[2019-03-06] MEDS ORDERED: ACETAMINOPHEN 1,000 MG/100 ML VIAL IV STA (23:12)
[2019-03-06] MEDS ORDERED: SODIUM CHLORIDE 0.9% 250 ML IV PRN (23:17)
[2019-03-06 23:19] LABS: Albumin Globulin Ratio 0.2 (0.9-2); Alkaline Phosphatase 117 U/L (45-117); Bilirubin,Total 0.4 mg/dl (0.2-1); Creatine Kinase 12 U/L (39-308); Creatine Kinase MB < 1.0 ng/ml (0.5-3.6); Globulin 7.3 gm/dl (2.5-4.0); Total Protein 9.1 gm/dl (6.4-8.2); Troponin I 0.015 ng/ml (0-0.045)
[2019-03-06 23:24] LABS: Basophils # (auto) 0.01 K/uL (0-0.2); Basophils % (auto) 0.1 %; Eosinophils # (auto) 0.06 K/uL (0-0.5); Eosinophils % (auto) 0.5 %; Hypochromasia Present; Immature Granulocytes # (auto) 0.23 K/uL (0.00-0.02); Immature Granulocytes % (auto) 1.9 %; Lymphocytes # (auto) 0.77 K/uL (1.2-3.4); Lymphocytes % (auto) 6.5 %; Monocytes # (auto) 1.17 K/uL (0.11-0.59); Monocytes % (auto) 9.8 %; Neutrophils # (auto) 9.69 K/uL (1.4-6.5); Neutrophils % (auto) 81.2 %; Rouleaux 1+
[2019-03-07 00:03] LABS: Appearance Urine Cloudy (Clear); Bacteria Urine Automated Negative (Negative); Bilirubin Urine Negative (Negative); Blood Urine 3+ (Negative); Color Urine Red; Epithelial Cell Urine Auto >30 /lpf (0-5); Glucose Urine UA Negative (Negative); Ketones Urine Negative (Negative); Leukocyte Esterase Urine 1+ (Negative); Nitrite Urine Negative (Negative); Protein Urine 2+ (Negative); Urobilinogen Urine Negative (Negative); WBC Urine Automated >30 /hpf (0-5); pH Urine 5.5 (4.5-7.5)
[2019-03-07 00:13] LABS: Calcium Oxalate Crystals Urine Present (None Prsent); Granular Casts Urine 20-30 /lpf (0); RBC Urine Automated >30 /hpf (0-4)
--- NOTE | 2019-03-07 00:46 | Emergency Department Note ---
Entered by Damaris Haddad acting as a scribe for Hussein Peralta DO History of Present Illness General Chief complaint: Fever Stated complaint: FEVER, BLOOD IN CATHETER Time Seen by Provider: 03/06/19 23:00 Source: patient History of Present Illness Provider complaint: weakness Onset (ago): day(s) (several) Pain Consistency: + constant Maximum Pain Intensity: 5 Relieved By: + none Exacerbated By: + none Associated symptoms: + fever/chills and + other (+fatigue) The patient is a 83 year old male who presents to the Emergency Room with complaints of constant weakness for the past several days. Per the patients , the patient has been experiencing weakness and increased fatigued for the past several days. She reports that the patient was recently treated for pneumonia and UTI and was placed on antibiotics which he finished today. She states that she called [facility] today and they referred him to the ED. The patient states that he is short of breath and has been experiencing hematuria. He notes that he has abdominal pain. The patient's said that he developed a fever prior to arrival. Home Medications Home Medications Medication Instructions Recorded Confirmed Type fentanyl 37.5 mcg/hour transdermal 1 patch TD Q72H 02/12/19 03/06/19 History patch acetaminophen 325 mg capsule 325 mg PO Q6H PRN 02/13/19 03/06/19 History cholecalciferol (vitamin D3) 1,000 1,000 units PO DAILY ml 02/13/19 03/06/19 History unit/drop oral drops ipratropium 0.5 mg-albuterol 3 mg 3 ml INH QID 02/13/19 03/06/19 History (2.5 mg base)/3 mL nebulization soln lactobacillus combination no.8 3 3,000 mmu cells PO DAILY 02/13/19 03/06/19 History billion cell capsule magnesium hydroxide 400 mg (170 mg 400 mg PO DAILY 02/13/19 03/06/19 History magnesium) chewable tablet omega-3 fatty acids 1,000 mg 1,000 mg PO DAILY 02/13/19 03/06/19 History capsule Oxygen Home #1 ea 02/16/19 Rx apixaban [Eliquis] 5 mg PO BID 02/19/19 03/06/19 History duloxetine 30 mg capsule,delayed 30 mg PO DAILY #30 cap 02/20/19 03/06/19 Rx release lorazepam 0.5 mg PO HS PRN 03/06/19 03/06/19 History Allergies Allergy/AdvReac Type Severity Reaction Status Date / Time adhesive tape Allergy Mild Rash Verified 03/06/19 23:43 No Known Drug Allergies Allergy Unknown NONE PER PT Verified 03/06/19 23:43 ethacrynic acid Allergy Rash Verified 03/06/19 23:43 furosemide Allergy Rash Verified 03/06/19 23:43 Past Med/Surg History Medical History Anemia (Chronic) History of vertebral compression fracture (Inactive) HLD (hyperlipidemia) HTN (hypertension) (Chronic) Hypertension (Chronic) Mitral valve disorder Multiple myeloma (Inactive) Pulmonary embolism (Acute) Thrombocytopenia (Chronic) Vertigo (Chronic) Surgical History History of dental surgery S/P cataract surgery S/P inguinal hernia repair Family History Father , Passed age 64 of [place] Myocardial infarction Mother , Passed age 89 of blood clot after hip replacement No problems noted. Grandfather (Maternal) , Passed age 34 of head and neck cancer No problems noted. Grandmother (Maternal) , Passed age of 72 stomach cancer No problems noted. Brother , Passed age 69 of likely cancer No problems noted. 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 and A total of 10 systems reviewed and were otherwise negative Physical Exam Vital Signs Vital Signs - 24 hr 03/06/19 22:19 03/06/19 22:30 03/06/19 22:33 Temperature 37.9 C H Temperature Source Oral Pulse Rate 129 H 120 H Pulse Rate from SpO2 Sensor 113 H Respiratory Rate 28 H 27 H Blood Pressure 138/85 128/83 Blood Pressure Mean 102 94 Blood Pressure Position Sitting Pulse Oximetry 88 L 94 88 L Oxygen Delivery Method Nasal Cannula Nasal Cannula Nasal Cannula Oxygen Flow Rate 2 4 2 Sepsis Recent Fever Within 48 Hours Yes Sepsis New/Unexplained Change in Mental Status No Sepsis Action Taken by Nursing Physician Notified Oxygen Flow Rate - Titration 4 Pulse Oximetry Post Tiitration 94 03/06/19 23:00 03/06/19 23:15 03/06/19 23:30 Temperature Temperature Source Pulse Rate 123 H 113 H 108 H Pulse Rate from SpO2 Sensor 113 H 110 H 112 H Respiratory Rate 28 H 33 H 28 H Blood Pressure 131/79 Blood Pressure Mean 84 Blood Pressure Position Pulse Oximetry 93 92 92 Oxygen Delivery Method Nasal Cannula Nasal Cannula Nasal Cannula Oxygen Flow Rate 4 4 4 Sepsis Recent Fever Within 48 Hours Sepsis New/Unexplained Change in Mental Status Sepsis Action Taken by Nursing Oxygen Flow Rate - Titration Pulse Oximetry Post Tiitration 03/06/19 23:45 03/06/19 23:48 03/06/19 23:49 Temperature Temperature Source Pulse Rate 112 H 103 H 108 H Pulse Rate from SpO2 Sensor 112 H 122 H 108 H Respiratory Rate 31 H 30 H 28 H Blood Pressure 128/85 Blood Pressure Mean 95 Blood Pressure Position Pulse Oximetry 93 93 92 Oxygen Delivery Method Nasal Cannula Nasal Cannula Nasal Cannula Oxygen Flow Rate 4 4 4 Sepsis Recent Fever Within 48 Hours Sepsis New/Unexplained Change in Mental Status Sepsis Action Taken by Nursing Oxygen Flow Rate - Titration Pulse Oximetry Post Tiitration 03/07/19 00:00 03/07/19 00:15 03/07/19 00:30 Temperature 36.7 C Temperature Source Pulse Rate 106 H 113 H 104 H Pulse Rate from SpO2 Sensor 110 H 106 H 111 H Respiratory Rate 28 H 32 H 28 H Blood Pressure 129/77 141/87 H Blood Pressure Mean 105 90 Blood Pressure Position Pulse Oximetry 93 95 95 Oxygen Delivery Method Nasal Cannula Nasal Cannula Nasal Cannula Oxygen Flow Rate 4 4 4 Sepsis Recent Fever Within 48 Hours Sepsis New/Unexplained Change in Mental Status Sepsis Action Taken by Nursing Oxygen Flow Rate - Titration Pulse Oximetry Post Tiitration 03/07/19 01:00 03/07/19 01:16 03/07/19 01:17 Temperature 36.7 C Temperature Source Oral Pulse Rate 109 H 106 H 104 H Pulse Rate from SpO2 Sensor 105 H 102 H Respiratory Rate 26 H 27 H 25 H Blood Pressure 124/87 124/87 120/87 Blood Pressure Mean 104 99 102 Blood Pressure Position Pulse Oximetry 93 94 94 Oxygen Delivery Method Nasal Cannula Nasal Cannula Oxygen Flow Rate 4 4 4 Sepsis Recent Fever Within 48 Hours Sepsis New/Unexplained Change in Mental Status Sepsis Action Taken by Nursing Oxygen Flow Rate - Titration Pulse Oximetry Post Tiitration 03/07/19 01:20 03/07/19 01:25 03/07/19 01:30 Temperature Temperature Source Pulse Rate 103 H 103 H 102 H Pulse Rate from SpO2 Sensor 99 H 101 H 102 H Respiratory Rate 23 24 26 H Blood Pressure 133/94 128/83 112/87 Blood Pressure Mean 106 105 89 Blood Pressure Position Pulse Oximetry 94 94 94 Oxygen Delivery Method Nasal Cannula Nasal Cannula Nasal Cannula Oxygen Flow Rate 4 4 4 Sepsis Recent Fever Within 48 Hours Sepsis New/Unexplained Change in Mental Status Sepsis Action Taken by Nursing Oxygen Flow Rate - Titration Pulse Oximetry Post Tiitration 03/07/19 01:31 03/07/19 01:36 03/07/19 01:40 Temperature 37.3 C Temperature Source Oral Pulse Rate 103 H 107 H 105 H Pulse Rate from SpO2 Sensor 109 H 106 H 105 H Respiratory Rate 27 H 26 H 27 H Blood Pressure 112/87 150/95 H 139/90 Blood Pressure Mean 95 114 101 Blood Pressure Position Semi-fowlers Pulse Oximetry 91 94 95 Oxygen Delivery Method Oxygen Flow Rate 4 Sepsis Recent Fever Within 48 Hours Sepsis New/Unexplained Change in Mental Status Sepsis Action Taken by Nursing Oxygen Flow Rate - Titration Pulse Oximetry Post Tiitration 03/07/19 01:45 03/07/19 01:46 03/07/19 01:50 Temperature 37.1 C Temperature Source Oral Pulse Rate 103 H 102 H 104 H Pulse Rate from SpO2 Sensor 111 H 98 H Respiratory Rate 23 25 H 22 Blood Pressure 145/86 H 145/86 H 165/141 H Blood Pressure Mean 124 105 156 Blood Pressure Position Semi-fowlers Pulse Oximetry 92 96 96 Oxygen Delivery Method Oxygen Flow Rate 4 Sepsis Recent Fever Within 48 Hours Sepsis New/Unexplained Change in Mental Status Sepsis Action Taken by Nursing Oxygen Flow Rate - Titration Pulse Oximetry Post Tiitration 03/07/19 01:55 03/07/19 02:00 03/07/19 02:01 Temperature Temperature Source Pulse Rate 104 H 104 H 103 H Pulse Rate from SpO2 Sensor 109 H 106 H 104 H Respiratory Rate 23 21 21 Blood Pressure 143/88 H 121/83 Blood Pressure Mean 91 85 Blood Pressure Position Pulse Oximetry 93 95 94 Oxygen Delivery Method Oxygen Flow Rate Sepsis Recent Fever Within 48 Hours Sepsis New/Unexplained Change in Mental Status Sepsis Action Taken by Nursing Oxygen Flow Rate - Titration Pulse Oximetry Post Tiitration CONSTITUTIONAL/VITAL SIGNS: Reviewed / noted above. GENERAL: Non-toxic in appearance. Dried blood on the lips. Bloody urine from romano catheter. INTEGUMENTARY: Warm, dry, and [place]. HEAD: Normocephalic. EYES: without scleral icterus or trauma. ENT/OROPHARYNX: clear and dry mucous membranes. LYMPHADENOPATHY/NECK: Is supple without lymphadenopathy or meningismus. RESPIRATORY: Lungs clear and equal. CARDIOVASCULAR: Regular rate and systolic ejection murmur. GI/ABDOMEN: Soft and nontender. No organomegaly or pulsatile mass. No rebound or guarding. Normal bowel sounds. EXTREMITIES: Warm and well perfused. BACK: No CVA tenderness. NEUROLOGICAL: Intact without focal deficits. PSYCHIATRIC: normal affect. MUSCULOSKELETAL: Normally developed with good muscle tone. Course Course 2246: The patient was evaluated in room B12B, and a complete history and physical examination were performed. 0021: I reviewed the patient's case with Dr. Arias- [facility] Hospitalist. He will evaluate the patient for further management. Administered Medications Discontinued Medications Vancomycin HCl 1,875 mg/ (Sodium Chloride) 537.5 mls @ 200 mls/hr IV NOW STA Stop: 03/07/19 01:21 Last Admin: 03/06/19 23:08 Dose: 200 mls/hr Documented by: [id number] Sodium Chloride (Nss 1000ml) 1,000 mls @ 999 mls/hr IV .Q1H1M ONE Stop: 03/06/19 23:40 Last Infusion: 03/06/19 23:57 Dose: 0 mls/hr Documented by: [id number] Admin: 03/06/19 23:03 Dose: 999 mls/hr Documented by: [id number] Cefepime HCl (Maxipime) 2,000 mg in 20 mls @ 5 mls/min IV NOW STA; Protocol Stop: 03/06/19 22:43 Last Admin: 03/06/19 23:03 Dose: 5 mls/min Documented by: [id number] Sodium Chloride (Nss 1000ml) 1,000 mls @ 999 mls/hr IV .Q1H1M ONE Stop: 03/07/19 00:12 Last Infusion: 03/07/19 00:51 Dose: 0 mls/hr Documented by: [id number] Admin: 03/06/19 23:50 Dose: 999 mls/hr Documented by: [id number] Acetaminophen (Ofirmev) 1,000 mg in 100 mls @ 400 mls/hr IV NOW STA Stop: 03/06/19 23:26 Last Infusion: 03/06/19 23:30 Dose: 0 mls/hr Documented by: [id number] Admin: 03/06/19 23:15 Dose: 400 mls/hr Documented by: [id number] Critical Care Time Critical Care Time: Yes Total Critical Care Time: 40 I have personally spent 40 minutes of critical care time in the direct management of this patient. This includes bedside care, interpretation of diagnostic studies, and testing, discussion with consultants, patient, and family members, and other required patient management activities. This 40 minutes is in excess of all separately billable procedures. Medical Decision Making Differential Diagnosis Differential diagnosis: Etiologies such as metabolic, infection, hypo/hyperglycemia, electrolyte abnormalities, cardiac sources, intracerebral event, toxicologic, neurologic, as well as others were entertained. Medical Records Attestation: I reviewed the patient's medical records. Home Medications Current Medication List: was personally reviewed by me Laboratory Data Attestation: I reviewed the patient's lab results. Result diagrams: 03/06/19 22:34 03/06/19 22:34 Lab Results 03/06/19 03/06/19 03/06/19 Range/Units 22:34 22:34 22:34 WBC 11.93 H (4.8-10.8) K/uL RBC 2.40 L (4.7-6.1) M/uL Hgb 7.0 L (14.0-18.0) g/dL Hct 21.2 L (42-52) % MCV 88.3 (80-100) fL MCH 29.2 (25-34) pg MCHC 33.0 (32-36) g/dL RDW Std Deviation 56.4 H (36.4-46.3) fL RDW Coeff of Zackery 17.5 H (11.5-14.5) % Plt Count 357 (130-400) K/uL MPV 9.6 (7.4-10.4) fL Immature Gran % (Auto) 1.9 % Neut % (Auto) 81.2 % Lymph % (Auto) 6.5 % [place] % (Auto) 9.8 % Eos % (Auto) 0.5 % Baso % (Auto) 0.1 % Immature Gran # (Auto) 0.23 H (0.00-0.02) K/uL Neut # (Auto) 9.69 H (1.4-6.5) K/uL Lymph # (Auto) 0.77 L (1.2-3.4) K/uL [place] # (Auto) 1.17 H (0.11-0.59) K/uL Eos # (Auto) 0.06 (0-0.5) K/uL Baso # (Auto) 0.01 (0-0.2) K/uL Hypochromasia Present Rouleaux 1+ PT 14.4 H (9.0-12.0) Seconds INR 1.4 H (0.9-1.1) APTT 34.5 H (21.0-31.0) Seconds PTT Ratio 1.3 Sodium 131 L (136-145) mmol/L Potassium 4.0 (3.5-5.1) mmol/L Chloride 98 (98-107) mmol/L Carbon Dioxide 27 (21-32) mmol/L Anion Gap 7.0 (3-11) BUN 24 H (7-18) mg/dl Creatinine 1.25 (0.6-1.4) mg/dl Est Cr Clr Drug Dosing 49.2 ml/min Est GFR ( Amer) 62.2 Est GFR (Non-Af Amer) 53.7 BUN/Creatinine Ratio 19.3 (10-20) Glucose 140 H (70-99) mg/dl Lactate (0.4-2.0) mmol/L Calcium 10.3 H (8.5-10.1) mg/dl Magnesium 2.0 (1.8-2.4) mg/dl Total Bilirubin 0.4 (0.2-1) mg/dl AST 50 H (15-37) U/L ALT 20 (12-78) U/L Alkaline Phosphatase 117 (45-117) U/L Total Creatine Kinase 12 L (39-308) U/L CK-MB (CK-2) < 1.0 (0.5-3.6) ng/ml CK/CKMB % Calc TNP Troponin I 0.015 (0-0.045) ng/ml Total Protein 9.1 H (6.4-8.2) gm/dl Albumin 1.8 L (3.4-5.0) gm/dl Globulin 7.3 H (2.5-4.0) gm/dl Albumin/Globulin Ratio 0.2 L (0.9-2) Procalcitonin (0-0.5) ng/ml Urine Color Urine Appearance (Clear) Urine pH (4.5-7.5) Ur Specific [place] (1.000-1.030) Urine Protein (Negative) Urine Glucose (UA) (Negative) Urine Ketones (Negative) Urine Blood (Negative) Urine Nitrite (Negative) Urine Bilirubin (Negative) Urine Urobilinogen (Negative) Ur Leukocyte Esterase (Negative) Urine WBC (Auto) (0-5) /hpf Urine RBC (Auto) (0-4) /hpf U Hyaline Cast (Auto) (0-5) /lpf U Epithel Cells (Auto) (0-5) /lpf Urine Bacteria (Auto) (Negative) Ur Renal Epithelial Cell Calcium Oxalate Crystal (None Prsent) Granular Casts (0) /lpf Urine Yeast Influenza Type A Ag (Neg) Influenza Type B Ag (Neg) Blood Type Antibody Screen Crossmatch 03/06/19 03/06/19 03/06/19 Range/Units 22:34 22:56 23:40 WBC (4.8-10.8) K/uL RBC (4.7-6.1) M/uL Hgb (14.0-18.0) g/dL Hct (42-52) % MCV (80-100) fL MCH (25-34) pg MCHC (32-36) g/dL RDW Std Deviation (36.4-46.3) fL RDW Coeff of Zackery (11.5-14.5) % Plt Count (130-400) K/uL MPV (7.4-10.4) fL Immature Gran % (Auto) % Neut % (Auto) % Lymph % (Auto) % [place] % (Auto) % Eos % (Auto) % Baso % (Auto) % Immature Gran # (Auto) (0.00-0.02) K/uL Neut # (Auto) (1.4-6.5) K/uL Lymph # (Auto) (1.2-3.4) K/uL [place] # (Auto) (0.11-0.59) K/uL Eos # (Auto) (0-0.5) K/uL Baso # (Auto) (0-0.2) K/uL Hypochromasia Rouleaux PT (9.0-12.0) Seconds INR (0.9-1.1) APTT (21.0-31.0) Seconds PTT Ratio Sodium (136-145) mmol/L Potassium (3.5-5.1) mmol/L Chloride (98-107) mmol/L Carbon Dioxide (21-32) mmol/L Anion Gap (3-11) BUN (7-18) mg/dl Creatinine (0.6-1.4) mg/dl Est Cr Clr Drug Dosing ml/min Est GFR ( Amer) Est GFR (Non-Af Amer) BUN/Creatinine Ratio (10-20) Glucose (70-99) mg/dl Lactate 1.0 (0.4-2.0) mmol/L Calcium (8.5-10.1) mg/dl Magnesium (1.8-2.4) mg/dl Total Bilirubin (0.2-1) mg/dl AST (15-37) U/L ALT (12-78) U/L Alkaline Phosphatase (45-117) U/L Total Creatine Kinase (39-308) U/L CK-MB (CK-2) (0.5-3.6) ng/ml CK/CKMB % Calc Troponin I (0-0.045) ng/ml Total Protein (6.4-8.2) gm/dl Albumin (3.4-5.0) gm/dl Globulin (2.5-4.0) gm/dl Albumin/Globulin Ratio (0.9-2) Procalcitonin 0.22 (0-0.5) ng/ml Urine Color Red Urine Appearance Cloudy A (Clear) Urine pH 5.5 (4.5-7.5) Ur Specific [place] 1.020 (1.000-1.030) Urine Protein 2+ H (Negative) Urine Glucose (UA) Negative (Negative) Urine Ketones Negative (Negative) Urine Blood 3+ H (Negative) Urine Nitrite Negative (Negative) Urine Bilirubin Negative (Negative) Urine Urobilinogen Negative (Negative) Ur Leukocyte Esterase 1+ H (Negative) Urine WBC (Auto) >30 H (0-5) /hpf Urine RBC (Auto) >30 H (0-4) /hpf U Hyaline Cast (Auto) 10-30 H (0-5) /lpf U Epithel Cells (Auto) >30 H (0-5) /lpf Urine Bacteria (Auto) Negative (Negative) Ur Renal Epithelial Cell Not Reportable Calcium Oxalate Crystal Present A (None Prsent) Granular Casts 20-30 H (0) /lpf Urine Yeast Not Reportable Influenza Type A Ag (Neg) Influenza Type B Ag (Neg) Blood Type Antibody Screen Crossmatch 03/06/19 03/07/19 Range/Units 23:44 00:10 WBC (4.8-10.8) K/uL RBC (4.7-6.1) M/uL Hgb (14.0-18.0) g/dL Hct (42-52) % MCV (80-100) fL MCH (25-34) pg MCHC (32-36) g/dL RDW Std Deviation (36.4-46.3) fL RDW Coeff of Zackery (11.5-14.5) % Plt Count (130-400) K/uL MPV (7.4-10.4) fL Immature Gran % (Auto) % Neut % (Auto) % Lymph % (Auto) % [place] % (Auto) % Eos % (Auto) % Baso % (Auto) % Immature Gran # (Auto) (0.00-0.02) K/uL Neut # (Auto) (1.4-6.5) K/uL Lymph # (Auto) (1.2-3.4) K/uL [place] # (Auto) (0.11-0.59) K/uL Eos # (Auto) (0-0.5) K/uL Baso # (Auto) (0-0.2) K/uL Hypochromasia Rouleaux PT (9.0-12.0) Seconds INR (0.9-1.1) APTT (21.0-31.0) Seconds PTT Ratio Sodium (136-145) mmol/L Potassium (3.5-5.1) mmol/L Chloride (98-107) mmol/L Carbon Dioxide (21-32) mmol/L Anion Gap (3-11) BUN (7-18) mg/dl Creatinine (0.6-1.4) mg/dl Est Cr Clr Drug Dosing ml/min Est GFR ( Amer) Est GFR (Non-Af Amer) BUN/Creatinine Ratio (10-20) Glucose (70-99) mg/dl Lactate (0.4-2.0) mmol/L Calcium (8.5-10.1) mg/dl Magnesium (1.8-2.4) mg/dl Total Bilirubin (0.2-1) mg/dl AST (15-37) U/L ALT (12-78) U/L Alkaline Phosphatase (45-117) U/L Total Creatine Kinase (39-308) U/L CK-MB (CK-2) (0.5-3.6) ng/ml CK/CKMB % Calc Troponin I (0-0.045) ng/ml Total Protein (6.4-8.2) gm/dl Albumin (3.4-5.0) gm/dl Globulin (2.5-4.0) gm/dl Albumin/Globulin Ratio (0.9-2) Procalcitonin (0-0.5) ng/ml Urine Color Urine Appearance (Clear) Urine pH (4.5-7.5) Ur Specific [place] (1.000-1.030) Urine Protein (Negative) Urine Glucose (UA) (Negative) Urine Ketones (Negative) Urine Blood (Negative) Urine Nitrite (Negative) Urine Bilirubin (Negative) Urine Urobilinogen (Negative) Ur Leukocyte Esterase (Negative) Urine WBC (Auto) (0-5) /hpf Urine RBC (Auto) (0-4) /hpf U Hyaline Cast (Auto) (0-5) /lpf U Epithel Cells (Auto) (0-5) /lpf Urine Bacteria (Auto) (Negative) Ur Renal Epithelial Cell Calcium Oxalate Crystal (None Prsent) Granular Casts (0) /lpf Urine Yeast Influenza Type A Ag Neg for Influ A (Neg) Influenza Type B Ag Neg for Influ B (Neg) Blood Type A Positive Antibody Screen NEGATIVE Crossmatch See Detail Imaging Data Attestation: I personally reviewed and interpreted this imaging study as follows: My Impression: Chest X-Ray Left lower lobe infiltrate. ECG Data Attestation: I personally reviewed and interpreted this ECG as follows: Indication: + weakness Rate (beats per minute): 124 Rhythm: + sinus tachycardia ECG Intervals/blocks: + Right Bundle branch block ECG ST segments: no ST elevation ECG Findings: + PACs Blood Pressure Blood Pressure Findings: Elevated blood pressure Blood Pressure Disposition: did not require urgent referral MDM Narrative This is an 83-year-old male who presents to the ED with a chief complaint of weakness and unsteadiness as well as a fever. He is also less alert than usual. The patient recently has just finished Ceftin ear for a urinary tract infection and pneumonia. He was on this since February 19. The patient is currently on apixaban. He has history of multiple myeloma. He has had sepsis in the past. He also has history of multitude of other chronic medical pro blems. The patient's initial heart rate was 129. Respiratory rate was 28. Blood pressure was normal. Temperature was 37.9. Oxygen saturations was 88% on room air. 4 L gives him 95% saturations. The patient on my clinical exam appears to be dry with dry mucous membranes. There is also noted to be some dried blood in his mouth and on his lips. The patient also was noted to have blood coming from an indwelling Romano catheter catheter. His abdomen soft and nontender. His lungs appear to be diminished but clear. The patient's blood work reveals a hemoglobin of 7. Complete metabolic panel was unremarkable troponin was negative. Chest x-ray per my interpretation reveals a likely left lower lobe pneumonia. An EKG showed a sinus tachycardia rate of 124 with a right bundle branch block. The patient's urine appears possibly infected. Flu swab was negative. The patient was given 30 cc/kg of NSS, 1 unit of packed RBCs. The patient also received IV vancomycin and IV cefepime. The patient will be seen by the hospitalist for further evaluation and care. The patient's fever did improve after IV Tylenol. His tachycardia also improved after the IV fluids. Impression & Plan Sepsis, Pneumonia, Anemia, UTI (urinary tract infection) Discharge Plan Visit Data Chief Complaint: Fever Stated Complaint: FEVER, BLOOD IN CATHETER ED Provider: Hussein Peralta Discharge Problem: Sepsis, Pneumonia, Anemia, UTI (urinary tract infection) Patient Disposition: Being Evaluated by Hospitalist Discharge Instructions Interventions: ED Discharge Assessment Last Done: 03/07/19 02:11 Forms Stand Alone Forms: [facility] [employer] Prescriptions Prescriptions: No Action (DME) Oxygen Home Liters Per Minute See Rx Instructions .ROUTE .MEDSUPPLY Qty: 1 RF: 2 duloxetine [Cymbalta] 30 mg capsule,delayed release(DR/EC) 30 mg PO DAILY Qty: 30 RF: 0 fentanyl 37.5 mcg/hour patch 72 hour 1 patch TD Q72H RF: 0 acetaminophen [Tylenol] 325 mg capsule 325 mg PO Q6H PRN (Reason: Pain) RF: 0 ipratropium-albuterol 0.5 mg-3 mg(2.5 mg base)/3 mL solution for nebulization 3 ml INH QID RF: 0 omega-3 fatty acids 1,000 mg capsule 1,000 mg PO DAILY RF: 0 magnesium hydroxide 400 mg (170 mg magnesium) tablet,chewable 400 mg PO DAILY RF: 0 cholecalciferol (vitamin D3) 1,000 unit/drop drops 1,000 units PO DAILY RF: 0 Adult Probiotic 3 billion cell capsule 3,000 mmu cells PO DAILY RF: 0 Eliquis 5 mg tablet 5 mg PO BID RF: 0 lorazepam 0.5 mg tablet 0.5 mg PO HS PRN (Reason: insomnia) RF: 0 Referrals Referrals: Robert Damon MD [Primary Care Provider] - Discharge Problem: Sepsis Qualifiers: Sepsis type: sepsis due to unspecified organism Sepsis acute organ dysfunction status: unspecified Qualified Code(s): A41.9 - Sepsis, unspecified organism Pneumonia Qualifiers: Pneumonia type: due to unspecified organism Laterality: left Lung location: lower lobe of lung Qualified Code(s): J18.9 - Pneumonia, unspecified organism Anemia Qualifiers: Anemia type: unspecified type Qualified Code(s): D64.9 - Anemia, unspecified UTI (urinary tract infection) Qualifiers: Urinary tract infection type: site unspecified Hematuria presence: with hematuria Qualified Code(s): N39.0 - Urinary tract infection, site not specified The scribe's documentation has been prepared under my direction and personally reviewed by me in its entirety. I confirm that the note above accurately reflects all work, treatment, procedures, and medical decision making performed by me.
--- NOTE | 2019-03-07 01:37 | History & Physical Report ---
Date of Service March 07, 2019 Assessment & Plan (1) Pneumonia: Admit med/surg IV Cefepime and IV Vanco Scheduled duonebs while awake PRN albuterol nebs Supplemental oxygen. (2) Anemia: Has chronic anemia, No obvious acute bleeding. May have trended down secondary to hematuria. 1 unit of PRBCs given in the ED. will check CBC in am. (3) Chronic diastolic CHF (congestive heart failure): Compensated. (4) Multiple myeloma: No family members present and patient is not sure if he is getting any further treatments. (5) CKD (chronic kidney disease) stage 2, GFR 60-89 ml/min: Creat 1.25. (6) Pulmonary embolism: Continues with Eliquis History of Present Illness 83 y/o male presented to the ED with generalized weakness and fatigue over previous 48-72 hours. reports that patient had fever once just prior to coming to ED. He was recently treated for pneumonia and UTI and completed antibiotic course. He has chronic SOB and has been having hematuria. He is on Eliquis for PE. Primary Care Provider: Robert Damon MD Allergies Allergy/AdvReac Type Severity Reaction Status Date / Time adhesive tape Allergy Mild Rash Verified 03/06/19 23:43 No Known Drug Allergies Allergy Unknown NONE PER PT Verified 03/06/19 23:43 ethacrynic acid Allergy Rash Verified 03/06/19 23:43 furosemide Allergy Rash Verified 03/06/19 23:43 Home Medications Home Medications Medication Instructions Recorded Confirmed Type fentanyl 37.5 mcg/hour transdermal 1 patch TD Q72H 02/12/19 03/06/19 History patch acetaminophen 325 mg capsule 325 mg PO Q6H PRN 02/13/19 03/06/19 History cholecalciferol (vitamin D3) 1,000 1,000 units PO DAILY ml 02/13/19 03/06/19 History unit/drop oral drops ipratropium 0.5 mg-albuterol 3 mg 3 ml INH QID 02/13/19 03/06/19 History (2.5 mg base)/3 mL nebulization soln lactobacillus combination no.8 3 3,000 mmu cells PO DAILY 02/13/19 03/06/19 History billion cell capsule magnesium hydroxide 400 mg (170 mg 400 mg PO DAILY 02/13/19 03/06/19 History magnesium) chewable tablet omega-3 fatty acids 1,000 mg 1,000 mg PO DAILY 02/13/19 03/06/19 History capsule Oxygen Home #1 ea 02/16/19 Rx apixaban [Eliquis] 5 mg PO BID 02/19/19 03/06/19 History duloxetine 30 mg capsule,delayed 30 mg PO DAILY #30 cap 02/20/19 03/06/19 Rx release lorazepam 0.5 mg PO HS PRN 03/06/19 03/06/19 History Past Med/Surg History Medical History Anemia (Chronic) History of vertebral compression fracture (Inactive) HLD (hyperlipidemia) HTN (hypertension) (Chronic) Hypertension (Chronic) Mitral valve disorder Multiple myeloma (Inactive) Pulmonary embolism (Acute) Thrombocytopenia (Chronic) Vertigo (Chronic) Surgical History History of dental surgery S/P cataract surgery S/P inguinal hernia repair Family History Father , Passed age 64 of ID Myocardial infarction Mother , Passed age 89 of blood clot after hip replacement No problems noted. Grandfather (Maternal) , Passed age 34 of head and neck cancer No problems noted. Grandmother (Maternal) , Passed age of 72 stomach cancer No problems noted. Brother , Passed age 69 of likely cancer No problems noted. 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: No Beliefs That Will Affect Care: None marital status: Current Living Situation: Spouse Current Living Situation Comment: current occupational status: retired current occupation: Retired [employer] Feels Safe at Home: Yes Safety Concerns: Feels Safe At This Time Smoking Status: Never smoker packs per day: 1.5 ; Second Hand Exposure: No ; Hx Alcohol Use: No Hx Substance Use: No Childhood Exposure to Second-Hand Smoke: Yes caffeine: No Seatbelt Use: always Review of Systems Review of Systems: All systems reviewed & are unremarkable except as noted in HPI & below Physical Exam Physical Exam: General- adult male, appears chronically ill. Head- atraumatic Eyes- PERRL, EOMI, anicteric ENT- oropharynx clear Neck- supple, no JVD, no adenopathy, no thyromegaly. Lungs- Decreased breath sounds at the bases. NO wheezing, rhonchi or crackles noted. Heart- regular rhythm; II/ YOHANA, no gallop, no rub appreciated Abdomen- normal bowel sounds, soft, nontender. 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 Skin- warm & dry Results & Data Vital Signs (Past 12 Hours) Vital Signs Temp Pulse Resp BP Pulse Ox 03/07/19 01:31 37.3 C 100 H 25 H 112/87 94 03/07/19 01:17 104 H 25 H 120/87 94 03/07/19 01:16 36.7 C 106 H 27 H 124/87 94 03/07/19 01:00 109 H 26 H 124/87 93 03/07/19 00:30 104 H 28 H 141/87 H 95 03/07/19 00:15 113 H 32 H 95 03/07/19 00:00 36.7 C 106 H 28 H 129/77 93 03/06/19 23:49 108 H 28 H 92 03/06/19 23:48 103 H 30 H 128/85 93 03/06/19 23:45 112 H 31 H 93 03/06/19 23:30 108 H 28 H 92 03/06/19 23:15 113 H 33 H 92 03/06/19 23:00 123 H 28 H 131/79 93 03/06/19 22:33 88 L 03/06/19 22:30 120 H 27 H 128/83 94 03/06/19 22:19 37.9 C H 129 H 28 H 138/85 88 L Laboratory Results Laboratory Results WBC 11.93 K/uL (4.8-10.8) H 03/06/19 22:34 RBC 2.40 M/uL (4.7-6.1) L 03/06/19 22:34 Hgb 7.0 g/dL (14.0-18.0) L 03/06/19 22:34 Hct 21.2 % (42-52) L 03/06/19 22:34 MCV 88.3 fL (80-100) 03/06/19:34 MCH 29.2 pg (25-34) 03/06/19: MCHC 33.0 g/dL (32-36) 03/06/19 22:34 RDW Std Deviation 56.4 fL (36.4-46.3) H 03/06/19:34 RDW Coeff of Zackery 17.5 % (11.5-14.5) H 03/06/19:34 Plt Count 357 K/uL (130-400) 03/06/19: MPV 9.6 fL (7.4-10.4) 03/06/19:34 Immature Gran % (Auto) 1.9 % 03/06/19:34 Neut % (Auto) 81.2 % 03/06/19 22:34 Lymph % (Auto) 6.5 % 03/06/19:34 Bucks % (Auto) 9.8 % 03/06/19:34 Eos % (Auto) 0.5 % 03/06/19:34 Baso % (Auto) 0.1 % 03/06/19: Immature Gran # (Auto) 0.23 K/uL (0.00-0.02) H 03/06/19:34 Neut # (Auto) 9.69 K/uL (1.4-6.5) H 03/06/19 22:34 Lymph # (Auto) 0.77 K/uL (1.2-3.4) L 03/06/19:34 Bucks # (Auto) 1.17 K/uL (0.11-0.59) H 03/06/19:34 Eos # (Auto) 0.06 K/uL (0-0.5) 03/06/19: Baso # (Auto) 0.01 K/uL (0-0.2) 03/06/19:34 Hypochromasia Present 03/06/19: Rouleaux 1+ 03/06/19: PT 14.4 Seconds (9.0-12.0) H 03/06/19: INR 1.4 (0.9-1.1) H 03/06/19 22:34 APTT 34.5 Seconds (21.0-31.0) H 03/06/19 22:34 PTT Ratio 1.3 03/06/19 22:34 Sodium 131 mmol/L (136-145) L 03/06/19 22:34 Potassium 4.0 mmol/L (3.5-5.1) 03/06/19 22:34 Chloride 98 mmol/L (98-107) 03/06/19 22:34 Carbon Dioxide 27 mmol/L (21-32) 03/06/19 22:34 Anion Gap 7.0 (3-11) 03/06/19 22:34 BUN 24 mg/dl (7-18) H 03/06/19 22:34 Creatinine 1.25 mg/dl (0.6-1.4) 03/06/19 22:34 Est Cr Clr Drug Dosing 49.2 ml/min 03/06/19 22:34 Est GFR ( Amer) 62.2 03/06/19 22:34 Est GFR (Non-Af Amer) 53.7 03/06/19 22:34 BUN/Creatinine Ratio 19.3 (10-20) 03/06/19 22:34 Glucose 140 mg/dl (70-99) H 03/06/19 22:34 Lactate 1.0 mmol/L (0.4-2.0) 03/06/19 22:56 Calcium 10.3 mg/dl (8.5-10.1) H 03/06/19 22:34 Magnesium 2.0 mg/dl (1.8-2.4) 03/06/19 22:34 Total Bilirubin 0.4 mg/dl (0.2-1) 03/06/19 22:34 AST 50 U/L (15-37) H 03/06/19 22:34 ALT 20 U/L (12-78) 03/06/19 22:34 Alkaline Phosphatase 117 U/L (45-117) 03/06/19 22:34 Total Creatine Kinase 12 U/L (39-308) L 03/06/19 22:34 CK-MB (CK-2) < 1.0 ng/ml (0.5-3.6) 03/06/19 22:34 CK/CKMB % Calc TNP 03/06/19 22:34 Troponin I 0.015 ng/ml (0-0.045) 03/06/19 22:34 Total Protein 9.1 gm/dl (6.4-8.2) H 03/06/19 22:34 Albumin 1.8 gm/dl (3.4-5.0) L 03/06/19 22:34 Globulin 7.3 gm/dl (2.5-4.0) H 03/06/19 22:34 Albumin/Globulin Ratio 0.2 (0.9-2) L 03/06/19 22:34 Procalcitonin 0.22 ng/ml (0-0.5) 03/06/19 22:34 Urine Color Red 03/06/19 23:40 Urine Appearance Cloudy (Clear) A 03/06/19 23:40 Urine pH 5.5 (4.5-7.5) 03/06/19 23:40 Ur Specific [place] 1.020 (1.000-1.030) 03/06/19 23:40 Urine Protein 2+ (Negative) H 03/06/19 23:40 Urine Glucose (UA) Negative (Negative) 03/06/19 23:40 Urine Ketones Negative (Negative) 03/06/19 23:40 Urine Blood 3+ (Negative) H 03/06/19 23:40 Urine Nitrite Negative (Negative) 03/06/19 23:40 Urine Bilirubin Negative (Negative) 03/06/19 23:40 Urine Urobilinogen Negative (Negative) 03/06/19 23:40 Ur Leukocyte Esterase 1+ (Negative) H 03/06/19 23:40 Urine WBC (Auto) >30 /hpf (0-5) H 03/06/19 23:40 Urine RBC (Auto) >30 /hpf (0-4) H 03/06/19 23:40 U Hyaline Cast (Auto) 10-30 /lpf (0-5) H 03/06/19 23:40 U Epithel Cells (Auto) >30 /lpf (0-5) H 03/06/19 23:40 Urine Bacteria (Auto) Negative (Negative) 03/06/19 23:40 Ur Renal Epithelial Cell Not Reportable 03/06/19 23:40 Calcium Oxalate Crystal Present (None Prsent) A 03/06/19 23:40 Granular Casts 20-30 /lpf (0) H 03/06/19 23:40 Urine Yeast Not Reportable 03/06/19 23:40 Influenza Type A Ag Neg for Influ A (Neg) 03/07/19 00:10 Influenza Type B Ag Neg for Influ B (Neg) 03/07/19 00:10 Blood Type A Positive 03/06/19 23:44 Antibody Screen NEGATIVE 03/06/19 23:44 Crossmatch See Detail 03/06/19 23:44 Code Status & VTE Plan VTE Prophylaxis Plan VTE Prophylaxis will be ordered: Yes PG Care Time/CCT Total # of Minutes Spent Total Time Spent: 65 Total Time Spent with Patient: Total time spent is greater than 50% in coordination of care (as documented) at patient's floor/unit and/or counseling patient: (1) Pneumonia Laterality: left Lung location: lower lobe of lung Pneumonia type: due to unspecified organism Qualified Code(s): J18.9 - Pneumonia, unspecified organism (2) Anemia Anemia type: unspecified type Qualified Code(s): D64.9 - Anemia, unspecified (3) Pulmonary embolism Acute cor pulmonale presence: unspecified Chronicity: acute Pulmonary embolism type: unspecified Qualified Code(s): I26.99 - Other pulmonary embolism without acute cor pulmonale
[2019-03-07] MEDS ORDERED: LORazepam 0.5 MG TAB PO PRN (03:18)
[2019-03-07] MEDS ORDERED: ONDANSETRON INJ 2 MG/ML 2 ML VIAL IV PRN (03:18)
[2019-03-07] MEDS ORDERED: NON-FORMULARY MEDICATION (Fentanyl 1 PATCH) TD SCH (03:18)
[2019-03-07] MEDS ORDERED: ALBUTEROL 0.083% NEBU SOLN 3 ML VIAL NEB PRN (03:18)
[2019-03-07] MEDS ORDERED: VANCOMYCIN CONSULT ACTIVE PRN (03:18)
[2019-03-07] MEDS ORDERED: ACETAMINOPHEN 325 MG TAB PO PRN (03:18)
[2019-03-07] MEDS ORDERED: ALBUT/IPRATROP 3MG/0.5MG NEB 3 ML VIAL NEB SCH (06:00)
[2019-03-07] MEDS: ALBUT/IPRATROP 3MG/0.5MG NEB 3 ML VIAL NEB SCH ×3 (07:07→19:57)
--- NOTE | 2019-03-07 07:20 | XRay Report ---
SINGLE VIEW CHEST CLINICAL HISTORY: Sepsis. FINDINGS: An AP, portable, upright chest radiograph is compared to study dated 02/19/2019 and correla [place] with chest CT dated 12/27/2018. The examination is degraded by portable technique and patient rota tion. The heart is enlarged noting atherosclerotic calcification of the thoracic aorta. The pulmonary vasculature is noncongested. Airspace consolidation is seen at the left lung base. Trace pleural eff usions are suspected. No pneumothorax is seen. The skeletal structures are osteopenic. There is a rig ht lateral 8th rib fracture which appears new from previous. IMPRESSION: 1. Cardiomegaly without radiographic evidence of congestive failure. 2. There is left basilar consolidation. This could represent atelectasis and/or pneumonia or aspirati on pneumonitis. Clinical correlation will be required. 3. A minimally displaced fracture of the right 8th rib is new from previous. ACT 112: Negative or not required by law. Electronically signed by: Ron Jesus M.D. 03/07/2019 7:19 AM
[2019-03-07] MEDS: APIXABAN 5 MG TABLET PO SCH ×2 (08:05→20:12)
[2019-03-07] MEDS: PANTOprazole 40 MG TAB PO SCH (08:05)
[2019-03-07] MEDS: CHOLECALCIFEROL 1,000 UNITS TAB PO SCH (08:05)
[2019-03-07] MEDS: DULOXETINE HCL 30 MG CAP PO SCH (08:05)
[2019-03-07] MEDS: OMEGA-3 (PURIFIED FISH OIL) 1 GM CAP PO SCH (08:05)
[2019-03-07 08:46] LABS: Hematocrit (blood only) 23.7 % (42-52); Hemoglobin 7.9 g/dL (14.0-18.0); Mean Corpuscular Hemoglobin 29.6 pg (25-34); Mean Corpuscular Hgb Conc 33.3 g/dL (32-36); Mean Corpuscular Volume 88.8 fL (80-100); Platelet Count 321 K/uL (130-400); RDW Coefficient of Variation 16.7 % (11.5-14.5); RDW Standard Deviation 54.9 fL (36.4-46.3); Red Blood Count 2.67 M/uL (4.7-6.1); White Blood Count 10.09 K/uL (4.8-10.8)
[2019-03-07] MEDS ORDERED: fentaNYL 25 MCG/HR TDSY TD SCH (09:00)
[2019-03-07] MEDS ORDERED: MAGNESIUM HYDROXIDE 400 MG PO SCH (09:00)
[2019-03-07] MEDS ORDERED: fentaNYL 12 MCG/HR TDSY TD SCH (09:00)
[2019-03-07] MEDS ORDERED: [UNRECOGNIZED DRUG - OTHER] PO SCH (09:00)
[2019-03-07] MEDS ORDERED: LACTOBACILLUS COMBINATION NO 8 PO SCH (09:00)
[2019-03-07 09:15] LABS: BUN Creatinine Ratio 19.1 (10-20); Calcium 10.2 mg/dl (8.5-10.1); Creatinine Clr Calc Pharmacy 52.9 ml/min; Est GFR (African American) 69.5; Potassium 3.5 mmol/L (3.5-5.1)
[2019-03-07] MEDS: CEFEPIME 2,000 MG in SYRINGE 7.5 ML IV SCH ×2 (10:40→22:35)
[2019-03-07] MEDS ORDERED: VANCOMYCIN HCL 750 MG in SODIUM CHLORIDE 0.9% 250 ML IV SCH (11:00)
--- NOTE | 2019-03-07 11:10 | Electrocardiogram Report ---
Test Reason : Blood Pressure : / mmHG Vent. Rate : 124 BPM Atrial Rate : 124 BPM P-R Int : 188 ms QRS Dur : 126 ms QT Int : 298 ms P-R-T Axes : 061 041 -13 degrees QTc Int : 428 ms Sinus tachycardia with Premature atrial complexes Right bundle branch block Abnormal ECG When compared with ECG of 19-FEB-2019 11:58, No significant change Confirmed by Oswaldo Clemente ([id number]) on 03/07/2019 11:09:47 AM Referred By: REFERRED SELF Confirmed By:Oswaldo Clemente
[2019-03-07] MEDS ORDERED: VANCOMYCIN HCL 1,250 MG in SODIUM CHLORIDE 0.9% 500 ML IV SCH (12:00)
--- NOTE | 2019-03-07 14:58 | Pharmacy Report ---
Pharmacy Abx Initial Consult - Date of Service March 07, 2019 - Pharmacy Dosing Scope Date of Consult: 03/06/19 Consultation requested by: Dr. Arias Pharmacy is consulted to initiate vancomycin IV/PO dosing therapy, order appropriate labs and adjust drug dose/frequency. - Subjective The patient is a 83 year old M admitted on 03/07/19 01:25. - Objective Height: 5 ft 11 in Weight: 73.6 kg Vital Signs (Past 12hrs): Vital Signs Temp Pulse Pulse Resp BP BP Pulse Ox 03/07/19 13:10 19 95 03/07/19 07:17 36.4 C L 61 20 139/82 95 03/07/19 07:07 78 17 90 03/07/19 05:15 36.6 C 96 H 20 124/69 95 03/07/19 04:16 36.7 C 85 20 136/76 95 03/07/19 03:16 37.0 C 82 130/76 Lab Results (24hrs): Laboratory Tests (24 Hours) 03/07/19 03/07/19 03/06/19 08:11 08:11 22:34 WBC 10.09 Neut # (Auto) Creatinine 1.14 Est Cr Clr Drug Dosing 52.9 Total Creatine Kinase Procalcitonin 0.22 03/06/19 03/06/19 22:34 22:34 WBC 11.93 H Neut # (Auto) 9.69 H Creatinine 1.25 Est Cr Clr Drug Dosing 49.2 Total Creatine Kinase 12 L Procalcitonin Micro Results: 03/06/19 23:40 Urine Culture - Pending Urine,Straight Cath 03/06/19 22:56 Aerobic Blood Culture - Pending Blood Anaerobic Blood Culture - Pending 03/06/19 22:34 Aerobic Blood Culture - Pending Blood Anaerobic Blood Culture - Pending - Risk Factors for Resistance * Hospitalization for 48 hours or more within the past 90 days * Immunocompromised Multiple myeloma * Antimicrobial use within the last 90 days- recent treatment for pneumonia (cefdinir for 14 days) - Assessment & Plan Assessment 83 year old M presented to ED with generalized weakness/fatigue, hematuria, SOB. Patient completed 14 day course of cefdinir for pneumonia/UTI. Reviewed previous culture results, urine culture grew enterococcus in late December and Morganella in early December. Most recent urine culture from January- no growth. Tmax 37.9, WBC has normalized from 11.9 to 10.09, urine & blood cultures pending. UA contaminated with >30 epithelial cells, was nitrite negative, WBC >30. Chest xray with "left basilar consolidation. This could represent atelectasis and/or pneumonia or aspiration pneumonitis." Vancomycin and cefepime started for possible pneumonia/UTI. MRSA nasal swab was negative. Plan Vancomycin IV * Estimated PK Parameters: Vd 0.7L/kg, [place] 0.048 hr-1, t1/2 14 hr * Loading dose: 1875 mg (25mg/kg) * Maintenance dose: 750 mg IV (11 mg/kg) every 12 hours * Dosed with lower mg/kg but higher frequency * Goal trough level 15-20 mcg/mL * Will order trough tomorrow if vancomycin continued. Pharmacy will continue to follow and will adjust dose/frequency as necessary. Thank you.
[2019-03-07] MEDS ORDERED: CHECK FENTANYL PATCH PLACEMENT SCH ×2 (16:00)
--- NOTE | 2019-03-07 16:29 | Hospitalist Progress Note ---
Date of Service March 07, 2019 Assessment & Plan (1) Pneumonia: Admitted with intermittent fevers at home, 37.9 here with tachycardia, tachypnea, worsening hypoxia, chest x-ray with left lower lobe infiltrate Recent admission 3 weeks ago to [facility] for upper lobe and lower lobe pneumonia as per report and treated with Augmentin -Treating here for healthcare associated pneumonia, gram-negative pneumonia, initially treated for MRSA pneumonia -Continue IV Cefepime and DC IV Vanco as MRSA swab negative -Continue scheduled duonebs while awake -Continue PRN albuterol nebs -Continue supplemental oxygen. -Early mobilization, pulmonary toilet (2) Sepsis: With tachycardia which is now improving after IV fluid resuscitation and antibiotics, WBC count elevated to 11 and now improving, tachypnea, worsening hypoxia, with pneumonia on imaging -Treating with antibiotics, fluids UA contaminated -Follow blood cultures, urine culture (3) Acute metabolic encephalopathy: Is confused and lethargic care-secondary to sepsis, pneumonia, also received fentanyl today which he reacts poorly to -Discontinued fentanyl patch which was inadvertently ordered and corrects that he is no longer taking that-it was last prescribed 1 month ago -Continue treating sepsis and pneumonia as above (4) Acute and chronic respiratory failure with hypoxia: On chronic O2 at home but up to 4 L here -Secondary to pneumonia -Treating as above -Wean to pulse ox 88-92% ABG here consistent with respiratory alkalosis-no BiPAP needed (5) Anemia: Has chronic anemia secondary to chronic disease and history of chemotherapy, No obvious acute bleeding. May have trended down secondary to mild hematuria. 1 unit of PRBCs given in the ED and hemoglobin improved today to 7.9 -Follow CBC in the morning (6) Chronic diastolic CHF (congestive heart failure): Compensated -no longer on diuretics as per recent cardiology note -Blood pressure and rate control (7) Multiple myeloma: No longer receiving treatment-previously received Revlimid and was thought to have allergic reaction Previously on dexamethasone which is now also stopped Was on hospice after discharge in 12/2018 and then his hospice was revoked by his for hospitalization for pneumonia at the end of January 2019 is interested in meeting with oncology here in the hospital to discuss future treatment-consult placed (8) CKD (chronic kidney disease) stage 2, GFR 60-89 ml/min: Creatinine stable and around baseline at 1.14 -Avoid nephrotoxins -Renally dose medications (9) Pulmonary embolism: Continues with Eliquis 5 mg p.o. twice daily-diagnosed in the last 6 months (10) Tachycardia: Sinus tachycardia with PACs on ECG Intermittently continues and likely secondary to sepsis and pneumonia -Will give a little bit more fluid this evening of 500 mL normal saline (11) Fracture of rib: New eighth rib fracture noted on x-ray -Pain control as needed (12) Acute hyponatremia: Sodium 131 on admission likely secondary to dehydration, sepsis Hydrated with normal saline 2 L in the ER now sodium improved 134 -Follow BMP in the morning (13) Rash: Started today, pruritic, similar to previous when he was on fentanyl patches last time I saw him -Discontinue fentanyl patch -Give Zyrtec 10 mg-avoid Benadryl due to current lethargy (14) Urinary retention: Present since December, no longer on tamsulosin which was started here in December Has not had any outpatient follow-up with urology Likely secondary to BPH, relative immobility, issues previously with constipation -Restart tamsulosin 0.4 mg at bedtime -Has an appointment as an outpatient next Tuesday with urology -Maintain Diallo catheter for now (15) Anxiety: Stable at present -Continue duloxetine 30 mg once daily, lorazepam is no longer being used at home- tried it once or twice and created way too much drowsiness-we will discontinue (16) DVT prophylaxis: Eliquis Disposition-remain hospitalized for treatment for pneumonia and sepsis Subjective Patient very drowsy today and reported that she has not been giving him fentanyl patches for the last month, however it was on his home med rec here and he did receive it today but it has since been removed. He has barely been able to wake up to eat. He has been very sensitive to this in the past and also has developed a rash again today not nearly as bad as the previous admission, but was also initiated on a fentanyl patch at that time as well. He has a mild cough, and is on a higher level of oxygen than he normally is at home. No diarrhea. reports that he has been having low-grade fevers to about 100 off-and-on for several weeks now and that she is just been medicating him with acetaminophen at home. Reviewed the discharge summary from recent admission at [facility] in [place] and he had a swallow study there which was reportedly normal. He was treated with Augmentin at that time for aspiration pneumonia. Patient's is anxious to get him home possibly even tomorrow as she feels that the longer he sits in the hospital, the weaker he gets. She also inquires about him seeing a urologist as he is failed multiple trials of void. I see that the tamsulosin we started him on 2 months ago is no longer on his medication list. He failed a trial of void as recently as 3 weeks ago at [place]. Review of Systems Review of Systems: All systems reviewed & are unremarkable except as noted in HPI & below Physical Exam Constitutional: average body habitus and + lethargic; no acute distress Eyes: + anicteric sclerae Neck: trachea midline, no thyromegaly Respiratory: normal respiratory effort; not tachypneic Auscultation: + crackles (At left base); no wheezes Cardiovascular: Rate/Rhythm: regular rhythm (With ectopy) and + tachycardic (Mild) Heart Sounds: + murmur Extremities: no edema Chest (Breasts): Chest: normal inspection of chest Gastrointestinal (Abdomen): normal bowel sounds, soft, nontender, no hepatosplenomegaly Musculoskeletal: Extremities: extremities normal to inspection; no cyanosis and no clubbing Skin: + rash (Faint erythematous maculopapular rash on torso and arms) Neurologic: moves all extremities, awake (But drowsy, does answer questions but asked "why am I here?") and + confused Motor/Sensory: no tremor Genitourinary: Diallo catheter in place with dark yellow urine Lymphatic: no lymphedema Results & Data Vital Signs (Past 12 Hours) Vital Signs Temp Pulse Resp BP Pulse Ox 03/07/19 15:30 37.0 C 102 H 18 129/92 90 03/07/19 13:10 19 95 03/07/19 07:17 36.4 C L 61 20 139/82 95 03/07/19 07:07 78 17 90 03/07/19 05:15 36.6 C 96 H 20 124/69 95 Laboratory Results 03/07/19 03/07/19 03/07/19 Range/Units 18:30 08:11 08:11 WBC 10.09 (4.8-10.8) K/uL RBC 2.67 L (4.7-6.1) M/uL Hgb 7.9 L (14.0-18.0) g/dL Hct 23.7 L (42-52) % MCV 88.8 (80-100) fL MCH 29.6 (25-34) pg MCHC 33.3 (32-36) g/dL RDW Std Deviation 54.9 H (36.4-46.3) fL RDW Coeff of Zackery 16.7 H (11.5-14.5) % Plt Count 321 (130-400) K/uL MPV 10.0 (7.4-10.4) fL Immature Gran % (Auto) % Neut % (Auto) % Lymph % (Auto) % Griggs % (Auto) % Eos % (Auto) % Baso % (Auto) % Immature Gran # (Auto) (0.00-0.02) K/uL Neut # (Auto) (1.4-6.5) K/uL Lymph # (Auto) (1.2-3.4) K/uL Griggs # (Auto) (0.11-0.59) K/uL Eos # (Auto) (0-0.5) K/uL Baso # (Auto) (0-0.2) K/uL Hypochromasia Rouleaux PT (9.0-12.0) Seconds INR (0.9-1.1) APTT (21.0-31.0) Seconds PTT Ratio ABG pH 7.48 H (7.35-7.45) ABG pCO2 35 (35-46) mmHg ABG pO2 80 (80-95) mmHg ABG HCO3 25 H (19-24) mmol/L ABG O2 Saturation 93.5 (90-95) % ABG Base Excess 1.8 (-9-1.8) mEq/L Manny Test Pos (Pos) Barometric Pressure 732.7 mm/Hg Oxygen Given 3 LITERS Sodium 134 L (136-145) mmol/L Potassium 3.5 (3.5-5.1) mmol/L Chloride 102 (98-107) mmol/L Carbon Dioxide 27 (21-32) mmol/L Anion Gap 5.0 (3-11) BUN 22 H (7-18) mg/dl Creatinine 1.14 (0.6-1.4) mg/dl Est Cr Clr Drug Dosing 52.9 ml/min Est GFR ( Amer) 69.5 Est GFR (Non-Af Amer) 60.0 BUN/Creatinine Ratio 19.1 (10-20) Glucose 115 H (70-99) mg/dl Lactate (0.4-2.0) mmol/L Calcium 10.2 H (8.5-10.1) mg/dl Magnesium (1.8-2.4) mg/dl Total Bilirubin (0.2-1) mg/dl AST (15-37) U/L ALT (12-78) U/L Alkaline Phosphatase (45-117) U/L Total Creatine Kinase (39-308) U/L CK-MB (CK-2) (0.5-3.6) ng/ml CK/CKMB % Calc Troponin I (0-0.045) ng/ml Total Protein (6.4-8.2) gm/dl Albumin (3.4-5.0) gm/dl Globulin (2.5-4.0) gm/dl Albumin/Globulin Ratio (0.9-2) Procalcitonin (0-0.5) ng/ml Urine Color Urine Appearance (Clear) Urine pH (4.5-7.5) Ur Specific [place] (1.000-1.030) Urine Protein (Negative) Urine Glucose (UA) (Negative) Urine Ketones (Negative) Urine Blood (Negative) Urine Nitrite (Negative) Urine Bilirubin (Negative) Urine Urobilinogen (Negative) Ur Leukocyte Esterase (Negative) Urine WBC (Auto) (0-5) /hpf Urine RBC (Auto) (0-4) /hpf U Hyaline Cast (Auto) (0-5) /lpf U Epithel Cells (Auto) (0-5) /lpf Urine Bacteria (Auto) (Negative) Ur Renal Epithelial Cell Calcium Oxalate Crystal (None Prsent) Granular Casts (0) /lpf Urine Yeast Nasal Screen MRSA (PCR) (Negative) Influenza Type A Ag (Neg) Influenza Type B Ag (Neg) Blood Type Antibody Screen Crossmatch 03/07/19 03/07/19 03/06/19 Range/Units 05:55 00:10 23:44 WBC (4.8-10.8) K/uL RBC (4.7-6.1) M/uL Hgb (14.0-18.0) g/dL Hct (42-52) % MCV (80-100) fL MCH (25-34) pg MCHC (32-36) g/dL RDW Std Deviation (36.4-46.3) fL RDW Coeff of Zackery (11.5-14.5) % Plt Count (130-400) K/uL MPV (7.4-10.4) fL Immature Gran % (Auto) % Neut % (Auto) % Lymph % (Auto) % Griggs % (Auto) % Eos % (Auto) % Baso % (Auto) % Immature Gran # (Auto) (0.00-0.02) K/uL Neut # (Auto) (1.4-6.5) K/uL Lymph # (Auto) (1.2-3.4) K/uL Griggs # (Auto) (0.11-0.59) K/uL Eos # (Auto) (0-0.5) K/uL Baso # (Auto) (0-0.2) K/uL Hypochromasia Rouleaux PT (9.0-12.0) Seconds INR (0.9-1.1) APTT (21.0-31.0) Seconds PTT Ratio ABG pH (7.35-7.45) ABG pCO2 (35-46) mmHg ABG pO2 (80-95) mmHg ABG HCO3 (19-24) mmol/L ABG O2 Saturation (90-95) % ABG Base Excess (-9-1.8) mEq/L Manny Test (Pos) Barometric Pressure mm/Hg Oxygen Given Sodium (136-145) mmol/L Potassium (3.5-5.1) mmol/L Chloride (98-107) mmol/L Carbon Dioxide (21-32) mmol/L Anion Gap (3-11) BUN (7-18) mg/dl Creatinine (0.6-1.4) mg/dl Est Cr Clr Drug Dosing ml/min Est GFR ( Amer) Est GFR (Non-Af Amer) BUN/Creatinine Ratio (10-20) Glucose (70-99) mg/dl Lactate (0.4-2.0) mmol/L Calcium (8.5-10.1) mg/dl Magnesium (1.8-2.4) mg/dl Total Bilirubin (0.2-1) mg/dl AST (15-37) U/L ALT (12-78) U/L Alkaline Phosphatase (45-117) U/L Total Creatine Kinase (39-308) U/L CK-MB (CK-2) (0.5-3.6) ng/ml CK/CKMB % Calc Troponin I (0-0.045) ng/ml Total Protein (6.4-8.2) gm/dl Albumin (3.4-5.0) gm/dl Globulin (2.5-4.0) gm/dl Albumin/Globulin Ratio (0.9-2) Procalcitonin (0-0.5) ng/ml Urine Color Urine Appearance (Clear) Urine pH (4.5-7.5) Ur Specific [place] (1.000-1.030) Urine Protein (Negative) Urine Glucose (UA) (Negative) Urine Ketones (Negative) Urine Blood (Negative) Urine Nitrite (Negative) Urine Bilirubin (Negative) Urine Urobilinogen (Negative) Ur Leukocyte Esterase (Negative) Urine WBC (Auto) (0-5) /hpf Urine RBC (Auto) (0-4) /hpf U Hyaline Cast (Auto) (0-5) /lpf U Epithel Cells (Auto) (0-5) /lpf Urine Bacteria (Auto) (Negative) Ur Renal Epithelial Cell Calcium Oxalate Crystal (None Prsent) Granular Casts (0) /lpf Urine Yeast Nasal Screen MRSA (PCR) Negative (Negative) Influenza Type A Ag Neg for Influ A (Neg) Influenza Type B Ag Neg for Influ B (Neg) Blood Type A Positive Antibody Screen NEGATIVE Crossmatch See Detail 03/06/19 03/06/19 03/06/19 Range/Units 23:40 22:56 22:34 WBC (4.8-10.8) K/uL RBC (4.7-6.1) M/uL Hgb (14.0-18.0) g/dL Hct (42-52) % MCV (80-100) fL MCH (25-34) pg MCHC (32-36) g/dL RDW Std Deviation (36.4-46.3) fL RDW Coeff of Zackery (11.5-14.5) % Plt Count (130-400) K/uL MPV (7.4-10.4) fL Immature Gran % (Auto) % Neut % (Auto) % Lymph % (Auto) % Griggs % (Auto) % Eos % (Auto) % Baso % (Auto) % Immature Gran # (Auto) (0.00-0.02) K/uL Neut # (Auto) (1.4-6.5) K/uL Lymph # (Auto) (1.2-3.4) K/uL Griggs # (Auto) (0.11-0.59) K/uL Eos # (Auto) (0-0.5) K/uL Baso # (Auto) (0-0.2) K/uL Hypochromasia Rouleaux PT (9.0-12.0) Seconds INR (0.9-1.1) APTT (21.0-31.0) Seconds PTT Ratio ABG pH (7.35-7.45) ABG pCO2 (35-46) mmHg ABG pO2 (80-95) mmHg ABG HCO3 (19-24) mmol/L ABG O2 Saturation (90-95) % ABG Base Excess (-9-1.8) mEq/L Manny Test (Pos) Barometric Pressure mm/Hg Oxygen Given Sodium (136-145) mmol/L Potassium (3.5-5.1) mmol/L Chloride (98-107) mmol/L Carbon Dioxide (21-32) mmol/L Anion Gap (3-11) BUN (7-18) mg/dl Creatinine (0.6-1.4) mg/dl Est Cr Clr Drug Dosing ml/min Est GFR ( Amer) Est GFR (Non-Af Amer) BUN/Creatinine Ratio (10-20) Glucose (70-99) mg/dl Lactate 1.0 (0.4-2.0) mmol/L Calcium (8.5-10.1) mg/dl Magnesium (1.8-2.4) mg/dl Total Bilirubin (0.2-1) mg/dl AST (15-37) U/L ALT (12-78) U/L Alkaline Phosphatase (45-117) U/L Total Creatine Kinase (39-308) U/L CK-MB (CK-2) (0.5-3.6) ng/ml CK/CKMB % Calc Troponin I (0-0.045) ng/ml Total Protein (6.4-8.2) gm/dl Albumin (3.4-5.0) gm/dl Globulin (2.5-4.0) gm/dl Albumin/Globulin Ratio (0.9-2) Procalcitonin 0.22 (0-0.5) ng/ml Urine Color Red Urine Appearance Cloudy A (Clear) Urine pH 5.5 (4.5-7.5) Ur Specific [place] 1.020 (1.000-1.030) Urine Protein 2+ H (Negative) Urine Glucose (UA) Negative (Negative) Urine Ketones Negative (Negative) Urine Blood 3+ H (Negative) Urine Nitrite Negative (Negative) Urine Bilirubin Negative (Negative) Urine Urobilinogen Negative (Negative) Ur Leukocyte Esterase 1+ H (Negative) Urine WBC (Auto) >30 H (0-5) /hpf Urine RBC (Auto) >30 H (0-4) /hpf U Hyaline Cast (Auto) 10-30 H (0-5) /lpf U Epithel Cells (Auto) >30 H (0-5) /lpf Urine Bacteria (Auto) Negative (Negative) Ur Renal Epithelial Cell Not Reportable Calcium Oxalate Crystal Present A (None Prsent) Granular Casts 20-30 H (0) /lpf Urine Yeast Not Reportable Nasal Screen MRSA (PCR) (Negative) Influenza Type A Ag (Neg) Influenza Type B Ag (Neg) Blood Type Antibody Screen Crossmatch 03/06/19 03/06/19 03/06/19 Range/Units 22:34 22:34 22:34 WBC (4.8-10.8) K/uL RBC (4.7-6.1) M/uL Hgb (14.0-18.0) g/dL Hct (42-52) % MCV (80-100) fL MCH (25-34) pg MCHC (32-36) g/dL RDW Std Deviation (36.4-46.3) fL RDW Coeff of Zackery (11.5-14.5) % Plt Count (130-400) K/uL MPV (7.4-10.4) fL Immature Gran % (Auto) 1.9 % Neut % (Auto) 81.2 % Lymph % (Auto) 6.5 % Griggs % (Auto) 9.8 % Eos % (Auto) 0.5 % Baso % (Auto) 0.1 % Immature Gran # (Auto) 0.23 H (0.00-0.02) K/uL Neut # (Auto) 9.69 H (1.4-6.5) K/uL Lymph # (Auto) 0.77 L (1.2-3.4) K/uL Griggs # (Auto) 1.17 H (0.11-0.59) K/uL Eos # (Auto) 0.06 (0-0.5) K/uL Baso # (Auto) 0.01 (0-0.2) K/uL Hypochromasia Present Rouleaux 1+ PT 14.4 H (9.0-12.0) Seconds INR 1.4 H (0.9-1.1) APTT 34.5 H (21.0-31.0) Seconds PTT Ratio 1.3 ABG pH (7.35-7.45) ABG pCO2 (35-46) mmHg ABG pO2 (80-95) mmHg ABG HCO3 (19-24) mmol/L ABG O2 Saturation (90-95) % ABG Base Excess (-9-1.8) mEq/L Manny Test (Pos) Barometric Pressure mm/Hg Oxygen Given Sodium 131 L (136-145) mmol/L Potassium 4.0 (3.5-5.1) mmol/L Chloride 98 (98-107) mmol/L Carbon Dioxide 27 (21-32) mmol/L Anion Gap 7.0 (3-11) BUN 24 H (7-18) mg/dl Creatinine 1.25 (0.6-1.4) mg/dl Est Cr Clr Drug Dosing 49.2 ml/min Est GFR ( Amer) 62.2 Est GFR (Non-Af Amer) 53.7 BUN/Creatinine Ratio 19.3 (10-20) Glucose 140 H (70-99) mg/dl Lactate (0.4-2.0) mmol/L Calcium 10.3 H (8.5-10.1) mg/dl Magnesium 2.0 (1.8-2.4) mg/dl Total Bilirubin 0.4 (0.2-1) mg/dl AST 50 H (15-37) U/L ALT 20 (12-78) U/L Alkaline Phosphatase 117 (45-117) U/L Total Creatine Kinase 12 L (39-308) U/L CK-MB (CK-2) < 1.0 (0.5-3.6) ng/ml CK/CKMB % Calc TNP Troponin I 0.015 (0-0.045) ng/ml Total Protein 9.1 H (6.4-8.2) gm/dl Albumin 1.8 L (3.4-5.0) gm/dl Globulin 7.3 H (2.5-4.0) gm/dl Albumin/Globulin Ratio 0.2 L (0.9-2) Procalcitonin (0-0.5) ng/ml Urine Color Urine Appearance (Clear) Urine pH (4.5-7.5) Ur Specific [place] (1.000-1.030) Urine Protein (Negative) Urine Glucose (UA) (Negative) Urine Ketones (Negative) Urine Blood (Negative) Urine Nitrite (Negative) Urine Bilirubin (Negative) Urine Urobilinogen (Negative) Ur Leukocyte Esterase (Negative) Urine WBC (Auto) (0-5) /hpf Urine RBC (Auto) (0-4) /hpf U Hyaline Cast (Auto) (0-5) /lpf U Epithel Cells (Auto) (0-5) /lpf Urine Bacteria (Auto) (Negative) Ur Renal Epithelial Cell Calcium Oxalate Crystal (None Prsent) Granular Casts (0) /lpf Urine Yeast Nasal Screen MRSA (PCR) (Negative) Influenza Type A Ag (Neg) Influenza Type B Ag (Neg) Blood Type Antibody Screen Crossmatch PG Care Time/CCT Total # of Minutes Spent Total Time Spent with Patient: Total time spent is greater than 50% in coordination of care (as documented) at patient's floor/unit and/or counseling patient: (1) Anemia Anemia type: unspecified type Qualified Code(s): D64.9 - Anemia, unspecified (2) Pulmonary embolism Acute cor pulmonale presence: unspecified Chronicity: acute Pulmonary embolism type: unspecified Qualified Code(s): I26.99 - Other pulmonary embolism without acute cor pulmonale (3) Pneumonia Laterality: left Lung location: lower lobe of lung Pneumonia type: due to unspecified organism Qualified Code(s): J18.9 - Pneumonia, unspecified organism (4) Sepsis Sepsis acute organ dysfunction status: unspecified Sepsis type: sepsis due to unspecified organism Qualified Code(s): A41.9 - Sepsis, unspecified organism (5) Fracture of rib Encounter type: initial encounter Fracture type: closed Laterality: left Rib fracture type: single rib Qualified Code(s): S22.32XA - Fracture of one rib, left side, initial encounter for closed fracture
[2019-03-07 18:46] LABS: Base Excess ABG 1.8 mEq/L (-9-1.8); HCO3 ABG 25 mmol/L (19-24); Oxygen Saturation ABG 93.5 % (90-95); PCO2 ABG 35 mmHg (35-46); PO2 ABG 80 mmHg (80-95); pH ABG 7.48 (7.35-7.45)
[2019-03-07 18:49] LABS: Allen Test Pos (Pos)
[2019-03-07] MEDS ORDERED: CETIRIZINE HCL 10 MG TABLET PO ONE (19:04)
[2019-03-07] MEDS: TAMSULOSIN HCL 0.4 MG CAP PO SCH (20:13)
[2019-03-07] MEDS ORDERED: SODIUM CHLORIDE 0.9% 500 ML IV SCH (23:15)
[2019-03-08] MEDS: OMEGA-3 (PURIFIED FISH OIL) 1 GM CAP PO SCH (07:08)
[2019-03-08] MEDS: CHOLECALCIFEROL 1,000 UNITS TAB PO SCH (07:08)
[2019-03-08] MEDS: DULOXETINE HCL 30 MG CAP PO SCH (07:08)
[2019-03-08] MEDS: PANTOprazole 40 MG TAB PO SCH (07:08)
[2019-03-08] MEDS: APIXABAN 5 MG TABLET PO SCH ×2 (07:08→20:22)
[2019-03-08] MEDS: ALBUT/IPRATROP 3MG/0.5MG NEB 3 ML VIAL NEB SCH ×3 (07:12→19:37)
[2019-03-08 08:44] LABS: Basophils # (auto) 0.01 K/uL (0-0.2); Basophils % (auto) 0.1 %; Eosinophils # (auto) 0.16 K/uL (0-0.5); Eosinophils % (auto) 1.4 %; Hematocrit (blood only) 22.7 % (42-52); Hemoglobin 7.5 g/dL (14.0-18.0); Immature Granulocytes # (auto) 0.12 K/uL (0.00-0.02); Lymphocytes # (auto) 2.13 K/uL (1.2-3.4); Lymphocytes % (auto) 18.6 %; Mean Corpuscular Hemoglobin 29.4 pg (25-34); Mean Platelet Volume 9.8 fL (7.4-10.4); Monocytes # (auto) 1.15 K/uL (0.11-0.59); Monocytes % (auto) 10.1 %; Neutrophils # (auto) 7.86 K/uL (1.4-6.5); Neutrophils % (auto) 68.8 %; Platelet Count 295 K/uL (130-400); RDW Coefficient of Variation 17.1 % (11.5-14.5); RDW Standard Deviation 56.8 fL (36.4-46.3); Red Blood Count 2.55 M/uL (4.7-6.1); White Blood Count 11.43 K/uL (4.8-10.8)
[2019-03-08 08:52] LABS: BUN Creatinine Ratio 19.1 (10-20); Calcium 10.5 mg/dl (8.5-10.1); Creatinine Clr Calc Pharmacy 58.4 ml/min; Est GFR (African American) 76.8; Est GFR (Non-African American) 66.3; Magnesium 2.1 mg/dl (1.8-2.4); Potassium 3.6 mmol/L (3.5-5.1)
[2019-03-08 09:40] LABS: Anisocytosis Present
--- NOTE | 2019-03-08 10:00 | Consultation Report ---
DATE OF CONSULTATION: 03/08/2019 REASON FOR CONSULTATION: An 83-year-old gentleman with multiple myeloma, admitted for pneumonia. HISTORY OF PRESENT ILLNESS: Mr. White is a pleasant 83-year-old gentleman well known to [facility] with recent diagnosis of multiple myeloma, admitted to [facility] for suspected pneumonia. According to Ja's , he was brought to the Emergency Room on the insistence of home health nurse because of progressive weakness and fatigue over the past 3 days or so. also reported low-grade fever prior to admission to hospital. He was recently treated for urinary tract infection and pneumonia and completed a course of antibiotics. Ja has been a challenge since diagnosed with multiple myeloma back in October of 2018. At that time, he had presented with newly diagnosed lytic bony disease. He had been struggling with mid and lower thoracic pain for 2-3 weeks. Underwent extensive laboratory and radiographic workup confirming the diagnosis of IgG lambda multiple myeloma. He was initially treated with Revlimid, Velcade and dexamethasone and discontinued treatment in late November because of rash and other complications. As previously stated, Mr. White has been a challenge since diagnosis. He has underlying anxieties which have inhibited continuity of treatment along with the side effects described above. Ja has not had any significant treatment since end november. I did happen to see him in the office between hospitalizations on 02/22/2019 and discussed the possibility of giving him salvage melphalan and prednisone which is an oral regimen, still effective and in selected patients is appropriate. I was very happy to hear that his pain had actually improved and for the most part was opioid independent. Mrs. White was somewhat upset that fentanyl was started on Mr. White during his hospitalization, which created a fair amount of confusion and agitation. Engaged in a lengthy discussion with Mrs. White today regarding plans for Ja moving forward. Specifically, need Mr. White to remain out of hospital and stick to a therapeutic plan if tolerated. Also, suggested maybe a generous psychiatric consultation to deal with some of these anxieties again have been road blocks in having him stay on therapy. I should also mention Ja has received palliative radiation therapy as part of his course. Again, it would appear that he is not having significant pain issues, but again obviously need to resolve the active pneumonia and get him out of the hospital before we would consider moving forward with salvage treatment. PAST MEDICAL HISTORY: Significant for stage IIIB IgG lambda multiple myeloma, hyperlipidemia, hypertension, mitral valve disorder, pulmonary embolism, thrombocytopenia and vertigo. PAST SURGICAL HISTORY: Includes cataracts and inguinal hernia repair. CURRENT MEDICATIONS: Fentanyl 37.5 mcg per hour transdermal, acetaminophen as needed, cholecalciferol 1000 units p.o. daily, ipratropium/albuterol 3 mL inhaled q.i.d., lactobacillus 3000 ____ p.o. daily, magnesium hydroxide 400 mg p.o. daily, omega fish oil 1000 mg p.o. daily, home oxygen as needed, Eliquis 5 mg p.o. b.i.d., duloxetine 30 mg p.o. daily, lorazepam 0.5 mg p.r.n. ALLERGIES: ADHESIVE TAPE, ETHACRYNIC ACID AND FUROSEMIDE. SOCIAL HISTORY: The patient is retired and lives with his . He is a reformed smoker. Negative for alcohol, negative for illicit substances. FAMILY HISTORY: Father at age 64 of myocardial infarction. Mother at age 89 from pulmonary embolism after hip replacement surgery. Paternal grandfather of head and neck cancer at age 34. Maternal grandmother of stomach cancer at age 72. She had a brother of metastatic cancer at age 69. REVIEW OF SYSTEMS: Again, positive for general clinical decline asthenia. reported low grade fever, generalized weakness. SKIN: No new rashes or lesions. He had reaction to Revlimid in the past which resulted in discontinuance. HEENT: He denies any current headaches, lightheadedness or dizziness. No acute visual or hearing deficits. No sinus symptoms, sore throat or dysphagia. LYMPH: No history of lymphoproliferative disease. CARDIAC: No current angina or palpitations. PULMONARY: He is oxygen dependent. Also, previously diagnosed pulmonary embolism. No dyspnea on exertion, cough or hemoptysis. GASTROINTESTINAL: Negative for abdominal pain, nausea, vomiting, diarrhea or constipation, no hematochezia or melena reported. GENITOURINARY: Negative for hematuria, dysuria, urinary incontinence. PSYCHIATRIC: Positive for anxiety, positive for depression. MUSCULOSKELETAL: Again, this gentleman suffers from lytic disease attributable to multiple myeloma. Skeletal pain has been reasonably well controlled as of late. NEUROLOGIC: Negative for seizures, strokes or migraine headaches. HEMATOLOGIC: Positive for cytopenias attributable to disease and prior treatment. PHYSICAL EXAMINATION: GENERAL: Very pleasant 83-year-old gentleman, awake, alert and appropriate, in no acute distress. VITAL SIGNS: Temperature 36.7, pulse 71, respiratory rate 18, blood pressure 147/75. SKIN: Warm, dry, noncyanotic without petechia, rash or ecchymosis. HEENT: Head is atraumatic, normocephalic. Eyes: PERRLA, EOMI. Sclerae nonicteric. No conjunctival injection. Nares are patent without rhinorrhea or discharge. Throat clear. Tongue midline. No buccal lesions or ulcerations. NECK: Supple without JVD or thyromegaly. LYMPHATICS: No cervical or supraclavicular or palpable nodes. HEART: Regular rate and rhythm. LUNGS: Clear to auscultation bilaterally. ABDOMEN: Soft, nontender, nondistended, without palpable hepatosplenomegaly. EXTREMITIES: Musculoskeletal strength and pulses are equal in all 4 quadrants. No clubbing, cyanosis or edema otherwise. NEUROLOGICALLY: He is awake, alert, oriented. LABORATORY DATA: WBC count 11,430; hemoglobin 7.5, platelet count 295,000. Sodium 135, potassium 3.6, chloride 105, carbon dioxide 24, creatinine 1.05, BUN 20. RADIOGRAPHIC DATA: 1. Chest x-ray on admission reveals cardiomegaly without radiographic evidence of congestive failure, left basilar consolidation could represent atelectasis and/or pneumonia. 2. Minimally displaced fracture of the right 8th rib, which is new from previous. IMPRESSION: 1. Suspected left lower lobe pneumonia. 2. Minimally displaced right 8th rib fracture. 3. Stage III IgG lambda multiple myeloma. 4. Clinical decline. 5. Anxiety/depression. PLAN: I have been asked to see Ja as his has been somewhat distant chanted of treatment since he has been admitted to hospital. When Ja was first diagnosed with multiple myeloma, there was considerable pain issues. Once he started treatment and received palliative radiation therapy, he was effectively able to get off of opioids pretty much completely. When I saw him on February 22 very pleased to see that he seems to be doing reasonably well and actually engaged in discussion regarding salvage melphalan and prednisone. Engaged in discussion with Mr. White's specifically reviewing events in the past and his poor tolerance to standard induction therapy Revlimid, Velcade and dexamethasone. He had fair amount of difficulty with dexamethasone with his anxieties and such. Additionally, he developed skin rash which was most likely attributable to Revlimid resulting in discontinuance of the entire regimen. Mr. White has been hampered by multiple hospitalizations for respiratory issues including his most recent admission for pneumonia. Thus continuing any form of treatment has been a challenge. I think Mr. White's mental status also creates a fair amount of obstacles regarding staying on treatment. If there is a generous psychiatry available, I think Mr. White will benefit from an evaluation. I have not wavered from discussion this with Ja and his in early February regarding melphalan and prednisone I believe the drug has been approved, but I need him to stay out of hospital for a period of time to continue therapy without interruption. Melphalan and prednisone is an old but useful regimen that he could administer at home and come in for outpatient monitoring during his course. Mrs. White and Ja were agreeable to this plan and will plan to reconvene once he is discharged from hospital. She previously had Mr. White enrolled in hospice and has since revocated upon admission. I look forward to seeing Mr. White and Mrs. White for outpatient followup in 1-2 weeks post-discharge. Thank you very much for allowing me to participate in his care. FLOWER
[2019-03-08] MEDS ORDERED: SODIUM CHLORIDE 0.9% 250 ML IV PRN (10:20)
[2019-03-08] MEDS: CEFEPIME 2,000 MG in SYRINGE 7.5 ML IV SCH ×2 (10:38→22:39)
[2019-03-08] MEDS ORDERED: VANCOMYCIN CONSULT ACTIVE PRN (13:21)
--- NOTE | 2019-03-08 13:35 | Hospitalist Progress Note ---
Date of Service March 08, 2019 Assessment & Plan (1) Pneumonia: Admitted with intermittent fevers at home, 37.9 here with tachycardia, tachypnea, worsening hypoxia, chest x-ray with left lower lobe infiltrate Recent admission 3 weeks ago to [facility] for upper lobe and lower lobe pneumonia as per report and treated with Augmentin for aspiration pneumonia -Treating here for healthcare associated pneumonia, gram-negative pneumonia, initially treated for MRSA pneumonia -Continue IV Cefepime and previously did discontinue the IV Vanco as MRSA swab negative, however restarting vancomycin as below for bacteremia -Continue scheduled duonebs while awake -Continue PRN albuterol nebs -Continue supplemental oxygen. -Early mobilization-has great difficulty with this due to generalized weakness, pulmonary toilet -Overall seems improved (2) Sepsis: With tachycardia which is now somewhat improved after IV fluid resuscitation and antibiotics, WBC count elevated to 11 and now stable, with resolved tachypnea, worsened hypoxia, with pneumonia on imaging -Treating with antibiotics, volume resuscitation UA contaminated Blood cultures from admission with 1/2 sets growing gram-positive cocci in clusters -Add IV vancomycin back on to regimen and continue IV cefepime -Follow-up final results of blood cultures -Repeat 2 new sets of blood cultures to ensure sterility (3) Acute metabolic encephalopathy: Is confused and lethargic on admission and first day after hospitalization-secondary to sepsis, pneumonia, also inadvertently received fentanyl which is known to make him be very drowsy -Discontinued fentanyl patch- states that he is no longer taking that-it was last prescribed 1 month ago -Much improved today -Continue treating sepsis and pneumonia as above (4) Acute and chronic respiratory failure with hypoxia: On chronic O2 at home but up to 4 L here which is more than his usual -Secondary to pneumonia -Treating pneumonia as above -Wean to pulse ox 88-92% ABG here consistent with respiratory alkalosis-no BiPAP needed (5) Anemia: Has chronic anemia secondary to chronic disease and history of chemotherapy, No obvious acute bleeding. May have trended down secondary to mild hematuria. 1 unit of PRBCs given in the ED and hemoglobin improved to 7.9 initially Hemoglobin now down to 7.4 again-transfuse 1 unit PRBCs on 03/08 -Follow CBC in the morning (6) Chronic diastolic CHF (congestive heart failure): Compensated -no longer on diuretics as per recent cardiology note -Control blood pressure and needs improved rate control (7) Multiple myeloma: No longer receiving treatment-previously received Revlimid and Velcade, Decadron-was thought to have allergic reaction and also ended up hospitalized for a prolonged stay and was very debilitated-went home with hospice in 12/2018 His hospice was then revoked by his as he sought treatment for pneumonia and had [facility] the end [facility] 2019 Patient and are interested in future treatment-met with oncology today here-plans to start prednisone and melphalan as an outpatient once pneumonia is treated -Follow-up with oncology as an outpatient after discharge (8) CKD (chronic kidney disease) stage 2, GFR 60-89 ml/min: Creatinine stable and around baseline at 1.05 -Avoid nephrotoxins -Renally dose medications (9) Pulmonary embolism: Continues with Eliquis 5 mg p.o. twice daily-diagnosed in the last 6 months (10) Tachycardia: Sinus tachycardia with frequent PACs again on ECG-sounds very irregular on examination Improved somewhat with gentle IV fluids and is getting PRBC transfusion today -Add on low-dose metoprolol 12.5 mg p.o. twice daily (11) Fracture of rib: New eighth rib fracture noted on x-ray -Pain control as needed (12) Acute hyponatremia: Sodium 131 on admission likely secondary to dehydration, sepsis Hydrated with normal saline 2 L in the ER now sodium improved to 135 -Follow BMP in the morning (13) Rash: Started on 03/07 on torso and arms, neck, is pruritic, similar to previous when he was on fentanyl patches last admission here -Discontinued fentanyl patch -Continue Zyrtec 10 mg daily -Add on as needed Benadryl (14) Urinary retention: Present since December, no longer on tamsulosin which was started here in December Has not had any outpatient follow-up with urology as an outpatient Likely secondary to BPH, relative immobility, issues previously with constipation -Restarted tamsulosin 0.4 mg at bedtime -Has an appointment as an outpatient next Tuesday with urology -Maintain Diallo catheter for now and can do trial of void in the urology office (15) Anxiety: Stable at present -Continue duloxetine 30 mg once daily, lorazepam is no longer being used at home- tried it once or twice and created way too much drowsiness (16) Bacteremia: 1/2 blood cultures as above with gram-positive cocci in clusters -Restarted vancomycin -Follow-up on repeat results and final culture ID and sensitivity (17) DVT prophylaxis: Eliquis Disposition-remain hospitalized for treatment for pneumonia and sepsis, bacteremia Subjective I saw the patient twice today. The first time was late morning and he was much more alert today, interactive but remains slightly confused. He is still coughing. He had a labor utilization superintendent at the bedside. He denied pain anywhere. Still itching from his rash. He is eating today. I discussed his case with oncology today who plans on pursuing outpatient chemotherapy. Recommended giving him a blood transfusion which I did today. The second time I saw him was in the evening and I updated his at the bedside on his condition. Review of Systems Review of Systems: All systems reviewed & are unremarkable except as noted in HPI & below Physical Exam Constitutional: average body habitus; no acute distress Eyes: + anicteric sclerae Neck: trachea midline, no thyromegaly Respiratory: normal respiratory effort; not tachypneic Auscultation: + crackles (At left base); no wheezes Cardiovascular: Rate/Rhythm: regular rhythm (With ectopy) and + tachycardic (Mild) Heart Sounds: + murmur Extremities: no edema Chest (Breasts): Chest: normal inspection of chest Gastrointestinal (Abdomen): normal bowel sounds, soft, nontender, no hepatosplenomegaly Musculoskeletal: Extremities: extremities normal to inspection; no cyanosis and no clubbing Skin: + rash (Faint erythematous maculopapular rash on torso and arms) Neurologic: moves all extremities and + confused Motor/Sensory: no tremor Lymphatic: no lymphedema Results & Data Vital Signs (Past 12 Hours) Vital Signs Temp Pulse Pulse Resp BP BP Pulse Ox 03/08/19 12:25 36.8 C 114 H 18 124/85 94 03/08/19 11:55 36.4 C L 99 H 18 123/80 96 03/08/19 11:40 36.4 C L 98 H 18 124/68 94 03/08/19 11:22 36.9 C 78 18 120/58 L 03/08/19 08:07 36.7 C 71 18 147/75 H 94 03/08/19 07:12 97 H 18 91 Laboratory Results 03/08/19 03/08/19 03/06/19 Range/Units 07:49 07:49 23:44 WBC 11.43 H (4.8-10.8) K/uL RBC 2.55 L (4.7-6.1) M/uL Hgb 7.5 L (14.0-18.0) g/dL Hct 22.7 L (42-52) % MCV 89.0 (80-100) fL MCH 29.4 (25-34) pg MCHC 33.0 (32-36) g/dL RDW Std Deviation 56.8 H (36.4-46.3) fL RDW Coeff of Zackery 17.1 H (11.5-14.5) % Plt Count 295 (130-400) K/uL MPV 9.8 (7.4-10.4) fL Immature Gran % (Auto) 1.0 % Neut % (Auto) 68.8 % Lymph % (Auto) 18.6 % Kemper % (Auto) 10.1 % Eos % (Auto) 1.4 % Baso % (Auto) 0.1 % Immature Gran # (Auto) 0.12 H (0.00-0.02) K/uL Neut # (Auto) 7.86 H (1.4-6.5) K/uL Lymph # (Auto) 2.13 (1.2-3.4) K/uL Kemper # (Auto) 1.15 H (0.11-0.59) K/uL Eos # (Auto) 0.16 (0-0.5) K/uL Baso # (Auto) 0.01 (0-0.2) K/uL Anisocytosis Present Sodium 135 L (136-145) mmol/L Potassium 3.6 (3.5-5.1) mmol/L Chloride 105 (98-107) mmol/L Carbon Dioxide 24 (21-32) mmol/L Anion Gap 6.0 (3-11) BUN 20 H (7-18) mg/dl Creatinine 1.05 (0.6-1.4) mg/dl Est Cr Clr Drug Dosing 58.4 ml/min Est GFR ( Amer) 76.8 Est GFR (Non-Af Amer) 66.3 BUN/Creatinine Ratio 19.1 (10-20) Glucose 113 H (70-99) mg/dl Calcium 10.5 H (8.5-10.1) mg/dl Magnesium 2.1 (1.8-2.4) mg/dl Blood Type A Positive Antibody Screen NEGATIVE Crossmatch See Detail PG Care Time/CCT Total # of Minutes Spent Total Time Spent with Patient: Total time spent is greater than 50% in coordination of care (as documented) at patient's floor/unit and/or counseling patient: (1) Fracture of rib Encounter type: initial encounter Fracture type: closed Laterality: left Rib fracture type: single rib Qualified Code(s): S22.32XA - Fracture of one rib, left side, initial encounter for closed fracture (2) Anemia Anemia type: unspecified type Qualified Code(s): D64.9 - Anemia, unspecified (3) Sepsis Sepsis acute organ dysfunction status: unspecified Sepsis type: sepsis due to unspecified organism Qualified Code(s): A41.9 - Sepsis, unspecified organism (4) Pulmonary embolism Acute cor pulmonale presence: unspecified Chronicity: acute Pulmonary embolism type: unspecified Qualified Code(s): I26.99 - Other pulmonary embolism without acute cor pulmonale (5) Pneumonia Laterality: left Lung location: lower lobe of lung Pneumonia type: due to unspecified organism Qualified Code(s): J18.9 - Pneumonia, unspecified organism
[2019-03-08] MEDS ORDERED: VANCOMYCIN HCL 1,500 MG in SODIUM CHLORIDE 0.9% 500 ML IV ONE (14:00)
[2019-03-08] MEDS: CETIRIZINE HCL 10 MG TABLET PO SCH (14:12)
--- NOTE | 2019-03-08 14:36 | Pharmacy Report ---
Pharmacy Abx Dose Progress Nt - Date of Service March 08, 2019 - Pharmacy Dosing Scope The patient is currently receiving the following antimicrobial agents per Pharmacy consult: [ ] mg IV/PO every [ ] hours - Objective Vital Signs (Past 12hrs): Vital Signs Temp Pulse Pulse Pulse Resp BP BP 03/08/19 13:42 118 H 20 03/08/19 13:25 37.1 C 88 19 118/75 03/08/19 12:25 36.8 C 114 H 18 124/85 03/08/19 11:55 36.4 C L 99 H 18 123/80 03/08/19 11:40 36.4 C L 98 H 18 124/68 03/08/19 11:22 36.9 C 78 18 120/58 L 03/08/19 08:07 36.7 C 71 18 147/75 H 03/08/19 07:12 97 H 18 Pulse Ox 03/08/19 13:42 96 03/08/19 13:25 97 03/08/19 12:25 94 03/08/19 11:55 96 03/08/19 11:40 94 03/08/19 11:22 03/08/19 08:07 94 03/08/19 07:12 91 Lab Results (24hrs): Laboratory Tests (24 Hours) 03/08/19 03/08/19 07:49 07:49 WBC 11.43 H Neut # (Auto) 7.86 H Creatinine 1.05 Est Cr Clr Drug Dosing 58.4 Micro Results: 03/08/19 13:42 Aerobic Blood Culture - Pending Blood Anaerobic Blood Culture - Pending 03/08/19 13:53 Aerobic Blood Culture - Pending Blood Anaerobic Blood Culture - Pending - Risk Factors for Resistance * Hospitalization for 48 hours or more within the past 90 days * Antimicrobial use within the last 90 days - Assessment & Plan Assessment 83 year old M started on vancomycin + cefepime for pneumonia. Vancomycin was discontinued 03/07 afternoon, however adding back today as 02/24 blood culture positive for gram positive cocci in clusters. Hopefully be able to de-escalate with identification. Plan Vancomycin IV Loading dose of 1500 mg x 1 Patient meets criteria for vancomycin AUC dosing nomogram AUC/SIMEON is the preferred PK/PD target for vancomycin * Target AUC/SIMEON = 400-600 * AUC guided dosing is effective and associated with decreased risk of nephrotoxicity * Will dose at 1000 mg q12H, with trough prior to 1400 dose on 03/10 Cefepime dose appropriate for current renal function Pharmacy will continue to follow and will adjust dose/frequency as necessary. Thank you.
[2019-03-08] MEDS: METOPROLOL TARTRATE 25 MG TAB PO SCH (17:01)
--- NOTE | 2019-03-08 17:36 | Electrocardiogram Report ---
Test Reason : Blood Pressure : / mmHG Vent. Rate : 113 BPM Atrial Rate : 113 BPM P-R Int : 176 ms QRS Dur : 124 ms QT Int : 344 ms P-R-T Axes : 057 010 -12 degrees QTc Int : 471 ms Sinus tachycardia with Premature atrial complexes Right bundle branch block Abnormal ECG When compared with ECG of 06-MAR-2019 22:15, No significant change was found Confirmed by Oswaldo Clemente ([id number]) on 03/08/2019 5:36:22 PM Referred By: REFERRED SELF Confirmed By:Oswaldo Clemente
[2019-03-08] MEDS: TAMSULOSIN HCL 0.4 MG CAP PO SCH (20:22)
[2019-03-09] MEDS ORDERED: VANCOMYCIN HCL 1,000 MG in SODIUM CHLORIDE 0.9% 250 ML IV SCH (02:00)
[2019-03-09 07:11] LABS: Basophils # (auto) 0.01 K/uL (0-0.2); Basophils % (auto) 0.1 %; Eosinophils # (auto) 0.12 K/uL (0-0.5); Eosinophils % (auto) 1.2 %; Hematocrit (blood only) 22.8 % (42-52); Hemoglobin 7.6 g/dL (14.0-18.0); Immature Granulocytes # (auto) 0.18 K/uL (0.00-0.02); Immature Granulocytes % (auto) 1.9 %; Lymphocytes # (auto) 0.78 K/uL (1.2-3.4); Lymphocytes % (auto) 8.1 %; Mean Corpuscular Hemoglobin 29.7 pg (25-34); Mean Corpuscular Hgb Conc 33.3 g/dL (32-36); Mean Corpuscular Volume 89.1 fL (80-100); Monocytes # (auto) 0.89 K/uL (0.11-0.59); Monocytes % (auto) 9.3 %; Neutrophils # (auto) 7.63 K/uL (1.4-6.5); Neutrophils % (auto) 79.4 %; Platelet Count 234 K/uL (130-400); RDW Coefficient of Variation 16.9 % (11.5-14.5); RDW Standard Deviation 55.5 fL (36.4-46.3); Red Blood Count 2.56 M/uL (4.7-6.1); White Blood Count 9.61 K/uL (4.8-10.8)
[2019-03-09] MEDS: ALBUT/IPRATROP 3MG/0.5MG NEB 3 ML VIAL NEB SCH ×3 (07:24→19:05)
[2019-03-09 07:38] LABS: Rouleaux 1+
[2019-03-09 07:41] LABS: BUN Creatinine Ratio 19.3 (10-20); Calcium 10.2 mg/dl (8.5-10.1); Creatinine Clr Calc Pharmacy 59.7 ml/min; Est GFR (African American) 78.6; Est GFR (Non-African American) 67.8; Potassium 3.2 mmol/L (3.5-5.1)
[2019-03-09] MEDS: CHOLECALCIFEROL 1,000 UNITS TAB PO SCH (09:08)
[2019-03-09] MEDS: CETIRIZINE HCL 10 MG TABLET PO SCH (09:08)
[2019-03-09] MEDS: METOPROLOL TARTRATE 25 MG TAB PO SCH ×2 (09:08→19:47)
[2019-03-09] MEDS: PANTOprazole 40 MG TAB PO SCH (09:08)
[2019-03-09] MEDS: APIXABAN 5 MG TABLET PO SCH ×2 (09:08→19:47)
[2019-03-09] MEDS: OMEGA-3 (PURIFIED FISH OIL) 1 GM CAP PO SCH (09:08)
[2019-03-09] MEDS: DULOXETINE HCL 30 MG CAP PO SCH (09:08)
[2019-03-09] MEDS ORDERED: SODIUM CHLORIDE 0.9% 250 ML IV PRN (10:43)
[2019-03-09] MEDS ORDERED: POTASSIUM CHLORIDE 20 MEQ TABCR PO STA (10:43)
[2019-03-09] MEDS ORDERED: METOPROLOL TARTRATE 25 MG TAB PO STA (10:51)
[2019-03-09] MEDS: CEFEPIME 2,000 MG in SYRINGE 7.5 ML IV SCH ×2 (11:36→22:12)
--- NOTE | 2019-03-09 14:50 | Palliative Care Consultation ---
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 Patient was seen by our service during his hospitalization in December. At that time patient was discharged home under hospice care. His reports under hospice care he continued to improve and get stronger to a point where he was able to ambulate to the bathroom and toilet himself. Patient then went to [facility] for second opinion regarding further treatment. Patient has had several ER visits as well as a hospitalization for recurrent fevers and treated for possible pneumonia. He presented here on 03/06 with increased weakness, fatigue, fever and hematuria. Patient's pain has not been a recent issue and has been off all opioids. Patient's states he occasionally complains of back pain which she is able to treat with heat and Tylenol. Patient has not tolerated past treatments for his multiple myeloma. Patient last received any chemo treatment for his multiple myeloma the end of November. Patient has had a discussion with Dr. Nicole that if he is able to improve his performance status he can start a regimen with prednisone and melphalan. Spoke with outside the room at length regarding his current condition, prognosis and goals of care. wants to feel that she is given him every chance at prolonging his as well as providing quality of life. Patient is currently receiving his second unit of packed red blood cells-admission hemo globin was 7.0, he only bumped to 7.9 after 1 unit. Plan is to discharge home under care of his -if patient improves and is able to consider chemotherapy will follow up with Dr. Arevalo. Discussed with that if patient does not improve and she does not feel he could tolerate any chemo she knows how to recontact their prior hospice agency and re-enroll in hospice. Provided emotional support to patient's . Patient is agreeable to the above outlined plan. Collaborated with attending physician-we will try to discharge patient as early as this evening if he remains stable. Patient's offered outpatient palliative clinic follow-up. (2) Multiple myeloma: Patient has not been able to tolerate prior chemo regimes-Dr. Nicole is offering patient prednisone plus melphalan if his performance status improves (3) Anxiety: Anxiety worsens when patient is hospitalized-we will try to get him home as soon as medically stable (4) Anemia: Patient receiving his second unit of packed cells Anemia type: unspecified type Qualified Code(s): D64.9 - Anemia, unspecified (5) Urinary retention: Plan to continue indwelling Diallo History of Present Illness Reason for Consultation: Address goals of care Current CODE STATUS is DNR/DNI Requesting Physician: Dr. Cherelle Tomlin Attending Physician: Cherelle Tomlin MD History of Present Illness Chart reviewed, patient seen and examined, patient's and a caregiver at bedside. Appreciate consult note by Dr. Nicole. Patient is an 83-year-old male with a past medical history significant for refractory multiple myeloma-diagnosed in October 2018, recent history of PE, CKD stage II, diastolic CHF, hypertension and HLD. Patient was seen by our service during his hospitalization in December. At that time patient was discharged home under hospice care. His reports under hospice care he continued to improve and get stronger to a point where he was able to ambulate to the bathroom and toilet himself. Patient then went to [facility] for second opinion regarding further treatment. Patient has had several ER visits as well as a hospitalization for recurrent fevers and treated for possible pneumonia. He presented here on 03/06 with increased weakness, fatigue, fever and hematuria. Patient's pain has not been a recent issue and has been off all opioids. Patient's states he occasionally complains of back pain which she is able to treat with heat and Tylenol. Patient has not tolerated past treatments for his multiple myeloma. Patient last received any chemo treatment for his multiple myeloma the end of November. Patient has had a discussion with Dr. Nicole that if he is able to improve his performance status he can start a regimen with prednisone and melphalan. Spoke with outside the room at length regarding his current condition, prognosis and goals of care. wants to feel that she is given him every chance at prolonging his as well as providing quality of life. Patient is currently receiving his second unit of packed red blood cells-admission hemoglobin was 7.0, he only bumped to 7.9 after 1 unit. Plan is to discharge home under care of his -if patient improves and is able to consider chemotherapy will follow up with Dr. Arevalo. Discussed with that if patient does not improve and she does not feel he could tolerate any chemo she knows how to recontact their prior hospice agency and re-enroll in hospice. Provided emotional support to patient's . Patient is agreeable to the above outlined plan. Patient and have no children, has hired caregivers to help with his care at home. Allergies Allergy/AdvReac Type Severity Reaction Status Date / Time adhesive tape Allergy Mild Rash Verified 03/06/19 23:43 No Known Drug Allergies Allergy Unknown NONE PER PT Verified 03/06/19 23:43 ethacrynic acid Allergy Rash Verified 03/06/19 23:43 furosemide Allergy Rash Verified 03/06/19 23:43 fentanyl AdvReac Intermediate rash and Verified 03/07/19 16:08 fatigue Home Medications Home Medications Medication Instructions Recorded Confirmed Type fentanyl 37.5 mcg/hour transdermal 1 patch TD Q72H 02/12/19 03/06/19 History patch acetaminophen 325 mg capsule 325 mg PO Q6H PRN 02/13/19 03/06/19 History cholecalciferol (vitamin D3) 1,000 1,000 units PO DAILY ml 02/13/19 03/06/19 History unit/drop oral drops ipratropium 0.5 mg-albuterol 3 mg 3 ml INH QID 02/13/19 03/06/19 History (2.5 mg base)/3 mL nebulization soln lactobacillus combination no.8 3 3,000 mmu cells PO DAILY 02/13/19 03/06/19 History billion cell capsule magnesium hydroxide 400 mg (170 mg 400 mg PO DAILY 02/13/19 03/06/19 History magnesium) chewable tablet omega-3 fatty acids 1,000 mg 1,000 mg PO DAILY 02/13/19 03/06/19 History capsule Oxygen Home #1 ea 02/16/19 Rx apixaban [Eliquis] 5 mg PO BID 02/19/19 03/06/19 History duloxetine 30 mg capsule,delayed 30 mg PO DAILY #30 cap 02/20/19 03/06/19 Rx release lorazepam 0.5 mg PO HS PRN 03/06/19 03/06/19 History Patient History Medical History Anemia (Chronic) Anxiety History of vertebral compression fracture (Inactive) HLD (hyperlipidemia) HTN (hypertension) (Chronic) Hypertension (Chronic) Mitral valve disorder Multiple myeloma (Inactive) Pulmonary embolism (Acute) Thrombocytopenia (Chronic) Vertigo (Chronic) Surgical History History of dental surgery S/P cataract surgery S/P inguinal hernia repair Family History Father , Passed age 64 of [place] Myocardial infarction Mother , Passed age 89 of blood clot after hip replacement No problems noted. Grandfather (Maternal) , Passed age 34 of head and neck cancer No problems noted. Grandmother (Maternal) , Passed age of 72 stomach cancer No problems noted. Brother , Passed age 69 of likely cancer No problems noted. Other Has no children No pertinent family history Social History Preferred Language: Venezuelan Communication Ability: Impaired Visual Impairment: Limited Hearing Ability: Normal Ham Curer Required: No Beliefs That Will Affect Care: None marital status: Current Living Situation: Spouse Current Living Situation Comment: current occupational status: retired current occupation: Retired [employer] Feels Safe at Home: Yes Safety Concerns: Feels Safe At This Time Smoking Status: Never smoker packs per day: 1.5 ; Second Hand Exposure: No ; Hx Alcohol Use: No Hx Substance Use: No Childhood Exposure to Second-Hand Smoke: Yes caffeine: No Seatbelt Use: always Review of Systems Review of Systems: Other Unable to obtain ROS due to severe fatigue Physical Exam Physical Exam: PE: Patient comfortable at rest, appears weak and fatigued HEENT: EOMI, hearing grossly within normal limits Respirations: Clear breath sounds, on O2 CV: Regular rate Abdomen: Soft, nontender Extremities: Generalized weakness Neuro: Alert and oriented Results & Data Vital Signs (Past 12 Hours) Vital Signs Temp Pulse Pulse Resp BP BP Pulse Ox 03/09/19 13:31 63 18 95 03/09/19 13:10 98.6 F 91 H 18 133/80 92 03/09/19 12:10 98.8 F 101 H 18 129/73 91 03/09/19 11:40 98.4 F 89 18 126/71 94 03/09/19 11:25 98.6 F 92 H 18 147/44 H 97 03/09/19 11:07 97.3 F L 92 H 18 128/86 97 03/09/19 07:25 108 H 16 92 03/09/19 07:00 98.8 F 86 24 138/78 88 L PG Care Time/CCT Total # of Minutes Spent Total Time Spent with Patient: Total time spent is greater than 50% in coordination of care (as documented) at patient's floor/unit and/or counseling patient: Time Spent Attending Total time spent 70 minutes with greater than 50% of the time spent at bedside discussing goals of care as well as developing a plan of care.
[2019-03-09] MEDS ORDERED: QUETIAPINE FUMARATE 25 MG TABLET PO PRN (16:59)
--- NOTE | 2019-03-09 17:37 | Hospitalist Progress Note ---
Date of Service March 09, 2019 Assessment & Plan (1) Pneumonia: Admitted with intermittent fevers at home, 37.9 here with tachycardia, tachypnea, worsening hypoxia, chest x-ray with left lower lobe infiltrate Recent admission 3 weeks ago to [facility] for upper lobe and lower lobe pneumonia as per report and treated with Augmentin for aspiration pneumonia -Treating here for healthcare associated pneumonia, gram-negative pneumonia, initially treated for MRSA pneumonia -Continue IV Cefepime and previously did discontinue the IV Vanco as MRSA swab negative, however restarted vancomycin as below for bacteremia -We will now DC vancomycin again as blood culture likely contaminant -Continue scheduled duonebs while awake -Continue PRN albuterol nebs -Continue supplemental oxygen to keep pulse ox greater than 88-92% -Early mobilization-has great difficulty with this due to generalized weakness, pulmonary toilet -Pneumonia does not seem that impressive, remains confused (2) Sepsis: With tachycardia which is now somewhat improved after IV fluid resuscitation and antibiotics, WBC count elevated to 11 and now stable, with resolved tachypnea, worsened hypoxia, with pneumonia on imaging -Treating with antibiotics, volume resuscitation UA contaminated Blood cultures from admission with 1/2 sets growing coag negative staph-likely contaminant -DC vancomycin -Follow repeat blood cultures (3) Acute metabolic encephalopathy: Is confused and lethargic on admission and continues-secondary to sepsis, pneumonia, also inadvertently received fentanyl which is known to make him be very drowsy Also on Benadryl at bedtime-discontinued this -Discontinued fentanyl patch- states that he is no longer taking that-it was last prescribed 1 month ago -Continue treating sepsis and pneumonia as above -Also has a lot of psychiatric issues including anxiety and likely depression contributing -Discussed at length with -he is pulling out Diallo catheter and IVs-she is very concerned about being able to manage this at home and requests rehab stay (4) Acute and chronic respiratory failure with hypoxia: On chronic O2 at home but up to 4 L here which is more than his usual -Secondary to pneumonia, immobility, atelectasis -Treating pneumonia as above -Wean to pulse ox 88-92% ABG here consistent with respiratory alkalosis-no BiPAP needed -Needs mobilization (5) Anemia: Has chronic anemia secondary to chronic disease and history of chemotherapy, No obvious acute bleeding. May have trended down secondary to mild hematuria. 1 unit of PRBCs given in the ED and hemoglobin improved to 7.9 initially Hemoglobin now down to 7.4 again-transfused 1 unit PRBCs on 03/08 Hemoglobin on 03/09 again only 7.6 despite transfusion the day before -Transfuse another unit of PRBCs on 03/09 -Follow CBC in the morning (6) Chronic diastolic CHF (congestive heart failure): Compensated -no longer on diuretics as per recent cardiology note -Control blood pressure and needs improved rate control -Caution with repeated blood transfusions for volume overload -Could give Bumex if needed-I do not believe he truly had an allergic reaction to Lasix before-I believe it was from the fentanyl patches (7) Multiple myeloma: No longer receiving treatment-previously received Revlimid and Velcade, Decadron-was thought to have allergic reaction and also ended up hospitalized for a prolonged stay and was very debilitated-went home with hospice in 12/2018 His hospice was then revoked by his as he sought treatment for pneumonia and had hospitalization at [facility] at the end of January 2019 Patient and are interested in future treatment-met with oncology today here-plans to start prednisone and melphalan as an outpatient once pneumonia is treated if he recovers from this acute illness -Follow-up with oncology as an outpatient after discharge (8) CKD (chronic kidney disease) stage 2, GFR 60-89 ml/min: Creatinine stable and around baseline at 1.03 -Avoid nephrotoxins -Renally dose medications (9) Pulmonary embolism: Continues with Eliquis 5 mg p.o. twice daily-diagnosed in the last 6 months (10) Tachycardia: Sinus tachycardia with frequent PACs again on ECG-sounds very irregular on examination Improved somewhat with gentle IV fluids and is getting PRBC transfusion today -Added on metoprolol and will now increase to 25 mg p.o. twice daily (11) Fracture of rib: New eighth rib fracture noted on x-ray -Pain control as needed (12) Acute hyponatremia: Sodium 131 on admission likely secondary to dehydration, sepsis Hydrated with normal saline 2 L in the ER now sodium improved to 136 -Follow BMP in the morning (13) Rash: Started on 03/07 on torso and arms, neck, is pruritic, similar to previous when he was on fentanyl patches last admission here -Discontinued fentanyl patch and now greatly improved -Continue Zyrtec 10 mg daily -Discontinue Benadryl for altered mental status (14) Urinary retention: Present since December, no longer on tamsulosin which was started here in December Has not had any outpatient follow-up with urology as an outpatient Likely secondary to BPH, relative immobility, issues previously with constipation -Restarted tamsulosin 0.4 mg at bedtime -Has an appointment as an outpatient next Tuesday with urology -Maintain Diallo catheter for now and can do trial of void in the urology office (15) Anxiety: Worsened by being in the hospital, likely with depression to -Continue duloxetine 30 mg once daily and consider increasing dose, lorazepam is no longer being used at home- tried it once or twice and created way too much drowsiness (16) Bacteremia: 1/2 blood cultures as above with coagulase-negative Staphylococcus-likely contaminant -Discontinuing vancomycin as above -Follow-up on repeat blood cultures to ensure stability (17) DVT prophylaxis: Eliquis Disposition-remain hospitalized for treatment for pneumonia and sepsis, bacteremia, and now looking at [facility] for rehab after discharge-could possibly go tomorrow Subjective Patient remains very weak today, confused, pulling at IVs and Diallo catheter. He did receive Benadryl last night for itching and sleep. He is not able to tell me much at all today. His is wavering between taking him home and going to [id number] decided to go to rehab and try to get him stronger before bringing him home. The patient seems very depressed when he is in the hospital. He is not able to tell me if he is feeling short of breath or having a cough. He is eating a little bit as per his art librarian at the bedside. I discussed the case with palliative care as well as his oncologist Review of Systems Review of Systems: Unobtainable due to cognitive status Physical Exam Constitutional: average body habitus; no acute distress Eyes: + anicteric sclerae Neck: trachea midline, no thyromegaly Respiratory: normal respiratory effort; not tachypneic Auscultation: + crackles (At left base); no wheezes Cardiovascular: RRR, no murmur, no edema Rate/Rhythm: regular rhythm (With ectopy) and + tachycardic (Mild) Heart Sounds: + murmur Extremities: no edema Chest (Breasts): Chest: normal inspection of chest Gastrointestinal (Abdomen): normal bowel sounds, soft, nontender, no hepatosplenomegaly Musculoskeletal: Extremities: extremities normal to inspection; no cyanosis and no clubbing Skin: + rash (Very faint erythematous maculopapular rash on torso and arms much improved) Neurologic: moves all extremities and + confused Motor/Sensory: no tremor Psychiatric: Orientation: alert (But mildly drowsy) Affect: + flat affect Genitourinary: Diallo catheter in place draining clear yellow urine Lymphatic: no lymphedema Results & Data Vital Signs (Past 12 Hours) Vital Signs Temp Pulse Pulse Resp BP BP Pulse Ox 03/09/19 15:29 36.6 C 95 H 20 139/80 90 03/09/19 13:31 63 18 95 03/09/19 13:10 37.0 C 91 H 18 133/80 92 03/09/19 12:10 37.1 C 101 H 18 129/73 91 03/09/19 11:40 36.9 C 89 18 126/71 94 03/09/19 11:25 37.0 C 92 H 18 147/44 H 97 03/09/19 11:07 36.3 C L 92 H 18 128/86 97 03/09/19 07:25 108 H 16 92 03/09/19 07:00 37.1 C 86 24 138/78 88 L Laboratory Results Labs reviewed Blood cultures 1/ with coag negative staph Repeat blood cultures no growth to date Potassium 3.2 Hemoglobin 7.6 WBC count down to normal at 9 PG Care Time/CCT Total # of Minutes Spent Total Time Spent with Patient: Total time spent is greater than 50% in coordination of care (as documented) at patient's floor/unit and/or counseling patient: (1) Fracture of rib Encounter type: initial encounter Fracture type: closed Laterality: left Rib fracture type: single rib Qualified Code(s): S22.32XA - Fracture of one rib, left side, initial encounter for closed fracture (2) Anemia Anemia type: unspecified type Qualified Code(s): D64.9 - Anemia, unspecified (3) Sepsis Sepsis acute organ dysfunction status: unspecified Sepsis type: sepsis due to unspecified organism Qualified Code(s): A41.9 - Sepsis, unspecified organism (4) Pulmonary embolism Acute cor pulmonale presence: unspecified Chronicity: acute Pulmonary embolism type: unspecified Qualified Code(s): I26.99 - Other pulmonary embolism without acute cor pulmonale (5) Pneumonia Laterality: left Lung location: lower lobe of lung Pneumonia type: due to unspecified organism Qualified Code(s): J18.9 - Pneumonia, unspecified organism
[2019-03-09] MEDS: TAMSULOSIN HCL 0.4 MG CAP PO SCH (19:47)
[2019-03-10] MEDS: ALBUT/IPRATROP 3MG/0.5MG NEB 3 ML VIAL NEB SCH ×3 (07:15→19:08)
[2019-03-10] MEDS: APIXABAN 5 MG TABLET PO SCH ×2 (09:18→20:38)
[2019-03-10] MEDS: DULOXETINE HCL 30 MG CAP PO SCH (09:18)
[2019-03-10] MEDS: CETIRIZINE HCL 10 MG TABLET PO SCH (09:18)
[2019-03-10] MEDS: METOPROLOL TARTRATE 25 MG TAB PO SCH ×2 (09:18→20:39)
[2019-03-10] MEDS: PANTOprazole 40 MG TAB PO SCH (09:18)
[2019-03-10] MEDS: CHOLECALCIFEROL 1,000 UNITS TAB PO SCH (09:18)
[2019-03-10] MEDS: OMEGA-3 (PURIFIED FISH OIL) 1 GM CAP PO SCH (09:28)
[2019-03-10 10:53] LABS: Hematocrit (blood only) 26.2 % (42-52); Hemoglobin 8.6 g/dL (14.0-18.0); Mean Corpuscular Hemoglobin 29.4 pg (25-34); Mean Corpuscular Hgb Conc 32.8 g/dL (32-36); Mean Corpuscular Volume 89.4 fL (80-100); Mean Platelet Volume 10.4 fL (7.4-10.4); Platelet Count 213 K/uL (130-400); RDW Coefficient of Variation 16.9 % (11.5-14.5); RDW Standard Deviation 56.4 fL (36.4-46.3); Red Blood Count 2.93 M/uL (4.7-6.1); White Blood Count 8.55 K/uL (4.8-10.8)
[2019-03-10] MEDS: CEFEPIME 2,000 MG in SYRINGE 7.5 ML IV SCH ×2 (11:04→22:19)
[2019-03-10 11:11] LABS: BUN Creatinine Ratio 20.6 (10-20); Basophils # (auto) 0.01 K/uL (0-0.2); Basophils % (auto) 0.1 %; Calcium 10.5 mg/dl (8.5-10.1); Creatinine Clr Calc Pharmacy 61.5 ml/min; Eosinophils # (auto) 0.03 K/uL (0-0.5); Eosinophils % (auto) 0.4 %; Est GFR (African American) 81.4; Est GFR (Non-African American) 70.3; Immature Granulocytes # (auto) 0.13 K/uL (0.00-0.02); Immature Granulocytes % (auto) 1.5 %; Lymphocytes # (auto) 0.51 K/uL (1.2-3.4); Neutrophils # (auto) 7.27 K/uL (1.4-6.5)
[2019-03-10] MEDS ORDERED: POTASSIUM CHLORIDE 20 MEQ TABCR PO STA (12:19)
[2019-03-10] MEDS ORDERED: Nursing to Pharmacy Communication ONE (13:22)
[2019-03-10] MEDS ORDERED: POTASSIUM CHLORIDE PWD 20 MEQ PACK PO STA (13:28)
[2019-03-10] MEDS ORDERED: VANCOMYCIN TROUGH ONE (13:30)
--- NOTE | 2019-03-10 14:29 | Hospitalist Progress Note ---
Date of Service March 10, 2019 Assessment & Plan (1) Pneumonia: Admitted with intermittent fevers at home, 37.9 here with tachycardia, tachypnea, worsening hypoxia, chest x-ray with left lower lobe infiltrate Recent admission 3 weeks ago to [facility] for upper lobe and lower lobe pneumonia as per report and treated with Augmentin for aspiration pneumonia Has been declining over the last month since he came off hospice with his multiple myeloma -Treating here for healthcare associated pneumonia, gram-negative pneumonia, initially treated for MRSA pneumonia -Continue IV Cefepime and previously did discontinue the IV Vanco as MRSA swab negative -Continue scheduled duonebs while awake -Continue PRN albuterol nebs -Continue supplemental oxygen to keep pulse ox greater than 88-92% -Early mobilization-has great difficulty with this due to generalized weakness, pulmonary toilet-not able to mobilize due to severe generalized weakness -Pneumonia does not seem that impressive, remains confused (2) Sepsis: With tachycardia which is not much improved after IV fluid resuscitation and antibiotics, leukocytosis is resolved, with mild tachypnea, persistent hypoxia, with pneumonia on imaging -Treating with antibiotics, volume resuscitation UA contaminated Blood cultures from admission with 1/2 sets growing coag negative staph-likely contaminant -DCd IV vancomycin -Follow repeat blood cultures (3) Acute metabolic encephalopathy: Is confused and lethargic on admission and continues-secondary to sepsis, pneumonia, also inadvertently received fentanyl which is known to make him be very drowsy Also on Benadryl at bedtime-discontinued this -Discontinued fentanyl patch- states that he is no longer taking that-it was last prescribed 1 month ago Remains confused, which often happens to him in the hospital -Continue treating sepsis and pneumonia as above -Also has a lot of psychiatric issues including anxiety and likely depression contributing - is now ready to bring him home with likely transition to hospice if he does not improve at home (4) Acute and chronic respiratory failure with hypoxia: On chronic O2 at home but up to 4 L here which is more than his usual -Secondary to pneumonia, immobility, atelectasis -Treating pneumonia as above -Wean to pulse ox 88-92% ABG here consistent with respiratory alkalosis-no BiPAP needed -Needs mobilization but is profoundly weak as above (5) Anemia: Has chronic anemia secondary to chronic disease and history of chemotherapy, No obvious acute bleeding. May have trended down secondary to mild hematuria. 1 unit of PRBCs given in the ED and hemoglobin improved to 7.9 initially Hemoglobin then down to 7.4 again-transfused 1 unit PRBCs on 03/08 Hemoglobin on 03/09 again only 7.6 despite transfusion the day before -Transfuse another unit of PRBCs on 03/09 and now hemoglobin up appropriately to 8.6 (6) Chronic diastolic CHF (congestive heart failure): Compensated -no longer on diuretics as per recent cardiology note -Control blood pressure and needs improved rate control -Caution with repeated blood transfusions for volume overload -Could give Bumex if needed-I do not believe he truly had an allergic reaction to Lasix before-I believe it was from the fentanyl patches (7) Multiple myeloma: No longer receiving treatment-previously received Revlimid and Velcade, Decadron-was thought to have allergic reaction and also ended up hospitalized for a prolonged stay and was very debilitated-went home with hospice in 12/2018 His hospice was then revoked by his as he sought treatment for pneumonia and had hospitalization at [facility] at the end of January 2019 is somewhat interested in restarting treatment for this-met with oncology here-plans to start prednisone and melphalan as an outpatient once pneumonia is treated if he recovers from this acute illness -Follow-up with oncology as an outpatient after discharge if does not end up transitioning to hospice -I do not think he would tolerate any future treatment very well and this was discussed with the on multiple occasions (8) CKD (chronic kidney disease) stage 2, GFR 60-89 ml/min: Creatinine stable and around baseline at 1.03 -Avoid nephrotoxins -Renally dose medications (9) Pulmonary embolism: Continues with Eliquis 5 mg p.o. twice daily-diagnosed in the last 6 months (10) Tachycardia: Sinus tachycardia with frequent PACs again on ECG-sounds very irregular on examination Improved somewhat with gentle IV fluids and is getting PRBC transfusion today -Added on metoprolol and will now increase to 25 mg p.o. twice daily (11) Fracture of rib: New eighth rib fracture noted on x-ray -Pain control as needed (12) Acute hyponatremia: Sodium 131 on admission likely secondary to dehydration, sepsis Hydrated with normal saline 2 L in the ER now sodium improved to 136 (13) Rash: Started on 03/07 on torso and arms, neck, is pruritic, similar to previous when he was on fentanyl patches last admission here -Discontinued fentanyl patch and now greatly improved -Continue Zyrtec 10 mg daily -Discontinued Benadryl for altered mental status (14) Urinary retention: Present since December, no longer on tamsulosin which was started here in December Has not had any outpatient follow-up with urology as an outpatient Likely secondary to BPH, relative immobility, issues previously with constipation -Restarted tamsulosin 0.4 mg at bedtime -Has an appointment as an outpatient next Tuesday with urology -Maintain Diallo catheter for now and can do trial of void in the urology office (15) Anxiety: Worsened by being in the hospital, likely with depression to -Continue duloxetine 30 mg once daily and consider increasing dose, lorazepam is no longer being used at home- tried it once or twice and created way too much drowsiness (16) Bacteremia: 1/2 blood cultures as above with coagulase-negative Staphylococcus-likely contaminant -Discontinuing vancomycin as above -Follow-up on repeat blood cultures to ensure stability (17) Hypokalemia: Potassium 3.0 today He is not able to swallow the potassium pills -We will give 4 potassium chloride riders IV Due to poor p.o. intake (18) DVT prophylaxis: Eliquis Disposition-remain hospitalized for treatment for pneumonia and sepsis, bacteremia, now plans on bringing him home tomorrow with home health care with likely transition to hospice if he does not improve over the next couple of days at home Communicated this plan to case management Subjective Pt is having very poor appetite, trouble with swallowing. is concerned, asks about what to do or nutrition. Hs is confused. When asked if he wants to go home, he says "no" but does think he will be much more comfortable there. She then comes around to the hallway with me away from him and says that she is ready to transition to hospice if he goes home and does not perk up in the next 1 or 2 days. She is now excepting of this. Review of Systems Review of Systems: Unobtainable due to cognitive status Physical Exam Constitutional: average body habitus; no acute distress (Although does seem a little short of breath) Eyes: + anicteric sclerae Neck: trachea midline, no thyromegaly Respiratory: normal respiratory effort Auscultation: + crackles (At left base); no wheezes Cardiovascular: RRR, no murmur, no edema Rate/Rhythm: regular rhythm (With ectopy) and + tachycardic (Mild) Heart Sounds: + murmur Extremities: no edema Chest (Breasts): Chest: normal inspection of chest Gastrointestinal (Abdomen): normal bowel sounds, soft, nontender, no hepatosplenomegaly Musculoskeletal: Extremities: extremities normal to inspection; no cyanosis and no clubbing Skin: no rashes, warm and dry + rash (Very faint erythematous maculopapular rash on torso and arms much improved) Neurologic: moves all extremities and + confused Motor/Sensory: no tremor Psychiatric: Orientation: alert (But mildly drowsy) Affect: + flat affect Lymphatic: no lymphedema Results & Data Vital Signs (Past 12 Hours) Vital Signs Temp Pulse Pulse Resp BP Pulse Ox 03/10/19 13:29 59 L 18 93 03/10/19 07:15 117 H 18 90 03/10/19 06:57 36.5 C 95 H 21 132/76 91 Laboratory Results Labs reviewed, potassium low PG Care Time/CCT Total # of Minutes Spent Total Time Spent with Patient: Total time spent is greater than 50% in coordination of care (as documented) at patient's floor/unit and/or counseling patient: (1) Fracture of rib Encounter type: initial encounter Fracture type: closed Laterality: left Rib fracture type: single rib Qualified Code(s): S22.32XA - Fracture of one rib , left side, initial encounter for closed fracture (2) Anemia Anemia type: unspecified type Qualified Code(s): D64.9 - Anemia, unspecified (3) Sepsis Sepsis acute organ dysfunction status: unspecified Sepsis type: sepsis due to unspecified organism Qualified Code(s): A41.9 - Sepsis, unspecified organism (4) Pulmonary embolism Acute cor pulmonale presence: unspecified Chronicity: acute Pulmonary embolism type: unspecified Qualified Code(s): I26.99 - Other pulmonary embolism without acute cor pulmonale (5) Pneumonia Laterality: left Lung location: lower lobe of lung Pneumonia type: due to unspecified organism Qualified Code(s): J18.9 - Pneumonia, unspecified organism
[2019-03-10] MEDS: POTASSIUM CHLORIDE / WTR 10 MEQ/100 ML PLCT IV SCH ×4 (16:27→20:42)
[2019-03-10] MEDS: TAMSULOSIN HCL 0.4 MG CAP PO SCH (20:38)
[2019-03-11] MEDS: ALBUT/IPRATROP 3MG/0.5MG NEB 3 ML VIAL NEB SCH ×3 (07:16→19:00)
[2019-03-11] MEDS: APIXABAN 5 MG TABLET PO SCH ×2 (08:40→20:11)
[2019-03-11] MEDS: CETIRIZINE HCL 10 MG TABLET PO SCH (08:40)
[2019-03-11] MEDS: PANTOprazole 40 MG TAB PO SCH (08:40)
[2019-03-11] MEDS: CHOLECALCIFEROL 1,000 UNITS TAB PO SCH (08:40)
[2019-03-11] MEDS: DULOXETINE HCL 30 MG CAP PO SCH (08:40)
[2019-03-11] MEDS: METOPROLOL TARTRATE 25 MG TAB PO SCH ×2 (08:40→20:11)
[2019-03-11] MEDS: OMEGA-3 (PURIFIED FISH OIL) 1 GM CAP PO SCH (08:40)
[2019-03-11] MEDS: CEFEPIME 2,000 MG in SYRINGE 7.5 ML IV SCH ×2 (11:18→22:14)
--- NOTE | 2019-03-11 12:04 | Discharge Summary ---
Date of Service March 11, 2019 Admission HPI Per Admitting Provider 83 y/o male presented to the ED with generalized weakness and fatigue over previous 48-72 hours. reports that patient had fever once just prior to coming to ED. He was recently treated for pneumonia and UTI and completed antibiotic course. He has chronic SOB and has been having hematuria. He is on Eliquis for PE. Principal Diagnosis Healthcare associated pneumonia, multiple myeloma, generalized weakness, failure to thrive, acute metabolic encephalopathy Discharge Exam Constitutional average body habitus (sitting in bed, awake but minimally interactive); no acute distress Eyes + anicteric sclerae ENMT Mouth: + dry oral mucous membranes Neck trachea midline, no thyromegaly Respiratory normal respiratory effort Auscultation: lungs clear to auscultation bilaterally Cardiovascular Rate/Rhythm: regular rhythm (With ectopy) and + tachycardic (Mild) Heart Sounds: + murmur Extremities: no edema Chest (Breasts) Chest: normal inspection of chest Gastrointestinal (Abdomen) normal bowel sounds, soft, nontender, no hepatosplenomegaly Musculoskeletal Extremities: extremities normal to inspection; no cyanosis and no clubbing Skin no rashes, warm and dry Neurologic moves all extremities and + confused Motor/Sensory: no tremor Psychiatric Orientation: alert (But mildly drowsy) Affect: + flat affect Genitourinary Diallo in place with clear yellow urine Lymphatic no lymphedema Discharge Data Allergies Allergy/AdvReac Type Severity Reaction Status Date / Time adhesive tape Allergy Mild Rash Verified 03/06/19 23:43 No Known Drug Allergies Allergy Unknown NONE PER PT Verified 03/06/19 23:43 ethacrynic acid Allergy Rash Verified 03/06/19 23:43 furosemide Allergy Rash Verified 03/06/19 23:43 fentanyl AdvReac Intermediate rash and Verified 03/07/19 16:08 fatigue Consultations 03/07/19 00:19 ED Decision to Admit Stat 03/07/19 16:18 Consult Oncology Routine 03/09/19 11:33 Consult Palliative Care Routine Ordered Studies CXR Hospital Course (1) Pneumonia: Admitted with intermittent fevers at home, 37.9 here with tachycardia, tachypnea, worsening hypoxia, chest x-ray with left lower lobe infiltrate Recent admission 3 weeks ago to [facility] for upper lobe and lower lobe pneumonia as per report and treated with Augmentin for aspiration pneumonia Has been significantly declining over the last month since he came off hospice with his multiple myeloma and recurrent infections Improved from a pneumonia standpoint, no fevers, remains hypoxic but is very minimally mobile and likely has atelectasis as well. Lungs sound clear today, no respiratory distress -Treating here for healthcare associated pneumonia, gram-negative pneumonia, initially treated for MRSA pneumonia -received IV Cefepime x 5 days initially received IV Vanco but then discontinued as MRSA swab negative--> finish out 2 more days of Levaquin at home -Continue scheduled duonebs while awake -Continue supplemental oxygen to keep pulse ox greater than 88-92%--> remains on 4LNC -at high risk for recurrence of PNA due to significant generalized weakness, risk of aspiration, poor mobility leading to atelectasis, and with underlying multiple myeloma -metabolic encephalopathy remains and is multifactorial in nature (2) Sepsis: With tachycardia which is now resolved after IV fluid resuscitation and antibiotics, and PRBC transfusion as well as adding metoprolol -leukocytosis is resolved, persistent hypoxia, with pneumonia on imaging -Treating with antibiotics, volume resuscitation as above UA contaminated, no UTI Blood cultures from admission with 1/2 sets growing coag negative staph-likely contaminant -DCd IV vancomycin -Follow repeat blood cultures-remain no growth to date (3) Acute metabolic encephalopathy: Is confused and lethargic on admission and continues-secondary to sepsis, pneumonia, hypoxia, hospital delirium; also was on Fentanyl patch inadvertently just the first day of admission. Also received Benadryl for rash and one dose of Seroquel this admission for agitation and pulling at lines Not much improved on day of discharge--> going home with hospice - treating sepsis and pneumonia as above -Also has a lot of psychiatric issues including anxiety and likely depression contributing - is now ready to bring him home with hospice (4) Acute and chronic respiratory failure with hypoxia: On chronic O2 at home but up to 4 L here which is more than his usual -Secondary to pneumonia, immobility, atelectasis -Treating pneumonia as above ABG here consistent with respiratory alkalosis-no BiPAP needed -Needs mobilization but is profoundly weak as above -continue O2 4LNC (5) Anemia: Has chronic anemia secondary to chronic disease and history of chemotherapy, No obvious acute bleeding. May have trended down secondary to mild hematuria. 1 unit of PRBCs given in the ED and hemoglobin improved to 7.9 initially Hemoglobin then down to 7.4 again-transfused 1 unit PRBCs on 03/08 Hemoglobin on 03/09 again only 7.6 despite transfusion the day before -Transfused another unit of PRBCs on 03/09 and now hemoglobin up appropriately to 8.6 -will likely trend downward again in future-advised to discuss rechecking labs with oncology vs hospice if desires in future if condition improves (6) Chronic diastolic CHF (congestive heart failure): Compensated -no longer on diuretics as per recent cardiology note -Control blood pressure and heart rate control -Caution with repeated blood transfusions for volume overload -Could give Bumex if needed-I do not believe he truly had an allergic reaction to Lasix before-I believe it was from the fentanyl patches previously that caused the rash (7) Multiple myeloma: No longer receiving treatment-previously received Revlimid and Velcade, Decadron-was thought to have allergic reaction and also ended up hospitalized for a prolonged stay and was very debilitated-went home with hospice in 12/2018 His hospice was then revoked by his as he sought treatment for pneumonia and had hospitalization at [facility] at the end of January 2019 He has also had UTI secondary to Diallo catheter was initially interested in restarting treatment for this-met with oncology here-offered to start prednisone and melphalan as an outpatient once pneumonia is treated if he recovers from this acute illness -Follow-up with oncology as an outpatient after discharge if he improves at home on hospice and chooses to revoke hospice -I do not think he would tolerate any future treatment very well and this was discussed with the on multiple occasions-had multiple talks about goals of care moving forward (8) CKD (chronic kidney disease) stage 2, GFR 60-89 ml/min: Creatinine stable and around baseline at 1.03 -Avoid nephrotoxins -Renally dose medications (9) Pulmonary embolism: Continues with Eliquis 5 mg p.o. twice daily-diagnosed in the last 6 months (10) Tachycardia: Sinus tachycardia with frequent PACs here on ECG-sounds very irregular on examination Improved now with gentle IV fluids PRBC transfusions. as well as adding on metoprolol -continue metoprolol 25 mg p.o. twice daily (11) Fracture of rib: New eighth rib fracture noted on x-ray -Pain control as needed (12) Acute hyponatremia: Sodium 131 on admission likely secondary to dehydration, sepsis Hydrated with normal saline 2 L in the ER now sodium improved to 136 (13) Rash: Started on 03/07 on torso and arms, neck, is pruritic, similar to previous when he was on fentanyl patches last admission here -Discontinued fentanyl patch and now greatly improved/resolved -no need to continue on Zyrtec 10 mg daily -Discontinued Benadryl for altered mental status (14) Urinary retention: Present since December, no longer on tamsulosin which was started here in December Has not had any outpatient follow-up with urology as an outpatient Likely secondary to BPH, relative immobility, issues previously with constipation -Restarted tamsulosin 0.4 mg at bedtime -Has an appointment as an outpatient next Tuesday with urology if desires to keep this appt while on Hospice -Maintain Diallo catheter for now and can do trial of void in the urology office, but most likely will remain with Diallo catheter (15) Anxiety: Worsened by being in the hospital, likely with depression to -Continue duloxetine 30 mg once daily and consider increasing dose, lorazepam is no longer being used at home- tried it once or twice and created way too much drowsiness (16) Bacteremia: 1/ blood cultures as above with coagulase-negative Staphylococcus-likely contaminant -Discontined vancomycin as above -Follow-up on repeat blood cultures to ensure stability-no growth to date >48 hrs (17) Hypokalemia: Potassium 3.0and replaced IV He is not able to swallow the potassium pills Due to poor p.o. intake No need to repeat labs, going home on hospice (18) DVT prophylaxis: Eliquis Disposition-after many length discussions with , Palliative Care involvement, and Case Management, decision made to bring pt home on Hospice today. If he does improve again to the point where wants him to have future chemotherapy, she could revoke Hospice, although she does state that if he had another infection, she likely would not want to bring him back to the hospital as he does not like being here and would not necessarily give him good quality of life or comfort. Dc to home with HOSPICE today Total Time Total Time Spent Total Time Spent (In Minutes): 45 min Total Time Includes: Examination of the Patient, Discharge Planning and Medication Reconciliation Discharge Plan Discharge Items Patient Disposition: Hospice - Home Reason For Visit: LEFT PNEUMONIA, ANEMIA Discharge Diagnosis: Pneumonia, Multiple myeloma Condition on Discharge: Fair Activity: As commented below Bathing: No limitations Exercise/Sports: Rest today and As tolerated Non-emergency contact: Primary Care Provider Call non-emergency contact if: you have any medication questions, your symptoms worsen, your pain is not controlled, your pain is worsening, your pain is unusual for you and your pain is concerning for you Follow-up/Referrals: Robert Damon MD [Primary Care Provider] - Diet: Regular Diet Comment: as tolerated Addtl Attending Provider Instructions: You were admitted with pneumonia and treated with antibiotics. You can finish out 2 more days of oral antibiotics with Levaquin. Because of your frail state and multiple myeloma, poor appetite, and significant generalized weakness, you and your have made the decision to go home on hospice. Hospice can provide a great amount of support and comfort to you for your condition. You can continue your oral medications if able to swallow, but if you are having difficulty swallowing the pills, it is OK to not take them. If you are having pain or significant anxiety at home, the Hospice agency can talk to you about treating you with medications that can help these symptoms. I wish you the best and will keep you all in my thoughts! -Dr. Tomlin Pending Studies at Discharge: Yes (Final blood culture result) Stand-Alone Forms: [facility] Medications and DC Order Prescriptions: New tamsulosin 0.4 mg Capsule 0.4 mg PO HS Qty: 30 RF: 0 pantoprazole 40 mg Tablet,Delayed Release (Dr/Ec) 40 mg PO QAM Qty: 30 RF: 0 metoprolol tartrate 25 mg Tablet 25 mg PO BID Qty: 60 RF: 0 levofloxacin [Levaquin] 750 mg tablet 750 mg PO DAILY Qty: 2 RF: 0 Continued (DME) Oxygen Home Liters Per Minute See Rx Instructions .ROUTE .MEDSUPPLY Qty: 1 RF: 2 duloxetine [Cymbalta] 30 mg capsule,delayed release(DR/EC) 30 mg PO DAILY Qty: 30 RF: 0 acetaminophen [Tylenol] 325 mg capsule 325 mg PO Q6H PRN (Reason: Pain) RF: 0 ipratropium-albuterol 0.5 mg-3 mg(2.5 mg base)/3 mL solution for nebulization 3 ml INH QID RF: 0 cholecalciferol (vitamin D3) 1,000 unit/drop drops 1,000 units PO DAILY RF: 0 Eliquis 5 mg tablet 5 mg PO BID RF: 0 Discontinued fentanyl 37.5 mcg/hour patch 72 hour 1 patch TD Q72H RF: 0 omega-3 fatty acids 1,000 mg capsule 1,000 mg PO DAILY RF: 0 magnesium hydroxide 400 mg (170 mg magnesium) tablet,chewable 400 mg PO DAILY RF: 0 Adult Probiotic 3 billion cell capsule 3,000 mmu cells PO DAILY RF: 0 lorazepam 0.5 mg tablet 0.5 mg PO HS PRN (Reason: insomnia) RF: 0 Discharge Orders: Discharge Order (Routine); Ordered 03/11/19 Ordered By: Cherelle Tomlin Admission Data Admit Date/Time: 03/07/19 01:25 Attending Provider: Cherelle Tomlin Admit Provider: Dustin Arias Primary Care Provider: Robert Damon Other Providers: Dustin Arias ; Wang Galan V ; [facility] ; Kamryn Bella ; [facility] ; Francine Stone [facility]
[2019-03-11] MEDS: TAMSULOSIN HCL 0.4 MG CAP PO SCH (20:11)
--- NOTE | 2019-03-11 21:05 | Hospitalist Progress Note ---
Date of Service March 11, 2019 Assessment & Plan (1) Pneumonia: Admitted with intermittent fevers at home, 37.9 here with tachycardia, tachypnea, worsening hypoxia, chest x-ray with left lower lobe infiltrate Recent admission 3 weeks ago to [facility] for upper lobe and lower lobe pneumonia as per report and treated with Augmentin for aspiration pneumonia Has been significantly declining over the last month since he came off hospice with his multiple myeloma and recurrent infections Improved from a pneumonia standpoint, no fevers, remains hypoxic but is very minimally mobile and likely has atelectasis as well. Lungs sound clear today, no respiratory distress -Treating here for healthcare associated pneumonia, gram-negative pneumonia, initially treated for MRSA pneumonia -received IV Cefepime x 5 days initially received IV Vanco but then discontinued as MRSA swab negative--> finish out 2 more days of Levaquin at home -Continue scheduled duonebs while awake -Continue supplemental oxygen to keep pulse ox greater than 88-92%--> remains on 4LNC -at high risk for recurrence of PNA due to significant generalized weakness, risk of aspiration, poor mobility leading to atelectasis, and with underlying multiple myeloma -metabolic encephalopathy remains and is multifactorial in nature (2) Sepsis: With tachycardia which is now resolved after IV fluid resuscitation and antibiotics, and PRBC transfusion as well as adding metoprolol -leukocytosis is resolved, persistent hypoxia, with pneumonia on imaging -Treating with antibiotics, volume resuscitation as above UA contaminated, no UTI Blood cultures from admission with 1/2 sets growing coag negative staph-likely contaminant -DCd IV vancomycin -Follow repeat blood cultures-remain no growth to date (3) Acute metabolic encephalopathy: Is confused and lethargic on admission and continues-secondary to sepsis, pneumonia, hypoxia, hospital delirium; also was on Fentanyl patch inadvertently just the first day of admission. Also received Benadryl for rash and one dose of Seroquel this admission for agitation and pulling at lines Not much improved on day of discharge--> going home with hospice - treating sepsis and pneumonia as above -Also has a lot of psychiatric issues including anxiety and likely depression contributing - is now ready to bring him home with hospice (4) Acute and chronic respiratory failure with hypoxia: On chronic O2 at home but up to 4 L here which is more than his usual -Secondary to pneumonia, immobility, atelectasis -Treating pneumonia as above ABG here consistent with respiratory alkalosis-no BiPAP needed -Needs mobilization but is profoundly weak as above -continue O2 4LNC (5) Anemia: Has chronic anemia secondary to chronic disease and history of chemotherapy, No obvious acute bleeding. May have trended down secondary to mild hematuria. 1 unit of PRBCs given in the ED and hemoglobin improved to 7.9 initially Hemoglobin then down to 7.4 again-transfused 1 unit PRBCs on 03/08 Hemoglobin on 03/09 again only 7.6 despite transfusion the day before -Transfused another unit of PRBCs on 03/09 and now hemoglobin up appropriately to 8.6 -will likely trend downward again in future-advised to discuss rechecking labs with oncology vs hospice if desires in future if condition improves (6) Chronic diastolic CHF (congestive heart failure): Compensated -no longer on diuretics as per recent cardiology note -Control blood pressure and heart rate control -Caution with repeated blood transfusions for volume overload -Could give Bumex if needed-I do not believe he truly had an allergic reaction to Lasix before-I believe it was from the fentanyl patches previously that caused the rash (7) Multiple myeloma: No longer receiving treatment-previously received Revlimid and Velcade, Decadron-was thought to have allergic reaction and also ended up hospitalized for a prolonged stay and was very debilitated-went home with hospice in 12/2018 His hospice was then revoked by his as he sought treatment for pneumonia and had hospitalization at [facility] at the end of January 2019 He has also had UTI secondary to Diallo catheter was initially interested in restarting treatment for this-met with oncology here-offered to start prednisone and melphalan as an outpatient once pneumonia is treated if he recovers from this acute illness -Follow-up with oncology as an outpatient after discharge if he improves at home on hospice and chooses to revoke hospice -I do not think he would tolerate any future treatment very well and this was discussed with the on multiple occasions-had multiple talks about goals of care moving forward (8) CKD (chronic kidney disease) stage 2, GFR 60-89 ml/min: Creatinine stable and around baseline at 1.03 -Avoid nephrotoxins -Renally dose medications (9) Pulmonary embolism: Continues with Eliquis 5 mg p.o. twice daily-diagnosed in the last 6 months (10) Tachycardia: Sinus tachycardia with frequent PACs here on ECG-sounds very irregular on examination Improved now with gentle IV fluids PRBC transfusions. as well as adding on metoprolol -continue metoprolol 25 mg p.o. twice daily (11) Fracture of rib: New eighth rib fracture noted on x-ray -Pain control as needed (12) Acute hyponatremia: Sodium 131 on admission likely secondary to dehydration, sepsis Hydrated with normal saline 2 L in the ER now sodium improved to 136 (13) Rash: Started on 03/07 on torso and arms, neck, is pruritic, similar to previous when he was on fentanyl patches last admission here -Discontinued fentanyl patch and now greatly improved/resolved -no need to continue on Zyrtec 10 mg daily -Discontinued Benadryl for altered mental status (14) Urinary retention: Present since December, no longer on tamsulosin which was started here in December Has not had any outpatient follow-up with urology as an outpatient Likely secondary to BPH, relative immobility, issues previously with constipation -Restarted tamsulosin 0.4 mg at bedtime -Has an appointment as an outpatient next Tuesday with urology if desires to keep this appt while on Hospice -Maintain Diallo catheter for now and can do trial of void in the urology office, but most likely will remain with Diallo catheter (15) Anxiety: Worsened by being in the hospital, likely with depression to -Continue duloxetine 30 mg once daily and consider increasing dose, lorazepam is no longer being used at home- tried it once or twice and created way too much drowsiness (16) Bacteremia: 1/2 blood cultures as above with coagulase-negative Staphylococcus-likely contaminant -Discontined vancomycin as above -Follow-up on repeat blood cultures to ensure stability-no growth to date >48 hrs (17) Hypokalemia: Potassium 3.0and replaced IV He is not able to swallow the potassium pills Due to poor p.o. intake No need to repeat labs, going home on hospice (18) DVT prophylaxis: Eliquis Disposition-after many length discussions with , Palliative Care involvement, and Case Management, decision made to bring pt home on Hospice today. If he does improve again to the point where wants him to have future chemotherapy, she could revoke Hospice, although she does state that if he had another infection, she likely would not want to bring him back to the hospital as he does not like being here and would not necessarily give him good quality of life or comfort. Dc to home with HOSPICE today was planned but then transportation was unable to be arranged-he will stay till Tuesday and plan for discharge to home with hospice on Tuesday Subjective Patient remains confused, lethargic although he did wake up and eat a little bit of breakfast today. Still having difficulty with swallowing. He cannot tell me anything else. His is ready to bring him home with hospice today. His discharge was all set and then transportation could not be arranged so he will stay another night. Review of Systems Review of Systems: Unobtainable due to cognitive status Physical Exam Constitutional: average body habitus (sitting in bed, awake but minimally interactive); no acute distress Eyes: + anicteric sclerae ENMT: Mouth: + dry oral mucous membranes Neck: trachea midline, no thyromegaly Respiratory: normal respiratory effort Auscultation: lungs clear to auscultation bilaterally Cardiovascular: RRR, no murmur, no edema Rate/Rhythm: regular rhythm (With ectopy) Heart Sounds: + murmur Extremities: no edema Chest (Breasts): Chest: normal inspection of chest Gastrointestinal (Abdomen): normal bowel sounds, soft, nontender, no hepatosplenomegaly Musculoskeletal: Extremities: extremities normal to inspection; no cyanosis and no clubbing Skin: no rashes, warm and dry Neurologic: moves all extremities and + confused Motor/Sensory: no tremor Psychiatric: Orientation: alert (But mildly drowsy) Affect: + flat affect Lymphatic: no lymphedema Results & Data Vital Signs (Past 12 Hours) Vital Signs Temp Pulse Pulse Resp BP BP Pulse Ox 03/11/19 19:00 79 20 91 03/11/19 14:54 36.9 C 85 20 131/71 93 03/11/19 13:28 104 H 20 92 03/11/19 12:24 36.6 C 73 95 H 18 143/80 H 147/73 H 89 L Laboratory Results No labs today PG Care Time/CCT Total # of Minutes Spent Total Time Spent with Patient: Total time spent is greater than 50% in coordination of care (as documented) at patient's floor/unit and/or counseling patient: (1) Pneumonia Laterality: left Lung location: lower lobe of lung Pneumonia type: due to unspecified organism Qualified Code(s): J18.9 - Pneumonia, unspecified organism (2) Sepsis Sepsis acute organ dysfunction status: unspecified Sepsis type: sepsis due to unspecified organism Qualified Code(s): A41.9 - Sepsis, unspecified organism (3) Anemia Anemia type: unspecified type Qualified Code(s): D64.9 - Anemia, unspecified (4) Pulmonary embolism Acute cor pulmonale presence: unspecified Chronicity: acute Pulmonary embol ism type: unspecified Qualified Code(s): I26.99 - Other pulmonary embolism without acute cor pulmonale (5) Fracture of rib Encounter type: initial encounter Fracture type: closed Laterality: left Rib fracture type: single rib Qualified Code(s): S22.32XA - Fracture of one rib, left side, initial encounter for closed fracture
[2019-03-12] MEDS: ALBUT/IPRATROP 3MG/0.5MG NEB 3 ML VIAL NEB SCH (06:50)
[2019-03-12] MEDS: DULOXETINE HCL 30 MG CAP PO SCH (07:41)
[2019-03-12] MEDS: CHOLECALCIFEROL 1,000 UNITS TAB PO SCH (07:41)
[2019-03-12] MEDS: METOPROLOL TARTRATE 25 MG TAB PO SCH (07:41)
[2019-03-12] MEDS: OMEGA-3 (PURIFIED FISH OIL) 1 GM CAP PO SCH (07:41)
[2019-03-12] MEDS: CETIRIZINE HCL 10 MG TABLET PO SCH (07:41)
[2019-03-12] MEDS: APIXABAN 5 MG TABLET PO SCH (07:41)
[2019-03-12] MEDS: PANTOprazole 40 MG TAB PO SCH (07:42)
[2019-03-12 07:44] VITALS: BP 134/78; TEMP 98.6; O2SAT 90
--- NOTE | 2019-03-12 09:54 | Discharge Summary ---
Date of Service March 12, 2019 Admission HPI Per Admitting Provider 83 y/o male presented to the ED with generalized weakness and fatigue over previous 48-72 hours. reports that patient had fever once just prior to coming to ED. He was recently treated for pneumonia and UTI and completed antibiotic course. He has chronic SOB and has been having hematuria. He is on Eliquis for PE. Principal Diagnosis HCAP; Multiple Myeloma; Failure to Thrive; Acute Metabolic Encephalopathy Discharge Exam Constitutional + frail appearing; no acute distress Eyes + anicteric sclerae ENMT Mouth: + dry oral mucous membranes Neck trachea midline Respiratory normal respiratory effort (shallow breaths) Auscultation: lungs clear to auscultation bilaterally and + diminished lung soun ds Cardiovascular Rate/Rhythm: regular rate and regular rhythm (intermittent ectopy) Heart Sounds: + murmur Gastrointestinal (Abdomen) Inspection/Auscultation: normal bowel sounds Percussion/Palpation: abdomen soft; abdomen nontender Musculoskeletal Head/Neck/Chest: normocephalic and head atraumatic Skin no rashes, warm and dry Neurologic moves all extremities, awake and + confused Motor/Sensory: no tremor answers simple questions with soft voice but words understandable but minimal eye contact and largely staring off Psychiatric Orientation: alert Eye Contact: + fair eye contact Affect: + flat affect Genitourinary + Diallo Discharge Data Allergies Allergy/AdvReac Type Severity Reaction Status Date / Time adhesive tape Allergy Mild Rash Verified 03/06/19 23:43 No Known Drug Allergies Allergy Unknown NONE PER PT Verified 03/06/19 23:43 ethacrynic acid Allergy Rash Verified 03/06/19 23:43 furosemide Allergy Rash Verified 03/06/19 23:43 fentanyl AdvReac Intermediate rash and Verified 03/07/19 16:08 fatigue Consultations 03/07/19 00:19 ED Decision to Admit Stat 03/07/19 16:18 Consult Oncology Routine 03/09/19 11:33 Consult Palliative Care Routine Hospital Course (1) Pneumonia: - HCAP - On admission - fevers at home (37.9 here), tachycardia, tachypnea, worsening hypoxia, CXR with LLL infiltrate -- Recent admission x 3 weeks ago at [facility] for upper and lower lobe PNA - treated with Augmentin for aspiration pneumonia - Evidence of failure to thrive - declining over last month due to multiple infections and multiple myeloma - Pneumonia symptoms improved - afebrile; hypoxia remains and currently on 3-4 L NC - O2 goal 88-92% - Treated with Cefepime x 5 days and Vanc initially - MRSA swab negative - will complete Levaquin course x 2 more days - High risk for recurrent PNA due to generalized weakness, risk of aspiration, poor mobility leading to atelectasis, and underlying multiple myeloma - Metabolic encephalopathy remains - multifactorial in nature (2) Sepsis: - RESOLVED - Treatment as above; BCx 1/2 sets with coag neg staph - likely contaminant - Repeat BCx - NGTD (3) Acute metabolic encephalopathy: - STABLE - Is alert today but minimally interactive - fair eye contact; answers simple questions - appears rather weak -- multifactorial - sepsis, pneumonia, hypoxia, delirium, medications, anxiety/depression (4) Acute and chronic respiratory failure with hypoxia: - Chronic O2 - requiring about 3-4 L currently - ABG consistent with resp alkalosis - no BiPAP needed - Titration based on comfort and needs with hospice (5) Anemia: - CHRONIC - Required transfused of PRBCs x 3 due to slow response - Likely will trend downward again - was advised to discuss rechecking labs if his condition improves - graduates hospice (6) Chronic diastolic CHF (congestive heart failure): - COMPENSATED - No longer on diuretics - If diuretics would be needed in future - unlikely allergy was to diuretics as it appears it may have been more the Fentanyl patches causing his rash as the rash resumed this admission when a patch was placed however he is no longer on these (7) Multiple myeloma: - No longer receiving treatment - previously on Revlimid and Velcade - was D/Cd in December 2018 on hospice but was revoked recently - Family met with Oncology - could consider prednisone and Melphalan as outpatient once pneumonia is treated/recovers from acute illness - Can F/U with oncology if he improves at home and revokes hospice - Given current state it is unlikely he would tolerate further treatment well (8) CKD (chronic kidney disease) stage 2, GFR 60-89 ml/min: - STABLE - baseline appears 1.03 (9) Pulmonary embolism: - Continue Eliquis 5 mg daily - diagnosed in last 6 months -- Likely provoked in setting of cancer/immobility (10) Tachycardia: - Sinus with frequent PACs; some irregularity on exam - Improved with Metoprolol 25 mg BID - will continue (11) Fracture of rib: - New 8th rib fx on XR - pain control (12) Acute hyponatremia: - Sodium 131 on admission likely secondary to dehydration, sepsis; improved with hydration (13) Rash: - Started on 03/07 on torso and arms, neck, is pruritic, similar to previ ous when he was on fentanyl patches last admission here - Discontinued fentanyl patch and now greatly improved/resolved - No need to continue on Zyrtec 10 mg daily/Benadryl (14) Urinary retention: - Present since December - - likely this is due to BPH, immobility, constipation - Continue Flomax; has an outpatient appt with Urology - could do TOV or cont inue Diallo while on hospice services (15) Anxiety: - Worsened by hospitalization; underlying depression too - Duloxetine 30 mg daily and could be increased; benzodiazepines not being used due to lethargy (16) Bacteremia: - 1/2 blood cultures as above with coagulase-negative Staphylococcus- likely contaminant with new cx with NGTD (17) DVT prophylaxis: Eliquis Disposition: Home with hospice services; if patient would improve again like previously can F/U with Oncology to discuss multiple myeloma treatment Total Time Total Time Spent Total Time Spent (In Minutes): Greater than 30 minutes Discharge Plan Discharge Items Patient Disposition: Hospice - Home Reason For Visit: LEFT PNEUMONIA, ANEMIA Discharge Diagnosis: Pneumonia, Multiple myeloma Condition on Discharge: Fair Activity: As commented below Bathing: No limitations Exercise/Sports: Rest today and As tolerated Non-emergency contact: Primary Care Provider Call non-emergency contact if: you have any medication questions, your symptoms worsen, your pain is not controlled, your pain is worsening, your pain is unusual for you and your pain is concerning for you Follow-up/Referrals: Robert Damon MD [Primary Care Provider] - Diet: Regular Diet Comment: as tolerated Addtl Attending Provider Instructions: You were admitted with pneumonia and treated with antibiotics. You can finish out 2 more days of oral antibiotics with Levaquin. Because of your frail state and multiple myeloma, poor appetite, and significant generalized weakness, you and your have made the decision to go home on hospice. Hospice can provide a great amount of support and comfort to you for your condition. You can continue your oral medications if able to swallow, but if you are having difficulty swallowing the pills, it is OK to not take them. If you are having pain or significant anxiety at home, the Hospice agency can talk to you about treating you with medications that can help these symptoms. I wish you the best and will keep you all in my thoughts! -Dr. Tomlin Pending Studies at Discharge: Yes (Final blood culture result) Stand-Alone Forms: My [facility] Medications and DC Order Prescriptions: New tamsulosin 0.4 mg Capsule 0.4 mg PO HS Qty: 30 RF: 0 pantoprazole 40 mg Tablet,Delayed Release (Dr/Ec) 40 mg PO QAM Qty: 30 RF: 0 metoprolol tartrate 25 mg Tablet 25 mg PO BID Qty: 60 RF: 0 levofloxacin [Levaquin] 750 mg tablet 750 mg PO DAILY Qty: 2 RF: 0 morphine concentrate 100 mg/5 mL (20 mg/mL) solution 5 mg PO Q2H PRN (Reason: pain or breathlessness) Qty: 30 RF: 0 Continued (DME) Oxygen Home Liters Per Minute See Rx Instructions .ROUTE .MEDSUPPLY Qty: 1 RF: 2 duloxetine [Cymbalta] 30 mg capsule,delayed release(DR/EC) 30 mg PO DAILY Qty: 30 RF: 0 acetaminophen [Tylenol] 325 mg capsule 325 mg PO Q6H PRN (Reason: Pain) RF: 0 ipratropium-albuterol 0.5 mg-3 mg(2.5 mg base)/3 mL solution for nebulization 3 ml INH QID RF: 0 cholecalciferol (vitamin D3) 1,000 unit/drop drops 1,000 units PO DAILY RF: 0 Eliquis 5 mg tablet 5 mg PO BID RF: 0 Discontinued fentanyl 37.5 mcg/hour patch 72 hour 1 patch TD Q72H RF: 0 omega-3 fatty acids 1,000 mg capsule 1,000 mg PO DAILY RF: 0 magnesium hydroxide 400 mg (170 mg magnesium) tablet,chewable 400 mg PO DAILY RF: 0 Adult Probiotic 3 billion cell capsule 3,000 mmu cells PO DAILY RF: 0 lorazepam 0.5 mg tablet 0.5 mg PO HS PRN (Reason: insomnia) RF: 0 Discharge Orders: Discharge Order (Routine); Ordered 03/12/19 Ordered By: Mindy Stein Admission Data Admit Date/Time: 03/07/19 01:25 Attending Provider: Gio Garnett Admit Provider: Dustin Arias Primary Care Provider: Robert Damon Other Providers: Dustin Arias ; Wang Galan V ; [place] ; [facility] ; Francine Stone [facility] Other Interventions: Discharge Summary Assessment (RN) Last Done: 03/12/19 10:25 DC Date/Time DO NOT enter until pt leaves facility: 03/12/19 13:05 Supervising Physician Co-Signing Physician Notes Attending note: patient seen and examined with Mindy Stein PA-C. I agree with her discharge summary. I personally reviewed the labs and imaging findings. patient feeling well enough to go home, will resume hospice services at home - Recurrent pneumonia: complete course of Levaquin on discharge, breathing is improved, no fever high risk for recurrent pneumonia, plans to go on hospice - Multiple myeloma: on hospice in the past, revoked because he improved will now go back on hospice, experiencing failure to thrive, recurrent pneumonia will follow up with oncology if he improves at all
[2019-03-12 10:29] VITALS: PULSE 95
[2019-03-12] MEDS: CEFEPIME 2,000 MG in SYRINGE 7.5 ML IV SCH (11:33)
== END 2019-03-12 13:05 | disposition hospice, home (50) | DRG 871 ==
LOC: ED 22:08 → SUATTDRO 03-07 01:25 → 2W 03-07 01:25 → 4W 03-09 06:54